=== PATIENT | male | born 1950 | race Caucasian/White ===

== ENCOUNTER 2016-10-10 10:23 | Inpatient (IN) | payer MEDICAID ==
[~2016-10-10] VITALS: Ht 180.3 cm; Wt 93.7 kg
[2016-10-10 11:33] LABS: BASOPHILS 0.4 % (0-2); EOSINOPHILS 1.5 % (0-7); HEMATOCRIT 42.3 % (42.0-54.0); IMMATURE GRANULOCYTES 0.4 % (0-5); LYMPHOCYTES 14.8 % (15-50); MCH 31.4 pg (26.0-34.0); MCHC 35.5 g/dL (31.0-37.0); MCV 88.5 fL (80.0-100.0); MEAN PLATELET VOLUME 10.9 fL (7.4-10.4); MONOCYTES 7.9 % (2-11); PLATELET COUNT 143 10x3/uL (130-400); RBC 4.78 10x6/uL (4.20-6.10); RDW 12.2 % (11.5-14.5); WBC 5.5 10x3/uL (4.8-10.8)
[2016-10-10 11:57] LABS: KETONE - SERUM NEGATIVE (NEGATIVE)
[2016-10-10 11:59] LABS: APPEARANCE CLEAR (CLEAR); BILIRUBIN NEGATIVE (NEGATIVE); COLOR YELLOW (YELLOW); GLUCOSE 1000 mg/dL (NEGATIVE); KETONE NEGATIVE (NEGATIVE); LEUKOCYTE ESTERASE NEGATIVE (NEGATIVE); NITRITE NEGATIVE (NEGATIVE); PROTEIN 1+ mg/dL (NEGATIVE); SPECIFIC GRAVITY 1.015 (1.005-1.020); UROBILINOGEN NORMAL (NORMAL)
[2016-10-10 12:00] LABS: BACTERIA FEW /hpf (NONE SEEN); EPITHELIAL CELLS RARE /hpf (0-5); MUCUS <1+ /lpf (NONE SEEN)
[2016-10-10 12:06] LABS: ALBUMIN 3.5 g/dL (3.4-5.0); ALKALINE PHOSPHATASE 136 U/L (46-116); ALT (SGPT) 18 U/L (10-68); BILIRUBIN - TOTAL 0.54 mg/dL (0.2-1.3); CALC OSMOLALITY 282 mosm/kg (275-300); CHLORIDE - SERUM 98 mmol/L (98-107); CREATININE - SERUM 1.2 mg/dL (0.6-1.3); POTASSIUM - SERUM 4.2 mmol/L (3.5-5.1); PROTEIN - SERUM 7.9 g/dL (6.4-8.2); SODIUM 133 mmol/L (136-145); UREA NITROGEN 11 mg/dL (7-18); eGFR NON AFRICAN AMERICAN 65 mL/min (90-120)
[2016-10-10 12:07] LABS: GLUCOSE 423 mg/dL (74-106)
--- NOTE | 2016-10-10 21:37 | NUR ---
PT ARRIVED ON FLOOR AT THIS TIME. NS HUNG AT 50ML/HOUR. DENIES NEEDS AT THIS TIME. WILL CONTINUE TO MONITOR
[2016-10-10] MEDS ORDERED: TRUVADA 200 MG1 EACH PO (23:15)
[2016-10-10] MEDS ORDERED: TIVICAY50 MG PO (23:16)
[2016-10-11] VITALS: BP 146/78
[2016-10-11 04:00] VITALS: BP 150/97
--- NOTE | 2016-10-11 05:24 | NUR ---
ASSUMMING CARE OF PATIENT. PATIENT IS APPEARING TO BE ALSEEP WITH EVEN RESP, NON LABORED BREATHING. NS INFUSING TO LEFT FA WITHOUT PROBLEMS. WILL CONTINUE TO MONITOR.
--- NOTE | 2016-10-11 07:44 | NUR ---
AM ROUNDING DONE WITH 4 U OF HUMALOG INSULIN GIVEN FOR POC GLUCOSE OF 194. LAYING ON LEFT SIDE. ON HEART MONITOR SHOWING SR, HR 64. IV FLUIDS OF NS INFUSING TO LEFT FA AT 50 CC/HR. WILL CPOC.
[2016-10-11 08:04] VITALS: BP 172/105
[2016-10-11 10:54] VITALS: Ht 180.3 cm; Wt 93.7 kg
[2016-10-11 13:02] VITALS: BP 145/76
--- NOTE | 2016-10-11 15:04 | NUR ---
PATIENT DOES NOT WANT TO WEAR SCD'S HE IS UP AND DOWN TO THE RESTROOM.
[2016-10-11 16:26] VITALS: BP 134/91
--- NOTE | 2016-10-11 17:13 | NUR ---
NEW IV FLUIDS HUNG, DENIES ANY NEEDS AT PRESENT TIME. WILL CPOC.
--- NOTE | 2016-10-11 19:20 | NUR ---
RECEIVED REPORT, WILL ASSUME CARE OF PT, PT IS WATCHING TV AND EATING A SANDWICH, DENIES ANY NEEDS AT THIS TIME, BED IS LOW, SRX-2, CALL LIGHT IN REACH, WILL CONTINUE PLAN OF CARE
[2016-10-11 20:00] VITALS: BP 153/73
[2016-10-12] VITALS: BP 142/72
--- NOTE | 2016-10-12 02:09 | NUR ---
ASSESSMENT COMPLETE, TELEMTRY-SR, PT SLEEPING, BED IS LOW, SRX2, CALL LIGHT IN REACH, WILL CONTINUE PLAN OF CARE
[2016-10-12 04:00] VITALS: BP 162/93
[2016-10-12 05:16] LABS: BASOPHILS 0.4 % (0-2); EOSINOPHILS 1.8 % (0-7); HEMATOCRIT 42.2 % (42.0-54.0); HEMOGLOBIN 14.5 g/dL (13.5-17.5); IMMATURE GRANULOCYTES 0.2 % (0-5); LYMPHOCYTES 25.9 % (15-50); MCH 30.7 pg (26.0-34.0); MCHC 34.4 g/dL (31.0-37.0); MCV 89.2 fL (80.0-100.0); MONOCYTES 7.2 % (2-11); NEUTROPHILS 64.5 % (40-80); PLATELET COUNT 142 10x3/uL (130-400); RBC 4.73 10x6/uL (4.20-6.10); RDW 12.4 % (11.5-14.5); WBC 5.5 10x3/uL (4.8-10.8)
[2016-10-12 05:33] LABS: ALBUMIN 2.9 g/dL (3.4-5.0); ALKALINE PHOSPHATASE 111 U/L (46-116); ALT (SGPT) 17 U/L (10-68); BILIRUBIN - TOTAL 0.54 mg/dL (0.2-1.3); CALCIUM 8.3 mg/dL (8.5-10.1); CARBON DIOXIDE 26.5 mmol/L (21.0-32.0); CHLORIDE - SERUM 104 mmol/L (98-107); POTASSIUM - SERUM 3.6 mmol/L (3.5-5.1); PROTEIN - SERUM 6.8 g/dL (6.4-8.2); SODIUM 138 mmol/L (136-145); UREA NITROGEN 13 mg/dL (7-18); eGFR NON AFRICAN AMERICAN 80 mL/min (90-120)
[2016-10-12 05:36] LABS: CALC OSMOLALITY 279 mosm/kg (275-300); GLUCOSE 174 mg/dL (74-106)
--- NOTE | 2016-10-12 07:44 | NUR ---
AM ROUNDING DONE WITH PATIENT LAYING ON RIGHT SIDE. DENIES NEEDS AT PRESENT TIME. WILL COVER POC GLUCOSE WHEN BREAKFAST TRAYS HERE. ON HEART MONITOR SHOWING SR, HR 65. LEFT FA SEEN WITH NS INFUSING AT 50 CC/HR. WILL CPOC.
[2016-10-12 08:13] VITALS: BP 166/77
--- NOTE | 2016-10-12 11:44 | NUR ---
1125-UP TO SHOWER. DENIES NEEDS AT PRESENT TIME.
[2016-10-12 12:01] VITALS: BP 151/71
[2016-10-12 16:01] VITALS: BP 136/81
--- NOTE | 2016-10-12 16:44 | NUR ---
POC GLUCOSE WITH RESULTS OF 107. NO INSULIN GIVEN PER SLIDING SCALE.
--- NOTE | 2016-10-12 19:56 | NUR ---
RESUMED CARE OF PT, LYING IN BED RESPIRATIONS EVEN AND UNLABORED ON ROOM AIR. 80 SR WITH PACS ON TELEMETRY. LEFT FOREARM INFUSING NS @ 50. NO NEEDS VOICED AT THIS TIME, WILL CONTINUE TO MONITOR. SEE NURSE ASSESSMENT.
[2016-10-12 20:00] VITALS: BP 140/66
[2016-10-13] VITALS: BP 146/72
--- NOTE | 2016-10-13 01:10 | NUR ---
LYING IN BED WITH EYES CLOSED, WILL CONTINUE TO MONITOR.
[2016-10-13 04:00] VITALS: BP 169/89
[2016-10-13 04:42] LABS: BASOPHILS 0.5 % (0-2); EOSINOPHILS 2.3 % (0-7); HEMATOCRIT 41.4 % (42.0-54.0); HEMOGLOBIN 14.6 g/dL (13.5-17.5); IMMATURE GRANULOCYTES 0.3 % (0-5); LYMPHOCYTES 26.7 % (15-50); MCH 31.1 pg (26.0-34.0); MCHC 35.3 g/dL (31.0-37.0); MCV 88.3 fL (80.0-100.0); MEAN PLATELET VOLUME 10.7 fL (7.4-10.4); MONOCYTES 7.1 % (2-11); NEUTROPHILS 63.1 % (40-80); PLATELET COUNT 145 10x3/uL (130-400); RBC 4.69 10x6/uL (4.20-6.10); RDW 12.5 % (11.5-14.5); WBC 5.8 10x3/uL (4.8-10.8)
[2016-10-13 05:22] LABS: ALBUMIN 2.9 g/dL (3.4-5.0); ALKALINE PHOSPHATASE 102 U/L (46-116); ALT (SGPT) 18 U/L (10-68); CALC OSMOLALITY 277 mosm/kg (275-300); CALCIUM 8.3 mg/dL (8.5-10.1); CARBON DIOXIDE 26.4 mmol/L (21.0-32.0); CHLORIDE - SERUM 103 mmol/L (98-107); CREATININE - SERUM 0.9 mg/dL (0.6-1.3); GLUCOSE 130 mg/dL (74-106); POTASSIUM - SERUM 3.6 mmol/L (3.5-5.1); PROTEIN - SERUM 6.7 g/dL (6.4-8.2); SODIUM 138 mmol/L (136-145); UREA NITROGEN 12 mg/dL (7-18); eGFR NON AFRICAN AMERICAN 90 mL/min (90-120)
--- NOTE | 2016-10-13 06:41 | NUR ---
NO CHANGES FROM PREVIOUS ASSESSMENT. CALL LIGHT IN REACH. WILL CONTINUE TO MONITOR.
--- NOTE | 2016-10-13 07:18 | NUR ---
AM ROUNDS- PT IN BED, WITH EYES CLOSED. LT FA IV, INFSUING NS AT 50CC/HR. PT ON RA, RESP EVEN AND UNLABORED. BED LOW AND WHEELS LOCKED, BEDSIDE RAILS X2. CALL LIGHT IN REACH, NAD NOTED, WILL CONTINUE TO MONITOR.
--- NOTE | 2016-10-13 07:57 | NUR ---
AM MEDS GIVEN, PT IN BED, DENIES ANY NEEDS AT THIS TIME. CALL LIGHT IN REACH, NAD NOTED, WILL CONTINUE TO MONITOR/
[2016-10-13 09:30] VITALS: BP 168/87
[2016-10-13] MEDS ORDERED: GLUCOPHAGE500 MG PO (10:47)
--- NOTE | 2016-10-13 11:58 | NUR ---
BLOOD SUGAR OF 284, 10UNITS OF HUMALOG GIVEN PER S/S. PT IN BED, DENIES ANY NEEDS AT THIS TIME. CALL LIGHT IN REACH, NAD NOTED, WILL CONTINUE TO MONITOR.
[2016-10-13 12:12] VITALS: BP 150/69
--- NOTE | 2016-10-13 16:20 | NUR ---
BLOOD SUGAR OF 122, NO COVERAGE NEEDED PER S/S.
[2016-10-13 16:37] VITALS: BP 144/87
--- NOTE | 2016-10-13 17:03 | NUR ---
PROVIDED VERBAL AND WRITTEN D/C INSTURCTIONS TO PT, WHO VERBALIZED UNDERSTANDING REGARING TEACHING. D/C LT FA IV, TIP INTACT. PT WILL NOTIFY NURSE OR COMPUTER FORENSICS TECHNICIAN WHEN READY FOR WHEELCHAIR. NAD NOTED, WILL CONTINUE TO MONITOR.
--- NOTE | 2016-10-13 17:28 | NUR ---
PT LEFT UNIT VIA WHEELCHAIR, ACCOMPANIED BY FAMILY,NAD NOTED.
--- NOTE | 2016-10-13 18:10 | NUR ---
Patient Name: CHIDI SHERMAN Admission Status: ER Accout number: [id number] Admission Date: 10-12-2016 : 1950 Admission Diagnosis: Attending: NONA Current LOS: 1 Anticipated DC Date: 10-13-2016 Planned Disposition: Home Primary Insurance: [place] Discharge Planning Comments: * Is the patient Alert and Oriented? Yes 0 * How many steps to enter\exit or inside your home? 2 0 * PCP DR. MEJIA 0 * Pharmacy BUDGET 0 * Preadmission Environment Home Alone 0 * ADLs Independent 0 * Equipment Cane Glucometer 0 * Other Equipment NO MEDICAL EQUIPMENT PROVIDER PREFERENCE 0 * List name and contact numbers for known caregivers / representatives who currently or will assist patient after discharge: ASHLEY PHAM, SISTER, 0 * Community resources currently utilized None 0 * Please name any agencies selected above. NONE 0 * Additional services required to return to the preadmission environment? No 0 * Can the patient safely return to the preadmission environment? Yes 0 * Has this patient been hospitalized within the prior 30 days at any hospital? No 0 CM MET WITH PT IN ROOM TO DISCUSS DISCHARGE PLANNING AND NEEDS. PT REPORTS LIVING AT HOME INDEPENDENTLY AND ALONE. PT HAS CANE AND GLUCOMETER WITH NO MEDICAL EQUIPMENT PROVIDER PREFERENCE. PT HAS NO OUTSIDE SERVICES ASSISTING IN THE HOME. CM DISCUSSED AVAILABILITY OF HOME HEALTH, REHAB SERVICES AND MEDICAL EQUIPMENT. PT DENIES DISCHARGE NEEDS, REPORTS HIS SISTER WILL PICK HIM UP FOR DISCHARGE HOME TODAY. PT REPORTS HE HAS FUNDS TO GET HIS METFORMIN, BUT RAN OUT AND DID NOT GO BACK TO HIS DOCTOR FOR THE PRESCRIPTION. CM DISCUSSED IMPORTANCE OF DIABETES CONTROL, PT REPORTS UNDERSTANDING AND STATES ABILITY TO FILL HIS PRESCRIPTIONS. Central Aisle Cashier: Jesús Luz
--- NOTE | 2016-10-14 16:08 | DS ---
PATIENT:CHIDI SHERMAN :[birth year] MEDICAL RECORD: [id number] DISCHARGE SUMMARY ADMISSION DATE: 10/12/16 DISCHARGE DATE: 10/13/16 DATE OF ADMISSION: 10/12/2016 DATE OF DISCHARGE: 10/13/2016 ADMITTING DIAGNOSES: Diabetes mellitus with hyperglycemia, nicotine dependence with withdrawal, human immunodeficiency virus and hypertension chronic. HOSPITAL COURSE: This is a gentleman followed by Dr. Jackson, admitted with diagnoses as outlined above. Details are well-outlined in the history of the present illness, H&P. All events, lab procedures, diagnostic testing are well documented in the records. The patient was admitted, started on sliding scale insulin, nicotine patch placed for nicotine dependence with withdrawal. He was placed on scuds and PPI. His blood sugars improved. He admitted that he takes metformin at home 1000 mg a day and had not been taking it for unknown reasons. His blood sugars stabilized. He has hyponatremia with a pseudohyponatremia due to hyperglycemia, sodium quickly normalized to 138, he is stable for dismissal home today. OBJECTIVE: VITAL SIGNS: Afebrile, pulse 68, respirations 18, blood pressure 150/69, O2 sat 95% to 98% room air. Glucose 284, 276 107. LABORATORY DATA: White count 5.8, hemoglobin 14.6, platelets are 145. Sodium 138, potassium 3.6, chloride 103, CO2 of 26, BUN 12, serum creatinine 0.9 and another glucose drawn this morning 130 that was this morning before breakfast was 130 and then yesterday afternoon, we had 107. DIAGNOSES: Diabetes mellitus with hyperglycemia, nicotine dependence with withdrawal, human immunodeficiency virus, hypertension chronic. FOLLOW UP: He will follow up with Dr. Jackson in a week. Greater than 30 minutes was spent on this discharge. He is to follow up with Dr. Vang for his chronic HIV, please refer to med rec. TRANSINT:[id number] Voice Confirmation ID: [id number] DOCUMENT ID: [id number] Dictated By: REDDY HICKS RN I have interviewed/examined the above patient and agree with these documented findings. BASIA PAGAN MD at 1608 CC: [id number] DICTATION DATE: 10/13/16 1256 PILE DRIVER OPERATOR: 10/14/16 0141 DIS IN 10/13/[address] [facility] [address] [place] [address]
== END 2016-10-13 17:29 | disposition home or self-care (01) | DRG 637 ==
LOC: D.ER 10:23 → D.M2 19:02 → OBSVTIME 19:02 → D.M2 10-12 16:41
PROVIDERS: Emergency Medicine; Family Medicine; ADMIT Family Medicine
DX: E11.65 Type 2 diabetes mellitus with hyperglycemia (principal); B20 Human immunodeficiency virus [HIV] disease; F17.203 Nicotine dependence unspecified, with withdrawal; E87.1 Hypo-osmolality and hyponatremia; I10 Essential (primary) hypertension

== ENCOUNTER → 2017-01-27 11:37 | Outpatient (CLI) | payer MEDICAID ==
[2016-10-11 10:54] VITALS: BMI 27.4
[~2017-01-27 11:37] MED LIST: ALDACTONE25 MG PO; COREG6.25 MG PO; GLUCOPHAGE500 MG PO; HUMULIN R100 U/ML SC; MACROBID100 MG PO; TIVICAY50 MG PO; TRUVADA 200 MG1 EACH PO
== END | disposition home or self-care (01) ==
LOC: D.RAD 11:37
DX: A15.9 Respiratory tuberculosis unspecified (principal)

== ENCOUNTER 2017-02-10 14:42 | Emergency (ER) | payer MEDICAID ==
[2016-10-11 10:54] VITALS: BMI 27.4
[~2017-02-10 14:42] MED LIST changes: -ALDACTONE25 MG PO; -COREG6.25 MG PO; -HUMULIN R100 U/ML SC; -MACROBID100 MG PO
== END 2017-02-10 17:29 | disposition home or self-care (01) ==
LOC: D.ER 14:42
DX: J06.9 Acute upper respiratory infection, unspecified (principal); F17.200 Nicotine dependence, unspecified, uncomplicated

== ENCOUNTER 2017-03-04 11:35 | Inpatient (IN) | payer MEDICARE, MEDICAID ==
[~2017-03-04] VITALS: Ht 180.3 cm; Wt 89.2 kg
--- NOTE | ~2017-03-04 | OP ---
PATIENT NAME: CHIDI SHERMAN MEDICAL RECORD: [id number] :54 LOCATION:D.M2 D.2115 ADMISSION DATE:03/04/17 SURGEON: MENDEL COMBS MD DATE OF OPERATION: 03/07/2017 PROCEDURE: Left heart catheterization, selective coronary angiography, right femoral artery approach. CATHETERS: A 5-Korean sheath, 5/4 left and right Cami, 5/4 pig. Procedure was well tolerated. The patient returned to the plummer, sheath removed. ExoSeal device placed. FINDINGS: Left ventriculography in 30-degree ORO view, severe global hypokinesis, reduced EF, estimated EF 15% to 20%. CORONARY ANATOMY: LEFT MAIN: Left main is free of disease. LAD: Free of disease as the diagonal system. CIRCUMFLEX: The distal portion shows diffuse disease, not amenable to intervention. RIGHT CORONARY ARTERY: Distal diffuse disease, not amenable to coronary intervention. 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 We will start carvedilol, Aldactone, could add LUZ, ARB if creatinine stabilizes. TRANSINT:[id number] Voice Confirmation ID: [id number] DOCUMENT ID: [id number] MENDEL COMBS MD at 1129 CC: [id number] DICTATION DATE: 03/07/17911 RANCH HELPER: 03/07/17 1145 ADM IN [place] [id number] [place] [address]
--- NOTE | ~2017-03-04 | HEMODYNAMI ---
PATIENT:CHIDI SHERMAN MEDICAL RECORD: [id number] : 54 LOCATION:[facility] D2115 [facility]# [id number] ADMISSION DATE: 03/04/17 Generatedon:03/07/20179:12 Patient name: CHIDI SHERMAN Patient #: [id number] SSN: : 1950 Date of study: 03/07/2017 Page: Of Hemodynamic Procedure Report Patient Data Patient Demographics Procedure consent was obtained First Name: CHIDI Gender: Male Last Name: LANE : 1950 Patient #: [id number] Age: 67 year(s) Race: Additional ID: [id number] Contact details Address: [address] [place] [address] State: [place] City: [facility] Zip code: [address] Past Medical History Allergies: No known allergies Admission Admission Data Admission Date: 03/04/2017 Admission Time: 16:05 Admit Source: Other Room #: D.2115 Lab Results Lab Result Date: 03/07/2017 Lab Result Time: 0:00 Biochemistry Name Units Result Min Max BUN mg/dl 23 --(----)-* 7 18 Creatinine mg/dl 1.7 --(----)-* 0.6 1.3 Glucose mg/dl 123 --(----)-* 74 106 Procedure Procedure Types Cath Procedure Diagnostic Procedure [facility] w/Coronaries Procedure Description Procedure Date Procedure Date: 03/07/2017 Procedure Start Time: 8:57 Procedure End Time: 9:08 Procedure Staff Name Function Sarath Valerio MD Performing Physician Chen Adams RT Monitor Liz Her RT Scrub Lars Hopper RN Nurse Procedure Data Cath Procedure Fluoroscopy Diagnostic fluoroscopy Total fluoroscopy Time: 1.3 time: 1.3 min min Diagnostic fluoroscopy Total fluoroscopy dose: 554 dose: 554 mGy mGy Contrast Material Contrast Material Type Amount (ml) Isovue 300 66 Entry Location Entry Primary Successful Side Size Upsize Upsize Entry Closure Succes sful Closure Location (Fr) 1 (Fr) 2 (Fr) Remarks Device Remarks Femoral Right 5 Fr Exoseal artery Estimated blood loss: 10 ml Diagnostic catheters Device Type Used For End Catheter Placement MULTIPACK JL 4.0 5Fr Procedure catheter MULTIPACK 3DRC 5Fr Procedure catheter MULTIPACK Pigtail 5 Fr Ventriculography catheter Procedure Complications No complications Procedure Medications Medication Administration Route Dosage 0.9% NaCl I.V. 100 ml/hr Oxygen NC 2 l/min Heparin Flush Bag added to field 2 bags (1000units/500ml NS) Lidocaine 2% Hemodynamics Rest Heart Rate: 106 (bpm) Pressure Samples Time Site Value (mmHg) Purpose Heart Use Rate(bpm) 9:03 LV 130/20,20 Snapshot 116 9:04 AO 151/92(92) Pullback 96 9:04 LV 119/20,21 Pullback 96 Gradients Valve Time Site 1 Site 2 Mean SEP/DFP Peak To Heart Use (mmHg) (sec/min) Peak Rate (mmHg) (bpm) Aortic 9:04 LV AO 0 10 0 96 119/20,21 151/92(92) Calculations Valve P-P Mean Valve Index Valve Source Name Gradient Area Flow (cm2) Aortic 0 0 0 0 Snapshots Pre Cath Intra NCS Post Cath Vital Signs Time Heart Resp SPO2 etCO2 NIBP (mmHg) Rhythm Pain Sedation Rate (ipm) (%) (mmHg) Status Level (bpm) 8:44:45 110 21 92 0 132/84(110) NSR 0 (11) 10(A) , No pain 8:50:17 102 29 93 0 130/48(113) NSR 0 (11) 10(A) , No pain 8:54:57 102 38 95 0 121/81(101) NSR 0 (11) 10(A) , No pain 8:59:34 110 24 92 0 120/93(108) NSR 0 (11) 10(A) , No pain 9:04:08 87 34 95 0 125/87(96) NSR 0 (11) 10(A) , No pain 9:08:47 100 17 0 140/76(106) NSR 0 (11) 10(A) , No pain Medications Time Medication Route Dose Verified Delivered Reason Notes Effect iveness by by 8:44:14 0.9% NaCl I.V. 100 Lars Lars Per ml/hr Ruchi Hopper physician RN RN 8:44:29 Oxygen NC 2 Lars Lars Per l/min Ruchi Hopper physician RN RN 8:44:43 Heparin Flush added 2 Lars Lars used for Bag to bags Ruchi Hopper procedure (1000units/500ml field RN RN NS) 8:45:42 Lidocaine 2% Lars Lars Ruchi Hopper RN firebrick layer Log Time Note 8:24:38 Informed consent obtained and on chart 8:24:42 Diagnostic Cath Status : Elective 8:38:45 Admit Source: Other 8:38:49 Chen Adams RT(R) sent for patient. Start room use. 8:38:50 Time tracking: Call back 8:39:02 Plan of Care:Hemodynamics will remain stable., Cardiac rhythm will remain stable., Comfort level will be maintained., Respiratory function will remain adequate., Patient/ family verbilizes understanding of procedure., Procedure tolerated without complication., Recovers from procedure without complications.. 8:39:10 Patient received from Med II to CCL 1 Alert and oriented. Tansferred to table in Supine position. 8:39:12 Warm blankets applied, and robina hugger turned on for patient comfort. 8:39:13 Correct patient and procedure confirmed by team. 8:39:14 ECG and BP/O2 sat monitors applied to patient. 8:39:16 Vital chart was started 8:39:19 Baseline sample Acquired. 8:39:26 Baseline sample Acquired. 8:39:32 Full Disclosure recording started 8:39:44 H&P Date Dictated: 03/06/2017 Within 30 days and on chart.. 8:39:45 Pre-procedure instructions explained to patient. 8:39:48 Family unavailable. 8:39:50 Patient NPO since Midnight. 8:39:58 Patient allergic to No known allergies 8:40:01 Is the patient allergic to Iodine/contrast media? No. 8:40:02 Was the patient premedicated? Yes 8:40:04 Is patient on blood thinner?No 8:40:40 Patient diabetic? Yes. 8:40:42 If diabetic: On Metformin? Yes 8:40:53 If on Metformin: Last Dose? 03/06/2017 8:40:58 Previous problem with sedation/anesthesia? Unknown ? 8:41:01 Snore? No 8:41:03 Sleep apnea? Unknown 8:41:08 Dentures? No ? 8:41:15 Patient pain scale 0/10 ?. 8:41:26 IV patent on arrival in left hand with 0.9% NaCl at [facility]. 8:41:32 Lab results completed and on chart. 8:41:36 Right groin area was prepped with chlora-prep and draped in sterile fashion 8:41:38 Alarms reviewed by R. N. 8:41:39 Sharps counted by scrub and verified by R.N. 8:41:39 Physician paged 8:43:48 Vital chart was stopped 8:43:56 Vital chart was started 8:44:14 0.9% NaCl 100 ml/hr I.V. was administered by Lars Hopper RN; Per physician; 8:44:29 Oxygen 2 l/min NC was administered by Lars Hopper RN; Per physician; 8:44:43 Heparin Flush Bag (1000units/500ml NS) 2 bags added to field was administered by Lars Hopper RN; used for procedure; 8:45:42 Lidocaine 2% was administered by Lars Hopper RN; ; 8:53:44 Lab Result : Creatinine 1.7 mg/dl 8:53:44 Lab Result : BUN 23 mg/dl 8:53:44 Lab Result : Glucose 123 mg/dl 8:53:49 Physician arrived 8:53:50 --------ALL STOP TIME OUT------ 8:53:51 Final Timeout: patient, procedure, and site verified with staff and physician. All members of the team are in agreement. 8:53:55 Right groin site verified by team. 8:54:01 Physical assessment completed. ASA score P 3 - A patient with severe systemic disease as per Sarath Valerio MD. 8:54:09 Sedation plan: Local Anesthetic Medication:Lidocaine 8:54:19 Use device set Femoral Dx 8:54:23 ACIST Syringe (85853) opened to sterile field. 8:54:23 Bag Decanter (2002S) opened to sterile field. 8:54:24 Medline Cath Pack ([id number]) opened to sterile field. 8:54:24 SHEATH 5FR [place] (OHO966) opened to sterile field. 8:54:25 DIAGNOSTIC WIRE .035 260cm J wire (660136) opened to sterile field. 8:54:26 ACIST Hand Control (86419) opened to sterile field. 8:54:26 ACIST Manifold (51202) opened to sterile field. 8:54:27 DIAGNOSTIC Multipack 5Fr catheter set (TD5654) opened to sterile field. 8:54:27 Tegaderm 4 x 4 (1626W) opened to sterile field. 8:54:28 PERCUTANEOUS ENTRY 19GA needle opened to sterile field. 8:57:15 Procedure started. 8:57:36 Local anesthetic to right femoral artery with Lidocaine 2% by Sarath Valerio MD.INITIAL ACCESS ONLY 8:57:49 A 5 Fr sheath was inserted into the Right Femoral artery 8:58:18 Zero performed for pressure channel P1 8:59:21 A MULTIPACK JL 4.0 5Fr catheter was advanced over the wire and used for Procedure. 9:00:33 LCA angiography performed. 9:01:06 Catheter removed. 9:01:15 A MULTIPACK 3DRC 5Fr catheter was advanced over the wire and used for Procedure. 9:01:55 RCA angiography performed. 9:02:37 Catheter removed. 9:02:48 A MULTIPACK Pigtail 5 Fr catheter was advanced over the wire and used for Ventriculography. 9:04:23 EF : 20 % 9:04:25 Catheter removed. 9:04:31 EXOSEAL 5Fr (EX500) opened to sterile field. 9:04:45 Sheath removed intact; hemostasis achieved with Exoseal to the Right Femoral artery. 9:04:49 Procedure ended.(Physican Out) 9:06:02 Fluoroscopy time 01.30 minutes. 9:06:09 Fluoroscopy dose: 554 mGy 9:06:09 Flurop Dose total: 554 9:06:20 Contrast amount:Isovue 300 66ml. 9:06:21 Sharps counted by scrub and verified by R.N. 9:06:23 Insertion/operative site no bleeding no hematoma. 9:06:28 Post right femoral artery:stable 9:06:32 Post Procedure Pulses reassessed and unchanged 9:06:55 Post-procedure physical assessment completed. ASA score P 3 - A patient with severe systemic disease as per Sarath Valerio MD. 9:06:58 Post procedure rhythm: unchanged. 9:07:01 Estimated blood loss: 10 ml 9:07:03 Post procedure instruction explained to patient.Patient verbalizes understanding. 9:07:21 Patient needs reinforcement of post procedure teaching. 9:07:32 Procedure type changed to Cath procedure, Diagnostic procedure, LHC, LHC w/Coronaries 9:07:34 Procedure and supply charges have been captured, reviewed, submitted and are correct. 9:07:57 Procedure Complication : No complications 9:08:18 See physician's report for complete and final results. 9:08:21 Report given to [facility]. 9:08:27 Patient transfered to [facility] with Bed. 9:08:37 Procedure ended. 9:08:37 Full Disclosure recording stopped 9:08:41 End room use (Document Last) 9:12:24 Vital chart was stopped Device Usage Item Name Manufacture Quantity Catalog Hospital Part Current Minimal Lot# / Number Charge Number Stock Stock Serial# Code ACIST Acist 1 43922 120168 925201 498953 20 Syringe Medical (91703) Systems Inc Bag Decanter Microtek 1 2001S 563434 82683 507578 5 (2001S) Medical Inc. Medline Cath Cardinal 1 [id number] 199238 91224 309770 5 Pack Health ([id number]) SHEATH 5FR Terumo 1 IPL234 719525 439836 572849 40 [place] (QGM743) DIAGNOSTIC St Denis 1 691704 715697 572343 343047 30 WIRE .035 260cm J wire (942733) ACIST Hand Acist 1 67135 131295 978502 179527 5 Control Medical (18714) Systems Inc ACIST Acist 1 97878 425918 363271 308861 5 Manifold Medical (90305) Systems Inc DIAGNOSTIC Cardinal 1 [id number] 325954 64332 795160 30 Multipack Health 5Fr catheter set (YM1145) Tegaderm 4 x 3M 1 1626W 655520 492338 079355 5 4 (1626W) PERCUTANEOUS Cook Medical 1 [id number] 081829 107874 5 ENTRY 19GA needle MULTIPACK JL Cardinal 1 191255 5 4.0 5Fr Health catheter MULTIPACK Cardinal 1 341879 5 3DRC 5Fr Health catheter MULTIPACK Cardinal 1 062038 5 Pigtail 5 Fr Health catheter EXOSEAL 5Fr Cardinal 1 EX500 203515 726178 267359 10 (EX500) Health Signature Audit Fajardo Stage Time Signature Unsigned Intra-Procedure 03/07/2017 Chen Adams 9:12:22 AM RT(R) Signatures Monitor : Chen Adams Signature : RT Date : Time : [place] [id number] [facility] [place] [address]
[2017-03-04 12:46] LABS: BASOPHILS 0.3 % (0-2); EOSINOPHILS 0.4 % (0-7); HEMATOCRIT 49.3 % (42.0-54.0); HEMOGLOBIN 16.3 g/dL (13.5-17.5); IMMATURE GRANULOCYTES 0.1 % (0-5); LYMPHOCYTES 17.5 % (15-50); MCH 30.4 pg (26.0-34.0); MCHC 33.1 g/dL (31.0-37.0); MEAN PLATELET VOLUME 11.6 fL (7.4-10.4); MONOCYTES 12.7 % (2-11); RBC 5.36 10x6/uL (4.20-6.10); WBC 7.4 10x3/uL (4.8-10.8)
[2017-03-04 12:47] LABS: PLATELET COUNT 176 10x3/uL (130-400)
[2017-03-04 13:04] LABS: ALBUMIN 3.5 g/dL (3.4-5.0); ALKALINE PHOSPHATASE 164 U/L (46-116); ALT (SGPT) 201 U/L (10-68); BILIRUBIN - TOTAL 0.82 mg/dL (0.2-1.3); CALC OSMOLALITY 286 mosm/kg (275-300); CALCIUM 9.4 mg/dL (8.5-10.1); CARBON DIOXIDE 25.3 mmol/L (21.0-32.0); CHLORIDE - SERUM 105 mmol/L (98-107); CREATININE - SERUM 1.3 mg/dL (0.6-1.3); GLUCOSE 143 mg/dL (74-106); POTASSIUM - SERUM 4.2 mmol/L (3.5-5.1); PROTEIN - SERUM 7.1 g/dL (6.4-8.2); SODIUM 142 mmol/L (136-145); UREA NITROGEN 19 mg/dL (7-18); eGFR NON AFRICAN AMERICAN 59 mL/min (90-120)
[2017-03-04 13:16] LABS: CREATINE KINASE 306 UL (21-232); MAGNESIUM - SERUM 2.3 mg/dL (1.8-2.4); PRO BNP 1629 pg/mL (0-125)
[2017-03-04 13:21] LABS: TROPONIN-I 4.418 ng/mL (0.000-0.060)
[2017-03-04 13:48] LABS: CKMB 13.4 U/L (0.0-3.6)
[2017-03-04 13:52] LABS: APPEARANCE CLEAR (CLEAR); BILIRUBIN NEGATIVE (NEGATIVE); COLOR YELLOW (YELLOW); GLUCOSE NEGATIVE (NEGATIVE); KETONE NEGATIVE (NEGATIVE); NITRITE NEGATIVE (NEGATIVE); PROTEIN 2+ mg/dL (NEGATIVE); UROBILINOGEN NORMAL (NORMAL)
[2017-03-04 13:53] LABS: BACTERIA FEW /hpf (NONE SEEN); EPITHELIAL CELLS RARE /hpf (0-5); MUCUS <1+ /lpf (NONE SEEN); RED CELLS - URINE RARE /hpf (0-5); WHITE CELLS - URINE RARE /hpf (0-5)
[2017-03-04 16:27] LABS: CKMB 10.5 U/L (0.0-3.6); CREATINE KINASE 226 UL (21-232)
[2017-03-04 16:37] LABS: TROPONIN-I 3.985 ng/mL (0.000-0.060)
[2017-03-04 17:32] VITALS: BP 131/88; BP 158/89; BMI 29.6; BMI 35.4
[2017-03-04 21:44] VITALS: BP 120/76
[2017-03-04 22:35] LABS: CREATINE KINASE 198 UL (21-232)
[2017-03-05 03:57] LABS: BASOPHILS 0.6 % (0-2); EOSINOPHILS 0.9 % (0-7); HEMATOCRIT 46.8 % (42.0-54.0); HEMOGLOBIN 15.5 g/dL (13.5-17.5); IMMATURE GRANULOCYTES 0.2 % (0-5); MCH 30.6 pg (26.0-34.0); MCHC 33.1 g/dL (31.0-37.0); MCV 92.5 fL (80.0-100.0); MEAN PLATELET VOLUME 11.8 fL (7.4-10.4); MONOCYTES 12.6 % (2-11); NEUTROPHILS 64.7 % (40-80); PLATELET COUNT 149 10x3/uL (130-400); RBC 5.06 10x6/uL (4.20-6.10)
[2017-03-05 04:42] LABS: ALBUMIN 3.2 g/dL (3.4-5.0); ALKALINE PHOSPHATASE 148 U/L (46-116); ALT (SGPT) 167 U/L (10-68); BILIRUBIN - TOTAL 0.81 mg/dL (0.2-1.3); CALCIUM 9.1 mg/dL (8.5-10.1); CARBON DIOXIDE 26.9 mmol/L (21.0-32.0); CHLORIDE - SERUM 105 mmol/L (98-107); CKMB 7.1 U/L (0.0-3.6); CREATININE - SERUM 1.6 mg/dL (0.6-1.3); GLUCOSE 117 mg/dL (74-106); POTASSIUM - SERUM 4.1 mmol/L (3.5-5.1); PROTEIN - SERUM 6.9 g/dL (6.4-8.2); SODIUM 141 mmol/L (136-145); eGFR NON AFRICAN AMERICAN 46 mL/min (90-120)
[2017-03-05 04:43] LABS: CALC OSMOLALITY 285 mosm/kg (275-300); CREATINE KINASE 512 UL (21-232); TROPONIN-I 5.342 ng/mL (0.000-0.060); UREA NITROGEN 24 mg/dL (7-18)
[2017-03-05 04:47] VITALS: BP 134/77
[2017-03-05 07:57] VITALS: BP 130/80
[2017-03-05 11:18] VITALS: BP 136/72
[2017-03-05 13:32] VITALS: Ht 180.3 cm; Wt 89.2 kg
[2017-03-05 15:38] VITALS: BP 130/68
[2017-03-05 21:03] VITALS: BP 111/69
[2017-03-06 04:49] VITALS: BP 136/79
[2017-03-06 08:35] VITALS: BP 128/56
[2017-03-06 08:47] LABS: ANION GAP 10.8 mmol/L (8-16); CALCIUM 9.3 mg/dL (8.5-10.1); CARBON DIOXIDE 30.9 mmol/L (21.0-32.0); CREATININE - SERUM 1.7 mg/dL (0.6-1.3); POTASSIUM - SERUM 3.7 mmol/L (3.5-5.1)
[2017-03-06 11:40] VITALS: BP 131/66
[2017-03-06 13:47] LABS: APPEARANCE TURBID (CLEAR); BACTERIA FEW /hpf (NONE SEEN); BILIRUBIN NEGATIVE (NEGATIVE); COLOR RED (YELLOW); EPITHELIAL CELLS OCC /hpf (0-5); GLUCOSE NEGATIVE (NEGATIVE); KETONE NEGATIVE (NEGATIVE); MUCUS <1+ /lpf (NONE SEEN); NITRITE NEGATIVE (NEGATIVE); PROTEIN 3+ mg/dL (NEGATIVE); RED CELLS - URINE >50 /hpf (0-5); UROBILINOGEN NORMAL (NORMAL)
[2017-03-06 15:34] VITALS: BP 136/63
[2017-03-06 19:00] VITALS: BP 126/73
[2017-03-07 04:00] VITALS: BP 124/62
[2017-03-07 06:47] LABS: BASOPHILS 0.2 % (0-2); EOSINOPHILS 0.2 % (0-7); HEMATOCRIT 45.2 % (42.0-54.0); HEMOGLOBIN 14.9 g/dL (13.5-17.5); IMMATURE GRANULOCYTES 0.2 % (0-5); LYMPHOCYTES 9.5 % (15-50); MCH 30.3 pg (26.0-34.0); MCV 92.1 fL (80.0-100.0); MONOCYTES 11.2 % (2-11); NEUTROPHILS 78.7 % (40-80); RBC 4.91 10x6/uL (4.20-6.10); RDW 13.7 % (11.5-14.5); WBC 12.9 10x3/uL (4.8-10.8)
[2017-03-07 06:56] LABS: ANION GAP 13.7 mmol/L (8-16); CALCIUM 9.1 mg/dL (8.5-10.1); CREATININE - SERUM 1.6 mg/dL (0.6-1.3); POTASSIUM - SERUM 3.7 mmol/L (3.5-5.1)
[2017-03-07 07:00] LABS: PLATELET COUNT 179 10x3/uL (130-400)
[2017-03-07 08:04] VITALS: BP 106/50
[2017-03-07 15:37] VITALS: BP 112/77
[2017-03-07 21:26] VITALS: BP 109/78
[2017-03-08 01:29] VITALS: BP 145/83
[2017-03-08 06:39] LABS: BASOPHILS 0.2 % (0-2); EOSINOPHILS 0.2 % (0-7); HEMATOCRIT 43.5 % (42.0-54.0); HEMOGLOBIN 14.3 g/dL (13.5-17.5); IMMATURE GRANULOCYTES 0.3 % (0-5); LYMPHOCYTES 9.2 % (15-50); MCH 30.2 pg (26.0-34.0); MCHC 32.9 g/dL (31.0-37.0); MEAN PLATELET VOLUME 11.7 fL (7.4-10.4); MONOCYTES 9.9 % (2-11); NEUTROPHILS 80.2 % (40-80); PLATELET COUNT 158 10x3/uL (130-400); RBC 4.73 10x6/uL (4.20-6.10); RDW 13.6 % (11.5-14.5)
[2017-03-08 06:51] LABS: ANION GAP 11.1 mmol/L (8-16); CALCIUM 8.9 mg/dL (8.5-10.1); CARBON DIOXIDE 30.5 mmol/L (21.0-32.0); CREATININE - SERUM 1.5 mg/dL (0.6-1.3); POTASSIUM - SERUM 3.6 mmol/L (3.5-5.1)
[2017-03-08 07:58] VITALS: BP 103/56
[2017-03-08 11:24] VITALS: BP 100/61
[2017-03-08 15:35] VITALS: BP 123/71
[2017-03-08 21:27] VITALS: BP 98/69
[2017-03-09 01:46] VITALS: BP 107/65
[2017-03-09 05:40] VITALS: BP 115/57
[2017-03-09 06:26] LABS: BASOPHILS 0.2 % (0-2); EOSINOPHILS 0.6 % (0-7); HEMATOCRIT 42.7 % (42.0-54.0); IMMATURE GRANULOCYTES 0.4 % (0-5); MCHC 32.8 g/dL (31.0-37.0); MCV 91.6 fL (80.0-100.0); MEAN PLATELET VOLUME 11.7 fL (7.4-10.4); MONOCYTES 10.6 % (2-11); NEUTROPHILS 75.2 % (40-80); PLATELET COUNT 168 10x3/uL (130-400); RBC 4.66 10x6/uL (4.20-6.10); RDW 13.5 % (11.5-14.5); WBC 12.4 10x3/uL (4.8-10.8)
[2017-03-09 06:59] LABS: ANION GAP 14.1 mmol/L (8-16); CALCIUM 8.7 mg/dL (8.5-10.1); CARBON DIOXIDE 26.7 mmol/L (21.0-32.0); CREATININE - SERUM 1.6 mg/dL (0.6-1.3); POTASSIUM - SERUM 3.8 mmol/L (3.5-5.1)
[2017-03-09 08:10] VITALS: BP 117/80
[2017-03-09 11:23] VITALS: BP 122/78
[2017-03-09 15:31] VITALS: BP 132/78
[2017-03-09 19:00] VITALS: BP 102/71
[2017-03-10 04:00] VITALS: BP 115/81
[2017-03-10 06:06] LABS: BASOPHILS 0.5 % (0-2); HEMATOCRIT 43.6 % (42.0-54.0); HEMOGLOBIN 14.6 g/dL (13.5-17.5); IMMATURE GRANULOCYTES 0.2 % (0-5); LYMPHOCYTES 14.7 % (15-50); MCH 30.4 pg (26.0-34.0); MCHC 33.5 g/dL (31.0-37.0); MCV 90.6 fL (80.0-100.0); MEAN PLATELET VOLUME 12.5 fL (7.4-10.4); MONOCYTES 13.4 % (2-11); NEUTROPHILS 70.2 % (40-80); PLATELET COUNT 182 10x3/uL (130-400); RBC 4.81 10x6/uL (4.20-6.10); RDW 13.2 % (11.5-14.5); WBC 9.7 10x3/uL (4.8-10.8)
[2017-03-10 06:20] LABS: CARBON DIOXIDE 27.8 mmol/L (21.0-32.0); CREATININE - SERUM 1.8 mg/dL (0.6-1.3); POTASSIUM - SERUM 3.8 mmol/L (3.5-5.1)
[2017-03-10 07:42] VITALS: BP 122/68
[2017-03-10 11:26] VITALS: BP 105/70
[2017-03-10 15:35] VITALS: BP 108/76
[2017-03-10 20:46] VITALS: BP 119/77
[2017-03-11 04:46] VITALS: BP 98/59
[2017-03-11 05:56] LABS: BASOPHILS 0.3 % (0-2); EOSINOPHILS 1.6 % (0-7); HEMATOCRIT 43.2 % (42.0-54.0); IMMATURE GRANULOCYTES 0.1 % (0-5); MCH 29.6 pg (26.0-34.0); MCHC 32.4 g/dL (31.0-37.0); MCV 91.3 fL (80.0-100.0); MEAN PLATELET VOLUME 11.7 fL (7.4-10.4); MONOCYTES 11.3 % (2-11); NEUTROPHILS 65.7 % (40-80); PLATELET COUNT 205 10x3/uL (130-400); RBC 4.73 10x6/uL (4.20-6.10); RDW 13.2 % (11.5-14.5); WBC 7.3 10x3/uL (4.8-10.8)
[2017-03-11 06:20] LABS: ANION GAP 11.7 mmol/L (8-16); CALCIUM 8.8 mg/dL (8.5-10.1); CARBON DIOXIDE 28.2 mmol/L (21.0-32.0); CREATININE - SERUM 1.7 mg/dL (0.6-1.3); POTASSIUM - SERUM 3.9 mmol/L (3.5-5.1)
[2017-03-11 08:36] VITALS: BP 110/68
[2017-03-11 12:15] VITALS: BP 98/72
[2017-03-11] MEDS ORDERED: ALDACTONE25 MG PO (13:23)
[2017-03-11] MEDS ORDERED: COREG6.25 MG PO (13:23)
[2017-03-11] MEDS ORDERED: HUMULIN R100 U/ML SC (13:24)
[2017-03-11] MEDS ORDERED: MACROBID100 MG PO (13:29)
[2017-03-11 15:06] VITALS: BP 108/64
== END 2017-03-11 15:34 | DRG 977 ==
LOC: D.ER 11:35 → D.M2 16:05
PROVIDERS: Emergency Medicine; Family Medicine; Internal Medicine Interventional Cardiology; Nurse Practitioner Family
PROC: B2151ZZ Fluoroscopy of Left Heart using Low Osmolar Contrast (ICD-10-PCS; 2017-03-07)
PROC: 4A023N7 Measurement of Cardiac Sampling and Pressure, Left Heart, Percutaneous Approach (ICD-10-PCS; 2017-03-07)
PROC: B2111ZZ Fluoroscopy of Multiple Coronary Arteries using Low Osmolar Contrast (ICD-10-PCS; principal; 2017-03-07 08:38)
DX: B20 Human immunodeficiency virus [HIV] disease (principal); I21.4 Non-ST elevation (NSTEMI) myocardial infarction; I50.23 Acute on chronic systolic (congestive) heart failure; I48.92 Unspecified atrial flutter; N39.0 Urinary tract infection, site not specified; I43 Cardiomyopathy in diseases classified elsewhere; E11.65 Type 2 diabetes mellitus with hyperglycemia; B96.20 Unspecified Escherichia coli [E. coli] as the cause of diseases classified elsewhere; I11.0 Hypertensive heart disease with heart failure; N28.9 Disorder of kidney and ureter, unspecified; Z72.0 Tobacco use

== ENCOUNTER 2017-03-11 20:07 | Emergency (ER) | payer MEDICARE, MEDICAID ==
[2017-03-05 13:32] VITALS: BMI 29.4
[~2017-03-11 20:07] MED LIST changes: +ALDACTONE25 MG PO; +COREG6.25 MG PO; +HUMULIN R100 U/ML SC; +MACROBID100 MG PO
[2017-03-11 22:05] LABS: BASOPHILS 0.4 % (0-2); EOSINOPHILS 1.3 % (0-7); HEMATOCRIT 43.1 % (42.0-54.0); HEMOGLOBIN 14.2 g/dL (13.5-17.5); IMMATURE GRANULOCYTES 0.3 % (0-5); LYMPHOCYTES 20.4 % (15-50); MCH 30.3 pg (26.0-34.0); MCHC 32.9 g/dL (31.0-37.0); MCV 92.1 fL (80.0-100.0); MEAN PLATELET VOLUME 11.7 fL (7.4-10.4); MONOCYTES 13.9 % (2-11); NEUTROPHILS 63.7 % (40-80); PLATELET COUNT 186 10x3/uL (130-400); RBC 4.68 10x6/uL (4.20-6.10); RDW 13.2 % (11.5-14.5); WBC 7.6 10x3/uL (4.8-10.8)
== END 2017-03-11 23:15 | disposition home or self-care (01) ==
LOC: D.ER 20:07
PROVIDERS: Physician Assistant Medical
DX: R04.0 Epistaxis (principal); F17.200 Nicotine dependence, unspecified, uncomplicated; I50.9 Heart failure, unspecified; J44.9 Chronic obstructive pulmonary disease, unspecified; B20 Human immunodeficiency virus [HIV] disease; I10 Essential (primary) hypertension

== ENCOUNTER 2017-04-28 18:45 | Observation (INO) | payer MEDICARE, MEDICAID ==
--- NOTE | ~2017-04-28 | DS ---
PATIENT:CHIDI SHERMAN :54 MEDICAL RECORD: [id number] DISCHARGE SUMMARY ADMISSION DATE: 04/28/17 DISCHARGE DATE: 04/29/17 DIAGNOSES: 1. Angina. 2. Coronary artery disease. 3. Atrial fibrillation, new onset, unknown duration. 4. Cardiomyopathy. 5. HIV. 6. Insulin-dependent diabetes. HISTORY OF PRESENT ILLNESS: This is a gentleman who was seen previously by Dr. Valerio, had a cardiac catheterization revealing moderate coronary disease, did not undergo intervention, was doing well. He began having chest tightness, presented. He was in new onset atrial fibrillation of unknown duration. He states that he can feel that his heart is irregular. This has been going on for quite some time. He was on Coreg. We discontinued that. His rate was controlled with Cardizem drip. With the initiation of sotalol he had rate control, remained in atrial fibrillation. We gave him samples of Eliquis and sotalol at 80 mg b.i.d. Will follow up with [facility] in 2 weeks. If he still remains in atrial fibrillation, at that time would entertain DC cardioversion. TRANSINT:[id number] Voice Confirmation ID: [id number] DOCUMENT ID: [id number] LUDIN AKINS MD at 1153 CC: [id number] DICTATION DATE: 04/29/17 0951 FORMING MACHINE ADJUSTER: 04/30/17 0052 DIS IN 04/29/17 [place] [address] [place] [address]
[2017-04-28 19:39] LABS: BASOPHILS 0.4 % (0-2); EOSINOPHILS 1.2 % (0-7); HEMATOCRIT 42.9 % (42.0-54.0); IMMATURE GRANULOCYTES 0.2 % (0-5); LYMPHOCYTES 22.3 % (15-50); MCH 28.7 pg (26.0-34.0); MCHC 32.6 g/dL (31.0-37.0); MCV 87.9 fL (80.0-100.0); MEAN PLATELET VOLUME 10.3 fL (7.4-10.4); MONOCYTES 9.8 % (2-11); NEUTROPHILS 66.1 % (40-80); PLATELET COUNT 153 10x3/uL (130-400); RBC 4.88 10x6/uL (4.20-6.10); RDW 14.6 % (11.5-14.5); WBC 8.5 10x3/uL (4.8-10.8)
[2017-04-28 20:36] LABS: ALBUMIN 2.7 g/dL (3.4-5.0); ALKALINE PHOSPHATASE 185 U/L (46-116); ALT (SGPT) 30 U/L (10-68); BILIRUBIN - TOTAL 0.58 mg/dL (0.2-1.3); CALC OSMOLALITY 282 mosm/kg (275-300); CALCIUM 8.5 mg/dL (8.5-10.1); CARBON DIOXIDE 24.9 mmol/L (21.0-32.0); CHLORIDE - SERUM 105 mmol/L (98-107); CREATININE - SERUM 1.2 mg/dL (0.6-1.3); GLUCOSE 138 mg/dL (74-106); POTASSIUM - SERUM 3.7 mmol/L (3.5-5.1); PROTEIN - SERUM 7.2 g/dL (6.4-8.2); SODIUM 140 mmol/L (136-145); UREA NITROGEN 18 mg/dL (7-18); eGFR NON AFRICAN AMERICAN 64 mL/min (90-120)
[2017-04-28 20:42] LABS: CHOL - HDL RATIO 3.9 ratio (2.3-4.9); CHOLESTEROL, TOTAL 153 mg/dL (0-200); CKMB 2.3 U/L (0.0-3.6); CREATINE KINASE 172 UL (21-232); HDL CHOLESTEROL 39 mg/dL (32-96); LDL CHOLESTEROL 92 mg/dL (0-100); LDL-HDL RATIO 2.4 ratio (1.5-3.5); MAGNESIUM - SERUM 1.7 mg/dL (1.8-2.4); PRO BNP 3064 pg/mL (0-125); TRIGLYCERIDE 112 mg/dL (30-200); TROPONIN-I 0.055 ng/mL (0.000-0.060)
[2017-04-28 22:25] VITALS: BP 131/75; BMI 27.9
[2017-04-29] VITALS: BP 131/75
[2017-04-29 04:00] VITALS: BP 129/76
[2017-04-29 06:20] LABS: BASOPHILS 0.4 % (0-2); EOSINOPHILS 1.2 % (0-7); HEMATOCRIT 42.6 % (42.0-54.0); HEMOGLOBIN 13.7 g/dL (13.5-17.5); IMMATURE GRANULOCYTES 0.4 % (0-5); MCH 28.1 pg (26.0-34.0); MCHC 32.2 g/dL (31.0-37.0); MCV 87.5 fL (80.0-100.0); MONOCYTES 9.8 % (2-11); NEUTROPHILS 64.2 % (40-80); PLATELET COUNT 177 10x3/uL (130-400); RBC 4.87 10x6/uL (4.20-6.10); RDW 14.6 % (11.5-14.5); WBC 8.3 10x3/uL (4.8-10.8)
[2017-04-29 06:54] LABS: CALC OSMOLALITY 283 mosm/kg (275-300); CALCIUM 8.1 mg/dL (8.5-10.1); CARBON DIOXIDE 24.1 mmol/L (21.0-32.0); CHLORIDE - SERUM 106 mmol/L (98-107); CKMB 2.3 U/L (0.0-3.6); CREATINE KINASE 131 UL (21-232); CREATININE - SERUM 1.2 mg/dL (0.6-1.3); GLUCOSE 147 mg/dL (74-106); POTASSIUM - SERUM 3.9 mmol/L (3.5-5.1); SODIUM 140 mmol/L (136-145); UREA NITROGEN 19 mg/dL (7-18); eGFR NON AFRICAN AMERICAN 64 mL/min (90-120)
[2017-04-29 07:03] LABS: TROPONIN-I 0.185 ng/mL (0.000-0.060)
[2017-04-29 08:04] VITALS: BP 141/80
[2017-04-29 08:32] VITALS: BMI 27.9
[2017-04-29 11:04] VITALS: BP 125/79
[2017-04-29] MEDS ORDERED: BETAPACE 80 MG80 MG PO (12:50)
[2017-04-29] MEDS ORDERED: ELIQUIS5 MG PO (12:51)
== END 2017-04-29 15:00 | disposition home or self-care (01) ==
LOC: D.ER 18:45 → D.M2 19:59 → D.EDHOLD 19:59 → OBSVTIME 20:00 → D.M2 20:49
PROVIDERS: Emergency Medicine; Internal Medicine Interventional Cardiology
DX: I48.92 Unspecified atrial flutter (principal); G72.89 Other specified myopathies; E11.65 Type 2 diabetes mellitus with hyperglycemia; I10 Essential (primary) hypertension; B20 Human immunodeficiency virus [HIV] disease; I08.3 Combined rheumatic disorders of mitral, aortic and tricuspid valves; F17.203 Nicotine dependence unspecified, with withdrawal; I11.0 Hypertensive heart disease with heart failure; I50.22 Chronic systolic (congestive) heart failure; R53.81 Other malaise; I25.2 Old myocardial infarction

== ENCOUNTER 2017-05-13 13:27 | Inpatient (IN) | payer MEDICARE ==
[~2017-05-13] VITALS: Ht 180.3 cm; Wt 100.0 kg
--- NOTE | ~2017-05-13 | CN ---
PATIENT NAME:CHIDI SHERMAN MEDICAL RECORD: [id number] : 54 LOCATION:D.MS Martin2234 ADMIT DATE: 05/13/17 ACCOUNT: [id number] CONSULTING PHYSICIAN: MENDEL COMBS MD REFERRING PHYSICIAN: RAMAKRISHNA FREY MD DATE OF CONSULTATION: 05/15/2017 HISTORY OF PRESENT ILLNESS: A 67-year-old gentleman with history of cardiomyopathy, atrial fibrillation, admitted with volume overload. EF is about 35%, on Aldactone only at this point from a cardiomyopathic standpoint. Symptomatology, the patient is not a great historian, best I can tell his symptomatology has been increasing about the past 3-4 days. PAST MEDICAL HISTORY: Includes; 1. History of HIV. 2. Coronary artery disease. 3. Atrial fibrillation. 4. Cardiomyopathy in excess of underlying coronary artery disease. 5. Diabetes mellitus. ALLERGIES: None known. MEDICATIONS: Typically include Truvada 200/300 one daily, Tivicay 50 mg p.o. daily, Eliquis 5 mg p.o. b.i.d., Aldactone 25 daily, sotalol 80 b.i.d., and insulin per scale. REVIEW OF SYSTEMS: The patient reports easy bruising but reports no swollen glands. The patient reports no fever, no night sweats, no significant weight gain, no significant weight loss. No significant exercise tolerance. The patient reports no dry eyes, no irritation, no vision change. Patient reports no difficulty hearing and no ear pain. Patient reports no frequent nose bleeds or nose and sinus problems. Patient reports on arm pain on exertion. No shortness of breath while lying down. No history of heart murmur. Patient reports no cough, no wheezing or coughing up blood. Patient reports no abdominal pain, no vomiting. Normal appetite. No diarrhea and not vomiting blood. No nausea and no constipation. Patient reports no incontinence. No difficulty urinating. No hematuria. No increased frequency. Patient reports no muscle aches. No weakness, no arthralgias, no back pain. No swelling of the extremities. Patient reports no abnormal mole, no jaundice, no rashes. Reports no loss of consciousness. No weakness and no numbness. No seizures, dizziness, or headaches. The patient reports no depression, no sleep disturbance, feeling safe in a relationship and no alcohol abuse. Patient reports on fatigue. Reports no runny nose or sinus pressure. No itching, no hives, and no frequent sneezing. PHYSICAL EXAMINATION: GENERAL: Pleasant gentleman, does not appear in acute distress. VITAL SIGNS: Blood pressure 156/98, pulse 80 and regular currently. HEENT: Normocephalic, atraumatic. NECK: No JVD or bruit. HEART: Regular currently. II/ systolic ejection murmur. S3 gallop is present. LUNGS: Diminished breath sounds. ABDOMEN: Soft, nontender. EXTREMITIES: Pulse is 2+ with no edema. CONSULT REPORT [id number] CHIDI SHERMAN IMPRESSION: Atrial fibrillation, cardiomyopathy. Currently, in sinus on Eliquis for deep venous thrombosis prophylaxis. We would add ARB at this point, consider Coreg if pressures tolerate. Further recommendations based on above. No contraindication to discharge from a cardiovascular standpoint when stable from primary care standpoint. TRANSINT:[id number] Voice Confirmation ID: [id number] DOCUMENT ID: [id number] MENDEL COMBS MD at 1341 CC: [id number] DICTATION DATE: 05/15/17 0838 SALES NEGOTIATOR: 05/15/17 1033 DIS IN 05/16/17 [facility] [address] [place] [address]
--- NOTE | ~2017-05-13 | EC ---
PATIENT:CHIDI SHERMAN DATE OF SERVICE: 05/13/17 SEX: M MEDICAL RECORD: [id number] DATE OF : 54 LOCATION:D.MS [facility] AGE OF PATIENT: 67 ADMISSION DATE: 05/13/17 REFERRING PHYSICIAN: INTERPRETING PHYSICIAN: LUDIN HERNANDEZ MD ECHOCARDIOGRAM REPORT ECHO CHARGES 4 ECHO COMPLETE CLINICAL DIAGNOSIS: ASSESS FOR THROMBUS HX OF DM/HTN ECHOCARDIOGRAPHIC MEASUREMENTS (adult normal given) AC root (d.<3.7cm) 2.3 cm LV Septum d (<1.2 cm> 1.0 cm Valve Excursion 1.1 cm LV Septum (systole) 1.2 cm Left Atria (s.<4.0cm> 3.9 cm LVPW d(<1.2cm) 1.3 cm RV (d.<2.3cm) 4.9 cm LVPW (sytole) 1.4 cm LV diastole(<5.6CM) 5.8 cm MV E-F(>70mm/sec) cm LV systole 4.7 cm LVOT Diameter 1.8 cm MV exc.(>10mm) 1.4 cm Est.ejection fraction (50-75%) % Pericardial Effusion N DOPPLER: LVIT cm/sec A 42.0 cm/sec E 102 cm/sec LA cm/sec RVSP 60 mmHg LVOT 78 cm/sec AOP1/2T m/s Asc. Ao 96 cm/sec RVOT 80 cm/sec RA cm/sec PA 96 cm/sec AV Gradient Peak 3.72 mmHg AV Mean 1.93 mmHg AV Area 1.9 cm MV Gradient Peak 11.11mmHg MV Mean 2.15 mmHg MV Area cm COMMENTS: Physics Teacher: Oz MATSON Chipper Machine Operator: 1 Dr. Hernandez TAPE# PACS DATE OF SERVICE: 05/14/2017 FINDINGS: 1. Left ventricular chamber size is mildly dilated. Left ventricular systolic function is mildly reduced. Overall ejection fraction in the 40% range. 2. Left atrium, right atrium, and right ventricular chamber sizes are upper limits of normal. 3. Valvular structures have normal structure and motion. 4. Doppler interrogation reveals vwaayksg-qb-ddthgp mitral regurgitation, niokqmux-jz-axfisk tricuspid regurgitation. No other valvular insufficiency or ECHOCARDIOGRAM REPORT [id number] CHIDI SHERMAN stenosis. Pulmonary systolic pressure is elevated at 60 mmHg. 5. No evidence of pericardial effusion or left ventricular thrombus. 6. No cardiac source of neurologic emboli. TRANSINT:[id number] Voice Confirmation ID: [id number] DOCUMENT ID: [id number] LUDIN HERNANDEZ MD at 1202 CC: [id number] DICTATION DATE: 05/14/17 1231 SALES DIRECTOR: 05/14/17 1243 DIS IN 05/16/17 [place] [id number] [place] [id number]
[~2017-05-13 13:27] MED LIST changes: +BETAPACE 80 MG80 MG PO; +ELIQUIS5 MG PO
[2017-05-13 17:00] LABS: BASOPHILS 0.5 % (0-2); HEMATOCRIT 46.1 % (42.0-54.0); IMMATURE GRANULOCYTES 0.1 % (0-5); LYMPHOCYTES 23.3 % (15-50); MCH 28.5 pg (26.0-34.0); MCHC 32.5 g/dL (31.0-37.0); MCV 87.6 fL (80.0-100.0); MEAN PLATELET VOLUME 11.3 fL (7.4-10.4); NEUTROPHILS 65.1 % (40-80); PLATELET COUNT 163 10x3/uL (130-400); RBC 5.26 10x6/uL (4.20-6.10); RDW 15.6 % (11.5-14.5)
[2017-05-13 17:09] LABS: APTT 32.2 SECONDS (22.8-39.4); INR 1.31 (0.85-1.17); PROTIME 15.8 SECONDS (11.6-15.0)
[2017-05-13 17:16] LABS: ALBUMIN 2.8 g/dL (3.4-5.0); ANION GAP 13.9 mmol/L (8-16); BILIRUBIN - TOTAL 0.9 mg/dL (0.2-1.3); CALCIUM 8.7 mg/dL (8.5-10.1); CARBON DIOXIDE 27.8 mmol/L (21.0-32.0); CREATININE - SERUM 1.3 mg/dL (0.6-1.3); POTASSIUM - SERUM 3.7 mmol/L (3.5-5.1); PROTEIN - SERUM 7.6 g/dL (6.4-8.2)
[2017-05-14 15:02] LABS: CHOL - HDL RATIO 3.4 ratio (2.3-4.9)
[2017-05-14 17:05] VITALS: BP 163/110
[2017-05-14 21:39] VITALS: BP 153/94
[2017-05-15 03:09] VITALS: BP 153/94; Ht 180.3 cm; Wt 100.0 kg
[2017-05-15 05:34] VITALS: BP 171/84
[2017-05-15 05:56] LABS: BASOPHILS 0.2 % (0-2); EOSINOPHILS 0.6 % (0-7); HEMATOCRIT 43.7 % (42.0-54.0); HEMOGLOBIN 14.2 g/dL (13.5-17.5); IMMATURE GRANULOCYTES 0.2 % (0-5); LYMPHOCYTES 18.8 % (15-50); MCH 28.2 pg (26.0-34.0); MCHC 32.5 g/dL (31.0-37.0); MCV 86.9 fL (80.0-100.0); MEAN PLATELET VOLUME 11.1 fL (7.4-10.4); MONOCYTES 10.5 % (2-11); NEUTROPHILS 69.7 % (40-80); PLATELET COUNT 153 10x3/uL (130-400); RBC 5.03 10x6/uL (4.20-6.10); RDW 15.6 % (11.5-14.5); WBC 8.1 10x3/uL (4.8-10.8)
[2017-05-15 06:04] LABS: ANION GAP 10.7 mmol/L (8-16); CALCIUM 8.9 mg/dL (8.5-10.1); CREATININE - SERUM 1.1 mg/dL (0.6-1.3); POTASSIUM - SERUM 3.7 mmol/L (3.5-5.1)
[2017-05-15 07:55] VITALS: BP 156/98
[2017-05-15 11:49] VITALS: BP 151/96
[2017-05-15 15:37] VITALS: BP 130/86
[2017-05-15 22:49] VITALS: BP 147/78
[2017-05-16 02:50] VITALS: BP 145/99
[2017-05-16 05:06] LABS: BASOPHILS 0.3 % (0-2); EOSINOPHILS 1.1 % (0-7); HEMATOCRIT 43.3 % (42.0-54.0); IMMATURE GRANULOCYTES 0.3 % (0-5); LYMPHOCYTES 20.3 % (15-50); MCH 28.2 pg (26.0-34.0); MCHC 32.3 g/dL (31.0-37.0); MCV 87.1 fL (80.0-100.0); MEAN PLATELET VOLUME 11.8 fL (7.4-10.4); MONOCYTES 8.9 % (2-11); NEUTROPHILS 69.1 % (40-80); PLATELET COUNT 148 10x3/uL (130-400); RBC 4.97 10x6/uL (4.20-6.10); RDW 15.8 % (11.5-14.5); WBC 7.3 10x3/uL (4.8-10.8)
[2017-05-16 05:20] LABS: ANION GAP 12.3 mmol/L (8-16); CALCIUM 8.8 mg/dL (8.5-10.1); CARBON DIOXIDE 29.9 mmol/L (21.0-32.0); CREATININE - SERUM 1.2 mg/dL (0.6-1.3); POTASSIUM - SERUM 3.2 mmol/L (3.5-5.1)
[2017-05-16 05:54] VITALS: BP 137/77
[2017-05-16 07:41] VITALS: BP 172/99
[2017-05-16] MEDS ORDERED: COZAAR50 MG PO (10:51)
[2017-05-16] MEDS ORDERED: ASPIRIN325 MG PO (10:56)
[2017-05-16 11:10] VITALS: BP 150/91
[2017-05-16 15:16] VITALS: BP 140/86
== END 2017-05-16 16:34 | disposition home or self-care (01) | DRG 64 ==
LOC: D.ER 13:27 → D.EDHOLD 18:33 → D.MS 18:33
PROVIDERS: Emergency Medicine; Internal Medicine Nephrology
DX: I63.9 Cerebral infarction, unspecified (principal); I50.23 Acute on chronic systolic (congestive) heart failure; I42.9 Cardiomyopathy, unspecified; I48.92 Unspecified atrial flutter; F17.203 Nicotine dependence unspecified, with withdrawal; I11.0 Hypertensive heart disease with heart failure; I48.91 Unspecified atrial fibrillation; E11.65 Type 2 diabetes mellitus with hyperglycemia; I08.1 Rheumatic disorders of both mitral and tricuspid valves; R29.810 Facial weakness; R53.1 Weakness; Z21 Asymptomatic human immunodeficiency virus [HIV] infection status; Z79.01 Long term (current) use of anticoagulants

== ENCOUNTER 2017-05-21 09:24 | Inpatient (IN) | payer MEDICARE ==
[~2017-05-21] VITALS: Ht 180.3 cm; Wt 85.0 kg
--- NOTE | ~2017-05-21 | CN ---
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 He is on good medications. He is on triple therapy for his cardiomyopathy, ischemic stroke therapy as well as history of atrial fibrillation, well controlled with sotalol, on Eliquis for seizure prophylaxis, admitted with dyspnea on exertion and found to have elevated BNP. He reports no lower extremity edema. No cyrus orthopnea, PND. We are asked to see him concerning his cardiovascular status. PAST MEDICAL HISTORY: Includes: 1. History of hypertension. 2. HIV. 3. Cardiomyopathy as described above. 4. Atrial fibrillation. 5. Coronary artery disease. 6. Diabetes mellitus. MEDICATIONS: Typically include Tivicay 50 mg p.o. daily, Truvada 200/300 daily, Eliquis 5 b.i.d., losartan 50 every day, sotalol 80 b.i.d., Aldactone 25 every day, insulin per scale. REVIEW OF SYSTEMS: The patient reports easy bruising but reports no swollen glands. The patient reports no fever, no night sweats, no significant weight gain, no significant weight loss. No significant exercise tolerance. The patient reports no dry eyes, no irritation, no vision change. Patient reports no difficulty hearing and no ear pain. Patient reports no frequent nose bleeds or nose and sinus problems. Patient reports on arm pain on exertion. No shortness of breath while lying down. No history of heart murmur. Patient reports no cough, no wheezing or coughing up blood. Patient reports no abdominal pain, no vomiting. Normal appetite. No diarrhea and not vomiting blood. No nausea and no constipation. Patient reports no incontinence. No difficulty urinating. No hematuria. No increased frequency. Patient reports no muscle aches. No weakness, no arthralgias, no back pain. No swelling of the extremities. Patient reports no abnormal mole, no jaundice, no rashes. Reports no loss of consciousness. No weakness and no numbness. No seizures, dizziness, or headaches. The patient reports no depression, no sleep disturbance, feeling safe in a relationship and no alcohol abuse. Patient reports on fatigue. Reports no runny nose or sinus pressure. No itching, no hives, and no frequent sneezing. PHYSICAL EXAMINATION: GENERAL: Pleasant gentleman who appears comfortable at rest. VITAL SIGNS: Blood pressure 130/82, pulse 87 and regular. HEENT: Normocephalic, atraumatic. NECK: No bruises are noted. HEART: Regular, II/ systolic ejection murmur. LUNGS: Clear. ABDOMEN: Soft, nontender. CONSULT REPORT [id number] CHIDI SHERMAN EXTREMITIES: Pulses 2+. No edema. NEUROLOGIC: Grossly intact. DIAGNOSTIC DATA: ECG shows normal sinus rhythm. IMPRESSION: Cardiomyopathy appears to be fairly well compensated from CV standpoint. Rhythm is sinus currently. Agree with current therapy. TRANSINT:[id number] Voice Confirmation ID: [id number] DOCUMENT ID: [id number] MENDEL COMBS MD at 0846 CC: [id number] DICTATION DATE: 05/22/17 0851 AUTOMATION TECH: 05/22/17 1046 ADM IN [facility] [address] [place] [address]
[~2017-05-21 09:24] MED LIST changes: +ASPIRIN325 MG PO; +COZAAR50 MG PO
[2017-05-21 09:43] LABS: BASOPHILS 0.4 % (0-2); EOSINOPHILS 0.8 % (0-7); HEMOGLOBIN 15.2 g/dL (13.5-17.5); IMMATURE GRANULOCYTES 0.1 % (0-5); LYMPHOCYTES 24.2 % (15-50); MCH 28.7 pg (26.0-34.0); MCHC 32.3 g/dL (31.0-37.0); MCV 88.8 fL (80.0-100.0); MEAN PLATELET VOLUME 11.6 fL (7.4-10.4); MONOCYTES 8.6 % (2-11); NEUTROPHILS 65.9 % (40-80); PLATELET COUNT 166 10x3/uL (130-400); RBC 5.29 10x6/uL (4.20-6.10); WBC 7.2 10x3/uL (4.8-10.8)
[2017-05-21 10:14] LABS: ALBUMIN 2.9 g/dL (3.4-5.0); ANION GAP 11.8 mmol/L (8-16); APTT 27.3 SECONDS (22.8-39.4); BILIRUBIN - TOTAL 1.26 mg/dL (0.2-1.3); CALCIUM 8.9 mg/dL (8.5-10.1); CARBON DIOXIDE 27.4 mmol/L (21.0-32.0); CREATININE - SERUM 1.1 mg/dL (0.6-1.3); INR 1.1 (0.85-1.17); POTASSIUM - SERUM 5.2 mmol/L (3.5-5.1); PROTEIN - SERUM 7.8 g/dL (6.4-8.2); PROTIME 13.8 SECONDS (11.6-15.0)
[2017-05-21 10:15] LABS: D-DIMER-QUANTITATIVE 2.13 ug/mLFEU (0.20-0.54)
[2017-05-22] VITALS (7 sets, daily range): BP systolic 127–161; BP diastolic 65–821; BMI 27.4
[2017-05-22] MEDS ORDERED: GLUCOPHAGE1000 MG PO (00:37)
[2017-05-22 05:35] LABS: BASOPHILS 0.3 % (0-2); EOSINOPHILS 0.7 % (0-7); HEMATOCRIT 46.2 % (42.0-54.0); HEMOGLOBIN 14.8 g/dL (13.5-17.5); IMMATURE GRANULOCYTES 0.3 % (0-5); LYMPHOCYTES 22.3 % (15-50); MCH 28.1 pg (26.0-34.0); MCV 87.8 fL (80.0-100.0); MEAN PLATELET VOLUME 11.5 fL (7.4-10.4); NEUTROPHILS 67.4 % (40-80); PLATELET COUNT 161 10x3/uL (130-400); RBC 5.26 10x6/uL (4.20-6.10); RDW 16.2 % (11.5-14.5); WBC 7.5 10x3/uL (4.8-10.8)
[2017-05-22 05:51] LABS: ALBUMIN 2.7 g/dL (3.4-5.0); BILIRUBIN - TOTAL 0.9 mg/dL (0.2-1.3); CALCIUM 8.8 mg/dL (8.5-10.1); CARBON DIOXIDE 30.2 mmol/L (21.0-32.0); CREATININE - SERUM 1.3 mg/dL (0.6-1.3); PROTEIN - SERUM 7.3 g/dL (6.4-8.2)
[2017-05-22 05:54] LABS: ANION GAP 11.4 mmol/L (8-16); POTASSIUM - SERUM 3.6 mmol/L (3.5-5.1)
[2017-05-23 04:00] VITALS: BP 154/109
[2017-05-23 05:38] LABS: BASOPHILS 0.6 % (0-2); EOSINOPHILS 1.5 % (0-7); HEMATOCRIT 44.1 % (42.0-54.0); HEMOGLOBIN 14.4 g/dL (13.5-17.5); IMMATURE GRANULOCYTES 0.1 % (0-5); LYMPHOCYTES 25.7 % (15-50); MCH 28.2 pg (26.0-34.0); MCHC 32.7 g/dL (31.0-37.0); MCV 86.5 fL (80.0-100.0); MEAN PLATELET VOLUME 11.6 fL (7.4-10.4); MONOCYTES 10.2 % (2-11); NEUTROPHILS 61.9 % (40-80); PLATELET COUNT 146 10x3/uL (130-400); RDW 15.6 % (11.5-14.5); WBC 6.9 10x3/uL (4.8-10.8)
[2017-05-23 06:05] LABS: ALBUMIN 2.5 g/dL (3.4-5.0); ANION GAP 11.4 mmol/L (8-16); BILIRUBIN - TOTAL 0.8 mg/dL (0.2-1.3); CALCIUM 8.5 mg/dL (8.5-10.1); CARBON DIOXIDE 29.9 mmol/L (21.0-32.0); CREATININE - SERUM 1.3 mg/dL (0.6-1.3); POTASSIUM - SERUM 3.3 mmol/L (3.5-5.1); PROTEIN - SERUM 6.8 g/dL (6.4-8.2)
[2017-05-23 09:03] VITALS: BP 141/80
[2017-05-23 11:55] VITALS: BP 130/76
[2017-05-23 12:08] VITALS: Ht 180.3 cm; Wt 85.0 kg
[2017-05-23 16:00] VITALS: BP 136/80
[2017-05-23 21:44] VITALS: BP 145/84
[2017-05-24 00:30] VITALS: BP 138/90
[2017-05-24 04:30] VITALS: BP 122/70
[2017-05-24 05:17] LABS: BASOPHILS 0.4 % (0-2); EOSINOPHILS 1.2 % (0-7); HEMATOCRIT 46.2 % (42.0-54.0); HEMOGLOBIN 14.8 g/dL (13.5-17.5); IMMATURE GRANULOCYTES 0.1 % (0-5); LYMPHOCYTES 24.3 % (15-50); MCH 27.8 pg (26.0-34.0); MCV 86.8 fL (80.0-100.0); MONOCYTES 9.9 % (2-11); NEUTROPHILS 64.1 % (40-80); PLATELET COUNT 161 10x3/uL (130-400); RBC 5.32 10x6/uL (4.20-6.10); RDW 15.6 % (11.5-14.5); WBC 7.6 10x3/uL (4.8-10.8)
[2017-05-24 05:42] LABS: ALBUMIN 2.7 g/dL (3.4-5.0); BILIRUBIN - TOTAL 0.7 mg/dL (0.2-1.3); CALCIUM 8.7 mg/dL (8.5-10.1); CREATININE - SERUM 1.3 mg/dL (0.6-1.3); PROTEIN - SERUM 7.4 g/dL (6.4-8.2)
[2017-05-24 09:21] VITALS: BP 159/102
[2017-05-24 13:50] VITALS: BP 139/90
[2017-05-24] MEDS ORDERED: COREG6.25 MG PO (14:58)
[2017-05-24 16:59] VITALS: BP 145/76
[2017-05-24 20:30] VITALS: BP 149/97
[2017-05-25 00:30] VITALS: BP 126/68
[2017-05-25 04:30] VITALS: BP 139/76
[2017-05-25 05:26] LABS: BASOPHILS 0.4 % (0-2); EOSINOPHILS 1.9 % (0-7); HEMATOCRIT 46.4 % (42.0-54.0); HEMOGLOBIN 15.2 g/dL (13.5-17.5); IMMATURE GRANULOCYTES 0.1 % (0-5); LYMPHOCYTES 23.1 % (15-50); MCH 28.5 pg (26.0-34.0); MCHC 32.8 g/dL (31.0-37.0); MCV 86.9 fL (80.0-100.0); MEAN PLATELET VOLUME 11.6 fL (7.4-10.4); MONOCYTES 9.8 % (2-11); NEUTROPHILS 64.7 % (40-80); PLATELET COUNT 179 10x3/uL (130-400); RBC 5.34 10x6/uL (4.20-6.10); RDW 15.7 % (11.5-14.5); WBC 7.8 10x3/uL (4.8-10.8)
[2017-05-25 05:33] LABS: ALBUMIN 2.7 g/dL (3.4-5.0); ANION GAP 11.6 mmol/L (8-16); BILIRUBIN - TOTAL 0.7 mg/dL (0.2-1.3); CALCIUM 8.6 mg/dL (8.5-10.1); CARBON DIOXIDE 30.4 mmol/L (21.0-32.0); CREATININE - SERUM 1.2 mg/dL (0.6-1.3); PROTEIN - SERUM 7.6 g/dL (6.4-8.2)
[2017-05-25 08:34] VITALS: BP 117/52
[2017-05-25 11:39] VITALS: BP 137/78
[2017-05-25] MEDS ORDERED: KLOR-CON 1010 MEQ PO (13:27)
[2017-05-25] MEDS ORDERED: LASIX40 MG PO (13:27)
== END 2017-05-25 16:55 | disposition home or self-care (01) | DRG 291 ==
LOC: D.ER 09:24 → D.M2 19:16 → D.EDHOLD 19:16 → D.M2 21:11
PROVIDERS: Family Medicine; Family Medicine Adult Medicine
DX: I11.0 Hypertensive heart disease with heart failure (principal); B20 Human immunodeficiency virus [HIV] disease; F17.203 Nicotine dependence unspecified, with withdrawal; I50.23 Acute on chronic systolic (congestive) heart failure; I43 Cardiomyopathy in diseases classified elsewhere; E11.65 Type 2 diabetes mellitus with hyperglycemia; I48.91 Unspecified atrial fibrillation; R59.9 Enlarged lymph nodes, unspecified; I25.10 Atherosclerotic heart disease of native coronary artery without angina pectoris

== ENCOUNTER 2017-06-12 20:02 | Inpatient (IN) | payer MEDICARE ==
[~2017-06-12] VITALS: Ht 180.3 cm; Wt 91.8 kg
--- NOTE | ~2017-06-12 | CN ---
PATIENT NAME:CHIDI SHERMAN MEDICAL RECORD: [id number] : 54 LOCATION:D. D.2117 ADMIT DATE: 06/13/17 ACCOUNT: [id number] CONSULTING PHYSICIAN: LUDIN AKINS MD REFERRING PHYSICIAN: RAMAKRISHNA FREY MD DATE OF CONSULTATION: 06/15/2017 DIAGNOSES: 1. Atrial fibrillation, chronic. 2. Coronary artery disease. 3. Gallbladder disease. 4. Human immunodeficiency virus cardiomyopathy. 5. Human immunodeficiency virus. 6. Insulin-dependent diabetes. 7. Hypertension. HISTORY OF PRESENT ILLNESS: This is a gentleman well known to our service. He has a HIV-induced cardiomyopathy, ejection fraction last was in the 40% range. He is well compensated from a heart failure standpoint. He does have a history of coronary artery disease; however, last cardiac catheterization was with no new disease. He came with upper quadrant pain radiating to his chest. He is found to have gallstones. Pain is felt to be secondary to the gallstones. It is different than his previous anginal pain. He is on Coreg as well as a Cardizem drip. His heart rates are in the 70s. He is in atrial fibrillation. He is as well on Eliquis. They are doing a continued workup from a GI standpoint. PHYSICAL EXAMINATION: GENERAL APPEARANCE: Well-nourished, well-developed, appears stated age. Level of distress, comfortable. PSYCHIATRIC: Mental status, alert, normal affect. Orientation, oriented to time, place and person. EYES: Lids and conjunctiva, noninjected. No discharge, no pallor. ENT: Lips, teeth, gums, normal dentition. Oropharynx, no cyanosis, no pallor. NECK: Carotid arteries, bilateral normal upstroke, no bruits, no thrills. JUGULAR VEINS: No jugular venous pressure or distention. CERVICAL LYMPH NODES: Nontender, nonenlarged. THYROID: Not enlarged. Nontender. No nodules. LUNGS: Respiratory effort, unlabored. CHEST: Normal curvature. No thoracic deformity. No chest wall tenderness. Percussion, resonant. Auscultation, clear. No wheezes, no rales, no rhonchi. CARDIOVASCULAR: Precordial exam, nondisplaced. No heaves or pericardial thrills. Rate and rhythm, regular. Heart sounds, normal S1, normal S2. No S3, no gallop, no rub. Systolic murmur, not heard. Diastolic murmur, not heard. EXTREMITIES: No cyanosis, no edema. Peripheral pulses, full and equal in all extremities, except as noted. No bruits appreciated. ABDOMEN: Soft, nondistended. Normal aorta. No bruit. Nontender. No masses. Liver, nontender, no hepatomegaly. Spleen, nontender, no splenomegaly. MUSCULOSKELETAL: No joint tenderness. No joint swelling. No erythema. NEUROLOGICAL: Normal gait, normal strength, normal tone. SKIN: Warm and dry. OVERALL IMPRESSION: Stable from a cardiac standpoint. Atrial fibrillation is rate controlled with his current medications. No new therapy as needed for this. He is stable from the standpoint of ischemic heart disease. His CONSULT REPORT [id number] CHIDI SHERMAN symptomatology is from the gallstones, do not think this is angina. His EKG is with no changes. Troponin was normal and cardiomyopathy is well compensated with no heart failure. At this time, no other cardiac workup treatment is necessary. TRANSINT:[id number] Voice Confirmation ID: [id number] DOCUMENT ID: [id number] LUDIN AKINS MD at 0956 CC: [id number] DICTATION DATE: 06/15/17 1235 ED TRANSPORTER: 06/15/17 1259 DIS IN 06/17/[address] [address]
[~2017-06-12 20:02] MED LIST changes: +GLUCOPHAGE1000 MG PO; +KLOR-CON 1010 MEQ PO; +LASIX40 MG PO
[2017-06-12 20:23] LABS: BASOPHILS 0.4 % (0-2); EOSINOPHILS 0.7 % (0-7); HEMATOCRIT 43.4 % (42.0-54.0); HEMOGLOBIN 14.4 g/dL (13.5-17.5); IMMATURE GRANULOCYTES 0.1 % (0-5); MCH 28.9 pg (26.0-34.0); MCHC 33.2 g/dL (31.0-37.0); MCV 87.1 fL (80.0-100.0); MEAN PLATELET VOLUME 10.6 fL (7.4-10.4); NEUTROPHILS 61.8 % (40-80); RBC 4.98 10x6/uL (4.20-6.10); WBC 7.1 10x3/uL (4.8-10.8)
[2017-06-12 20:26] LABS: PLATELET COUNT 140 10x3/uL (130-400)
[2017-06-12 20:34] LABS: APTT 27.9 SECONDS (22.8-39.4)
[2017-06-12 20:35] LABS: D-DIMER-QUANTITATIVE 1.57 ug/mLFEU (0.20-0.54)
[2017-06-12 20:42] LABS: ALBUMIN 3.3 g/dL (3.4-5.0); ALKALINE PHOSPHATASE 204 U/L (46-116); ALT (SGPT) 36 U/L (10-68); BILIRUBIN - TOTAL 1.71 mg/dL (0.2-1.3); CALC OSMOLALITY 281 mosm/kg (275-300); CALCIUM 9.1 mg/dL (8.5-10.1); CARBON DIOXIDE 24.2 mmol/L (21.0-32.0); CHLORIDE - SERUM 103 mmol/L (98-107); CREATININE - SERUM 1.2 mg/dL (0.6-1.3); GLUCOSE 154 mg/dL (74-106); POTASSIUM - SERUM 3.7 mmol/L (3.5-5.1); PROTEIN - SERUM 8.4 g/dL (6.4-8.2); SODIUM 140 mmol/L (136-145); UREA NITROGEN 13 mg/dL (7-18); eGFR NON AFRICAN AMERICAN 64 mL/min (90-120)
[2017-06-12 20:51] LABS: CHOL - HDL RATIO 3.4 ratio (2.3-4.9); CHOLESTEROL, TOTAL 178 mg/dL (0-200); CKMB 4.5 U/L (0.0-3.6); CREATINE KINASE 224 UL (21-232); HDL CHOLESTEROL 53 mg/dL (32-96); LDL CHOLESTEROL 107 mg/dL (0-100); MAGNESIUM - SERUM 1.9 mg/dL (1.8-2.4); PRO BNP 2133 pg/mL (0-125); TRIGLYCERIDE 94 mg/dL (30-200)
[2017-06-12 21:09] LABS: INR 1.27 (0.85-1.17); PROTIME 15.4 SECONDS (11.6-15.0)
[2017-06-13] VITALS (7 sets, daily range): BP systolic 119–150; BP diastolic 84–98; Ht 180.3 cm; Wt 91.8 kg
[2017-06-13] MEDS ORDERED: TIVICAY50 MG PO (02:28)
[2017-06-13 04:43] LABS: CKMB 4.1 U/L (0.0-3.6); CREATINE KINASE 239 UL (21-232); TROPONIN-I 0.039 ng/mL (0.000-0.060)
[2017-06-13 08:16] LABS: CKMB 3.1 U/L (0.0-3.6); CREATINE KINASE 175 UL (21-232); TROPONIN-I 0.032 ng/mL (0.000-0.060)
[2017-06-13 15:32] LABS: CKMB 2.8 U/L (0.0-3.6); CREATINE KINASE 162 UL (21-232)
[2017-06-14] VITALS: BP 125/75
[2017-06-14 04:00] VITALS: BP 141/94
[2017-06-14 06:25] LABS: BASOPHILS 0.4 % (0-2); EOSINOPHILS 1.6 % (0-7); HEMATOCRIT 42.4 % (42.0-54.0); HEMOGLOBIN 13.9 g/dL (13.5-17.5); IMMATURE GRANULOCYTES 0.1 % (0-5); LYMPHOCYTES 17.8 % (15-50); MCH 28.5 pg (26.0-34.0); MCHC 32.8 g/dL (31.0-37.0); MCV 87.1 fL (80.0-100.0); MEAN PLATELET VOLUME 11.2 fL (7.4-10.4); MONOCYTES 10.6 % (2-11); NEUTROPHILS 69.5 % (40-80); PLATELET COUNT 141 10x3/uL (130-400); RBC 4.87 10x6/uL (4.20-6.10)
[2017-06-14 06:49] LABS: ALBUMIN 2.7 g/dL (3.4-5.0); ANION GAP 14.2 mmol/L (8-16); BILIRUBIN - TOTAL 1.92 mg/dL (0.2-1.3); CALCIUM 8.8 mg/dL (8.5-10.1); CARBON DIOXIDE 25.3 mmol/L (21.0-32.0); CREATININE - SERUM 1.1 mg/dL (0.6-1.3); POTASSIUM - SERUM 3.5 mmol/L (3.5-5.1); PROTEIN - SERUM 7.1 g/dL (6.4-8.2)
[2017-06-14 09:53] VITALS: BP 140/102
[2017-06-14 12:49] VITALS: BP 122/81
[2017-06-14 20:00] VITALS: BP 134/75
[2017-06-15] VITALS: BP 128/82
[2017-06-15 04:00] VITALS: BP 137/86
[2017-06-15 06:07] LABS: BASOPHILS 0.3 % (0-2); EOSINOPHILS 0.9 % (0-7); HEMATOCRIT 46.6 % (42.0-54.0); HEMOGLOBIN 14.9 g/dL (13.5-17.5); IMMATURE GRANULOCYTES 0.1 % (0-5); LYMPHOCYTES 14.4 % (15-50); MCH 28.3 pg (26.0-34.0); MCV 88.4 fL (80.0-100.0); MEAN PLATELET VOLUME 11.2 fL (7.4-10.4); MONOCYTES 12.9 % (2-11); NEUTROPHILS 71.4 % (40-80); PLATELET COUNT 145 10x3/uL (130-400); RBC 5.27 10x6/uL (4.20-6.10); RDW 17.1 % (11.5-14.5); WBC 7.6 10x3/uL (4.8-10.8)
[2017-06-15 06:31] LABS: ALBUMIN 2.8 g/dL (3.4-5.0); ANION GAP 13.7 mmol/L (8-16); BILIRUBIN - TOTAL 1.89 mg/dL (0.2-1.3); CALCIUM 8.8 mg/dL (8.5-10.1); CARBON DIOXIDE 28.1 mmol/L (21.0-32.0); CREATININE - SERUM 1.1 mg/dL (0.6-1.3); POTASSIUM - SERUM 3.8 mmol/L (3.5-5.1); PROTEIN - SERUM 7.7 g/dL (6.4-8.2)
[2017-06-15 08:30] VITALS: BP 173/95
[2017-06-15 11:28] VITALS: BP 170/89
[2017-06-15 15:45] VITALS: BP 114/77
[2017-06-15 19:00] VITALS: BP 138/85
[2017-06-16] VITALS: BP 132/90
[2017-06-16 04:00] VITALS: BP 128/89
[2017-06-16 06:49] LABS: BASOPHILS 0.4 % (0-2); EOSINOPHILS 0.8 % (0-7); HEMATOCRIT 44.3 % (42.0-54.0); HEMOGLOBIN 14.6 g/dL (13.5-17.5); IMMATURE GRANULOCYTES 0.3 % (0-5); LYMPHOCYTES 24.3 % (15-50); MCH 28.7 pg (26.0-34.0); MCV 87.2 fL (80.0-100.0); MEAN PLATELET VOLUME 11.6 fL (7.4-10.4); MONOCYTES 12.2 % (2-11); PLATELET COUNT 154 10x3/uL (130-400); RBC 5.08 10x6/uL (4.20-6.10); RDW 16.7 % (11.5-14.5); WBC 7.8 10x3/uL (4.8-10.8)
[2017-06-16 07:05] LABS: ALBUMIN 2.7 g/dL (3.4-5.0); ANION GAP 13.3 mmol/L (8-16); BILIRUBIN - TOTAL 1.54 mg/dL (0.2-1.3); CALCIUM 8.6 mg/dL (8.5-10.1); CARBON DIOXIDE 26.5 mmol/L (21.0-32.0); CREATININE - SERUM 1.3 mg/dL (0.6-1.3); MAGNESIUM - SERUM 1.8 mg/dL (1.8-2.4); POTASSIUM - SERUM 3.8 mmol/L (3.5-5.1); PROTEIN - SERUM 7.6 g/dL (6.4-8.2)
[2017-06-16 08:21] VITALS: BP 159/108
[2017-06-16 13:51] VITALS: BP 137/99
[2017-06-16 17:01] VITALS: BP 139/80
[2017-06-16 20:00] VITALS: BP 141/88
[2017-06-17] VITALS: BP 143/107
[2017-06-17 04:00] VITALS: BP 147/102
[2017-06-17 06:31] LABS: BASOPHILS 0.3 % (0-2); EOSINOPHILS 1.2 % (0-7); HEMATOCRIT 43.6 % (42.0-54.0); HEMOGLOBIN 14.3 g/dL (13.5-17.5); IMMATURE GRANULOCYTES 0.1 % (0-5); LYMPHOCYTES 24.9 % (15-50); MCH 28.6 pg (26.0-34.0); MCHC 32.8 g/dL (31.0-37.0); MCV 87.2 fL (80.0-100.0); MEAN PLATELET VOLUME 11.1 fL (7.4-10.4); MONOCYTES 11.7 % (2-11); NEUTROPHILS 61.8 % (40-80); PLATELET COUNT 149 10x3/uL (130-400); RDW 16.7 % (11.5-14.5); WBC 6.9 10x3/uL (4.8-10.8)
[2017-06-17 06:55] LABS: ALBUMIN 2.6 g/dL (3.4-5.0); ANION GAP 12.8 mmol/L (8-16); BILIRUBIN - TOTAL 1.49 mg/dL (0.2-1.3); CALCIUM 8.4 mg/dL (8.5-10.1); CARBON DIOXIDE 27.9 mmol/L (21.0-32.0); CREATININE - SERUM 1.2 mg/dL (0.6-1.3); POTASSIUM - SERUM 3.7 mmol/L (3.5-5.1); PROTEIN - SERUM 7.3 g/dL (6.4-8.2)
== END 2017-06-17 10:11 | disposition home or self-care (01) | DRG 444 ==
LOC: D.ER 20:02 → D.M2 06-13 00:31
PROVIDERS: Family Medicine; Internal Medicine Nephrology
DX: K80.10 Calculus of gallbladder with chronic cholecystitis without obstruction (principal); I50.23 Acute on chronic systolic (congestive) heart failure; B20 Human immunodeficiency virus [HIV] disease; I43 Cardiomyopathy in diseases classified elsewhere; F17.203 Nicotine dependence unspecified, with withdrawal; I11.0 Hypertensive heart disease with heart failure; I25.10 Atherosclerotic heart disease of native coronary artery without angina pectoris; E11.9 Type 2 diabetes mellitus without complications; Z79.4 Long term (current) use of insulin; R74.8 Abnormal levels of other serum enzymes; I48.2 Chronic atrial fibrillation; Z98.61 Coronary angioplasty status

== ENCOUNTER 2017-07-07 09:05 | Inpatient (IN) | payer MEDICARE ==
[~2017-07-07] VITALS: Ht 180.3 cm; Wt 94.1 kg
[2017-07-07] VITALS (9 sets, daily range): BP systolic 108–154; BP diastolic 67–112; BMI 29.3
--- NOTE | ~2017-07-07 | OP ---
PATIENT NAME: CHIDI SHERMAN MEDICAL RECORD: [id number] :54 LOCATION:D.M2 D.2118 ADMISSION DATE:07/07/17 SURGEON: TIA CHAVEZ MD DATE OF OPERATION: 07/10/2017 PREOPERATIVE DIAGNOSES: 1. Need for IV access. 2. Acute hypoxic respiratory failure. 3. Systolic congestive heart failure. 4. Human immunodeficiency virus. 5. Coronary artery disease. 6. Hypertension. 7. Diabetes mellitus. POSTOPERATIVE DIAGNOSES: 1. Need for IV access. 2. Acute hypoxic respiratory failure. 3. Systolic congestive heart failure. 4. Human immunodeficiency virus. 5. Coronary artery disease. 6. Hypertension. 7. Diabetes mellitus. PROCEDURE: Left subclavian vein triple-lumen central venous line placement. SURGEON: Tia Chavez MD REPORT OF PROCEDURE: The patient's left chest was prepped and draped in sterile fashion. A needle was used to cannulate the left subclavian vein and a guidewire was advanced with ease. Over this wire, a dilator was placed followed by the triple lumen catheter. The catheter aspirated nonpulsatile dark blood and flushed easily with heparinized saline. This was sutured into place with 3-0 silk ties and dressed appropriately. COMPLICATIONS: None. CONDITION: Stable. ANESTHESIA: Local. BLOOD LOSS: Minimal. Procedure done in the ICU at the bedside. TRANSINT:[id number] Voice Confirmation ID: [id number] DOCUMENT ID: [id number] TIA CHAVEZ MD at 1031 CC: [id number] DICTATION DATE: 07/10/17 1347 CATHODIC PROTECTION TECHNICIAN: 07/10/17 1834 DIS IN 07/24/17 [facility] [address] [place] [address]
--- NOTE | ~2017-07-07 | CN ---
PATIENT NAME:CHIDI SHERMAN MEDICAL RECORD: [id number] : 54 LOCATION:D. D.2118 ADMIT DATE: 07/07/17 ACCOUNT: [id number] CONSULTING PHYSICIAN: LUDIN AKINS MD REFERRING PHYSICIAN: RAMAKRISHNA FREY MD DATE OF CONSULTATION: 07/08/2017 CARDIOLOGY CONSULT DIAGNOSES: 1. Atrial fibrillation with rapid ventricular response. 2. Tachycardia. 3. HIV cardiomyopathy. 4. Congestive heart failure, chronic systolic dysfunction. 5. Shortness of breath and dyspnea on exertion. 6. Pleural effusions. 7. Coronary artery disease. HISTORY: This is a gentleman well known to us with a history of HIV cardiomyopathy, ejection fraction of 15% to 20%. He presents with shortness of breath, pleural effusions, atrial fibrillation with rapid ventricular response. He does have a history of atrial fibrillation/flutter. He was on Coreg and has maintained sinus rhythm. He recently underwent cardiac catheterization revealing diffuse disease of his RCA and circumflex, not amenable to intervention. He was placed on medical therapy. He did well until the tachycardia. He is now on a Cardizem drip. He is still in atrial fibrillation. Heart rate is in 120s to 140s. PHYSICAL EXAMINATION: GENERAL APPEARANCE: Well-nourished, well-developed, appears stated age. Level of distress, comfortable. PSYCHIATRIC: Mental status, alert, normal affect. Orientation, oriented to time, place and person. EYES: Lids and conjunctiva, noninjected. No discharge, no pallor. ENT: Lips, teeth, gums, normal dentition. Oropharynx, no cyanosis, no pallor. NECK: Carotid arteries, bilateral normal upstroke, no bruits, no thrills. JUGULAR VEINS: No jugular venous pressure or distention. CERVICAL LYMPH NODES: Nontender, nonenlarged. THYROID: Not enlarged. Nontender. No nodules. LUNGS: Respiratory effort, unlabored. CHEST: Normal curvature. No thoracic deformity. No chest wall tenderness. Percussion, resonant. Auscultation, clear. No wheezes, no rales, no rhonchi. CARDIOVASCULAR: Precordial exam, nondisplaced. No heaves or pericardial thrills. Heart is irregularly irregular, tachycardic, with the atrial fibrillation. Heart sounds, normal S1, normal S2. No S3, no gallop, no rub. Systolic murmur, not heard. Diastolic murmur, not heard. EXTREMITIES: No cyanosis, no edema. Peripheral pulses, full and equal in all extremities, except as noted. No bruits appreciated. ABDOMEN: Soft, nondistended. Normal aorta. No bruit. Nontender. No masses. Liver, nontender, no hepatomegaly. Spleen, nontender, no splenomegaly. MUSCULOSKELETAL: No joint tenderness. No joint swelling. No erythema. NEUROLOGICAL: Normal gait, normal strength, normal tone. SKIN: Warm and dry. OVERALL IMPRESSION: CONSULT REPORT [id number] CHIDI SHERMAN 1. Atrial fibrillation with rapid ventricular response. At this time, continue Cardizem drip. We will place him on sotalol 120 mg b.i.d., holding his Coreg at this point. Hopefully, this will convert him to sinus rhythm. If he does not convert in the near future, would consider DC cardioversion after he is loaded with the sotalol: 2. Ischemic heart disease. At this time, he is only on medical management. Slowing the heart rate down will be imperative to not extending any myocardial damage from the tachycardia, hence the sotalol as above. 3. Congestive heart failure. Not only does he have the cardiomyopathy but the atrial fibrillation will lead to the shortness of breath and the congestive heart failure. Eliquis is on hold and most likely he will need thoracentesis for the pleural effusions. Further care depends upon the results with the sotalol. TRANSINT:[id number] Voice Confirmation ID: [id number] DOCUMENT ID: [id number] LUDIN AKINS MD at 1848 CC: [id number] DICTATION DATE: 07/08/17 1058 EP SPECIALIST: 07/08/17 1354 ADM IN [facility] [address] [place] [address]
[2017-07-07 10:12] LABS: BASOPHILS 0.5 % (0-2); EOSINOPHILS 0.2 % (0-7); HEMATOCRIT 44.2 % (42.0-54.0); IMMATURE GRANULOCYTES 0.1 % (0-5); LYMPHOCYTES 20.3 % (15-50); MCH 30.4 pg (26.0-34.0); MCHC 33.9 g/dL (31.0-37.0); MCV 89.7 fL (80.0-100.0); MONOCYTES 12.1 % (2-11); NEUTROPHILS 66.8 % (40-80); PLATELET COUNT 143 10x3/uL (130-400); RBC 4.93 10x6/uL (4.20-6.10)
[2017-07-07 10:27] LABS: INR 1.43 (0.85-1.17); PROTIME 16.9 SECONDS (11.6-15.0)
[2017-07-07 11:13] LABS: UDS - AMPHET NEGATIVE QUAL (NEGATIVE); UDS - BARB NEGATIVE QUAL (NEGATIVE); UDS - BENZO NEGATIVE QUAL (NEGATIVE); UDS - COCAINE NEGATIVE QUAL (NEGATIVE); UDS - OPIATE NEGATIVE QUAL (NEGATIVE); UDS - PCP NEGATIVE QUAL (NEGATIVE); UDS - THC NEGATIVE QUAL (NEGATIVE)
[2017-07-07 11:28] LABS: ALBUMIN 2.8 g/dL (3.4-5.0); ANION GAP 13.2 mmol/L (8-16); BILIRUBIN - TOTAL 1.75 mg/dL (0.2-1.3); CALCIUM 9.2 mg/dL (8.5-10.1); CARBON DIOXIDE 26.2 mmol/L (21.0-32.0); CREATININE - SERUM 1.3 mg/dL (0.6-1.3); POTASSIUM - SERUM 3.4 mmol/L (3.5-5.1); PROTEIN - SERUM 7.5 g/dL (6.4-8.2)
[2017-07-07 11:58] LABS: TROPONIN-I 0.072 ng/mL (0.000-0.060)
[2017-07-07 12:07] LABS: APPEARANCE HAZY (CLEAR); BILIRUBIN 1+ (NEGATIVE); COLOR AMBER (YELLOW); GLUCOSE NEGATIVE (NEGATIVE); KETONE NEGATIVE (NEGATIVE); NITRITE POSITIVE (NEGATIVE); PROTEIN 3+ mg/dL (NEGATIVE); SPECIFIC GRAVITY 1.025 (1.005-1.020)
[2017-07-07 12:08] LABS: BACTERIA MANY /hpf (NONE SEEN); EPITHELIAL CELLS 0-5 /hpf (0-5); MUCUS <1+ /lpf (NONE SEEN); RED CELLS - URINE RARE /hpf (0-5)
[2017-07-08] VITALS (26 sets, daily range): BP systolic 92–137; BP diastolic 57–108; BMI 29.3
[2017-07-08 04:19] LABS: BASOPHILS 0.4 % (0-2); EOSINOPHILS 0 % (0-7); HEMATOCRIT 48.4 % (42.0-54.0); IMMATURE GRANULOCYTES 0.2 % (0-5); LYMPHOCYTES 18.5 % (15-50); MCH 29.1 pg (26.0-34.0); MCHC 33.1 g/dL (31.0-37.0); MCV 88.2 fL (80.0-100.0); MEAN PLATELET VOLUME 12.1 fL (7.4-10.4); MONOCYTES 7.8 % (2-11); NEUTROPHILS 73.1 % (40-80); RBC 5.49 10x6/uL (4.20-6.10); RDW 16.5 % (11.5-14.5); WBC 9.2 10x3/uL (4.8-10.8)
[2017-07-08 04:28] LABS: INR 1.47 (0.85-1.17); PROTIME 17.3 SECONDS (11.6-15.0)
[2017-07-08 04:37] LABS: ALBUMIN 2.6 g/dL (3.4-5.0); BILIRUBIN - TOTAL 2.77 mg/dL (0.2-1.3); CALCIUM 9.1 mg/dL (8.5-10.1); PHOSPHOROUS 6.3 mg/dL (2.5-4.9)
[2017-07-08 04:38] LABS: PLATELET COUNT 187 10x3/uL (130-400)
[2017-07-08 04:44] LABS: ANION GAP 19.9 mmol/L (8-16); CARBON DIOXIDE 19.4 mmol/L (21.0-32.0); CREATININE - SERUM 1.7 mg/dL (0.6-1.3); POTASSIUM - SERUM 5.3 mmol/L (3.5-5.1)
[2017-07-09] VITALS (49 sets, daily range): BP systolic 76–131; BP diastolic 56–96
[2017-07-09 04:14] LABS: BASOPHILS 0.2 % (0-2); EOSINOPHILS 0 % (0-7); HEMATOCRIT 49.3 % (42.0-54.0); IMMATURE GRANULOCYTES 0.3 % (0-5); LYMPHOCYTES 15.6 % (15-50); MCH 28.6 pg (26.0-34.0); MCHC 32.5 g/dL (31.0-37.0); MCV 88.2 fL (80.0-100.0); MEAN PLATELET VOLUME 12.3 fL (7.4-10.4); MONOCYTES 11.3 % (2-11); NEUTROPHILS 72.6 % (40-80); PLATELET COUNT 150 10x3/uL (130-400); RBC 5.59 10x6/uL (4.20-6.10)
[2017-07-09 04:23] LABS: ALBUMIN 2.7 g/dL (3.4-5.0); BILIRUBIN - TOTAL 3.2 mg/dL (0.2-1.3); CALCIUM 9.6 mg/dL (8.5-10.1); CARBON DIOXIDE 17.7 mmol/L (21.0-32.0); PROTEIN - SERUM 6.9 g/dL (6.4-8.2)
[2017-07-09 05:03] LABS: CREATININE - SERUM 2.5 mg/dL (0.6-1.3)
[2017-07-09 05:04] LABS: ANION GAP 25.6 mmol/L (8-16); POTASSIUM - SERUM 6.3 mmol/L (3.5-5.1)
[2017-07-09 06:46] LABS: MAGNESIUM - SERUM 1.9 mg/dL (1.8-2.4)
[2017-07-10] VITALS (24 sets, daily range): BP systolic 107–139; BP diastolic 70–89; Ht 180.3 cm; Wt 94.1 kg
[2017-07-10 05:07] LABS: BASOPHILS 0.1 % (0-2); EOSINOPHILS 0 % (0-7); HEMOGLOBIN 15.7 g/dL (13.5-17.5); IMMATURE GRANULOCYTES 0.2 % (0-5); LYMPHOCYTES 11.9 % (15-50); MCHC 32.7 g/dL (31.0-37.0); MCV 88.6 fL (80.0-100.0); MEAN PLATELET VOLUME 11.5 fL (7.4-10.4); NEUTROPHILS 76.8 % (40-80); PLATELET COUNT 141 10x3/uL (130-400); RBC 5.42 10x6/uL (4.20-6.10); WBC 12.2 10x3/uL (4.8-10.8)
[2017-07-10 05:28] LABS: ALBUMIN 2.5 g/dL (3.4-5.0); BILIRUBIN - TOTAL 2.19 mg/dL (0.2-1.3); CALCIUM 9.4 mg/dL (8.5-10.1); CREATININE - SERUM 2.7 mg/dL (0.6-1.3); POTASSIUM - SERUM 5.5 mmol/L (3.5-5.1); PROTEIN - SERUM 6.7 g/dL (6.4-8.2)
[2017-07-10 05:30] LABS: ANION GAP 17.5 mmol/L (8-16)
[2017-07-10 08:54] LABS: PROTIME 20.4 SECONDS (11.6-15.0)
[2017-07-10 08:55] LABS: INR 1.81 (0.85-1.17)
[2017-07-11] VITALS (23 sets, daily range): BP systolic 110–144; BP diastolic 63–115
[2017-07-11 04:55] LABS: BASOPHILS 0 % (0-2); EOSINOPHILS 0.1 % (0-7); HEMATOCRIT 40.7 % (42.0-54.0); HEMOGLOBIN 13.2 g/dL (13.5-17.5); IMMATURE GRANULOCYTES 0.3 % (0-5); LYMPHOCYTES 15.6 % (15-50); MCH 28.5 pg (26.0-34.0); MCHC 32.4 g/dL (31.0-37.0); MCV 87.9 fL (80.0-100.0); MEAN PLATELET VOLUME 11.2 fL (7.4-10.4); MONOCYTES 9.6 % (2-11); NEUTROPHILS 74.4 % (40-80); PLATELET COUNT 134 10x3/uL (130-400); RBC 4.63 10x6/uL (4.20-6.10); RDW 17.2 % (11.5-14.5); WBC 7.1 10x3/uL (4.8-10.8)
[2017-07-11 05:21] LABS: ALBUMIN 2.2 g/dL (3.4-5.0); BILIRUBIN - TOTAL 1.1 mg/dL (0.2-1.3); CALCIUM 8.5 mg/dL (8.5-10.1); CARBON DIOXIDE 26.5 mmol/L (21.0-32.0); PHOSPHOROUS 3.2 mg/dL (2.5-4.9); PROTEIN - SERUM 5.9 g/dL (6.4-8.2)
[2017-07-11 05:32] LABS: ANION GAP 12.3 mmol/L (8-16); CREATININE - SERUM 1.9 mg/dL (0.6-1.3); POTASSIUM - SERUM 3.8 mmol/L (3.5-5.1)
[2017-07-12] VITALS (20 sets, daily range): BP systolic 95–150; BP diastolic 75–113
[2017-07-12 04:39] LABS: BASOPHILS 0.1 % (0-2); EOSINOPHILS 0.1 % (0-7); HEMATOCRIT 41.9 % (42.0-54.0); HEMOGLOBIN 13.7 g/dL (13.5-17.5); IMMATURE GRANULOCYTES 0.3 % (0-5); LYMPHOCYTES 18.6 % (15-50); MCHC 32.7 g/dL (31.0-37.0); MCV 88.6 fL (80.0-100.0); MEAN PLATELET VOLUME 11.5 fL (7.4-10.4); MONOCYTES 10.6 % (2-11); NEUTROPHILS 70.3 % (40-80); PLATELET COUNT 135 10x3/uL (130-400); RBC 4.73 10x6/uL (4.20-6.10); RDW 16.8 % (11.5-14.5); WBC 6.9 10x3/uL (4.8-10.8)
[2017-07-12 04:43] LABS: APTT 30.1 SECONDS (22.8-39.4)
[2017-07-12 04:52] LABS: INR 1.26 (0.85-1.17); PROTIME 15.4 SECONDS (11.6-15.0)
[2017-07-12 05:05] LABS: ALBUMIN 2.3 g/dL (3.4-5.0); ANION GAP 7.9 mmol/L (8-16); BILIRUBIN - TOTAL 1.1 mg/dL (0.2-1.3); CALCIUM 8.2 mg/dL (8.5-10.1); CARBON DIOXIDE 31.5 mmol/L (21.0-32.0); CREATININE - SERUM 1.6 mg/dL (0.6-1.3); MAGNESIUM - SERUM 1.6 mg/dL (1.8-2.4); PHOSPHOROUS 2.4 mg/dL (2.5-4.9); POTASSIUM - SERUM 3.4 mmol/L (3.5-5.1); PROTEIN - SERUM 6.3 g/dL (6.4-8.2)
[2017-07-13 04:00] VITALS: BP 130/47
[2017-07-13 06:18] LABS: BASOPHILS 0.1 % (0-2); EOSINOPHILS 0.4 % (0-7); HEMATOCRIT 41.5 % (42.0-54.0); HEMOGLOBIN 13.5 g/dL (13.5-17.5); IMMATURE GRANULOCYTES 0.1 % (0-5); LYMPHOCYTES 16.7 % (15-50); MCH 28.9 pg (26.0-34.0); MCHC 32.5 g/dL (31.0-37.0); MCV 88.9 fL (80.0-100.0); MEAN PLATELET VOLUME 11.6 fL (7.4-10.4); MONOCYTES 10.7 % (2-11); PLATELET COUNT 135 10x3/uL (130-400); RBC 4.67 10x6/uL (4.20-6.10); WBC 7.2 10x3/uL (4.8-10.8)
[2017-07-13 06:39] LABS: ALBUMIN 2.4 g/dL (3.4-5.0); ANION GAP 9.5 mmol/L (8-16); BILIRUBIN - TOTAL 1.44 mg/dL (0.2-1.3); CALCIUM 8.5 mg/dL (8.5-10.1); CARBON DIOXIDE 33.1 mmol/L (21.0-32.0); CREATININE - SERUM 1.2 mg/dL (0.6-1.3); MAGNESIUM - SERUM 1.5 mg/dL (1.8-2.4); PHOSPHOROUS 2.7 mg/dL (2.5-4.9); POTASSIUM - SERUM 3.6 mmol/L (3.5-5.1); PROTEIN - SERUM 6.4 g/dL (6.4-8.2)
[2017-07-13 07:57] VITALS: BP 150/105
[2017-07-13 11:28] VITALS: BP 109/76
[2017-07-13 15:17] VITALS: BP 141/84
[2017-07-13 20:00] VITALS: BP 110/77
[2017-07-14] VITALS: BP 124/91
[2017-07-14 04:00] VITALS: BP 132/96
[2017-07-14 05:56] LABS: BASOPHILS 0.2 % (0-2); EOSINOPHILS 1.2 % (0-7); HEMATOCRIT 41.4 % (42.0-54.0); HEMOGLOBIN 13.4 g/dL (13.5-17.5); IMMATURE GRANULOCYTES 0.2 % (0-5); LYMPHOCYTES 21.5 % (15-50); MCH 28.7 pg (26.0-34.0); MCHC 32.4 g/dL (31.0-37.0); MCV 88.7 fL (80.0-100.0); MEAN PLATELET VOLUME 10.6 fL (7.4-10.4); MONOCYTES 13.1 % (2-11); NEUTROPHILS 63.8 % (40-80); PLATELET COUNT 130 10x3/uL (130-400); RBC 4.67 10x6/uL (4.20-6.10); RDW 16.4 % (11.5-14.5); WBC 5.8 10x3/uL (4.8-10.8)
[2017-07-14 06:26] LABS: ALBUMIN 2.4 g/dL (3.4-5.0); ANION GAP 6.7 mmol/L (8-16); BILIRUBIN - TOTAL 1.2 mg/dL (0.2-1.3); CALCIUM 8.8 mg/dL (8.5-10.1); CARBON DIOXIDE 34.8 mmol/L (21.0-32.0); CREATININE - SERUM 1.4 mg/dL (0.6-1.3); POTASSIUM - SERUM 3.5 mmol/L (3.5-5.1); PROTEIN - SERUM 6.6 g/dL (6.4-8.2)
[2017-07-14 08:09] VITALS: BP 117/79
[2017-07-14 11:41] VITALS: BP 117/81
[2017-07-14 15:32] VITALS: BP 109/80
[2017-07-14 20:00] VITALS: BP 106/76
[2017-07-15] VITALS (7 sets, daily range): BP systolic 120–136; BP diastolic 23–96
[2017-07-15 05:19] LABS: BASOPHILS 0.3 % (0-2); EOSINOPHILS 0.9 % (0-7); HEMATOCRIT 42.7 % (42.0-54.0); HEMOGLOBIN 14.1 g/dL (13.5-17.5); IMMATURE GRANULOCYTES 0.1 % (0-5); LYMPHOCYTES 19.4 % (15-50); MCH 29.4 pg (26.0-34.0); MEAN PLATELET VOLUME 10.6 fL (7.4-10.4); MONOCYTES 13.4 % (2-11); NEUTROPHILS 65.9 % (40-80); PLATELET COUNT 133 10x3/uL (130-400); RDW 16.5 % (11.5-14.5)
[2017-07-15 05:49] LABS: ALBUMIN 2.4 g/dL (3.4-5.0); ANION GAP 8.9 mmol/L (8-16); BILIRUBIN - TOTAL 1.1 mg/dL (0.2-1.3); CALCIUM 8.8 mg/dL (8.5-10.1); CARBON DIOXIDE 34.8 mmol/L (21.0-32.0); CREATININE - SERUM 1.4 mg/dL (0.6-1.3); POTASSIUM - SERUM 3.7 mmol/L (3.5-5.1); PROTEIN - SERUM 6.7 g/dL (6.4-8.2)
[2017-07-16 04:36] VITALS: BP 133/82
[2017-07-16 05:44] LABS: BASOPHILS 0.3 % (0-2); EOSINOPHILS 0.5 % (0-7); HEMATOCRIT 46.7 % (42.0-54.0); IMMATURE GRANULOCYTES 0.3 % (0-5); LYMPHOCYTES 25.8 % (15-50); MCH 28.8 pg (26.0-34.0); MCHC 32.1 g/dL (31.0-37.0); MCV 89.6 fL (80.0-100.0); MEAN PLATELET VOLUME 11.7 fL (7.4-10.4); MONOCYTES 10.6 % (2-11); NEUTROPHILS 62.5 % (40-80); PLATELET COUNT 151 10x3/uL (130-400); RBC 5.21 10x6/uL (4.20-6.10); RDW 16.7 % (11.5-14.5); WBC 7.4 10x3/uL (4.8-10.8)
[2017-07-16 06:08] LABS: ALBUMIN 2.4 g/dL (3.4-5.0); ANION GAP 12.3 mmol/L (8-16); BILIRUBIN - TOTAL 1.49 mg/dL (0.2-1.3); CALCIUM 8.8 mg/dL (8.5-10.1); CARBON DIOXIDE 32.9 mmol/L (21.0-32.0); CREATININE - SERUM 1.5 mg/dL (0.6-1.3); POTASSIUM - SERUM 4.2 mmol/L (3.5-5.1); PROTEIN - SERUM 6.8 g/dL (6.4-8.2)
[2017-07-16 10:45] VITALS: BP 110/77
[2017-07-16 11:43] VITALS: BP 122/76
[2017-07-16 16:39] VITALS: BP 136/74
[2017-07-16 19:54] VITALS: BP 134/77
[2017-07-17 01:30] VITALS: BP 137/78
[2017-07-17 04:40] VITALS: BP 123/75
[2017-07-17 06:21] LABS: ALBUMIN 2.4 g/dL (3.4-5.0); ANION GAP 12.7 mmol/L (8-16); BILIRUBIN - TOTAL 1.74 mg/dL (0.2-1.3); CALCIUM 8.8 mg/dL (8.5-10.1); CARBON DIOXIDE 32.8 mmol/L (21.0-32.0); POTASSIUM - SERUM 4.5 mmol/L (3.5-5.1); PROTEIN - SERUM 6.5 g/dL (6.4-8.2)
[2017-07-17 06:27] LABS: CREATININE - SERUM 2.1 mg/dL (0.6-1.3)
[2017-07-17 06:33] LABS: BASOPHILS 0.3 % (0-2); EOSINOPHILS 0 % (0-7); HEMATOCRIT 44.4 % (42.0-54.0); HEMOGLOBIN 14.6 g/dL (13.5-17.5); IMMATURE GRANULOCYTES 0.3 % (0-5); LYMPHOCYTES 24.5 % (15-50); MCH 28.8 pg (26.0-34.0); MCHC 32.9 g/dL (31.0-37.0); MEAN PLATELET VOLUME 11.7 fL (7.4-10.4); MONOCYTES 9.5 % (2-11); NEUTROPHILS 65.4 % (40-80); PLATELET COUNT 153 10x3/uL (130-400); RBC 5.07 10x6/uL (4.20-6.10); RDW 16.5 % (11.5-14.5); WBC 7.9 10x3/uL (4.8-10.8)
[2017-07-17 06:41] LABS: MCV 87.6 fL (80.0-100.0)
[2017-07-17 07:54] VITALS: BP 120/63
[2017-07-17 11:53] VITALS: BP 109/66
[2017-07-17 16:35] VITALS: BP 105/53
[2017-07-17 20:20] VITALS: BP 112/70
[2017-07-18 00:41] VITALS: BP 138/60
[2017-07-18 05:57] VITALS: BP 128/70
[2017-07-18 06:46] LABS: BASOPHILS 0.1 % (0-2); EOSINOPHILS 0.5 % (0-7); HEMATOCRIT 42.6 % (42.0-54.0); HEMOGLOBIN 13.6 g/dL (13.5-17.5); IMMATURE GRANULOCYTES 0.3 % (0-5); LYMPHOCYTES 14.4 % (15-50); MCH 28.6 pg (26.0-34.0); MCHC 31.9 g/dL (31.0-37.0); MCV 89.5 fL (80.0-100.0); MEAN PLATELET VOLUME 11.2 fL (7.4-10.4); MONOCYTES 12.8 % (2-11); NEUTROPHILS 71.9 % (40-80); PLATELET COUNT 149 10x3/uL (130-400); RBC 4.76 10x6/uL (4.20-6.10); RDW 16.4 % (11.5-14.5); WBC 7.9 10x3/uL (4.8-10.8)
[2017-07-18 07:08] LABS: ALBUMIN 2.3 g/dL (3.4-5.0); ANION GAP 7.6 mmol/L (8-16); BILIRUBIN - TOTAL 1.19 mg/dL (0.2-1.3); CALCIUM 8.6 mg/dL (8.5-10.1); CARBON DIOXIDE 37.2 mmol/L (21.0-32.0); CREATININE - SERUM 1.6 mg/dL (0.6-1.3); PROTEIN - SERUM 6.3 g/dL (6.4-8.2)
[2017-07-18 07:09] LABS: POTASSIUM - SERUM 3.8 mmol/L (3.5-5.1)
[2017-07-18 08:11] VITALS: BP 130/70
[2017-07-18 11:22] VITALS: BP 135/80
[2017-07-18 15:29] VITALS: BP 113/59
[2017-07-18 21:35] VITALS: BP 128/64
[2017-07-19 00:46] VITALS: BP 118/67
[2017-07-19 05:39] VITALS: BP 126/72
[2017-07-19 06:15] LABS: BASOPHILS 0.1 % (0-2); EOSINOPHILS 0.5 % (0-7); HEMATOCRIT 39.7 % (42.0-54.0); HEMOGLOBIN 12.6 g/dL (13.5-17.5); IMMATURE GRANULOCYTES 0.3 % (0-5); MCH 28.6 pg (26.0-34.0); MCHC 31.7 g/dL (31.0-37.0); MCV 90.2 fL (80.0-100.0); MONOCYTES 13.4 % (2-11); NEUTROPHILS 70.7 % (40-80); PLATELET COUNT 143 10x3/uL (130-400); RDW 16.4 % (11.5-14.5); WBC 7.4 10x3/uL (4.8-10.8)
[2017-07-19 06:44] LABS: ALBUMIN 2.2 g/dL (3.4-5.0); ANION GAP 7.6 mmol/L (8-16); BILIRUBIN - TOTAL 0.99 mg/dL (0.2-1.3); CALCIUM 8.2 mg/dL (8.5-10.1); CARBON DIOXIDE 37.1 mmol/L (21.0-32.0); CREATININE - SERUM 1.5 mg/dL (0.6-1.3); POTASSIUM - SERUM 3.7 mmol/L (3.5-5.1); PROTEIN - SERUM 6.2 g/dL (6.4-8.2)
[2017-07-19 08:51] VITALS: BP 127/62
[2017-07-19 12:13] VITALS: BP 131/77
[2017-07-19 16:32] VITALS: BP 117/73
[2017-07-19 21:34] VITALS: BP 138/77
[2017-07-20 01:32] VITALS: BP 118/76
[2017-07-20 05:45] LABS: BASOPHILS 0.3 % (0-2); EOSINOPHILS 0.5 % (0-7); HEMATOCRIT 42.1 % (42.0-54.0); HEMOGLOBIN 13.4 g/dL (13.5-17.5); IMMATURE GRANULOCYTES 0.1 % (0-5); LYMPHOCYTES 18.7 % (15-50); MCH 28.7 pg (26.0-34.0); MCHC 31.8 g/dL (31.0-37.0); MCV 90.1 fL (80.0-100.0); MONOCYTES 11.5 % (2-11); NEUTROPHILS 68.9 % (40-80); PLATELET COUNT 157 10x3/uL (130-400); RBC 4.67 10x6/uL (4.20-6.10); RDW 16.4 % (11.5-14.5); WBC 7.6 10x3/uL (4.8-10.8)
[2017-07-20 06:15] LABS: ALBUMIN 2.3 g/dL (3.4-5.0); ANION GAP 8.6 mmol/L (8-16); CALCIUM 8.3 mg/dL (8.5-10.1); CARBON DIOXIDE 35.3 mmol/L (21.0-32.0); CREATININE - SERUM 1.3 mg/dL (0.6-1.3); POTASSIUM - SERUM 3.9 mmol/L (3.5-5.1); PROTEIN - SERUM 6.6 g/dL (6.4-8.2)
[2017-07-20 07:09] VITALS: BP 106/70
[2017-07-20 07:57] VITALS: BP 125/86
[2017-07-20 11:16] VITALS: BP 131/63
[2017-07-20 15:16] VITALS: BP 126/75
[2017-07-20 20:18] VITALS: BP 134/83
[2017-07-21 00:39] VITALS: BP 111/64
[2017-07-21 05:16] LABS: BASOPHILS 0.1 % (0-2); EOSINOPHILS 0.4 % (0-7); HEMATOCRIT 42.3 % (42.0-54.0); HEMOGLOBIN 13.5 g/dL (13.5-17.5); IMMATURE GRANULOCYTES 0.4 % (0-5); LYMPHOCYTES 20.3 % (15-50); MCH 28.4 pg (26.0-34.0); MCHC 31.9 g/dL (31.0-37.0); MCV 88.9 fL (80.0-100.0); MEAN PLATELET VOLUME 10.7 fL (7.4-10.4); MONOCYTES 8.9 % (2-11); NEUTROPHILS 69.9 % (40-80); PLATELET COUNT 153 10x3/uL (130-400); RBC 4.76 10x6/uL (4.20-6.10); WBC 7.7 10x3/uL (4.8-10.8)
[2017-07-21 05:35] LABS: ALBUMIN 2.3 g/dL (3.4-5.0); BILIRUBIN - TOTAL 1.17 mg/dL (0.2-1.3); CALCIUM 8.4 mg/dL (8.5-10.1); CARBON DIOXIDE 35.5 mmol/L (21.0-32.0); CREATININE - SERUM 1.2 mg/dL (0.6-1.3); POTASSIUM - SERUM 3.5 mmol/L (3.5-5.1); PROTEIN - SERUM 6.4 g/dL (6.4-8.2)
[2017-07-21 06:11] VITALS: BP 144/76
[2017-07-21 08:17] VITALS: BP 161/65
[2017-07-21 11:43] VITALS: BP 126/63
[2017-07-21 15:36] VITALS: BP 134/77
[2017-07-21 20:47] VITALS: BP 129/74
[2017-07-22] VITALS: BP 130/77
[2017-07-22 05:08] VITALS: BP 143/75
[2017-07-22 05:43] LABS: BASOPHILS 0.3 % (0-2); EOSINOPHILS 0.6 % (0-7); HEMATOCRIT 43.1 % (42.0-54.0); HEMOGLOBIN 14.1 g/dL (13.5-17.5); IMMATURE GRANULOCYTES 0.3 % (0-5); LYMPHOCYTES 15.9 % (15-50); MCHC 32.7 g/dL (31.0-37.0); MCV 88.5 fL (80.0-100.0); MEAN PLATELET VOLUME 10.8 fL (7.4-10.4); MONOCYTES 10.1 % (2-11); NEUTROPHILS 72.8 % (40-80); PLATELET COUNT 146 10x3/uL (130-400); RBC 4.87 10x6/uL (4.20-6.10); WBC 7.7 10x3/uL (4.8-10.8)
[2017-07-22 06:06] LABS: ALBUMIN 2.3 g/dL (3.4-5.0); ANION GAP 6.8 mmol/L (8-16); BILIRUBIN - TOTAL 1.1 mg/dL (0.2-1.3); CALCIUM 8.3 mg/dL (8.5-10.1); CARBON DIOXIDE 34.6 mmol/L (21.0-32.0); CREATININE - SERUM 1.2 mg/dL (0.6-1.3); POTASSIUM - SERUM 3.4 mmol/L (3.5-5.1); PROTEIN - SERUM 6.5 g/dL (6.4-8.2)
[2017-07-22 08:21] VITALS: BP 151/86
[2017-07-22 11:37] VITALS: BP 126/63
[2017-07-22 16:18] VITALS: BP 122/60
[2017-07-22 21:22] VITALS: BP 136/81
[2017-07-23] VITALS: BP 114/59
[2017-07-23 05:57] LABS: BASOPHILS 0.3 % (0-2); EOSINOPHILS 0.6 % (0-7); HEMATOCRIT 40.7 % (42.0-54.0); HEMOGLOBIN 13.4 g/dL (13.5-17.5); IMMATURE GRANULOCYTES 0.3 % (0-5); LYMPHOCYTES 20.3 % (15-50); MCH 28.8 pg (26.0-34.0); MCHC 32.9 g/dL (31.0-37.0); MCV 87.3 fL (80.0-100.0); MEAN PLATELET VOLUME 10.5 fL (7.4-10.4); MONOCYTES 9.6 % (2-11); NEUTROPHILS 68.9 % (40-80); PLATELET COUNT 148 10x3/uL (130-400); RBC 4.66 10x6/uL (4.20-6.10); RDW 15.9 % (11.5-14.5); WBC 7.9 10x3/uL (4.8-10.8)
[2017-07-23 06:11] VITALS: BP 147/76
[2017-07-23 06:25] LABS: ALBUMIN 2.3 g/dL (3.4-5.0); ANION GAP 8.4 mmol/L (8-16); BILIRUBIN - TOTAL 1.13 mg/dL (0.2-1.3); CALCIUM 8.4 mg/dL (8.5-10.1); CARBON DIOXIDE 33.1 mmol/L (21.0-32.0); CREATININE - SERUM 1.3 mg/dL (0.6-1.3); POTASSIUM - SERUM 3.5 mmol/L (3.5-5.1); PROTEIN - SERUM 6.5 g/dL (6.4-8.2)
[2017-07-23 10:06] VITALS: BP 155/85
[2017-07-23 11:22] VITALS: BP 126/69
[2017-07-23 15:29] VITALS: BP 129/71
[2017-07-23] MEDS ORDERED: DESCOVY PO (18:17)
[2017-07-23 20:32] VITALS: BP 133/64
[2017-07-24 01:28] VITALS: BP 135/79
[2017-07-24 08:16] VITALS: BP 138/81
[2017-07-24 11:59] VITALS: BP 126/61
[2017-07-24 16:04] VITALS: BP 137/76
== END 2017-07-24 18:09 | DRG 977 ==
LOC: D.ER 09:05 → D.M2 15:27 → D.EDHOLD 15:27 → D.ICU 15:27 → D.M2 07-12 19:34
PROVIDERS: Emergency Medicine; Family Medicine; Internal Medicine Nephrology; Internal Medicine Pulmonary Disease; Radiology Diagnostic Radiology
PROC: 5A09357 Assistance with Respiratory Ventilation, Less than 24 Consecutive Hours, Continuous Positive Airway Pressure (ICD-10-PCS; principal; 2017-07-08)
PROC: 05H633Z Insertion of Infusion Device into Left Subclavian Vein, Percutaneous Approach (ICD-10-PCS; 2017-07-10)
DX: B20 Human immunodeficiency virus [HIV] disease (principal); J96.01 Acute respiratory failure with hypoxia; N17.0 Acute kidney failure with tubular necrosis; G92 Toxic encephalopathy; I50.23 Acute on chronic systolic (congestive) heart failure; J90 Pleural effusion, not elsewhere classified; N39.0 Urinary tract infection, site not specified; F17.203 Nicotine dependence unspecified, with withdrawal; I48.92 Unspecified atrial flutter; I43 Cardiomyopathy in diseases classified elsewhere; J44.1 Chronic obstructive pulmonary disease with (acute) exacerbation; I31.3 Pericardial effusion (noninflammatory); E87.2 Acidosis; J81.1 Chronic pulmonary edema; I11.0 Hypertensive heart disease with heart failure; I25.5 Ischemic cardiomyopathy; I48.91 Unspecified atrial fibrillation; R00.0 Tachycardia, unspecified; I25.10 Atherosclerotic heart disease of native coronary artery without angina pectoris; E11.9 Type 2 diabetes mellitus without complications; R00.1 Bradycardia, unspecified; I95.9 Hypotension, unspecified; G47.33 Obstructive sleep apnea (adult) (pediatric); B96.20 Unspecified Escherichia coli [E. coli] as the cause of diseases classified elsewhere; R74.8 Abnormal levels of other serum enzymes; E87.5 Hyperkalemia; I08.3 Combined rheumatic disorders of mitral, aortic and tricuspid valves

== ENCOUNTER 2017-09-15 14:07 | Inpatient (IN) | payer MEDICARE ==
[~2017-09-15] VITALS: Ht 180.3 cm; Wt 86.1 kg
[2017-09-15] VITALS (19 sets, daily range): BP systolic 84–132; BP diastolic 62–96; BMI 274.4
[~2017-09-15 14:07] MED LIST changes: +DESCOVY PO
[2017-09-15 14:45] LABS: BASOPHILS 0.4 % (0-2); EOSINOPHILS 0.6 % (0-7); HEMATOCRIT 44.6 % (42.0-54.0); HEMOGLOBIN 15.1 g/dL (13.5-17.5); IMMATURE GRANULOCYTES 0.1 % (0-5); LYMPHOCYTES 27.9 % (15-50); MCHC 33.9 g/dL (31.0-37.0); MCV 88.5 fL (80.0-100.0); MONOCYTES 14.8 % (2-11); NEUTROPHILS 56.2 % (40-80); PLATELET COUNT 145 10x3/uL (130-400); RBC 5.04 10x6/uL (4.20-6.10); WBC 7.7 10x3/uL (4.8-10.8)
[2017-09-15 15:34] LABS: GLUCOSE 60 mg/dL (74-106); UREA NITROGEN 12 mg/dL (7-18)
[2017-09-15 15:35] LABS: ALKALINE PHOSPHATASE 188 U/L (46-116); ALT (SGPT) 102 U/L (10-68); BILIRUBIN - TOTAL 2.28 mg/dL (0.2-1.3); CALC OSMOLALITY 273 mosm/kg (275-300); CARBON DIOXIDE 21.5 mmol/L (21.0-32.0); CHLORIDE - SERUM 102 mmol/L (98-107); CKMB 3.7 U/L (0.0-3.6); POTASSIUM - SERUM 3.5 mmol/L (3.5-5.1); PROTEIN - SERUM 8.2 g/dL (6.4-8.2); SODIUM 138 mmol/L (136-145); TROPONIN-I 0.027 ng/mL (0.000-0.060)
[2017-09-15 22:15] LABS: CREATINE KINASE 125 UL (21-232); TROPONIN-I 0.033 ng/mL (0.000-0.060)
[2017-09-16] VITALS (25 sets, daily range): BP systolic 68–139; BP diastolic 54–96; Ht 180.3 cm; Wt 86.1 kg
[2017-09-16 04:27] LABS: BASOPHILS 0.4 % (0-2); EOSINOPHILS 0.3 % (0-7); HEMATOCRIT 43.4 % (42.0-54.0); HEMOGLOBIN 14.7 g/dL (13.5-17.5); IMMATURE GRANULOCYTES 0.4 % (0-5); LYMPHOCYTES 23.5 % (15-50); MCH 29.9 pg (26.0-34.0); MCHC 33.9 g/dL (31.0-37.0); MCV 88.4 fL (80.0-100.0); MEAN PLATELET VOLUME 11.2 fL (7.4-10.4); MONOCYTES 11.8 % (2-11); NEUTROPHILS 63.6 % (40-80); RBC 4.91 10x6/uL (4.20-6.10); RDW 17.1 % (11.5-14.5); WBC 9.3 10x3/uL (4.8-10.8)
[2017-09-16 04:49] LABS: PLATELET COUNT 193 10x3/uL (130-400)
[2017-09-16 05:02] LABS: ALBUMIN 3.5 g/dL (3.4-5.0); ALKALINE PHOSPHATASE 185 U/L (46-116); BILIRUBIN - TOTAL 2.91 mg/dL (0.2-1.3); CALCIUM 9.2 mg/dL (8.5-10.1); CHLORIDE - SERUM 100 mmol/L (98-107); CKMB 3.5 U/L (0.0-3.6); CREATINE KINASE 140 UL (21-232); CREATININE - SERUM 1.9 mg/dL (0.6-1.3); PROTEIN - SERUM 8.1 g/dL (6.4-8.2); SODIUM 136 mmol/L (136-145); TROPONIN-I 0.034 ng/mL (0.000-0.060); eGFR NON AFRICAN AMERICAN 38 mL/min (90-120)
[2017-09-16 05:07] LABS: ALT (SGPT) 144 U/L (10-68); CALC OSMOLALITY 277 mosm/kg (275-300); GLUCOSE 130 mg/dL (74-106); POTASSIUM - SERUM 4.5 mmol/L (3.5-5.1); UREA NITROGEN 25 mg/dL (7-18)
[2017-09-16 08:20] LABS: ANION GAP 26.9 mmol/L (8-16); CALCIUM 8.4 mg/dL (8.5-10.1); CARBON DIOXIDE 17.1 mmol/L (21.0-32.0); CREATININE - SERUM 2.1 mg/dL (0.6-1.3); TROPONIN-I 0.05 ng/mL (0.000-0.060)
[2017-09-17] VITALS (25 sets, daily range): BP systolic 18–142; BP diastolic 60–101
[2017-09-17 04:25] LABS: BASOPHILS 0.1 % (0-2); EOSINOPHILS 0.4 % (0-7); HEMATOCRIT 39.9 % (42.0-54.0); HEMOGLOBIN 13.5 g/dL (13.5-17.5); IMMATURE GRANULOCYTES 0.1 % (0-5); LYMPHOCYTES 12.6 % (15-50); MCH 29.5 pg (26.0-34.0); MCHC 33.8 g/dL (31.0-37.0); MCV 87.1 fL (80.0-100.0); MEAN PLATELET VOLUME 11.8 fL (7.4-10.4); MONOCYTES 10.8 % (2-11); PLATELET COUNT 166 10x3/uL (130-400); RBC 4.58 10x6/uL (4.20-6.10); RDW 17.3 % (11.5-14.5); WBC 7.5 10x3/uL (4.8-10.8)
[2017-09-17 04:44] LABS: ALBUMIN 3.2 g/dL (3.4-5.0); BILIRUBIN - TOTAL 2.1 mg/dL (0.2-1.3); CALCIUM 8.6 mg/dL (8.5-10.1); CREATININE - SERUM 1.8 mg/dL (0.6-1.3); PROTEIN - SERUM 7.3 g/dL (6.4-8.2)
[2017-09-17 05:10] LABS: ANION GAP 14.4 mmol/L (8-16); POTASSIUM - SERUM 3.4 mmol/L (3.5-5.1)
[2017-09-18] VITALS (20 sets, daily range): BP systolic 103–143; BP diastolic 55–120
[2017-09-18 04:52] LABS: BASOPHILS 0.2 % (0-2); EOSINOPHILS 0.3 % (0-7); HEMATOCRIT 43.4 % (42.0-54.0); HEMOGLOBIN 14.8 g/dL (13.5-17.5); IMMATURE GRANULOCYTES 0.3 % (0-5); MCH 29.7 pg (26.0-34.0); MCHC 34.1 g/dL (31.0-37.0); MCV 87.1 fL (80.0-100.0); MEAN PLATELET VOLUME 12.1 fL (7.4-10.4); MONOCYTES 11.5 % (2-11); NEUTROPHILS 66.7 % (40-80); PLATELET COUNT 176 10x3/uL (130-400); RBC 4.98 10x6/uL (4.20-6.10); RDW 17.4 % (11.5-14.5); WBC 8.8 10x3/uL (4.8-10.8)
[2017-09-18 05:26] LABS: ALBUMIN 3.5 g/dL (3.4-5.0); ANION GAP 16.9 mmol/L (8-16); BILIRUBIN - TOTAL 2.57 mg/dL (0.2-1.3); CALCIUM 9.1 mg/dL (8.5-10.1); CARBON DIOXIDE 24.4 mmol/L (21.0-32.0); CREATININE - SERUM 1.7 mg/dL (0.6-1.3); PROTEIN - SERUM 8.1 g/dL (6.4-8.2)
[2017-09-18 05:27] LABS: POTASSIUM - SERUM 4.3 mmol/L (3.5-5.1)
[2017-09-19] VITALS: BP 94/71
[2017-09-19 04:00] VITALS: BP 119/83
[2017-09-19 05:28] LABS: BASOPHILS 0.3 % (0-2); EOSINOPHILS 1.4 % (0-7); HEMATOCRIT 39.4 % (42.0-54.0); HEMOGLOBIN 13.3 g/dL (13.5-17.5); IMMATURE GRANULOCYTES 0.4 % (0-5); LYMPHOCYTES 25.4 % (15-50); MCH 29.6 pg (26.0-34.0); MCHC 33.8 g/dL (31.0-37.0); MCV 87.8 fL (80.0-100.0); MEAN PLATELET VOLUME 11.3 fL (7.4-10.4); MONOCYTES 11.2 % (2-11); NEUTROPHILS 61.3 % (40-80); PLATELET COUNT 167 10x3/uL (130-400); RBC 4.49 10x6/uL (4.20-6.10); RDW 17.2 % (11.5-14.5); WBC 7.8 10x3/uL (4.8-10.8)
[2017-09-19 06:02] LABS: ALBUMIN 2.9 g/dL (3.4-5.0); BILIRUBIN - TOTAL 1.4 mg/dL (0.2-1.3); CALCIUM 8.4 mg/dL (8.5-10.1); CREATININE - SERUM 1.4 mg/dL (0.6-1.3); PROTEIN - SERUM 6.8 g/dL (6.4-8.2)
[2017-09-19 08:24] VITALS: BP 119/98
[2017-09-19 12:50] VITALS: BP 118/84
[2017-09-19 16:30] VITALS: BP 125/74
[2017-09-20 04:30] VITALS: BP 144/68
[2017-09-20 06:13] LABS: BASOPHILS 0.4 % (0-2); EOSINOPHILS 2.1 % (0-7); HEMATOCRIT 41.7 % (42.0-54.0); IMMATURE GRANULOCYTES 0.3 % (0-5); LYMPHOCYTES 29.1 % (15-50); MCH 29.6 pg (26.0-34.0); MCHC 33.6 g/dL (31.0-37.0); MCV 88.2 fL (80.0-100.0); MEAN PLATELET VOLUME 11.7 fL (7.4-10.4); MONOCYTES 11.9 % (2-11); NEUTROPHILS 56.2 % (40-80); PLATELET COUNT 173 10x3/uL (130-400); RBC 4.73 10x6/uL (4.20-6.10); RDW 17.1 % (11.5-14.5); WBC 7.2 10x3/uL (4.8-10.8)
[2017-09-20 06:38] LABS: ALBUMIN 3.1 g/dL (3.4-5.0); ANION GAP 13.7 mmol/L (8-16); BILIRUBIN - TOTAL 1.81 mg/dL (0.2-1.3); CALCIUM 8.6 mg/dL (8.5-10.1); CARBON DIOXIDE 26.3 mmol/L (21.0-32.0); CREATININE - SERUM 1.1 mg/dL (0.6-1.3)
[2017-09-20 08:53] VITALS: BP 103/82
[2017-09-20 12:19] VITALS: BP 136/81
[2017-09-20 16:53] VITALS: BP 100/76
[2017-09-20 20:48] VITALS: BP 114/69
[2017-09-21 01:05] VITALS: BP 107/68
[2017-09-21 05:31] LABS: BASOPHILS 0.5 % (0-2); EOSINOPHILS 2.4 % (0-7); HEMOGLOBIN 13.1 g/dL (13.5-17.5); IMMATURE GRANULOCYTES 0.3 % (0-5); LYMPHOCYTES 32.4 % (15-50); MCH 28.9 pg (26.0-34.0); MCHC 32.8 g/dL (31.0-37.0); MCV 88.1 fL (80.0-100.0); MEAN PLATELET VOLUME 11.4 fL (7.4-10.4); MONOCYTES 11.5 % (2-11); NEUTROPHILS 52.9 % (40-80); PLATELET COUNT 198 10x3/uL (130-400); RBC 4.54 10x6/uL (4.20-6.10); RDW 16.7 % (11.5-14.5); WBC 6.6 10x3/uL (4.8-10.8)
[2017-09-21 05:48] LABS: ANION GAP 10.4 mmol/L (8-16); CALCIUM 8.7 mg/dL (8.5-10.1); CARBON DIOXIDE 26.6 mmol/L (21.0-32.0); CREATININE - SERUM 1.1 mg/dL (0.6-1.3)
[2017-09-21 06:52] VITALS: BP 134/89
[2017-09-21 08:42] VITALS: BP 130/68
[2017-09-21 12:27] VITALS: BP 125/69
[2017-09-21 16:52] VITALS: BP 126/79
[2017-09-21 20:48] VITALS: BP 114/77
[2017-09-22 06:57] VITALS: BP 110/54
[2017-09-22 07:48] LABS: BASOPHILS 0.6 % (0-2); EOSINOPHILS 2.5 % (0-7); HEMATOCRIT 40.7 % (42.0-54.0); HEMOGLOBIN 13.4 g/dL (13.5-17.5); IMMATURE GRANULOCYTES 0.3 % (0-5); MCH 29.1 pg (26.0-34.0); MCHC 32.9 g/dL (31.0-37.0); MCV 88.3 fL (80.0-100.0); MEAN PLATELET VOLUME 11.2 fL (7.4-10.4); MONOCYTES 12.9 % (2-11); NEUTROPHILS 53.7 % (40-80); PLATELET COUNT 195 10x3/uL (130-400); RBC 4.61 10x6/uL (4.20-6.10); RDW 16.7 % (11.5-14.5); WBC 6.8 10x3/uL (4.8-10.8)
[2017-09-22 08:09] LABS: ANION GAP 11.7 mmol/L (8-16); CALCIUM 8.8 mg/dL (8.5-10.1); CARBON DIOXIDE 28.3 mmol/L (21.0-32.0); CREATININE - SERUM 1.1 mg/dL (0.6-1.3)
[2017-09-22 09:18] VITALS: BP 114/72
[2017-09-22 12:39] VITALS: BP 125/86
[2017-09-22 16:34] VITALS: BP 113/83
[2017-09-22 21:08] VITALS: BP 123/73
[2017-09-23 01:40] VITALS: BP 133/84
[2017-09-23 05:40] VITALS: BP 121/90
[2017-09-23 06:52] LABS: BASOPHILS 0.3 % (0-2); EOSINOPHILS 2.4 % (0-7); HEMATOCRIT 42.2 % (42.0-54.0); HEMOGLOBIN 13.8 g/dL (13.5-17.5); IMMATURE GRANULOCYTES 0.3 % (0-5); LYMPHOCYTES 25.5 % (15-50); MCHC 32.7 g/dL (31.0-37.0); MCV 88.7 fL (80.0-100.0); MEAN PLATELET VOLUME 11.2 fL (7.4-10.4); NEUTROPHILS 58.5 % (40-80); PLATELET COUNT 186 10x3/uL (130-400); RBC 4.76 10x6/uL (4.20-6.10); RDW 16.6 % (11.5-14.5); WBC 6.6 10x3/uL (4.8-10.8)
[2017-09-23 07:18] LABS: CALC OSMOLALITY 277 mosm/kg (275-300); CALCIUM 8.6 mg/dL (8.5-10.1); CARBON DIOXIDE 28.3 mmol/L (21.0-32.0); CHLORIDE - SERUM 101 mmol/L (98-107); CREATININE - SERUM 0.9 mg/dL (0.6-1.3); GLUCOSE 119 mg/dL (74-106); POTASSIUM - SERUM 4.1 mmol/L (3.5-5.1); SODIUM 138 mmol/L (136-145); eGFR NON AFRICAN AMERICAN 90 mL/min (90-120)
[2017-09-23 07:21] LABS: UREA NITROGEN 15 mg/dL (7-18)
[2017-09-23 09:38] VITALS: BP 131/80
[2017-09-23 12:00] VITALS: BP 114/74
== END 2017-09-23 17:38 | DRG 974 ==
LOC: D.ER 14:07 → D.M2 19:17 → D.ICU 19:17 → D.M2 19:17
PROVIDERS: Emergency Medicine; Internal Medicine Interventional Cardiology; Internal Medicine Nephrology
PROC: 0BH17EZ Insertion of Endotracheal Airway into Trachea, Via Natural or Artificial Opening (ICD-10-PCS; principal; 2017-09-16)
PROC: 5A1935Z Respiratory Ventilation, Less than 24 Consecutive Hours (ICD-10-PCS; 2017-09-16)
DX: B20 Human immunodeficiency virus [HIV] disease (principal); A41.9 Sepsis, unspecified organism; J96.01 Acute respiratory failure with hypoxia; G93.41 Metabolic encephalopathy; I50.23 Acute on chronic systolic (congestive) heart failure; N17.0 Acute kidney failure with tubular necrosis; I48.92 Unspecified atrial flutter; I43 Cardiomyopathy in diseases classified elsewhere; F17.213 Nicotine dependence, cigarettes, with withdrawal; E11.649 Type 2 diabetes mellitus with hypoglycemia without coma; T38.3X5A Adverse effect of insulin and oral hypoglycemic [antidiabetic] drugs, initial encounter; E87.6 Hypokalemia; E88.09 Other disorders of plasma-protein metabolism, not elsewhere classified; E80.6 Other disorders of bilirubin metabolism; I25.10 Atherosclerotic heart disease of native coronary artery without angina pectoris; G47.33 Obstructive sleep apnea (adult) (pediatric); J44.9 Chronic obstructive pulmonary disease, unspecified; I11.0 Hypertensive heart disease with heart failure; I48.91 Unspecified atrial fibrillation

== ENCOUNTER 2017-10-07 14:24 | Inpatient (IN) | payer MEDICARE ==
[2017-10-07] VITALS (14 sets, daily range): BP systolic 84–137; BP diastolic 54–107; BMI 25.5
[~2017-10-07] VITALS: Ht 180.3 cm; Wt 85.6 kg
--- NOTE | ~2017-10-07 | CN ---
PATIENT NAME:CHIDI SHERMAN MEDICAL RECORD: [id number] : 54 LOCATION:EDNA2302 ADMIT DATE: 10/07/17 ACCOUNT: [id number] CONSULTING PHYSICIAN: NOLVIA JUAN REFERRING PHYSICIAN: NICOLAS TRACEY MD DATE OF CONSULTATION: 10/07/2017 HISTORY OF PRESENT ILLNESS: This is a 67-year-old man who lives in a long-term and was brought by the ambulance to the Emergency Room, was noted to have atrial fibrillation/flutter with RVR. The patient was cardioverted and was noted to have apneic spells. Arterial blood gas shows severe metabolic acidosis. He was given 3 amps of bicarbonate and was started on a bicarb drip. He was also noted to have anemia with gastrointestinal bleed and blood transfusion times 1 month. With the blood transfusion, the patient's blood pressure improved. PAST MEDICAL HISTORY: Remarkable for diabetes, hypertension, systolic failure, SD, arrhythmias, eject fraction is 15% to 20%, nonischemic. He also has HIV/AIDS. History from the medical records and the chart from the Emergency Room. ALLERGIES: No known allergies. MEDICATIONS: Lasix 40 mg daily, potassium 10 mEq daily, aspirin 325 mg daily, Aldactone 25 mg daily, insulin regular sliding scale subQ a.c. and h.s. Carvedilol 6.25 mg b.i.d., apixaban or Eliquis 5 mg b.i.d. FAMILY HISTORY: Unknown. SOCIAL HISTORY: The patient does not drink. Does not do recreational drugs. REVIEW OF SYSTEMS: Unobtainable. The patient apparently has had a stroke recently. PHYSICAL EXAMINATION: GENERAL: Physical exam reveals an elderly man who is unresponsive. VITAL SIGNS: Temperature 95.2 initially and 95.8. Heart rate 64, respiratory rate of 20, blood pressure 125/95, and saturation 98% on room air. SHEENT: Remarkable for mouth is dry. NECK: Supple. No adenopathy. LUNGS: Clear with good airflow bilaterally. No chest wall tenderness or trauma. HEART: Exam shows no jugular venous distention, no murmur or gallops. ABDOMEN: Benign without tenderness. EXTREMITIES: Show no clubbing, cyanosis or edema. LABORATORY DATA: CBC showed white count 6.1, hemoglobin 8.2, and platelet count is 217. Arterial blood gas, pH 7.35, pCO2 of 21, pO2 235 on 7 liters. Repeat blood gas after bicarbonate showed pH 7.42, pCO2 of 24, pO2 of 110, and bicarb is 16. He is on room air. Chemistry showed sodium 136, potassium 4.3, chloride is 99, creatinine is 1.7, BUN is 49. Magnesium is 1.5, alkaline phosphatase 174. BNP is 1914, lipase CONSULT REPORT [id number] CHIDI SHERMAN 105. Chest x-ray showed stable mild cardiomegaly. There is no acute disease. CT scan of the head showed no acute intracranial abnormalities. Severe chronic microvascular ischemic changes and mild cerebral volume loss. IMPRESSION: 1. Atrial fibrillation with rapid ventricular response, status post cardioversion. 2. Severe metabolic acidosis, probably from sepsis. 3. Acute kidney injury. 4. Nonischemic cardiomyopathy with ejection fraction of less than 20%. 5. Human immunodeficiency virus/acquired immune deficiency syndrome. It is unclear if the patient is taken his AIDS medications. 6. Occult blood is positive. PLAN: 1. Admit to intensive care unit. 2. Bicarbonate drip. 3. Empiric antibiotics. 4. Cautious fluids because of cardiomyopathy. 5. Bronchodilators. 6. Start digoxin for atrial fibrillation. 7. Sliding scale for insulin control. TRANSINT:[id number] Voice Confirmation ID: [id number] DOCUMENT ID: [id number] NOLVIA JUAN at 0752 CC: [id number] DICTATION DATE: 10/07/17 234 RETAIL AGENT: 10/08/17 1000 ADM IN [facility] [address] [place] [address]
--- NOTE | ~2017-10-07 | PN ---
PATIENT:CHIDI SHERMAN MEDICAL RECORD: [id number] LOCATION:D.M2 D.213 ADMISSION DATE: 10/07/17 PROGRESS NOTE DATE OF SERVICE: 10/11/2017 SUBJECTIVE: This is a 67-year-old man who has had a history of chronic atrial fibrillation, HIV with AIDS and he has also had a history of nonischemic cardiomyopathy. The patient presented to the Emergency Room with severe respiratory distress, was found to have atrial fib with a rapid ventricular response. The patient was cardioverted. She was also noted to have severe metabolic acidosis, was given IV bicarbonate boluses and was started on IV drip. The patient's blood gases improved. She was admitted to the intensive care unit on a bicarbonate drip. She was also given IV antibiotics. Chest x-ray showed cardiomegaly without any infiltrate. The patient has been doing well but complains of severe weakness. PHYSICAL EXAMINATION: GENERAL: Physical exam reveals a well-developed, well-nourished man, who is in no acute distress. VITAL SIGNS: Temperature 99.8, heart rate of 144, respiratory rate of 18, blood pressure 121/87, and saturation is 97. SHEENT: Unremarkable. The patient is normocephalic. Pupils are equally reactive. NECK: Supple. There is no tenderness. There is no adenopathy. Trachea is midline. No thyromegaly. LUNGS: Clear with good airflow bilaterally. HEART: Exam shows no jugular venous distention, no murmur or gallops. ABDOMEN: Benign, without any tenderness. EXTREMITIES: No clubbing, cyanosis or edema. LABORATORY DATA: White count 4.5, hemoglobin 8.3, platelet count 264. Chemistry is remarkable for carbon dioxide 25, creatinine is 1.1. Chest x-ray showed no significant change, central pulmonary vasculature is prominent. ASSESSMENT: 1. Acute atrial fibrillation with rapid ventricular response. Rate was controlled but seemed to have increased. 2. Mild pulmonary edema. 3. Nonischemic cardiomyopathy. 4. Human immunodeficiency virus with acquired immune deficiency syndrome. PLAN: 1. Discontinue IV. 2. Increase the beta-kathia. 3. Continue antibiotics. 4. Continue Cardizem drip. 5. TSH. TRANSINT:[id number] Voice Confirmation ID: [id number] DOCUMENT ID: [id number] PROGRESS NOTE [id number] CHIDI SHERMAN NOLVIA JUAN at 1307 CC: [id number] DICTATION DATE: 10/11/17 1839 PRINT SHOP ASSISTANT: 10/12/17 0526 DIS IN 10/20/17 [place] [id number] [facility] [place] [address]
--- NOTE | ~2017-10-07 | PN ---
PATIENT:CHIDI SHERMAN MEDICAL RECORD: [id number] LOCATION:D.ICU D.230 ADMISSION DATE: 10/07/17 PROGRESS NOTE DATE OF SERVICE: 10/08/2017 SUBJECTIVE: This is a 67-year-old man, who was admitted through the Emergency Room with acute atrial fibrillation with RVR, severe metabolic acidosis, and hypotension. He also was to have GI bleed with anemia. The patient was cardioverted in the Emergency Room and also received sodium bicarb bolus and drip. Blood cultures were obtained and antibiotics were started. He was transferred to the intensive care unit. The patient is awake and mildly somnolent. There is no fever or chills. The patient continues to have atrial fib with controlled rate. PHYSICAL EXAMINATION: GENERAL: Reveals an awake and alert, communicative man, who is in no acute distress. VITAL SIGNS: Temperature 97, heart rate of 83, respiratory rate of 18, blood pressure 100/69, pulse oxygen is 97 on room air. SHEENT: Unremarkable. The patient is normocephalic. Pupils are equal and reactive. NECK: Supple. No adenopathy. Trachea is midline. LUNGS: Clear with no wheezes or crackles. CARDIAC: Shows no jugular venous distention, murmur or gallops. ABDOMEN: Benign, without tenderness. EXTREMITIES: Shows no clubbing, cyanosis or edema. LABORATORY DATA: Lab exam showed white count is 9.5, hemoglobin 8.9, and platelet count is 218,000. Arterial blood gas: PH 7.4, pCO2 of 38, pO2 of 53, and saturation of 96% on room air. Chemistry is remarkable for sodium of 148, potassium 4.8, BUN is 35, creatinine is 2.5, hemoglobin A1c 6.7, magnesium is 2.1, ammonia is 48. ASSESSMENT: 1. Acute respiratory failure with severe metabolic acidosis. The patient is currently on BiPAP with correction of acidosis. We will need to stop the bicarb. 2. Atrial fibrillation with rapid ventricular response. The patient's rate is controlled. His anticoagulation medications were stopped because of GI bleed. 3. Anemia probably secondary to chronic disease and GI bleed. 4. HIV/AIDS. We will need to check viral load. 5. Acute kidney injury. Creatinine is worsening. 6. Lactic acidosis. 7. History of congestive heart failure, nonischemic. BNP is elevated. DISCUSSION: NEUROPSYCHIATRY: The patient's mental status is improving near to baseline. There are no focal signs. CARDIOVASCULAR: The patient has cardiomyopathy, chronic atrial fib. Admitted with RVR and was cardioverted with 50 joules. Hypotension, resolved. PLAN: 1. Stop sodium bicarb drip. 2. Stop bicarb. PROGRESS NOTE [id number] CHIDI SHERMAN 3. Control atrial fibrillation rate. 4. Hold full anticoagulation and continue DVT prophylaxis with Lovenox. 5. Nephrology consultation for renal failure. TRANSINT:[id number] Voice Confirmation ID: [id number] DOCUMENT ID: [id number] NOLVIA JUAN at 0751 CC: [id number] DICTATION DATE: 10/08/17 1034 ELECTROMECHANICAL INSPECTOR: 10/08/17 1211 ADM IN [place] [id number] [place] [address]
--- NOTE | ~2017-10-07 | PN ---
PATIENT:CHIDI SHERMAN MEDICAL RECORD: [id number] LOCATION:D. D.213 ADMISSION DATE: 10/07/17 PROGRESS NOTE DATE OF SERVICE: 10/10/2017 SUBJECTIVE: This is a 67-year-old male who has had a history of HIV/AIDS, chronic atrial fibrillation, and systolic congestive heart failure. The patient was admitted through the Emergency Room in severe respiratory distress, was noted to have atrial fib with a rapid ventricular rate, was also noted to have severe metabolic acidosis. The patient was cardioverted in the Emergency Room and also had a bolus of IV bicarbonate and IV bicarbonate drip. The patient was admitted to the intensive care unit. The rate was controlled. The patient gradually improved in mental status, did well, and was transferred to the medical floor. The patient denies any pains, shortness of breath or fever. PHYSICAL EXAMINATION: GENERAL: Physical exam reveals a well-developed, well-nourished elderly man who is comfortable in bed. VITAL SIGNS: Temperature 98.8, heart rate of 92 and irregular, respiratory rate of 17, blood pressure 118/62, saturations 96% on room air. SHEENT: Unremarkable. The patient is normocephalic. Pupils are equal and reactive. NECK: Supple. There is no adenopathy. Trachea is midline. LUNGS: Clear with good airflow bilaterally. HEART: Exam shows no jugular venous distention, no murmur or gallops. ABDOMEN: Benign without any tenderness, masses or distention. EXTREMITIES: No clubbing, cyanosis or edema. LABORATORY DATA: Showed hemoglobin 8.1, white count of 6.1, platelet count 246,000. ASSESSMENT: 1. Atrial fibrillation with rapid ventricular response, cardioverted. 2. Severe metabolic acidosis treated with sodium bicarbonate drip and boluses. 3. Acute kidney injury. 4. Cardiomyopathy, need echocardiogram report. 5. Gastrointestinal bleed with anemia. The patient's anemia is stable, most likely nonbleeding. PLAN: 1. Continue full anticoagulation with Eliquis 2.5 b.i.d. 2. Change IV fluids to keep open. 3. Continue treatments. TRANSINT:[id number] Voice Confirmation ID: [id number] DOCUMENT ID: [id number] PROGRESS NOTE [id number] CHIDI SHERMAN NOLVIA JUAN at 1842 CC: [id number] DICTATION DATE: 10/10/17 1738 LEAD AUDITOR: 10/11/17 0411 ADM IN [facility] [address] [id number]
--- NOTE | ~2017-10-07 | HEMODYNAMI ---
PATIENT:CHIDI SHERMAN MEDICAL RECORD: [id number] : 54 [id number] ADMISSION DATE: 10/07/17 Generatedon:10/15/201715:15 Patient name: CHIDI SHERMAN Patient #: [id number] SSN: : 1950 Date of study: 10/15/2017 Page: Of Hemodynamic Procedure Report Patient Data Patient Demographics Procedure consent was obtained First Name: CHIDI Gender: Male Last Name: LANE : 1950 Patient #: [id number] Age: 67 year(s) Race: Additional ID: [id number] Contact details Address: [address] [place] [address] State: [place] City: [facility] Zip code: [address] Past Medical History Allergies: No known allergies Admission Admission Data Admission Date: 10/07/2017 Admission Time: 19:29 Room #: [facility] Lab Results Lab Result Date: 10/15/2017 Lab Result Time: 0:00 Biochemistry Name Units Result Min Max BUN mg/dl 25 --(----)-* 7 18 Creatinine mg/dl 1 --(--*-)-- 0.6 1.3 CBC Name Units Result Min Max Hemoglobin g/dl 9.1 *-(----)-- 13.5 17.5 Procedure Procedure Types Cath Procedure Diagnostic Procedure Cardioversion External Procedure Description Procedure Date Procedure Date: 10/15/2017 Procedure Start Time: 14:49 Procedure End Time: 15:12 Procedure Staff Name Function Anil Hernandez MD Performing Physician Liz eHr RT Monitor Dylon Johnson RT Scrub Lars Hopper RN Nurse Jose Wynn CRNA Additional personnel Procedure Data Cath Procedure Fluoroscopy Diagnostic fluoroscopy Total fluoroscopy Time: 0 time: 0 min min Diagnostic fluoroscopy Total fluoroscopy dose: 0 dose: 0 mGy mGy Contrast Material Contrast Material Type Amount (ml) Isovue 300 0 Estimated blood loss: 5 ml Procedure Complications No complications Procedure Medications Medication Administration Route Dosage Oxygen etCO2 Nasal cannula 3 l/min Refer to Anesthesia Notes for Sedation Medications 0.9% NaCl I.V. 100 ml/hr Hemodynamics Rest HGB: 9.1 (g/dl) Heart Rate: 141 (bpm) Snapshots Pre Cath Intra NCS Post Cath Vital Signs Time Heart Resp SPO2 etCO2 NIBP (mmHg) Rhythm Pain Sedation Rate (ipm) (%) (mmHg) Status Level (bpm) 14:47:27 141 19 93 0 132/99(110) NSR 0 (11) 10(A) , No pain 14:52:10 52 22 72 11.2 72/49(61) NSR 0 (11) 8(A) , No pain 14:56:42 66 46 95 15.7 86/58(76) NSR 0 (11) 8(A) , No pain 15:00:29 84 23 100 24 93/61(82) NSR 0 (11) 9(A) , No pain Medications Time Medication Route Dose Verified Delivered Reason Notes Effective ness by by 14:48:48 Oxygen etCO2 3 Lars Lars Per Nasal l/min Ruchi Hopper physician cannula RN RN 14:49:01 Refer to Lars Sousa for Anesthesia Ruchi Hopper sedation Notes for RN RN Sedation Medications 14:49:26 0.9% NaCl I.V. 100 Lars Lars Per ml/hr Ruchi Hopper physician RN hand scudder Log Time Note 14:36:44 Diagnostic Cath Status : Elective 14:37:19 Lars Hopper RN sent for patient. Start room use. 14:37:21 Time tracking: Regular hours (M-F 7:00 - 5:00) 14:37:26 Plan of Care:Hemodynamics will remain stable., Cardiac rhythm will remain stable., Comfort level will be maintained., Respiratory function will remain adequate., Patient/ family verbilizes understanding of procedure., Procedure tolerated without complication., Recovers from procedure without complications.. 14:40:58 Patient received from Med II to CCL 1 Alert and oriented. Tansferred to table in Supine position. 14:40:59 Warm blankets applied, and robina hugger turned on for patient comfort. 14:41:00 Correct patient and procedure confirmed by team. 14:41:02 Signed procedure consent form obtained from patient. 14:41:03 ECG and BP/O2 sat monitors applied to patient. 14:45:04 Jose Wynn CRNA present and monitoring patient for TIVA. 14:45:42 Vital chart was started 14:45:45 Baseline sample Acquired. 14:45:58 Rhythm: atrial flutter 14:45:59 Full Disclosure recording started 14:46:03 H&P Date Dictated: 10/15/2017 New H&P dictated by physician.. 14:46:06 Pre-procedure instructions explained to patient. 14:46:06 Pre-op teaching completed and patient verbalized understanding. 14:46:08 Family in waiting room. 14:46:09 Patient NPO since Midnight. 14:46:11 Is the patient allergic to Iodine/contrast media? No. 14:46:12 Was the patient premedicated? No 14:47:22 Is patient on blood thinner?Yes 14:47:38 Previous problem with sedation/anesthesia? No ? 14:47:40 Snore? No 14:47:41 Sleep apnea? No 14:47:42 Deviated septum? No 14:47:43 Opens mouth fully? Yes 14:47:44 Sticks out tongue? Yes 14:47:48 Airway obstruction? Yes copd 14:47:51 Dentures? No ? 14:47:55 Pre procedure: right dorsailis pedis pulse 2+ Normal; easily identifiable; not easily obliterated 14:47:57 Pre procedure: left dorsailis pedis pulse 2+ Normal; easily identifiable; not easily obliterated 14:47:59 Patient pain scale 0/10 ?. 14:48:08 IV patent on arrival in left forearm with 0.9% NaCl at [facility]. 14:48:10 Lab results completed and on chart. 14:48:14 Alarms reviewed by R. N. 14:48:14 Sharps counted by scrub and verified by R.N. 14:48:16 Physician arrived 14:48:17 --------ALL STOP TIME OUT------ 14:48:18 Final Timeout: patient, procedure, and site verified with staff and physician. All members of the team are in agreement. 14:48:24 Physical assessment completed. ASA score P 3 - A patient with severe systemic disease as per Anil Hernandez MD. 14:48:28 Sedation plan: TIVA Medication:Propofol 14:48:48 Oxygen 3 l/min etCO2 Nasal cannula was administered by Lars Lorigan RN; Per physician; 14:48:58 Quick combo pads placed on patients chest and back. 14:49:01 Refer to Anesthesia Notes for Sedation Medications was administered by Lars Hopper RN; for sedation; 14:49:01 Defibrillator synced and charged to 275 Joules. 14:49:10 Procedure started. 14:49:26 0.9% NaCl 100 ml/hr I.V. was administered by Lars Hopper RN; Per physician; 14:49:33 Shock delivered. 14:49:52 Patient cardioverted to sinus rhythm . 14:51:34 Lab Result : Hemoglobin 9.1 g/dl 14:51:34 Lab Result : Creatinine 1 mg/dl 14:51:34 Lab Result : BUN 25 mg/dl 14:51:43 Procedure ended.(Physican Out) 14:58:32 Fluoroscopy time 00.00 minutes. 14:58:34 Fluoroscopy dose: 0 mGy 14:58:34 Flurop Dose total: 0 14:58:39 Contrast amount:Isovue 300 0ml. 14:58:42 Sharps counted by scrub and verified by R.N. 14:58:47 Insertion/operative site no bleeding no hematoma. 14:58:53 Post Procedure Pulses reassessed and unchanged 14:59:01 Post procedure rhythm: sinus rhythm 14:59:04 Estimated blood loss: 5 ml 14:59:06 Post procedure instruction explained to patient.Patient verbalizes understanding. 14:59:08 Patient needs reinforcement of post procedure teaching. 14:59:17 Procedure and supply charges have been captured, reviewed, submitted and are correct. 14:59:22 Procedure Complication : No complications 14:59:24 Vital chart was stopped 14:59:24 See physician's report for complete and final results. 14:59:27 Report given to Med II. 14:59:30 Patient transfered to Med II with Stretcher. 15:12:40 Procedure ended. 15:12:40 Full Disclosure recording stopped 15:12:45 End room use (Document Last) Signature Audit [place] Stage Time Signature Unsigned Intra-Procedure 10/15/2017 Liz Her 3:15:16 PM RT(R) Signatures Monitor : Liz Her RT Signature : Date : Time : [address] [place] [address]
--- NOTE | ~2017-10-07 | OP ---
PATIENT NAME: CHIDI SHERMAN MEDICAL RECORD: [id number] :54 LOCATION:D. D.2132 ADMISSION DATE:10/07/17 SURGEON: LUDIN AKINS MD DATE OF OPERATION: 10/15/2017 PROCEDURE: DC cardioversion. INDICATION: Atrial fibrillation. PROCEDURE IN DETAIL: IV conscious sedation was performed per anesthesia. Continuous heart rate, O2 saturation, blood pressure monitoring all undertaken, all of which remained stable. He received 1 shock at 275 joules restoring sinus rhythm. OVERALL IMPRESSION: Successful DC cardioversion from atrial fibrillation to sinus rhythm. TRANSINT:[id number] Voice Confirmation ID: [id number] DOCUMENT ID: [id number] LUDIN AKINS MD at 1834 CC: [id number] DICTATION DATE: 10/15/17 1453 MODELING AGENCY MANAGER: 10/15/17 1504 ADM IN [id number] [place] [address]
--- NOTE | ~2017-10-07 | PN ---
PATIENT:CHIDI SHERMAN MEDICAL RECORD: [id number] LOCATION:D. D.213 ADMISSION DATE: 10/07/17 PROGRESS NOTE DATE OF SERVICE: 10/09/2017 SUBJECTIVE: This is a 67-year-old man who has had history of HIV/AIDS. He has also had cardiomyopathy, nonischemic. He has chronic atrial fibrillation. The patient was admitted to the Emergency Room for atrial fibrillation with rapid ventricular rate, hypertension, anemia, GI bleed. He also has severe metabolic acidosis. He received bicarb boluses and also bicarb drip. The patient was transferred to the intensive care unit. The patient has been doing well. He has been more awake and alert, on nasal cannula. He has normal sinus rhythm. He has no fever or chills. PHYSICAL EXAMINATION: GENERAL: Reveals an elderly man, who is in no acute distress. VITAL SIGNS: Temperature is afebrile, heart rate of 74, respiratory rate of 18, blood pressure of 109/74, saturation of 95% on 2 liters. SHEENT: Unremarkable. NECK: Supple. CHEST: Clear and symmetrical. Good air flow bilaterally. CARDIAC: Shows no jugular venous distention, murmur, or gallop. ABDOMEN: Benign. EXTREMITIES: Show no clubbing, cyanosis, or edema. Lab exam shows white count 8, hemoglobin 9.8, and platelet count is 227. Arterial blood gas; pH 7.51, pCO2 of 37, and pO2 of 103 on 2.5 liters. Chemistry is remarkable for bicarb of 34, creatinine is 2.7, BUN is 60. Chest x-ray shows cardiomegaly without acute cardiopulmonary process. ASSESSMENT: 1. Atrial fibrillation with RVR. The patient has had chronic atrial fibrillation, on anticoagulation and rate control medications. 2. Acute renal failure with metabolic acidosis. Acidosis was corrected. 3. Nonischemic cardiomyopathy. The patient will need echocardiogram for evaluation. 4. Mild anemia secondary to GI bleed of chronic disease. The hemoglobin is not decreasing; therefore, no active bleeding at this time. DISCUSSION: NEUROPSYCHIATRY: The patient is probably at baseline mental status. No focal signs. CARDIOVASCULAR: The patient has atrial fibrillation. He is in normal sinus. The patient will need to be placed back on anticoagulation. He has had recent TIA or stroke. He has nonischemic cardiomyopathy. Echocardiogram will be checked today. PULMONARY/RESPIRATORY: The patient has no pneumonia. There is probably chronic obstructive pulmonary disease. He is on bronchodilators. RENAL/METABOLIC: The patient has polyuric acute kidney injury. Suspect this will improve. PLAN: 1. The patient will be transferred to medical floor. 2. Echocardiogram. PROGRESS NOTE [id number] CHIDI SHERMAN 3. Start feeding. 4. Resume Eliquis. TRANSINT:[id number] Voice Confirmation ID: [id number] DOCUMENT ID: [id number] NOLVIA JUAN at 1742 CC: [id number] DICTATION DATE: 10/09/17 0948 VETERANS' COORDINATOR: 10/09/17 1250 ADM IN [address] [place] [address]
[2017-10-07 15:57] LABS: BASOPHILS 0.3 % (0-2); EOSINOPHILS 0.3 % (0-7); HEMATOCRIT 25.5 % (42.0-54.0); HEMOGLOBIN 8.2 g/dL (13.5-17.5); IMMATURE GRANULOCYTES 0.2 % (0-5); MCH 28.9 pg (26.0-34.0); MCHC 32.2 g/dL (31.0-37.0); MCV 89.8 fL (80.0-100.0); MEAN PLATELET VOLUME 10.2 fL (7.4-10.4); MONOCYTES 11.9 % (2-11); NEUTROPHILS 63.3 % (40-80); PLATELET COUNT 217 10x3/uL (130-400); RBC 2.84 10x6/uL (4.20-6.10); RDW 17.6 % (11.5-14.5); WBC 6.1 10x3/uL (4.8-10.8)
[2017-10-07 16:27] LABS: ALBUMIN 3.3 g/dL (3.4-5.0); ALKALINE PHOSPHATASE 174 U/L (46-116); ALT (SGPT) 30 U/L (10-68); APTT 29.9 SECONDS (22.8-39.4); BILIRUBIN - TOTAL 1.41 mg/dL (0.2-1.3); CALC OSMOLALITY 288 mosm/kg (275-300); CALCIUM 8.7 mg/dL (8.5-10.1); CARBON DIOXIDE 23.8 mmol/L (21.0-32.0); CHLORIDE - SERUM 99 mmol/L (98-107); CREATININE - SERUM 1.7 mg/dL (0.6-1.3); GLUCOSE 171 mg/dL (74-106); INR 1.78 (0.85-1.17); POTASSIUM - SERUM 4.3 mmol/L (3.5-5.1); PROTEIN - SERUM 7.6 g/dL (6.4-8.2); PROTIME 20.2 SECONDS (11.6-15.0); SODIUM 136 mmol/L (136-145); UREA NITROGEN 49 mg/dL (7-18); eGFR NON AFRICAN AMERICAN 43 mL/min (90-120)
[2017-10-07 16:28] LABS: D-DIMER-QUANTITATIVE 0.5 ug/mLFEU (0.20-0.54)
[2017-10-07 16:50] LABS: CKMB 2.5 U/L (0.0-3.6); CREATINE KINASE 69 UL (21-232); PRO BNP 1914 pg/mL (0-125); TROPONIN-I 0.033 ng/mL (0.000-0.060)
[2017-10-07 19:19] LABS: APPEARANCE CLEAR (CLEAR); BILIRUBIN NEGATIVE (NEGATIVE); COLOR YELLOW (YELLOW); GLUCOSE NEGATIVE (NEGATIVE); KETONE NEGATIVE (NEGATIVE); NITRITE NEGATIVE (NEGATIVE); PROTEIN TRACE mg/dL (NEGATIVE); SPECIFIC GRAVITY 1.015 (1.005-1.020)
[2017-10-07 19:20] LABS: RED CELLS - URINE 0-5 /hpf (0-5); WHITE CELLS - URINE OCC /hpf (0-5)
[2017-10-07 20:45] LABS: CKMB 2.5 U/L (0.0-3.6); CREATINE KINASE 192 UL (21-232); TROPONIN-I 0.047 ng/mL (0.000-0.060)
[2017-10-08] VITALS (24 sets, daily range): BP systolic 85–130; BP diastolic 52–95; BMI 25.6
[2017-10-08 04:15] LABS: BASOPHILS 0.2 % (0-2); EOSINOPHILS 0 % (0-7); HEMATOCRIT 27.1 % (42.0-54.0); HEMOGLOBIN 8.9 g/dL (13.5-17.5); IMMATURE GRANULOCYTES 0.2 % (0-5); LYMPHOCYTES 15.9 % (15-50); MCHC 32.8 g/dL (31.0-37.0); MCV 88.3 fL (80.0-100.0); MEAN PLATELET VOLUME 10.7 fL (7.4-10.4); MONOCYTES 14.7 % (2-11); PLATELET COUNT 218 10x3/uL (130-400); RBC 3.07 10x6/uL (4.20-6.10); RDW 17.2 % (11.5-14.5)
[2017-10-08 04:26] LABS: WBC 9.5 10x3/uL (4.8-10.8)
[2017-10-08 04:55] LABS: ALBUMIN 2.8 g/dL (3.4-5.0); ALKALINE PHOSPHATASE 171 U/L (46-116); AMYLASE - SERUM 56 U/L (25-115); CALC OSMOLALITY 297 mosm/kg (275-300); CALCIUM 8.2 mg/dL (8.5-10.1); CARBON DIOXIDE 21.6 mmol/L (21.0-32.0); CHLORIDE - SERUM 101 mmol/L (98-107); CHOL - HDL RATIO 3.3 ratio (2.3-4.9); CHOLESTEROL, TOTAL 110 mg/dL (0-200); CKMB 2.6 U/L (0.0-3.6); CREATINE KINASE 74 UL (21-232); GLUCOSE 175 mg/dL (74-106); HDL CHOLESTEROL 33 mg/dL (32-96); LDL CHOLESTEROL 66 mg/dL (0-100); LIPASE 198 U/L (73-393); MAGNESIUM - SERUM 2.1 mg/dL (1.8-2.4); PHOSPHOROUS 6.4 mg/dL (2.5-4.9); POTASSIUM - SERUM 4.8 mmol/L (3.5-5.1); PRO BNP 2601 pg/mL (0-125); PROTEIN - SERUM 6.4 g/dL (6.4-8.2); SODIUM 140 mmol/L (136-145); THYROID STIMULATING HORMONE 6.82 uIU/mL (0.36-3.74); TRIGLYCERIDE 59 mg/dL (30-200); TROPONIN-I 0.058 ng/mL (0.000-0.060); UREA NITROGEN 55 mg/dL (7-18)
[2017-10-08 04:56] LABS: ALT (SGPT) 50 U/L (10-68); CREATININE - SERUM 2.5 mg/dL (0.6-1.3); eGFR NON AFRICAN AMERICAN 28 mL/min (90-120)
[2017-10-08 11:23] LABS: CKMB 2.1 U/L (0.0-3.6); CREATINE KINASE 121 UL (21-232)
[2017-10-09] VITALS (11 sets, daily range): BP systolic 94–133; BP diastolic 54–87; Ht 180.3 cm; Wt 85.6 kg
[2017-10-09 03:46] LABS: BASOPHILS 0.4 % (0-2); EOSINOPHILS 0.9 % (0-7); HEMATOCRIT 28.2 % (42.0-54.0); IMMATURE GRANULOCYTES 0.1 % (0-5); LYMPHOCYTES 15.9 % (15-50); MCH 28.5 pg (26.0-34.0); MCHC 31.9 g/dL (31.0-37.0); MCV 89.2 fL (80.0-100.0); MEAN PLATELET VOLUME 9.8 fL (7.4-10.4); MONOCYTES 13.9 % (2-11); NEUTROPHILS 68.8 % (40-80); PLATELET COUNT 227 10x3/uL (130-400); RBC 3.16 10x6/uL (4.20-6.10); RDW 16.9 % (11.5-14.5)
[2017-10-09 03:50] LABS: INR 1.67 (0.85-1.17); PROTIME 19.2 SECONDS (11.6-15.0)
[2017-10-09 04:04] LABS: ALBUMIN 2.9 g/dL (3.4-5.0); BILIRUBIN - TOTAL 1.35 mg/dL (0.2-1.3); CALCIUM 8.3 mg/dL (8.5-10.1); CREATININE - SERUM 2.7 mg/dL (0.6-1.3); MAGNESIUM - SERUM 2.2 mg/dL (1.8-2.4); PROTEIN - SERUM 6.5 g/dL (6.4-8.2); THYROID STIMULATING HORMONE 2.67 uIU/mL (0.36-3.74)
[2017-10-09 04:06] LABS: ANION GAP 11.4 mmol/L (8-16); CARBON DIOXIDE 33.6 mmol/L (21.0-32.0)
[2017-10-09 08:21] LABS: FOLATE (FOLIC ACID) - SERUM 11.9 ng/mL (>3.0)
[2017-10-09 18:11] LABS: HIV AB INTERPRETATION HIV-1 Positive (())
[2017-10-09 22:31] LABS: APPEARANCE CLEAR (CLEAR); COLOR YELLOW (YELLOW)
[2017-10-09 22:32] LABS: BACTERIA FEW /hpf (NONE SEEN); BILIRUBIN NEGATIVE (NEGATIVE); GLUCOSE NEGATIVE (NEGATIVE); KETONE NEGATIVE (NEGATIVE); NITRITE NEGATIVE (NEGATIVE); PROTEIN TRACE mg/dL (NEGATIVE); RED CELLS - URINE 25-50 /hpf (0-5); UROBILINOGEN NORMAL (NORMAL); WHITE CELLS - URINE 0-5 /hpf (0-5)
[2017-10-10 02:35] VITALS: BP 111/67
[2017-10-10 06:05] LABS: BASOPHILS 0.2 % (0-2); EOSINOPHILS 1.8 % (0-7); HEMATOCRIT 26.3 % (42.0-54.0); HEMOGLOBIN 8.1 g/dL (13.5-17.5); IMMATURE GRANULOCYTES 0.2 % (0-5); LYMPHOCYTES 15.8 % (15-50); MCH 27.7 pg (26.0-34.0); MCHC 30.8 g/dL (31.0-37.0); MCV 90.1 fL (80.0-100.0); MEAN PLATELET VOLUME 10.5 fL (7.4-10.4); MONOCYTES 14.7 % (2-11); NEUTROPHILS 67.3 % (40-80); PLATELET COUNT 246 10x3/uL (130-400); RBC 2.92 10x6/uL (4.20-6.10); RDW 17.3 % (11.5-14.5); WBC 6.1 10x3/uL (4.8-10.8)
[2017-10-10 06:14] LABS: HEPATITIS C ANTIBODY 0.2 (0.0-0.9)
[2017-10-10 06:37] VITALS: BP 108/70
[2017-10-10 06:54] LABS: ALBUMIN 2.6 g/dL (3.4-5.0); ANION GAP 9.2 mmol/L (8-16); BILIRUBIN - TOTAL 0.99 mg/dL (0.2-1.3); CALCIUM 8.2 mg/dL (8.5-10.1); CARBON DIOXIDE 30.9 mmol/L (21.0-32.0); MAGNESIUM - SERUM 2.1 mg/dL (1.8-2.4); PHOSPHOROUS 3.5 mg/dL (2.5-4.9); POTASSIUM - SERUM 4.1 mmol/L (3.5-5.1); PROTEIN - SERUM 6.2 g/dL (6.4-8.2); THYROID STIMULATING HORMONE 2.73 uIU/mL (0.36-3.74)
[2017-10-10 07:07] LABS: CREATININE - SERUM 1.6 mg/dL (0.6-1.3)
[2017-10-10 08:14] VITALS: BP 114/63
[2017-10-10 12:24] VITALS: BP 120/60
[2017-10-10 16:04] VITALS: BP 118/62
[2017-10-10 22:50] VITALS: BP 150/94
[2017-10-11 05:36] LABS: BASOPHILS 0.4 % (0-2); EOSINOPHILS 2.4 % (0-7); HEMOGLOBIN 8.3 g/dL (13.5-17.5); IMMATURE GRANULOCYTES 0.2 % (0-5); MCH 27.6 pg (26.0-34.0); MCHC 30.7 g/dL (31.0-37.0); MCV 89.7 fL (80.0-100.0); MEAN PLATELET VOLUME 10.3 fL (7.4-10.4); MONOCYTES 14.6 % (2-11); NEUTROPHILS 64.4 % (40-80); PLATELET COUNT 264 10x3/uL (130-400); RBC 3.01 10x6/uL (4.20-6.10); RDW 16.9 % (11.5-14.5)
[2017-10-11 05:47] LABS: WBC 4.5 10x3/uL (4.8-10.8)
[2017-10-11 06:47] LABS: ALBUMIN 2.6 g/dL (3.4-5.0); BILIRUBIN - TOTAL 0.92 mg/dL (0.2-1.3); CALCIUM 8.1 mg/dL (8.5-10.1); CARBON DIOXIDE 25.3 mmol/L (21.0-32.0); POTASSIUM - SERUM 4.3 mmol/L (3.5-5.1); PROTEIN - SERUM 6.3 g/dL (6.4-8.2)
[2017-10-11 06:51] LABS: CREATININE - SERUM 1.1 mg/dL (0.6-1.3)
[2017-10-11 08:00] VITALS: BP 129/82
[2017-10-11 08:06] VITALS: BP 114/81
[2017-10-11 11:58] VITALS: BP 120/60
[2017-10-11 17:03] VITALS: BP 121/87
[2017-10-12 00:11] VITALS: BP 129/82
[2017-10-12 04:00] VITALS: BP 120/80
[2017-10-12 05:59] LABS: BASOPHILS 0.3 % (0-2); EOSINOPHILS 2.8 % (0-7); HEMOGLOBIN 9.6 g/dL (13.5-17.5); IMMATURE GRANULOCYTES 0.2 % (0-5); LYMPHOCYTES 18.3 % (15-50); MCH 28.1 pg (26.0-34.0); MEAN PLATELET VOLUME 9.5 fL (7.4-10.4); MONOCYTES 14.6 % (2-11); NEUTROPHILS 63.8 % (40-80); PLATELET COUNT 287 10x3/uL (130-400); RBC 3.42 10x6/uL (4.20-6.10); RDW 17.2 % (11.5-14.5)
[2017-10-12 06:09] LABS: MCV 87.7 fL (80.0-100.0); WBC 5.7 10x3/uL (4.8-10.8)
[2017-10-12 06:42] LABS: ALKALINE PHOSPHATASE 198 U/L (46-116); ALT (SGPT) 38 U/L (10-68); BILIRUBIN - TOTAL 1.04 mg/dL (0.2-1.3); CALC OSMOLALITY 278 mosm/kg (275-300); CALCIUM 8.6 mg/dL (8.5-10.1); CHLORIDE - SERUM 104 mmol/L (98-107); CREATININE - SERUM 0.9 mg/dL (0.6-1.3); GLUCOSE 101 mg/dL (74-106); PHOSPHOROUS 2.5 mg/dL (2.5-4.9); POTASSIUM - SERUM 4.4 mmol/L (3.5-5.1); PROTEIN - SERUM 7.1 g/dL (6.4-8.2); SODIUM 139 mmol/L (136-145); UREA NITROGEN 15 mg/dL (7-18); eGFR NON AFRICAN AMERICAN 90 mL/min (90-120)
[2017-10-12 14:22] LABS: PROCALCITONIN 0.55 ng/mL (0.00-0.08)
[2017-10-12 23:37] VITALS: BP 111/76
[2017-10-13 05:00] VITALS: BP 116/74
[2017-10-13 06:00] LABS: BASOPHILS 0.2 % (0-2); EOSINOPHILS 2.5 % (0-7); HEMATOCRIT 27.9 % (42.0-54.0); HEMOGLOBIN 8.8 g/dL (13.5-17.5); IMMATURE GRANULOCYTES 0.4 % (0-5); MCH 27.3 pg (26.0-34.0); MCHC 31.5 g/dL (31.0-37.0); MCV 86.6 fL (80.0-100.0); MEAN PLATELET VOLUME 9.5 fL (7.4-10.4); MONOCYTES 12.4 % (2-11); NEUTROPHILS 63.5 % (40-80); PLATELET COUNT 310 10x3/uL (130-400); RBC 3.22 10x6/uL (4.20-6.10); RDW 17.3 % (11.5-14.5); WBC 5.6 10x3/uL (4.8-10.8)
[2017-10-13 06:32] LABS: ALBUMIN 2.7 g/dL (3.4-5.0); ALKALINE PHOSPHATASE 165 U/L (46-116); ALT (SGPT) 30 U/L (10-68); BILIRUBIN - TOTAL 0.79 mg/dL (0.2-1.3); CALC OSMOLALITY 279 mosm/kg (275-300); CALCIUM 8.5 mg/dL (8.5-10.1); CARBON DIOXIDE 25.5 mmol/L (21.0-32.0); CHLORIDE - SERUM 105 mmol/L (98-107); GLUCOSE 99 mg/dL (74-106); POTASSIUM - SERUM 4.3 mmol/L (3.5-5.1); PROTEIN - SERUM 6.6 g/dL (6.4-8.2); SODIUM 139 mmol/L (136-145); UREA NITROGEN 17 mg/dL (7-18); eGFR NON AFRICAN AMERICAN 80 mL/min (90-120)
[2017-10-13 08:02] VITALS: BP 138/79
[2017-10-13 11:38] VITALS: BP 127/74
[2017-10-13 15:40] VITALS: BP 117/81
[2017-10-13 22:16] VITALS: BP 132/88
[2017-10-14 05:20] LABS: BASOPHILS 0.6 % (0-2); EOSINOPHILS 3.7 % (0-7); HEMATOCRIT 28.2 % (42.0-54.0); HEMOGLOBIN 8.9 g/dL (13.5-17.5); IMMATURE GRANULOCYTES 0.4 % (0-5); LYMPHOCYTES 25.8 % (15-50); MCH 27.1 pg (26.0-34.0); MCHC 31.6 g/dL (31.0-37.0); MEAN PLATELET VOLUME 10.1 fL (7.4-10.4); NEUTROPHILS 55.5 % (40-80); PLATELET COUNT 337 10x3/uL (130-400); RBC 3.28 10x6/uL (4.20-6.10); RDW 17.4 % (11.5-14.5); WBC 5.2 10x3/uL (4.8-10.8)
[2017-10-14 05:44] LABS: ALBUMIN 2.7 g/dL (3.4-5.0); ALKALINE PHOSPHATASE 175 U/L (46-116); ALT (SGPT) 29 U/L (10-68); BILIRUBIN - TOTAL 0.81 mg/dL (0.2-1.3); CALC OSMOLALITY 278 mosm/kg (275-300); CALCIUM 8.3 mg/dL (8.5-10.1); CARBON DIOXIDE 24.4 mmol/L (21.0-32.0); CHLORIDE - SERUM 105 mmol/L (98-107); CREATININE - SERUM 0.9 mg/dL (0.6-1.3); GLUCOSE 104 mg/dL (74-106); POTASSIUM - SERUM 4.3 mmol/L (3.5-5.1); PROTEIN - SERUM 6.7 g/dL (6.4-8.2); SODIUM 138 mmol/L (136-145); UREA NITROGEN 21 mg/dL (7-18); eGFR NON AFRICAN AMERICAN 90 mL/min (90-120)
[2017-10-14 06:42] VITALS: BP 133/58
[2017-10-14 13:57] VITALS: BP 133/89
[2017-10-14 20:51] VITALS: BP 134/83
[2017-10-15 01:24] VITALS: BP 140/65
[2017-10-15 05:18] LABS: BASOPHILS 0.5 % (0-2); EOSINOPHILS 1.9 % (0-7); HEMATOCRIT 29.4 % (42.0-54.0); HEMOGLOBIN 9.1 g/dL (13.5-17.5); IMMATURE GRANULOCYTES 0.4 % (0-5); LYMPHOCYTES 19.3 % (15-50); MCH 27.1 pg (26.0-34.0); MCV 87.5 fL (80.0-100.0); MONOCYTES 16.5 % (2-11); NEUTROPHILS 61.4 % (40-80); PLATELET COUNT 347 10x3/uL (130-400); RBC 3.36 10x6/uL (4.20-6.10); RDW 17.9 % (11.5-14.5); WBC 5.7 10x3/uL (4.8-10.8)
[2017-10-15 05:33] LABS: ALBUMIN 2.8 g/dL (3.4-5.0); ALKALINE PHOSPHATASE 176 U/L (46-116); ALT (SGPT) 19 U/L (10-68); BILIRUBIN - TOTAL 0.79 mg/dL (0.2-1.3); CALC OSMOLALITY 279 mosm/kg (275-300); CALCIUM 8.1 mg/dL (8.5-10.1); CARBON DIOXIDE 25.4 mmol/L (21.0-32.0); CHLORIDE - SERUM 107 mmol/L (98-107); GLUCOSE 104 mg/dL (74-106); POTASSIUM - SERUM 4.3 mmol/L (3.5-5.1); PROTEIN - SERUM 7.1 g/dL (6.4-8.2); SODIUM 138 mmol/L (136-145); UREA NITROGEN 25 mg/dL (7-18); eGFR NON AFRICAN AMERICAN 80 mL/min (90-120)
[2017-10-15 05:55] VITALS: BP 133/85
[2017-10-15 08:07] VITALS: BP 132/65
[2017-10-15 11:40] VITALS: BP 125/61
[2017-10-15 20:35] VITALS: BP 120/64
[2017-10-16 05:34] VITALS: BP 131/76
[2017-10-16 06:08] LABS: BASOPHILS 0.5 % (0-2); EOSINOPHILS 0.5 % (0-7); HEMATOCRIT 28.7 % (42.0-54.0); IMMATURE GRANULOCYTES 0.3 % (0-5); LYMPHOCYTES 20.3 % (15-50); MCH 26.8 pg (26.0-34.0); MCHC 31.4 g/dL (31.0-37.0); MEAN PLATELET VOLUME 9.9 fL (7.4-10.4); MONOCYTES 19.2 % (2-11); NEUTROPHILS 59.2 % (40-80); PLATELET COUNT 367 10x3/uL (130-400); RBC 3.36 10x6/uL (4.20-6.10); RDW 17.9 % (11.5-14.5); WBC 6.7 10x3/uL (4.8-10.8)
[2017-10-16 06:17] LABS: MCV 85.4 fL (80.0-100.0)
[2017-10-16 06:28] LABS: ALBUMIN 2.8 g/dL (3.4-5.0); ANION GAP 12.7 mmol/L (8-16); BILIRUBIN - TOTAL 1.39 mg/dL (0.2-1.3); CALCIUM 8.4 mg/dL (8.5-10.1); CARBON DIOXIDE 23.1 mmol/L (21.0-32.0); PHOSPHOROUS 4.1 mg/dL (2.5-4.9); POTASSIUM - SERUM 4.8 mmol/L (3.5-5.1); PROTEIN - SERUM 6.9 g/dL (6.4-8.2)
[2017-10-16 06:31] LABS: CREATININE - SERUM 1.5 mg/dL (0.6-1.3)
[2017-10-16 08:26] VITALS: BP 113/62
[2017-10-16 11:35] VITALS: BP 156/80
[2017-10-16 16:00] VITALS: BP 142/76
[2017-10-16 20:00] VITALS: BP 123/84
[2017-10-17] VITALS: BP 108/76
[2017-10-17 04:00] VITALS: BP 120/72
[2017-10-17 07:13] LABS: EOSINOPHILS 0.9 % (0-7); HEMATOCRIT 33.2 % (42.0-54.0); HEMOGLOBIN 10.1 g/dL (13.5-17.5); IMMATURE GRANULOCYTES 0.3 % (0-5); LYMPHOCYTES 18.9 % (15-50); MCH 26.9 pg (26.0-34.0); MCHC 30.4 g/dL (31.0-37.0); MCV 88.5 fL (80.0-100.0); MEAN PLATELET VOLUME 10.2 fL (7.4-10.4); NEUTROPHILS 62.9 % (40-80); PLATELET COUNT 288 10x3/uL (130-400); RBC 3.75 10x6/uL (4.20-6.10); RDW 18.7 % (11.5-14.5)
[2017-10-17 07:17] LABS: ALBUMIN 2.7 g/dL (3.4-5.0); ANION GAP 15.2 mmol/L (8-16); BILIRUBIN - TOTAL 1.12 mg/dL (0.2-1.3); CALCIUM 8.3 mg/dL (8.5-10.1); CARBON DIOXIDE 22.4 mmol/L (21.0-32.0); CREATININE - SERUM 1.5 mg/dL (0.6-1.3); POTASSIUM - SERUM 4.6 mmol/L (3.5-5.1); PROTEIN - SERUM 6.7 g/dL (6.4-8.2)
[2017-10-17 08:40] VITALS: BP 117/66
[2017-10-17 11:52] VITALS: BP 140/63
[2017-10-17 15:23] VITALS: BP 116/82
[2017-10-17 20:00] VITALS: BP 130/77
[2017-10-18] VITALS: BP 138/80
[2017-10-18 04:00] VITALS: BP 113/71
[2017-10-18 08:55] VITALS: BP 115/71
[2017-10-18 13:20] VITALS: BP 130/65
[2017-10-18 15:00] LABS: BASOPHILS 0.5 % (0-2); EOSINOPHILS 0.6 % (0-7); HEMATOCRIT 27.5 % (42.0-54.0); HEMOGLOBIN 8.9 g/dL (13.5-17.5); IMMATURE GRANULOCYTES 0.2 % (0-5); LYMPHOCYTES 24.1 % (15-50); MCH 27.1 pg (26.0-34.0); MCHC 32.4 g/dL (31.0-37.0); MEAN PLATELET VOLUME 9.6 fL (7.4-10.4); MONOCYTES 12.7 % (2-11); NEUTROPHILS 61.9 % (40-80); PLATELET COUNT 271 10x3/uL (130-400); RBC 3.29 10x6/uL (4.20-6.10); RDW 17.9 % (11.5-14.5); WBC 6.4 10x3/uL (4.8-10.8)
[2017-10-18 15:17] LABS: MCV 83.6 fL (80.0-100.0)
[2017-10-18 15:18] LABS: ALBUMIN 2.7 g/dL (3.4-5.0); ANION GAP 16.4 mmol/L (8-16); BILIRUBIN - TOTAL 0.89 mg/dL (0.2-1.3); CALCIUM 7.8 mg/dL (8.5-10.1); CARBON DIOXIDE 21.8 mmol/L (21.0-32.0); CREATININE - SERUM 1.3 mg/dL (0.6-1.3); PHOSPHOROUS 3.8 mg/dL (2.5-4.9); POTASSIUM - SERUM 4.2 mmol/L (3.5-5.1); PROTEIN - SERUM 6.4 g/dL (6.4-8.2)
[2017-10-18 16:50] VITALS: BP 137/76
[2017-10-18 21:17] VITALS: BP 124/65
[2017-10-19 00:28] VITALS: BP 103/72
[2017-10-19 04:07] VITALS: BP 133/82
[2017-10-19 05:14] LABS: BASOPHILS 0.5 % (0-2); EOSINOPHILS 0.6 % (0-7); HEMATOCRIT 28.9 % (42.0-54.0); HEMOGLOBIN 9.1 g/dL (13.5-17.5); IMMATURE GRANULOCYTES 0.5 % (0-5); LYMPHOCYTES 21.3 % (15-50); MCH 26.1 pg (26.0-34.0); MCHC 31.5 g/dL (31.0-37.0); MEAN PLATELET VOLUME 9.7 fL (7.4-10.4); MONOCYTES 13.7 % (2-11); NEUTROPHILS 63.4 % (40-80); PLATELET COUNT 249 10x3/uL (130-400); RBC 3.48 10x6/uL (4.20-6.10); RDW 18.2 % (11.5-14.5); WBC 6.4 10x3/uL (4.8-10.8)
[2017-10-19 05:44] LABS: ALBUMIN 2.8 g/dL (3.4-5.0); ANION GAP 16.6 mmol/L (8-16); BILIRUBIN - TOTAL 1.05 mg/dL (0.2-1.3); CALCIUM 8.5 mg/dL (8.5-10.1); CARBON DIOXIDE 23.8 mmol/L (21.0-32.0); CREATININE - SERUM 1.3 mg/dL (0.6-1.3); POTASSIUM - SERUM 4.4 mmol/L (3.5-5.1); PROTEIN - SERUM 6.9 g/dL (6.4-8.2)
[2017-10-19 07:00] VITALS: BP 143/80
[2017-10-19 21:56] VITALS: BP 136/81
[2017-10-20 05:42] VITALS: BP 141/85
[2017-10-20 05:45] LABS: BASOPHILS 0.8 % (0-2); EOSINOPHILS 0.3 % (0-7); HEMATOCRIT 34.3 % (42.0-54.0); HEMOGLOBIN 10.6 g/dL (13.5-17.5); IMMATURE GRANULOCYTES 0.2 % (0-5); LYMPHOCYTES 24.3 % (15-50); MCH 26.3 pg (26.0-34.0); MCHC 30.9 g/dL (31.0-37.0); MEAN PLATELET VOLUME 10.4 fL (7.4-10.4); MONOCYTES 10.7 % (2-11); NEUTROPHILS 63.7 % (40-80); PLATELET COUNT 265 10x3/uL (130-400); RBC 4.03 10x6/uL (4.20-6.10); RDW 18.6 % (11.5-14.5); WBC 6.5 10x3/uL (4.8-10.8)
[2017-10-20 06:12] LABS: ALBUMIN 3.2 g/dL (3.4-5.0); ANION GAP 16.3 mmol/L (8-16); BILIRUBIN - TOTAL 1.43 mg/dL (0.2-1.3); CALCIUM 8.7 mg/dL (8.5-10.1); CARBON DIOXIDE 21.4 mmol/L (21.0-32.0); CREATININE - SERUM 1.3 mg/dL (0.6-1.3); MAGNESIUM - SERUM 2.2 mg/dL (1.8-2.4); POTASSIUM - SERUM 4.7 mmol/L (3.5-5.1); PROTEIN - SERUM 7.6 g/dL (6.4-8.2)
[2017-10-20 06:22] LABS: MCV 85.1 fL (80.0-100.0)
[2017-10-20 08:47] VITALS: BP 150/82
[2017-10-20 11:26] VITALS: BP 145/91
[2017-10-20] MEDS ORDERED: BETAPACE 120 M120 MG PO (12:34)
[2017-10-20] MEDS ORDERED: PROTONIX40 MG PO (12:34)
[2017-10-20] MEDS ORDERED: SYNTHROID50 MCG PO (12:35)
== END 2017-10-20 16:17 | DRG 974 ==
LOC: D.ER 14:24 → D.ICU 19:29 → D.EDHOLD 19:29 → D.M2 19:29 → D.ICU 22:08 → D.M2 10-09 19:59
PROVIDERS: Family Medicine; Family Medicine Adult Medicine; Internal Medicine; Internal Medicine Gastroenterology; Internal Medicine Nephrology
DX: B20 Human immunodeficiency virus [HIV] disease (principal); J96.01 Acute respiratory failure with hypoxia; G93.41 Metabolic encephalopathy; I50.23 Acute on chronic systolic (congestive) heart failure; A41.9 Sepsis, unspecified organism; I48.92 Unspecified atrial flutter; D62 Acute posthemorrhagic anemia; E87.4 Mixed disorder of acid-base balance; E87.2 Acidosis; F17.203 Nicotine dependence unspecified, with withdrawal; K92.2 Gastrointestinal hemorrhage, unspecified; I43 Cardiomyopathy in diseases classified elsewhere; I48.0 Paroxysmal atrial fibrillation; I95.9 Hypotension, unspecified; I11.0 Hypertensive heart disease with heart failure; E11.65 Type 2 diabetes mellitus with hyperglycemia

== ENCOUNTER 2019-01-29 20:58 | Inpatient (IN) | payer MEDICARE ==
[~2019-01-29] VITALS: Ht 180.3 cm; Wt 96.6 kg
[~2019-01-29 20:58] MED LIST changes: +BETAPACE 120 M120 MG PO; +PROTONIX40 MG PO; +SYNTHROID50 MCG PO
[2019-01-29 21:00] VITALS: BP 133/71
[2019-01-29] MEDS ORDERED: GLUCOPHAGE500 MG PO (21:21)
--- NOTE | 2019-01-29 21:21 | NUR ---
PT RETURNED FROM CT AT THIS TIME.
[2019-01-29] MEDS ORDERED: PROTONIX20 MG (21:22)
[2019-01-29] MEDS ORDERED: ALDACTONE25 MG PO (21:24)
[2019-01-29] MEDS ORDERED: UREA CREAM (21:25)
[2019-01-29] MEDS ORDERED: VITAMIN C 500500 MG (21:26)
[2019-01-29 21:35] LABS: BASOPHILS 0.3 % (0-2); EOSINOPHILS 3.1 % (0-7); HEMATOCRIT 41.5 % (42.0-54.0); HEMOGLOBIN 13.6 g/dL (13.5-17.5); IMMATURE GRANULOCYTES 0.1 % (0-5); LYMPHOCYTES 21.1 % (15-50); MCH 27.8 pg (26.0-34.0); MCHC 32.8 g/dL (31.0-37.0); MCV 84.9 fL (80.0-100.0); MEAN PLATELET VOLUME 10.1 fL (7.4-10.4); MONOCYTES 16.8 % (2-11); NEUTROPHILS 58.6 % (40-80); RBC 4.89 10x6/uL (4.20-6.10); RDW 15.4 % (11.5-14.5); WBC 6.7 10x3/uL (4.8-10.8)
[2019-01-29 21:36] LABS: PLATELET COUNT 158 10x3/uL (130-400)
[2019-01-29 21:44] LABS: APTT 32.4 SECONDS (22.8-39.4); INR 1.29 (0.85-1.17); PROTIME 15.6 SECONDS (11.6-15.0)
[2019-01-29 21:46] LABS: CALC OSMOLALITY 275 mosm/kg (275-300); CALCIUM 9.7 mg/dL (8.5-10.1); CARBON DIOXIDE 26.9 mmol/L (21.0-32.0); CHLORIDE - SERUM 100 mmol/L (98-107); CREATININE - SERUM 1.4 mg/dL (0.6-1.3); GLUCOSE 107 mg/dL (74-106); POTASSIUM - SERUM 4.1 mmol/L (3.5-5.1); SODIUM 136 mmol/L (136-145); UREA NITROGEN 24 mg/dL (7-18); eGFR NON AFRICAN AMERICAN 54 mL/min (90-120)
[2019-01-29 22:02] LABS: ALBUMIN 3.2 g/dL (3.4-5.0); ALKALINE PHOSPHATASE 169 U/L (46-116); ALT (SGPT) 27 U/L (10-68); BILIRUBIN - TOTAL 0.41 mg/dL (0.2-1.3); CKMB 1.7 U/L (0.0-3.6); CREATINE KINASE 137 UL (21-232); MAGNESIUM - SERUM 1.7 mg/dL (1.8-2.4); THYROID STIMULATING HORMONE 3.37 uIU/mL (0.36-3.74); TROPONIN-I < 0.017 ng/mL (0.000-0.060)
[2019-01-30] VITALS (7 sets, daily range): BP systolic 112–178; BP diastolic 55–91; BMI 29.7
--- NOTE | 2019-01-30 00:27 | NUR ---
PT ARRIVED VIA BY BED WITH RN RENETTA FARIAS. TRANSFERRED PT TO BED AND CHANGED PT DUE TO BOWEL INCONT ACCIDENT. PT NONVERBAL BESIDES YES OR NO. LEFT SIDED WEAKNESS NOTED. CL IN REACH. BED IN LOW SIDE RAILS X2. BED ALARM PLACED UNDER PT. WILL CONTINUE TO MONITOR.
--- NOTE | 2019-01-30 07:47 | NUR ---
PT EYES CLOSED BUT SEESM TO BE SOMEWHAT ALERT. NOT MOVING HIS LEFT SIDE AT THIS TIME BUT IM UNSURE IF IT'S DUE TO INABILITY TO MOVE IT OR INABILITY TO FOLLOW COMMANDS. NO FAMILY PRESENT AT BEDSIDE. PTS O2 WAS OFF, SAT WAS 82%, NOW 97 WITH 2L BACK ON. CL IN REACH, SRX2, 3RD RAIL UP JAIME ON.
--- NOTE | 2019-01-30 10:02 | NUR ---
SPOKE WITH PTS [facility], THEY STATED HE WAS VERBAL YESTERDAY. OF RIGHT NOW, HE REMAINS NONVERBAL TO INCOMPRHENSABLE WORDS. SISTER AND NIECE STOPPED BY TO CHECK ON HIM. PT WAS SOAKED IWTH URINE AND SMALL BM, CHANGED PT AND LINNENS. PT NOW RESTING COMFORTBLY. SRX3, BED ALARM ON. CL IN REACH.
--- NOTE | 2019-01-30 11:03 | NUR ---
I have reviewed this patient and I concur with the Shift Assessment completed by the Licensed Practical Nurse today this shift.
--- NOTE | 2019-01-30 13:01 | NUR ---
PT CONDITION UNCHANGED. CLEAN AND DRY AT THIS TIME.
--- NOTE | 2019-01-30 15:44 | NUR ---
PT DONG MUCH BETTER. RESPONDING TO VERBAL COMMANDS, FOLLWING DIRECTIONS. NO COMLAINTS OR CONCERNS. LEFT SIDED WEAKENSS STILL APPARENT. CLIN REACH,S RX2. NO FAIMLY AT BEDSIDE
--- NOTE | 2019-01-30 20:00 | NUR ---
A/O BUT SLOW TO RESPOND. SPEECH IS GARBBLED. IV TO THE RT HAND WITH NO REDNESS OR SWELLING NOTED. NC @2L AND JAIME ALARM ON. WAS ABLE TO VERBALIZE THAT HE HAD A BM IN THE BED. LARGE LIGHT BROWN MUSHY STOOL IN BED. STAFF X2 TO CLEAN. NO FURTHER NEEDS NOTED. CONTINUE PLAN OF CARE.
[2019-01-31 04:20] VITALS: BP 170/83
--- NOTE | 2019-01-31 06:16 | NUR ---
SWELLING NOTED AROUND IV TO RIGHT HAND. DC WITH CATH INTACT. RESITED IV TO THE RT FOREARM. NO NEEDS NOTED AT THIS TIME. CONTINUE WITH PLAN OF CARE.
[2019-01-31 07:08] LABS: CALC OSMOLALITY 277 mosm/kg (275-300); CALCIUM 8.8 mg/dL (8.5-10.1); CARBON DIOXIDE 29.6 mmol/L (21.0-32.0); CHLORIDE - SERUM 105 mmol/L (98-107); CREATININE - SERUM 0.9 mg/dL (0.6-1.3); GLUCOSE 94 mg/dL (74-106); POTASSIUM - SERUM 3.7 mmol/L (3.5-5.1); SODIUM 140 mmol/L (136-145); UREA NITROGEN 10 mg/dL (7-18); eGFR NON AFRICAN AMERICAN 90 mL/min (90-120)
[2019-01-31 07:18] LABS: BASOPHILS 0.2 % (0-2); EOSINOPHILS 5.4 % (0-7); HEMATOCRIT 37.6 % (42.0-54.0); HEMOGLOBIN 12.1 g/dL (13.5-17.5); IMMATURE GRANULOCYTES 0.2 % (0-5); LYMPHOCYTES 24.4 % (15-50); MCH 27.4 pg (26.0-34.0); MCHC 32.2 g/dL (31.0-37.0); MCV 85.1 fL (80.0-100.0); MEAN PLATELET VOLUME 10.4 fL (7.4-10.4); MONOCYTES 15.4 % (2-11); NEUTROPHILS 54.4 % (40-80); PLATELET COUNT 152 10x3/uL (130-400); RBC 4.42 10x6/uL (4.20-6.10); RDW 15.2 % (11.5-14.5)
[2019-01-31 07:19] LABS: WBC 4.1 10x3/uL (4.8-10.8)
--- NOTE | 2019-01-31 07:21 | NUR ---
PT AWAKE AND ORIENTED, SPEACH CLEAR AND UNDERSTANDABLE. STATES HE'S FEELING MUCH BETTER AND IS JUST HUNGRY. CL IN REACH, SRX2.
[2019-01-31 07:43] LABS: LDL-HDL RATIO 3.2 ratio (1.5-3.5); THYROID STIMULATING HORMONE 2.32 uIU/mL (0.36-3.74)
[2019-01-31 09:48] VITALS: BP 185/110
--- NOTE | 2019-01-31 10:17 | NUR ---
PT CLEAN AND DRY, CHANGED LINNENS. COMFORTABLE AT THISTIME. CL INR EACH, SRX2, JAIME ON AND WORKING.
[2019-01-31 12:26] VITALS: Ht 180.3 cm; Wt 96.6 kg
--- NOTE | 2019-01-31 18:16 | NUR ---
I have reviewed this patient and I concur with the Shift Assessment completed by the Licensed Practical Nurse today this shift.
--- NOTE | 2019-01-31 19:25 | NUR ---
PT LYING IN BED WATCHING TV. CL IN REACH. BED IN LOW SIDE RAILS X2. DENIES NEEDS AT THIS TIME. A/O X4. LUNGS CLEAR. BOWEL ACTIVE X4. RESP EVEN AND UNLABORED. O2 ON 2L VIA NC. INCONT X2. WILL CONTINUE TO MONITOR.
[2019-01-31 19:34] VITALS: BP 166/84
[2019-02-01 04:00] VITALS: BP 185/88
--- NOTE | 2019-02-01 05:20 | NUR ---
I have reviewed this patient and I concur with the Shift Assessment completed by the Licensed Practical Nurse today this shift.
--- NOTE | 2019-02-01 08:05 | NUR ---
PT RESTING IN BED WITH EYES OPEN CALL LIGHT IN REACH WILL MONITER
[2019-02-01 08:21] VITALS: BP 172/108
--- NOTE | 2019-02-01 15:20 | NUR ---
PT RESTING IN BED WITH EYES OPEN CALL LIGHT IN REACH WILL MONITER
--- NOTE | 2019-02-01 19:23 | NUR ---
GREETED PATIENT AND INTRODUCED MYSELF HIS NURSE. PATIENT IS EATING HIS DINNER AT THIS TIME. O2 AT 2L IN USE VIA NC. RESPIRATION EVEN. NO S/S OF DISTRESS. NO EVIDENCE STATED AT THIS TIME. CALL LIGHT IN REACH.
[2019-02-01 19:30] VITALS: BP 134/89
[2019-02-02 00:05] VITALS: BP 166/81
--- NOTE | 2019-02-02 02:34 | NUR ---
PT. CLEANED OF INCONTINENT URINE. REPOSITIONED FOR COMFORT. CALL LIGHT IN REACH.
--- NOTE | 2019-02-02 03:29 | NUR ---
PT. RESTING QUIETLY WITH EYES CLOSED. O2 AT 2L IN USE VIA NC. RESPIRATIONS EVEN. NO S/S OF DISTRESS. CALL LIGHT IN REACH.
[2019-02-02 04:17] VITALS: BP 159/95
--- NOTE | 2019-02-02 06:28 | NUR ---
PT. LAYING IN BED AWAKE. DENIES ANY NEEDS AT THIS TIME. RESPIRATIONS EVEN. NO S/S OF DISTRESS. O2 AT 2L IN USE VIA NC. CALL LIGHT IN REACH.
[2019-02-02 08:25] VITALS: BP 169/77
[2019-02-02 13:04] VITALS: BP 164/90
--- NOTE | 2019-02-02 15:06 | NUR ---
DR HERRON INTO SEE PATIENT. STATED TO START N/S AT 100CC/HR DUE TO PATIENT NOT DRINKING OR EATTING. CONSULT FOR DR NIETO FOR BILATERAL FOOT SORES. DR NIETO NOTIFED. DR HERRON AWARE THAT PATIENT HAS REFUSED PHYSICAL THERAPY.
[2019-02-02 16:00] VITALS: BP 123/79
--- NOTE | 2019-02-02 16:10 | MORECARE ---
CASE MANAGEMENT DISCHARGE SUMMARY PATIENT: CHIDI SHERMAN UNIT: [id number] ADM DATE: 01/29/19 AGE: 68 : 52 SEX: M ROOM/BED: D.1212 AUTHOR: MOO GOLDEN PHYSICIAN: REFERRING PHYSICIAN: KIRAN HERRON MD DATE OF SERVICE: 02/02/19 Discharge Plan Patient Name: CHIDI SHERMAN Facility: [facility]:[place] : 1950 Planned Disposition: Anticipated Discharge Date: Discharge Date: Expected LOS: Initial Reviewer: [email or web address] Initial Review Date: 02/02/2019 Generated: 02/02/19 5:09 pm Comments DCP- Discharge Planning Updated by [email or web address]: Paula Baez on 02/02/19 3:[address] Patient Name: CHIDI SHERMAN Admission Status: ER Accout number: [id number] Admission Date: 01-29-2019 : 1950 Admission Diagnosis: Attending: IKRAN HERRON Current LOS: 4 Anticipated DC Date: Planned Disposition: Primary Insurance: MEDICARE A & B Discharge Planning Comments: CM MET WITH PATIENT AFTER OBTAINING VERBAL CONSENT. DISCUSSED DC PLANNING/NEEDS WITH HIM, HE IS VERY SLOW TO ANSWER QUESTIONS AND IS CONFUSED. TELLS ME HE LIVES ALONE BUT AFTER SPEAKNING WITH RN SHE STATES HE IS FROM [facility]. UNSURE AT THIS TIME IF HE IS THERE FOR SNF OR IS A PAYMENT ANALYST RESIDENT. CM WILL FOLLOW AND ASSIST. Machine Tech: Paula Baez Patient Name: CHIDI SHERMAN Page [id number] at 1610 All edits/amendments must be made on the electronic document DICTATION DATE: 02/02/19 160 DESIGN PAINTER: JANET 02/02/19 160 RPT#: [id number] DC DATE: STATUS: ADM IN [facility] [address] [place] [address] END OF REPORT
--- NOTE | 2019-02-02 17:33 | NUR ---
DR NIETO INTO SEE PATIENT. SEE JUSTO RICHMOND
--- NOTE | 2019-02-02 17:38 | NUR ---
NURSE IN PATIENTS ROOM. ASKED THIS PATIENT IF HE WANTED THIS NURSE TO FEED HIM. PATIENT STATED YES. PATIENT ATE 10% OF SUPPER.
--- NOTE | 2019-02-02 19:28 | NUR ---
PT SITTING UP IN BED. CL IN REACH. DENIES NEEDS AT THIS TIME. BED IN LOW SIDE RAILS X2. BED ALARM ON. A/O X4. LUNGS CLEAR. O2 ON 2L VIA NC. BOWEL ACTIVE X4. RESP EVEN AND UNLABORED. WCTM
[2019-02-02 20:05] VITALS: BP 149/78
[2019-02-03] VITALS: BP 120/81
--- NOTE | 2019-02-03 00:30 | NUR ---
CHECKED PT. PT WAS DRY NO INCONTINANCE. WCTM
--- NOTE | 2019-02-03 03:27 | NUR ---
I have reviewed this patient and I concur with the Shift Assessment completed by the Licensed Practical Nurse today this shift.
[2019-02-03 04:30] VITALS: BP 180/95
--- NOTE | 2019-02-03 06:11 | NUR ---
PAGEParvez HERRON DUE TO NO VOID ALL NIGHT. WAITING IT SECURITY ARCHITECT BACK WILL CONTINUE TO MONITOR. IV RAN ALL NIGHT AT 100 ML/HR.
--- NOTE | 2019-02-03 06:18 | NUR ---
BLADDER SCANNED PT FIRST ATTEMPT WAS 327 THEN THE MOST AMOUNT THAT WAS ATTEMPTED WAS 433CC OF URINE IN BLADDER.
--- NOTE | 2019-02-03 07:28 | NUR ---
REPORT RECIEVED. PT LYING ON BACK. RR EVEN AND UNLABORED ON 2L NC. HE HAS A R FA PIV INFUSING D5LR @100. BED LOCKED AND IN LOWEST POSITION, CALL LIGHT WITHIN REACH. WILL CTM
[2019-02-03] MEDS ORDERED: ASPIRIN81 MG PO (09:29)
[2019-02-03] MEDS ORDERED: LIPITOR10 MG PO (09:31)
[2019-02-03] MEDS ORDERED: LISINOPRIL10 MG PO (09:31)
[2019-02-03 09:37] VITALS: BP 161/88
--- NOTE | 2019-02-03 11:17 | NUR ---
AWAITING CASE MANGEMENT TO CHECK WITH OK OF [facility] TO BE DISCHARGED BACK TO. 1223-AL BRAVO CALLING DR HERRON PATIENT WAS CHOCKING WHEN THANIA CM SEEING HIM ABOUT DISCHARGE. 1230-AL BRAVO TO SAY THAT SHE TALKED TO DR HERRON AND PATIENT CAN GO BACK. 1300-THANIA WITH CM SEEING PATIENT AND TALKED TO [facility], PATIENT CAN BE DISCHARGED BACK.
--- NOTE | 2019-02-03 13:33 | MORECARE ---
CASE MANAGEMENT DISCHARGE SUMMARY PATIENT: CHIDI SHERMAN UNIT: [id number] ADM DATE: 01/29/19 AGE: 68 : 52 SEX: M ROOM/BED: D.1212 AUTHOR: CHANTEL,DOC PHYSICIAN: REFERRING PHYSICIAN: KIRAN HERRON MD DATE OF SERVICE: 02/03/19 Discharge Plan Patient Name: CHIDI SHERMAN Facility: [facility]:[place] : 1950 Planned Disposition: Shelter Facility Anticipated Discharge Date: 02/03/19 Discharge Date: Expected LOS: 5 Initial Reviewer: [email or web address] Initial Review Date: 02/02/2019 Generated: 02/03/19 2:32 pm Comments DCP- Discharge Planning Updated by [email or web address]: Paula Baez on 02/02/19 3:[address] Patient Name: CHIDI SHERMAN Admission Status: ER Accout number: [id number] Admission Date: 01-29-2019 : 1950 Admission Diagnosis: Attending: KIRAN HERRON Current LOS: 4 Anticipated DC Date: Planned Disposition: Primary Insurance: MEDICARE A & B Discharge Planning Comments: CM MET WITH PATIENT AFTER OBTAINING VERBAL CONSENT. DISCUSSED DC PLANNING/NEEDS WITH HIM, HE IS VERY SLOW TO ANSWER QUESTIONS AND IS CONFUSED. TELLS ME HE LIVES ALONE BUT AFTER SPEAKNING WITH RN [facility] UNSURE AT THIS TIME IF HE IS THERE FOR SNF OR IS A TALEND DEVELOPER RESIDENT. CM WILL FOLLOW AND ASSIST. Material Requirements Planning Manager: Paula Baez DCPIA - Discharge Planning Initial Assessment Updated by [email or web address]: Jesús Luz on 02/03/19 1:31 pm * How many steps to enter\exit or inside your home? NONE * PCP DR. HERRON * [facility] * Preadmission Environment Speaker [facility] * [facility] * ADLs Partial Dependent * Partial ADLs (Assistance needed) Ambulation Bathing Medication Management Toileting * Equipment Other * Other Equipment ALL MEDICAL EQUIPMENT PROVIDED BY FACILITY * List name and contact numbers for known caregivers / representatives who currently or will assist patient after discharge: ASHLEY PHAM, SISTER, * Verbal permission to speak to the caregivers and representatives has been obtained from the patient. Yes * Community resources currently utilized None * Please name any agencies selected above. NONE * Additional services required to return to the preadmission environment? No * Can the patient safely return to the preadmission environment? Yes * Has this patient been hospitalized within the prior 30 days at any hospital? No External Providers External Provider: [facility] and [facility] Next Contact Date: 02/03/2019 Service Request Date: Service Type: Resolution: Reviewer: Comments: Last DP export: 02/02/19 3:10 p Patient Name: CHIDI SHERMAN Page [phone] at 1333 All edits/amendments must be made on the electronic document DICTATION DATE: 02/03/191331 CLINICAL APPEALS AUDITOR: JANET 02/03/191331 RPT#: [id number] DC DATE: STATUS: ADM IN [facility] [address] [place] [address] END OF REPORT
--- NOTE | 2019-02-03 13:50 | MORECARE ---
CASE MANAGEMENT DISCHARGE SUMMARY PATIENT: CHIDI SHERMAN UNIT: [id number] ADM DATE: 01/29/19 AGE: 68 : [birth year] SEX: M ROOM/BED: D.1212 AUTHOR: CHANTEL,DOC PHYSICIAN: REFERRING PHYSICIAN: KIRAN HERRON MD DATE OF SERVICE: 02/03/19 Discharge Plan Patient Name: CHIDI SHERMAN Facility: [facility]:[place] : 1950 Planned Disposition: Group Home Facility Anticipated Discharge Date: 02/03/19 Discharge Date: Expected LOS: 5 Initial Reviewer: [id number] Initial Review Date: 02/02/2019 Generated: 02/03/19 2:50 pm Comments DCP- Discharge Planning Updated by [id number]: Jesús Luz on 02/03/19 12:[address] Patient Name: CHIDI SHERMAN Encounter No: [id number] : 1950 Primary Insurance: MEDICARE A & B Anticipated DC Date: 02-03-2019 Planned Disposition: Group Home Facility External Planned Provider: [facility], MEDICARE REHAB BED DCP follow-up note: CM RECEIVED DISCHARGE ORDER, MET WITH PT IN ROOM REGARDING DISCHARGE PLANNING AND NEEDS. PT INFORMED CM THAT HE LIVES AT [facility]. HE DOES NOT KNOW IF THEY ARE DOING REHAB OR NOT. PT WILL RETURN THERE AT DISCHARGE. IMPORTANT MESSAGE FROM MEDICARE PROVIDED AND EXPLAINED. PT WAS ONLY ABLE TO DRAW A SMALL LINE FOR SIGNATURE ON MEDICARE MESSAGE. PT ASKED WHO PT'S EMERGENCY CYBER INTELLIGENCE ANALYST HIS, PT STATES HIS SISTER, ASHLEY PHAM. CM CALLED ASHLEY PHAM, , ASHLEY INFORMED CM THAT SHE IS NOT ABLE TO BE IN PT'S ROOM, SHE IS IN THE EMERGENCY ROOM, ROOM 11. CM EXPLAINED THAT PT IS READY FOR DISCHARGE, ASHLEY INFORMED CM THAT PT WILL RETURN TO THE HALFWAY. CM DISCUSSED AND PROVIDED NUMBER FOR IMPORTANT MESSAGE FROM MEDICARE. CM MAILED MESSAGE COPY TO ASHLEY AT [address] [place] [address], [phone]. CM CALLED REHANA AT [facility], PT IS HALF-WAY CARE RESIDENT, HE WILL RETURN TO SKILLED BED TODAY. CM FAXED DISCHARGE INFORMATION TO [facility] AT [phone]. FERRYBOAT CAPTAIN NURSE NOTIFIED. NURSE REPORT TO BE CALLED TO Moi JIMENEZ NURSE AT [phone]. LISSETH LINCOLN TO PROVIDE VAN TONGUE LINING STITCHER AT 3PM TODAY. Jesús Luz, CASE MANAGEMENT DCP- Discharge Planning Updated by [email or web address]: Paula Baez on 02/02/19 3:[address] Patient Name: CHIDI SHERMAN Admission Status: ER Accout number: [id number] Admission Date: 01-29-2019 : 1950 Admission Diagnosis: Attending: KIRAN HERRON Current LOS: 4 Anticipated DC Date: Planned Disposition: Primary Insurance: MEDICARE A & B Discharge Planning Comments: CM MET WITH PATIENT AFTER OBTAINING VERBAL CONSENT. DISCUSSED DC PLANNING/NEEDS WITH HIM, HE IS VERY SLOW TO ANSWER QUESTIONS AND IS CONFUSED. TELLS ME HE LIVES ALONE BUT AFTER SPEAKNING WITH RN SHE STATES HE IS FROM [facility]. UNSURE AT THIS TIME IF HE IS THERE FOR SNF OR IS A HALF-WAY RESIDENT. CM WILL FOLLOW AND ASSIST. High [employer] Auto Repair Teacher: Paula Baez DCPIA - Discharge Planning Initial Assessment Updated by [id number]: Jesús Luz on 02/03/19 1:31 pm * How many steps to enter\exit or inside your home? NONE * PCP DR. HERRON * [facility] * Preadmission Environment Flow [facility] * Facility Name [facility] * ADLs Partial Dependent * Partial ADLs (Assistance needed) Ambulation Bathing Medication Management Toileting * Equipment Other * Other Equipment ALL MEDICAL EQUIPMENT PROVIDED BY FACILITY * List name and contact numbers for known caregivers / representatives who currently or will assist patient after discharge: ASHLEY PHAM, , * Verbal permission to speak to the caregivers and representatives has been obtained from the patient. Yes * Community resources currently utilized None * Please name any agencies selected above. NONE * Additional services required to return to the preadmission environment? No * Can the patient safely return to the preadmission environment? Yes * Has this patient been hospitalized within the prior 30 days at any hospital? No Coverage Notice Reviewer: [id number] Art Luz Notice Issued Date-Time: 02/03/2019 12:45 Notice Type: IM Discharge Notice Notice Delivered To: Family Member Relationship to Patient: Sister Trace Evidence Technician Name: ASHLEY PHAM Delivery Method: CERT - Certified Mail Casie Days: Prior Verbal Notification: Recipient Understood Notice: Yes Recipient Signature: Med Rec Note Co-signed by Attending: Coverage Notice Comment: DISCUSSED VIA PHONE, MAILED COPY TO ASHLEY. Reviewer: [id number] - Jesús Luz Notice Issued Date-Time: 02/03/2019 12:45 Notice Type: Patient Choice Letter Notice Delivered To: Family Member Relationship to Patient: Sister Trace Evidence Technician Name: ASHLEY PHAM Delivery Method: PHONE - Phone Casie Days: Prior Verbal Notification: Recipient Understood Notice: Yes Recipient Signature: Med Rec Note Co-signed by Attending: Coverage Notice Comment: LISSETH Martinez DP export: 02/03/19 12:33 p Patient Name: CHIDI SHERMAN Page [phone] at 1350 All edits/amendments must be made on the electronic document DICTATION DATE: 02/03/19 1350 LINE TENDER FLAKEBOARD: JANET 02/03/19 1350 RPT#: [id number] DC DATE: STATUS: ADM IN [facility] [address] [place] [address] END OF REPORT
--- NOTE | 2019-02-03 13:57 | NUR ---
REPORT CALLED TO ROSE AT [facility]. TRANSPORT WILL BE HERE AROUND 1500 TO PICK PT UP. WILL CTM
--- NOTE | 2019-02-03 14:18 | NUR ---
DC PAPERWORK GONE OVER WITH PT. PT UNABLE TO SIGN PAPERWORK. PIV REMOVED, CATH TIP FULLY INTACT. AWAITING TRANSPORT TO [facility] AROUND 1500. WILL CTM
== END 2019-02-03 16:58 | DRG 64 ==
LOC: D.ER 20:58 → D.M3 23:12
PROVIDERS: Emergency Medicine; ADMIT Family Medicine; ATTEND Family Medicine
DX: I63.9 Cerebral infarction, unspecified (principal); I50.23 Acute on chronic systolic (congestive) heart failure; R40.2213 Coma scale, best verbal response, none, at hospital admission; B20 Human immunodeficiency virus [HIV] disease; G81.94 Hemiplegia, unspecified affecting left nondominant side; N17.9 Acute kidney failure, unspecified; R13.10 Dysphagia, unspecified; R47.01 Aphasia; R40.2353 Coma scale, best motor response, localizes pain, at hospital admission; R40.2143 Coma scale, eyes open, spontaneous, at hospital admission; I11.0 Hypertensive heart disease with heart failure; Z74.09 Other reduced mobility; I48.91 Unspecified atrial fibrillation; I25.10 Atherosclerotic heart disease of native coronary artery without angina pectoris; E11.9 Type 2 diabetes mellitus without complications; G47.33 Obstructive sleep apnea (adult) (pediatric); E03.9 Hypothyroidism, unspecified

== ENCOUNTER 2019-05-12 15:15 | Emergency (ER) | payer MEDICARE ==
[~2019-05-12] VITALS: Ht 180.3 cm; Wt 85.9 kg
[~2019-05-12 15:15] MED LIST changes: +ASPIRIN81 MG PO; +LIPITOR10 MG PO; +LISINOPRIL10 MG PO; +PROTONIX20 MG; +UREA CREAM; +VITAMIN C 500500 MG
[2019-05-12 15:20] VITALS: Ht 180.3 cm; Wt 85.9 kg
[2019-05-12 17:59] VITALS: BP 149/64
== END 2019-05-12 17:59 ==
LOC: D.ER 15:15
DX: S91.201A Unspecified open wound of right great toe with damage to nail, initial encounter (principal); X58.XXXA Exposure to other specified factors, initial encounter; Y93.9 Activity, unspecified; Y92.9 Unspecified place or not applicable; B20 Human immunodeficiency virus [HIV] disease; J44.9 Chronic obstructive pulmonary disease, unspecified; Z86.73 Personal history of transient ischemic attack (TIA), and cerebral infarction without residual deficits; K21.9 Gastro-esophageal reflux disease without esophagitis; I48.91 Unspecified atrial fibrillation; I25.2 Old myocardial infarction

== ENCOUNTER 2019-07-27 07:15 | Emergency (ER) | payer MEDICARE ==
[~2019-07-27] VITALS: Ht 180.3 cm; Wt 86.4 kg
[2019-07-27 07:17] VITALS: Ht 180.3 cm; Wt 86.4 kg
[2019-07-27] MEDS ORDERED: ASPIRIN325 MG PO (07:28)
[2019-07-27] MEDS ORDERED: MUCINEX DM ER1 EAC1 PO (07:29)
[2019-07-27 07:47] LABS: BASOPHILS 0.5 % (0-2); EOSINOPHILS 7.8 % (0-7); HEMATOCRIT 33.6 % (42.0-54.0); IMMATURE GRANULOCYTES 0.2 % (0-5); LYMPHOCYTES 27.6 % (15-50); MCH 28.1 pg (26.0-34.0); MCHC 32.7 g/dL (31.0-37.0); MCV 85.9 fL (80.0-100.0); MEAN PLATELET VOLUME 9.5 fL (7.4-10.4); MONOCYTES 10.6 % (2-11); NEUTROPHILS 53.3 % (40-80); PLATELET COUNT 141 10x3/uL (130-400); RBC 3.91 10x6/uL (4.20-6.10); RDW 13.9 % (11.5-14.5); WBC 4.4 10x3/uL (4.8-10.8)
[2019-07-27 08:03] LABS: APTT 33.4 SECONDS (22.8-39.4); INR 1.18 (0.85-1.17); PROTIME 14.9 SECONDS (11.6-15.0)
[2019-07-27 08:05] LABS: ANION GAP 11.2 mmol/L (8-16); CALCIUM 9.2 mg/dL (8.5-10.1); CARBON DIOXIDE 25.9 mmol/L (21.0-32.0); CREATININE - SERUM 1.1 mg/dL (0.6-1.3); POTASSIUM - SERUM 5.1 mmol/L (3.5-5.1)
[2019-07-27 08:13] LABS: ALBUMIN 3.2 g/dL (3.4-5.0); BILIRUBIN - TOTAL 0.34 mg/dL (0.2-1.3); PROTEIN - SERUM 8.6 g/dL (6.4-8.2)
[2019-07-27 11:00] VITALS: BP 159/91
== END 2019-07-27 11:05 | disposition home or self-care (01) ==
LOC: D.ER 07:15
PROVIDERS: Family Medicine
DX: R04.0 Epistaxis (principal); S02.2XXA Fracture of nasal bones, initial encounter for closed fracture; W05.0XXA Fall from non-moving wheelchair, initial encounter; Y93.9 Activity, unspecified; Y92.9 Unspecified place or not applicable; E04.1 Nontoxic single thyroid nodule; K11.8 Other diseases of salivary glands; J44.9 Chronic obstructive pulmonary disease, unspecified; I50.9 Heart failure, unspecified; Z86.73 Personal history of transient ischemic attack (TIA), and cerebral infarction without residual deficits; I25.2 Old myocardial infarction; I48.91 Unspecified atrial fibrillation; K21.9 Gastro-esophageal reflux disease without esophagitis; B20 Human immunodeficiency virus [HIV] disease

== ENCOUNTER 2019-10-13 09:31 | Inpatient (IN) | payer MEDICARE ==
[~2019-10-13] VITALS: Ht 180.3 cm; Wt 90.2 kg
[2019-10-13] VITALS (44 sets, daily range): BP systolic 61–145; BP diastolic 35–74; BMI 21.6
--- NOTE | ~2019-10-13 | OP ---
PATIENT NAME: CHIDI SHERMAN MEDICAL RECORD: [id number] :[birth year] LOCATION:D.[facility] D.2305 ADMISSION DATE:10/13/19 SURGEON: TIA CHAVEZ MD DATE OF OPERATION: 11/21/2019 PREOPERATIVE DIAGNOSES: 1. Acute respiratory failure on the ventilator. 2. Need for central venous line exchange. 3. Coronary artery disease. 4. Acute renal failure. 5. Human immunodeficiency virus. 6. Diabetes mellitus. POSTOPERATIVE DIAGNOSES: 1. Acute respiratory failure on the ventilator. 2. Need for central venous line exchange. 3. Coronary artery disease. 4. Renal failure. 5. Human immunodeficiency virus. 6. Diabetes mellitus. PROCEDURE: Left subclavian vein triple-lumen central venous line exchange. SURGEON: Tia Chavez MD REPORT OF PROCEDURE: The patient's left chest was prepped and draped in sterile fashion including the indwelling central venous line. A total of 3 cc of 1% lidocaine was infused into the surrounding tissues. The distal port was cut and a wire was advanced with ease. Over this wire, the indwelling catheter was removed and a new central venous catheter was inserted. This catheter aspirated nonpulsatile dark blood and flushed easily in all 3 ports with normal saline. This was sutured into place with 4-0 nylon and dressed appropriately. COMPLICATIONS: None. CONDITION: Stable. ANESTHESIA: General endotracheal and local. BLOOD LOSS: Minimal. TRANSINT:[id number] Voice Confirmation ID: [id number] DOCUMENT ID: [id number] TIA CHAVEZ MD CC: [id number] DICTATION DATE: 11/21/19 1528 LECTURER OF PORTUGUESE: 11/22/19 0058 ADM IN [facility] [address] [place] [id number]
[~2019-10-13 09:31] MED LIST changes: +MUCINEX DM ER1 EAC1 PO
[2019-10-13] MEDS ORDERED: ALLEGRA D (09:42)
[2019-10-13] MEDS ORDERED: INVANZ 1 GM/NS 11 G1 IM (09:43)
[2019-10-13] MEDS ORDERED: CLARITIN 10 MG10 MG PO (09:43)
[2019-10-13] MEDS ORDERED: REMERON15 MG PO (09:44)
[2019-10-13] MEDS ORDERED: LIPITOR10 MG PO (09:44)
[2019-10-13] MEDS ORDERED: PHENERGAN25 M1 PO (09:45)
--- NOTE | 2019-10-13 10:04 | NUR ---
ATTEMPTED TO CONTACT PATIENT'S FAMILY AT THIS TIME. NO ANSWER. NOTIFIED EDP.
[2019-10-13 10:38] LABS: BASOPHILS 0.4 % (0-2); EOSINOPHILS 0.8 % (0-7); HEMATOCRIT 36.6 % (42.0-54.0); HEMOGLOBIN 11.4 g/dL (13.5-17.5); IMMATURE GRANULOCYTES 0.4 % (0-5); LYMPHOCYTES 18.8 % (15-50); MCH 26.3 pg (26.0-34.0); MCHC 31.1 g/dL (31.0-37.0); MCV 84.3 fL (80.0-100.0); MEAN PLATELET VOLUME 10.4 fL (7.4-10.4); MONOCYTES 9.4 % (2-11); NEUTROPHILS 70.2 % (40-80); RBC 4.34 10x6/uL (4.20-6.10); RDW 14.9 % (11.5-14.5); WBC 7.6 10x3/uL (4.8-10.8)
[2019-10-13 10:41] LABS: PLATELET COUNT 185 10x3/uL (130-400)
[2019-10-13 10:46] LABS: BILIRUBIN NEGATIVE (NEGATIVE); KETONE NEGATIVE (NEGATIVE); NITRITE NEGATIVE (NEGATIVE); UROBILINOGEN NORMAL (NORMAL)
[2019-10-13 10:46] LABS: APTT 39.4 SECONDS (22.8-39.4); INR 1.56 (0.85-1.17); PROTIME 18.5 SECONDS (11.6-15.0)
[2019-10-13 10:47] LABS: CALC OSMOLALITY 288 mosm/kg (275-300); CARBON DIOXIDE 11.5 mmol/L (21.0-32.0); CHLORIDE - SERUM 105 mmol/L (98-107); CREATININE - SERUM 3.3 mg/dL (0.6-1.3); SODIUM 142 mmol/L (136-145); UREA NITROGEN 38 mg/dL (7-18); eGFR NON AFRICAN AMERICAN 20 mL/min (90-120)
[2019-10-13 10:49] LABS: GLUCOSE 46 mg/dL (74-106)
--- NOTE | 2019-10-13 10:59 | NUR ---
PT NOTED TO VOMIT COFFEE GROUND EMESIS ADVISED EDP.
[2019-10-13 11:00] LABS: WHITE CELLS - URINE 25-50 /hpf (NEGATIVE)
[2019-10-13 11:01] LABS: AMORPHOUS SEDIMENT <1+ /lpf (NONE SEEN); BACTERIA MODERATE /hpf (NEGATIVE)
[2019-10-13 11:04] LABS: ALBUMIN 2.5 g/dL (3.4-5.0); ALKALINE PHOSPHATASE 181 U/L (30-120); ALT (SGPT) 33 U/L (10-68); BILIRUBIN - TOTAL 0.87 mg/dL (0.2-1.3); CKMB 4.4 U/L (0.0-3.6); MAGNESIUM - SERUM 2.5 mg/dL (1.8-2.4); PROTEIN - SERUM 8.5 g/dL (6.4-8.2); TROPONIN-I 0.026 ng/mL (0.000-0.060)
[2019-10-13 11:06] LABS: CREATINE KINASE 1534 UL (21-232)
--- NOTE | 2019-10-13 11:33 | NUR ---
NG TUBE REMOVED AND REPLACED WITH OG TUBE
--- NOTE | 2019-10-13 11:57 | NUR ---
LEVOPHED UPPED TO 15MCG/MIN
--- NOTE | 2019-10-13 11:57 | NUR ---
LEVOPHED UPPED TO 13MCG/MIN
--- NOTE | 2019-10-13 12:04 | NUR ---
LEVOPHED UPPED TO 13MCG/MIN
--- NOTE | 2019-10-13 12:04 | NUR ---
LEVOPHED UPPED TO 20 MCG/MIN
--- NOTE | 2019-10-13 12:04 | NUR ---
LEVOPHED UPPED TO 14MCG/MIN
--- NOTE | 2019-10-13 12:52 | NUR ---
PT RETURNED FROM CT AT THIS TIME. RN, AND RT PRESENT DURING TRANSPORT.
--- NOTE | 2019-10-13 12:54 | NUR ---
LEVOPHED AT 16MCG/MIN AT THIS TIME.
--- NOTE | 2019-10-13 12:55 | NUR ---
CALCIUM GLUCONATE STOPPED AT THIS TIME.
--- NOTE | 2019-10-13 14:01 | NUR ---
called report to alfonzo murray at this time.
--- NOTE | 2019-10-13 14:15 | NUR ---
PT RECIEVED FROM ER. VSS. SEE ASSESSMENT FOR FINDINGS. DR CHAVEZ AT BEDSIDE GIVEN UPDATE. NO NEW ORDERS RECEIVED. DR DAVIS AT BEDSIDE GIVEN UPDATE. NEW ORDERS RECEIVED, ADM. WILL CONTINUE TO MONITOR
[2019-10-13 22:23] LABS: BASOPHILS 0.4 % (0-2); EOSINOPHILS 0.1 % (0-7); IMMATURE GRANULOCYTES 0.7 % (0-5); LYMPHOCYTES 13.5 % (15-50); MCH 26.9 pg (26.0-34.0); MEAN PLATELET VOLUME 10.5 fL (7.4-10.4); MONOCYTES 15.4 % (2-11); NEUTROPHILS 69.9 % (40-80); RDW 15.4 % (11.5-14.5)
[2019-10-13 22:24] LABS: HEMATOCRIT 25.8 % (42.0-54.0); MCV 86.9 fL (80.0-100.0); PLATELET COUNT 82 10x3/uL (130-400); RBC 2.97 10x6/uL (4.20-6.10); WBC 9.8 10x3/uL (4.8-10.8)
[2019-10-13 22:25] LABS: PLATELET ESTIMATE DECREASED
[2019-10-13 22:37] LABS: CALC OSMOLALITY 295 mosm/kg (275-300); CHLORIDE - SERUM 113 mmol/L (98-107); CREATININE - SERUM 2.2 mg/dL (0.6-1.3); GLUCOSE 163 mg/dL (74-106); SODIUM 144 mmol/L (136-145); UREA NITROGEN 27 mg/dL (7-18); eGFR NON AFRICAN AMERICAN 32 mL/min (90-120)
[2019-10-13 22:38] LABS: CALCIUM < 5.0 mg/dL (8.5-10.1); MAGNESIUM - SERUM 0.9 mg/dL (1.8-2.4); POTASSIUM - SERUM 2.7 mmol/L (3.5-5.1)
[2019-10-14] VITALS (92 sets, daily range): BP systolic 63–157; BP diastolic 33–65; Ht 180.3 cm; Wt 90.2 kg
--- NOTE | 2019-10-14 00:42 | NUR ---
1900 RECEIVED REPORT AT BEDSIDE. NO SIGNS OF DISTRESS NOTED AT THIS TIME. WILL CONTINUE TO MONITOR.
--- NOTE | 2019-10-14 00:44 | NUR ---
2100 NO CHANGES AT THIS TIME
--- NOTE | 2019-10-14 00:55 | NUR ---
0000 NO CHANGES AT THIS TIME NOTED
--- NOTE | 2019-10-14 02:56 | NUR ---
0100 Levophed turned back up to 30mcg/min. Pt. had a large Bowel movement. will continue to monitor
--- NOTE | 2019-10-14 03:00 | NUR ---
no changes noted at this time
--- NOTE | 2019-10-14 05:59 | NUR ---
pt. had a bowel movement again, ana and hoang. complete bed change completed. will continue to monitor
--- NOTE | 2019-10-14 07:00 | NUR ---
RECEIVED REPORT FROM ONGOING NURSE. PT ROBBIN. ASSESSMENT COMPLETE
[2019-10-14 15:16] LABS: BASOPHILS 0.5 % (0-2); EOSINOPHILS 0.1 % (0-7); HEMATOCRIT 28.5 % (42.0-54.0); HEMOGLOBIN 8.9 g/dL (13.5-17.5); IMMATURE GRANULOCYTES 2.2 % (0-5); LYMPHOCYTES 15.7 % (15-50); MCH 25.9 pg (26.0-34.0); MCHC 31.2 g/dL (31.0-37.0); MEAN PLATELET VOLUME 10.7 fL (7.4-10.4); MONOCYTES 7.1 % (2-11); NEUTROPHILS 74.4 % (40-80); RBC 3.44 10x6/uL (4.20-6.10); RDW 15.3 % (11.5-14.5); WBC 8.1 10x3/uL (4.8-10.8)
[2019-10-14 15:20] LABS: MCV 82.8 fL (80.0-100.0); PLATELET COUNT 125 10x3/uL (130-400)
[2019-10-14 15:45] LABS: ALKALINE PHOSPHATASE 128 U/L (30-120); CHLORIDE - SERUM 106 mmol/L (98-107); CKMB 3.3 U/L (0.0-3.6); GLUCOSE 123 mg/dL (74-106); SODIUM 142 mmol/L (136-145)
[2019-10-14 15:46] LABS: ALBUMIN 1.4 g/dL (3.4-5.0); ALT (SGPT) 495 U/L (10-68); CALC OSMOLALITY 298 mosm/kg (275-300); CREATINE KINASE 1573 UL (21-232); CREATININE - SERUM 4.5 mg/dL (0.6-1.3); POTASSIUM - SERUM 5.3 mmol/L (3.5-5.1); PROTEIN - SERUM 5.8 g/dL (6.4-8.2); UREA NITROGEN 54 mg/dL (7-18); eGFR NON AFRICAN AMERICAN 14 mL/min (90-120)
[2019-10-14 15:47] LABS: CALCIUM 6.9 mg/dL (8.5-10.1); TROPONIN-I 0.113 ng/mL (0.000-0.060)
--- NOTE | 2019-10-14 17:24 | MORECARE ---
CASE MANAGEMENT DISCHARGE SUMMARY PATIENT: CHIDI SHERMAN UNIT: [id number] ADM DATE: 10/13/19 AGE: 69 : [birth year] SEX: M ROOM/BED: D.2314 AUTHOR: MOO GOLDEN PHYSICIAN: REFERRING PHYSICIAN: RHONA PEREZ MD DATE OF SERVICE: 10/14/19 Discharge Plan Patient Name: CHIDI SHERMAN [facility] [facility] 1950 Planned Disposition: Nursing Facility [facility] Cert Anticipated Discharge Date: Discharge Date: Expected LOS: Initial Reviewer: [email or web address] Initial Review Date: 10/13/2019 Generated: 10/14/19 6:23 pm DCPIA - Discharge Planning Initial Assessment Updated by [id number]: Juana Winn on 10/14/19 5:20 pm * Is the patient Alert and Oriented? No * PCP [facility] [phone] * Pharmacy [place] [phone] * Preadmission Environment [facility] * Facility Name [place] [address] * List name and contact numbers for known caregivers / representatives who currently or will assist patient after discharge: ASHLEY PHAM [facility] [phone] * Verbal permission to speak to the caregivers and representatives has been obtained from the patient. N/A * Additional services required to return to the preadmission environment? No * Can the patient safely return to the preadmission environment? Yes * Has this patient been hospitalized within the prior 30 days at any hospital? No Patient Name: CHIDI SHERMAN Page [phone] at 1724 All edits/amendments must be made on the electronic document DICTATION DATE: 10/14/191722 FOREST RESOURCE SPECIALIST: JANET 10/14/191722 RPT#: [id number] DC DATE: STATUS: ADM IN [facility] [address] [place] [address] END OF REPORT
--- NOTE | 2019-10-14 17:31 | MORECARE ---
CASE MANAGEMENT DISCHARGE SUMMARY PATIENT: CHIDI SHERMAN UNIT: [id number] ADM DATE: 10/13/19 AGE: 69 : 52 SEX: M ROOM/BED: D.2314 AUTHOR: CHANTEL,DOC PHYSICIAN: REFERRING PHYSICIAN: RHONA PEREZ MD DATE OF SERVICE: 10/14/19 Discharge Plan Patient Name: CHIDI SHERMAN Facility: [facility]:[place] : 1950 Planned Disposition: Nursing Facility [facility] Cert Anticipated Discharge Date: Discharge Date: Expected LOS: Initial Reviewer: [email or web address] Initial Review Date: 10/13/2019 Generated: 10/14/19 6:30 pm Comments DCP- Discharge Planning Updated by [email or web address]: Juana Winn on 10/14/19 4:[address] Patient Name: CHIDI SHERMNA Admission Status: ER Accout number: [id number] Admission Date: 10-13-2019 : 1950 Admission Diagnosis: Attending: RHONA PEREZ Current LOS: 1 Anticipated DC Date: Planned Disposition: Nursing Facility [facility] Cert Primary Insurance: MEDICARE A & B Discharge Planning Comments: PATIENT IS A HALF-WAY RESIDENT AT [place] [address] PLAN IS FOR PATIENT TO RETURN TO FACILITY UPON DISCHARGE. PATIENT CONTACT IS ASHLEY HILLMAN - [phone]. Barrel Filler Head: Juana Winn DCPIA - Discharge Planning Initial Assessment Updated by [email or web address]: Juana Winn on 10/14/19 5:20 pm * Is the patient Alert and Oriented? No * PCP [place] [phone] * Pharmacy [place] [address] * Preadmission Environment Art Objects Salesperson [employer] * Facility Name [place] [address] * List name and contact numbers for known caregivers / representatives who currently or will assist patient after discharge: ASHLEY HILLMAN- [phone] * Verbal permission to speak to the caregivers and representatives has been obtained from the patient. N/A * Additional services required to return to the preadmission environment? No * Can the patient safely return to the preadmission environment? Yes * Has this patient been hospitalized within the prior 30 days at any hospital? No Last DP export: 10/14/19 4:23 p Patient Name: CHIDI SHERMAN Page [phone] at 1731 All edits/amendments must be made on the electronic document DICTATION DATE: 10/14/191729 LEASE PURCHASE DRIVER: JANET 10/14/191729 RPT#: [id number] DC DATE: STATUS: ADM IN [facility] [address] [place] [address] END OF REPORT
--- NOTE | 2019-10-14 22:53 | NUR ---
1900 BEDSIDE REPORT RECEIVED. PT. IN BED, EYES CLOSED. NO SIGNS OF DISCOMFORT OR DISTRESS. WILL CONTINUE TO MONITOR
--- NOTE | 2019-10-14 22:54 | NUR ---
2100 REPOSITIONED PT TO BACK. NO CHANGES AT THIS TIME
--- NOTE | 2019-10-14 23:41 | NUR ---
2300 REPOSITIONED PATIENT, NO CHANGES NOTED AT THIS TIME
[2019-10-15] VITALS (95 sets, daily range): BP systolic 62–165; BP diastolic 35–81
--- NOTE | 2019-10-15 02:37 | NUR ---
0100 PT HAD ANOTHER LOOSE WATERY STOOL, PLACED RECTAL BAG AND REPOSITIONED. NO SIGNS OF DISCOMFORT NOTED
--- NOTE | 2019-10-15 03:12 | NUR ---
0300 PT BLOOD PRESSURE HAS REMAINED STABLE WITH A MAP> 60HAVE BEEN ABLE TO TITRATE LEVOPHED DOWN TO 6. WILL CONTINUE TO MONITOR
--- NOTE | 2019-10-15 06:15 | NUR ---
turned pt to right side. no changes at this time
--- NOTE | 2019-10-15 07:10 | NUR ---
REPORT RECEIVED FROM FOLDED CLOTH TAPER AND PATIENT CARE ASSUMED.PAIENT LAHYING IN BED SEDATED WITH VENGT IN PLACE. VSS.WILL CONTNUE WITH PLAN OF CARE.NSR UPX 2 BED IN LOW POSITION AND CFALL LIGHT IN REACH.
[2019-10-15 17:48] LABS: BASOPHILS 0.7 % (0-2); EOSINOPHILS 0.7 % (0-7); HEMATOCRIT 25.4 % (42.0-54.0); HEMOGLOBIN 7.9 g/dL (13.5-17.5); IMMATURE GRANULOCYTES 0.4 % (0-5); MCH 25.7 pg (26.0-34.0); MCHC 31.1 g/dL (31.0-37.0); MCV 82.7 fL (80.0-100.0); MEAN PLATELET VOLUME 10.1 fL (7.4-10.4); MONOCYTES 6.2 % (2-11); PLATELET COUNT 109 10x3/uL (130-400); RBC 3.07 10x6/uL (4.20-6.10); RDW 15.5 % (11.5-14.5)
[2019-10-15 17:50] LABS: WBC 4.6 10x3/uL (4.8-10.8)
[2019-10-15 18:01] LABS: CREATININE - SERUM 4.2 mg/dL (0.6-1.3)
[2019-10-15 18:07] LABS: ANION GAP 9.4 mmol/L (8-16); CALCIUM 6.5 mg/dL (8.5-10.1); CARBON DIOXIDE 36.4 mmol/L (21.0-32.0); POTASSIUM - SERUM 3.8 mmol/L (3.5-5.1)
--- NOTE | 2019-10-15 18:33 | NUR ---
SPOKE CUAUHTEMOC HARVEY. DISCUSSED LAB RESULTS. NEW ORDER RECEIVED FOR TYPE AND CROSS MATCH AND 1 UNIT OF BLOOD. ORDERS PLACED.
--- NOTE | 2019-10-15 22:26 | NUR ---
1900 BEDSIDE REPORT RECEIVED, NO CHANGES AT THIS TIME
--- NOTE | 2019-10-15 22:27 | NUR ---
2100 REPOSITIONED PT. ON LEFT SIDE. NO CHANGES AT THIS TIME
--- NOTE | 2019-10-15 22:30 | NUR ---
2000 DECREASED LEVOPHED TO 5. CONTINUE TO MONITOR 2100 DECREASED LEVOPHED TO 3. CONT. TO MONITOR 2200 DECREASED LEVOPHED TO 1. CONTINUE TO MONITOR
[2019-10-16] VITALS (79 sets, daily range): BP systolic 72–209; BP diastolic 0–102
--- NOTE | 2019-10-16 01:24 | NUR ---
2300 LEVOPHED DOWN TO 1MCG, BLOOD PRESSURE REMAINS STABLE. 2400 STARTED BLOOD ADMINISTRATION. TURNED OFF LEVOPHED, WILL CONTINUE TO MONITOR
--- NOTE | 2019-10-16 01:27 | NUR ---
0100 BLOOD PRESSURE 72/40, TURNED LEVOPHED BACK ON TO 5MCG
--- NOTE | 2019-10-16 04:17 | NUR ---
0300 PT. RECEIVING BLOOD, WNL. WILL CONTINUE TO MONITOR
[2019-10-16 05:44] LABS: BASOPHILS 0.6 % (0-2); EOSINOPHILS 5.4 % (0-7); HEMATOCRIT 28.2 % (42.0-54.0); HEMOGLOBIN 8.8 g/dL (13.5-17.5); IMMATURE GRANULOCYTES 0.6 % (0-5); LYMPHOCYTES 16.7 % (15-50); MCHC 31.2 g/dL (31.0-37.0); MCV 83.2 fL (80.0-100.0); MEAN PLATELET VOLUME 10.5 fL (7.4-10.4); MONOCYTES 8.1 % (2-11); NEUTROPHILS 68.6 % (40-80); PLATELET COUNT 96 10x3/uL (130-400); RBC 3.39 10x6/uL (4.20-6.10); RDW 15.1 % (11.5-14.5)
[2019-10-16 06:01] LABS: ANION GAP 10.2 mmol/L (8-16); CALCIUM 7.2 mg/dL (8.5-10.1); CARBON DIOXIDE 35.2 mmol/L (21.0-32.0); CREATININE - SERUM 3.6 mg/dL (0.6-1.3); POTASSIUM - SERUM 3.4 mmol/L (3.5-5.1)
[2019-10-16 06:26] LABS: PLATELET ESTIMATE NORMAL
--- NOTE | 2019-10-16 07:10 | NUR ---
REPORT RECIEVED FROM REPORT CLERK AND PATIENT CARE ASSUMED. PATIENT LAYING IN BED ON BACK WITH HOB ELEVATED 30 DEGREES .PATIENT IS SEDATED AND ON VENT AC RATE 20 FIO2 50 TV 500 [EEP 50. HARDY WRIST RESTRAINTS IN PLACE. REPOSITONED FOR COMFORT. VSS. WILL CONTINUE WITH PLAN OF CARE. SR UP X 2 BED IN LOW POSITION.
--- NOTE | 2019-10-16 09:55 | NUR ---
PER V/ODWilly DAVIS,CALLED SURGERY AND SPOKE WITH DR ASKEW REGARDING HARDY HAND EDEMA WITH BLISTERS WITH CONCERN FOR GANGRENE.
[2019-10-17] VITALS (21 sets, daily range): BP systolic 111–154; BP diastolic 58–101
[2019-10-17 05:32] LABS: BASOPHILS 0.9 % (0-2); EOSINOPHILS 9.8 % (0-7); HEMATOCRIT 30.7 % (42.0-54.0); HEMOGLOBIN 9.6 g/dL (13.5-17.5); IMMATURE GRANULOCYTES 0.9 % (0-5); MCHC 31.3 g/dL (31.0-37.0); MCV 83.2 fL (80.0-100.0); MEAN PLATELET VOLUME 10.5 fL (7.4-10.4); MONOCYTES 13.5 % (2-11); NEUTROPHILS 57.9 % (40-80); PLATELET COUNT 90 10x3/uL (130-400); RBC 3.69 10x6/uL (4.20-6.10)
[2019-10-17 05:52] LABS: PLATELET ESTIMATE DECREASED; WBC 3.5 10x3/uL (4.8-10.8)
[2019-10-17 06:00] LABS: ANION GAP 12.1 mmol/L (8-16); CALCIUM 7.7 mg/dL (8.5-10.1); CARBON DIOXIDE 32.1 mmol/L (21.0-32.0); POTASSIUM - SERUM 3.2 mmol/L (3.5-5.1)
[2019-10-17 06:16] LABS: CREATININE - SERUM 2.6 mg/dL (0.6-1.3)
--- NOTE | 2019-10-17 07:15 | NUR ---
REPORT RECEIVED. ASSESSMENT COMPLETE PER FLOW SHEET. VSS. PT RESTING COMFORTABLY WILL CONTINUE TO MONITOR
--- NOTE | 2019-10-17 10:30 | NUR ---
DR CHEN AT BEDSIDE. GIVEN UPDATE. NO NEW ORDERS RECIEVED.
--- NOTE | 2019-10-17 11:12 | NUR ---
Nutrition follow-up: Pt intubated, sedated with propofol @ 4.7 ml/hr NPO Labs reviewed Possible hand amputation soon TPN soon. RDN following.
--- NOTE | 2019-10-17 12:30 | NUR ---
DR ÁLVAREZ AT BEDSIDE GIVEN UPDATE. CT ORDERED. ORAL CONTRAST ADM.
--- NOTE | 2019-10-17 14:29 | NUR ---
DECREASED RR TO 16
[2019-10-18] VITALS (23 sets, daily range): BP systolic 133–163; BP diastolic 57–95
[2019-10-18 04:51] LABS: BASOPHILS 0.8 % (0-2); EOSINOPHILS 3.6 % (0-7); HEMATOCRIT 29.6 % (42.0-54.0); HEMOGLOBIN 9.3 g/dL (13.5-17.5); IMMATURE GRANULOCYTES 0.6 % (0-5); LYMPHOCYTES 19.4 % (15-50); MCH 26.1 pg (26.0-34.0); MCHC 31.4 g/dL (31.0-37.0); MCV 83.1 fL (80.0-100.0); MEAN PLATELET VOLUME 10.5 fL (7.4-10.4); MONOCYTES 16.1 % (2-11); NEUTROPHILS 59.5 % (40-80); PLATELET COUNT 87 10x3/uL (130-400); RBC 3.56 10x6/uL (4.20-6.10); RDW 15.3 % (11.5-14.5); WBC 3.6 10x3/uL (4.8-10.8)
[2019-10-18 05:03] LABS: PLATELET ESTIMATE DECREASED
[2019-10-18 05:08] LABS: INR 1.07 (0.85-1.17); PROTIME 13.8 SECONDS (11.6-15.0)
[2019-10-18 05:14] LABS: ALBUMIN 1.4 g/dL (3.4-5.0); ANION GAP 9.5 mmol/L (8-16); BILIRUBIN - DIRECT 0.8 mg/dL (0.00-0.30); BILIRUBIN - INDIRECT 0.21 mg/dL (0.00-1.00); BILIRUBIN - TOTAL 1.01 mg/dL (0.2-1.3); CALCIUM 7.3 mg/dL (8.5-10.1); CARBON DIOXIDE 30.7 mmol/L (21.0-32.0); MAGNESIUM - SERUM 1.5 mg/dL (1.8-2.4); PHOSPHOROUS 3.2 mg/dL (2.5-4.9); POTASSIUM - SERUM 3.2 mmol/L (3.5-5.1); PROTEIN - SERUM 5.8 g/dL (6.4-8.2)
--- NOTE | 2019-10-18 07:20 | NUR ---
REPORT RECEIVED. ASSESSMENT COMPLETE PER FLOW SHEET. VSS. PT RESTING COMFORTABLY WILL CONTINUE TO MONITOR
[2019-10-19] VITALS (24 sets, daily range): BP systolic 136–175; BP diastolic 56–96
[2019-10-19 05:09] LABS: BASOPHILS 0.5 % (0-2); EOSINOPHILS 1.6 % (0-7); HEMATOCRIT 27.4 % (42.0-54.0); HEMOGLOBIN 8.5 g/dL (13.5-17.5); IMMATURE GRANULOCYTES 0.4 % (0-5); LYMPHOCYTES 19.2 % (15-50); MCH 25.8 pg (26.0-34.0); MCV 83.3 fL (80.0-100.0); MONOCYTES 14.5 % (2-11); NEUTROPHILS 63.8 % (40-80); PLATELET COUNT 98 10x3/uL (130-400); RBC 3.29 10x6/uL (4.20-6.10); RDW 15.7 % (11.5-14.5)
[2019-10-19 05:17] LABS: PLATELET ESTIMATE DECREASED; WBC 5.5 10x3/uL (4.8-10.8)
[2019-10-19 05:25] LABS: ALBUMIN 1.3 g/dL (3.4-5.0); ANION GAP 11.7 mmol/L (8-16); BILIRUBIN - TOTAL 0.7 mg/dL (0.2-1.3); CALCIUM 7.8 mg/dL (8.5-10.1); CARBON DIOXIDE 27.4 mmol/L (21.0-32.0); CREATININE - SERUM 1.8 mg/dL (0.6-1.3); POTASSIUM - SERUM 3.1 mmol/L (3.5-5.1); PROTEIN - SERUM 6.5 g/dL (6.4-8.2)
--- NOTE | 2019-10-19 07:20 | NUR ---
ASHLEY PHAM SISTER CALLED BY NURSE TO GIVE UPDATE R/T NO UPDATE GIVEN SINCE 10/13. EXPLAINED IN GREAT DETAIL ADMISSION DIAGNOSIS ie.(SEVERE SEPSIS, ARF, POSSIBLE STOMACH PERF, EEG, CT'S REVIEWED, ENCEPHALOPATHY AND NEWLY FOUND L HAND BLISTERS/CIRCULATION ISSUES.) ALL EXPLAINED IN GREAT DETAIL AND IN LAMENS TERMS. ASHLEY NOW FRUSTRATED AT THIS TIME STATING NURSES KEEP SAYING HE IS DOING GOOD BUT WHAT I AM TELLING HER IS COMPLETELY DIFFERENT. ASHLEY STATED I LIED TO HER ABOUT THE SEPSIS AND THE EMERGENCY MEDICATIONS ON DAY 1, NURSE APOLOGIZED SHE FELT THAT WAY BUT COULD RECALL GOING OVER THE SEPSIS AND THE MEDICATIONS BEING HARD ON THE BODY AND THAT HE WAS SO SICK WE DID NOT NO IF HE WOULD MAKE IT THROUGHOUT THE NIGHT, ON DAY 1. ASHLEY STATES WE NEVER HAD THIS CONVERSATION. NURSE STATED IM SORRY, ILL HAVE A DOCTOR CALL YOU SOON POSSIBLE. MIRNA MADE AWARE OF SITUATION AND ASHLEY BEING UPSET.
--- NOTE | 2019-10-19 07:23 | NUR ---
Nutrition consult: Received order from Dr. Neves to start TF via NGT Chart reviewed Pt intubated, sedated Labs reviewed RDN ordered Pulmocare to start @ 25 ml/hr with gradual increase to goal rate of 50 ml/hr. 25 ml H2O flush q hour. Thank you for the consult.
--- NOTE | 2019-10-19 07:30 | NUR ---
REPORT RECEIVED. ASSESSMENT COMPLETE PER FLOW SHEET. WILL CONTINUE TO MONITOR
[2019-10-20] VITALS (21 sets, daily range): BP systolic 120–157; BP diastolic 53–85
[2019-10-20 05:54] LABS: BASOPHILS 0.2 % (0-2); EOSINOPHILS 0.5 % (0-7); HEMATOCRIT 28.6 % (42.0-54.0); HEMOGLOBIN 8.8 g/dL (13.5-17.5); IMMATURE GRANULOCYTES 0.3 % (0-5); LYMPHOCYTES 22.3 % (15-50); MCHC 30.8 g/dL (31.0-37.0); MCV 84.4 fL (80.0-100.0); MEAN PLATELET VOLUME 9.5 fL (7.4-10.4); MONOCYTES 10.6 % (2-11); NEUTROPHILS 66.1 % (40-80); RBC 3.39 10x6/uL (4.20-6.10); RDW 16.5 % (11.5-14.5); WBC 5.8 10x3/uL (4.8-10.8)
[2019-10-20 05:59] LABS: PLATELET COUNT 130 10x3/uL (130-400)
[2019-10-20 06:16] LABS: ALBUMIN 1.4 g/dL (3.4-5.0); ANION GAP 7.3 mmol/L (8-16); BILIRUBIN - TOTAL 0.46 mg/dL (0.2-1.3); CALCIUM 7.7 mg/dL (8.5-10.1); CARBON DIOXIDE 27.8 mmol/L (21.0-32.0); CREATININE - SERUM 1.7 mg/dL (0.6-1.3); MAGNESIUM - SERUM 1.9 mg/dL (1.8-2.4); PHOSPHOROUS 2.1 mg/dL (2.5-4.9); POTASSIUM - SERUM 3.1 mmol/L (3.5-5.1); PROTEIN - SERUM 7.3 g/dL (6.4-8.2)
--- NOTE | 2019-10-20 07:00 | NUR ---
HEAD TO TOE ASSESSMENT COMPLETED. PT LEHARGIC SOMULENT OPENS EYES AND WITHDRAWLS TO PAIN. UNCONOLLED AFIB NOTED ON MONITOR 130-150. TEMP NOTED AT 102.4. RECTAL TUBE PRESENT WITH STOOL NOTED AROUND RECTUM AND ON BED. PROVIDED CHG BATH AND CLEANED INCONTINENT STOOL. cALLED DR ALVARADO UPDATED CONDITION. ORDERS RECIEVED FOR TYLENOL, OBTAIN BLOOD CULTURES, AND UA. 0900 FEVER DOWN. HR STILL INCREASED. UPDATED CONDITION. ORDERS RECIEVED TO ADMINISTER DIG 0.25 AND START CARDIZEM GTT AT 10. 1100- REASSESSMENT COMPLETED. NO CHANGES NOTED. SPOKE TO DR ALVARADO ABOUT HR. ORDERS RECIEVED TO INCREASE CARDIZEM TO 15. 1300 REPOSITIONED. NO S/S OF DISTRESS 1500 REASSESSMENT COMPLETED. REPOSIIONED 1700 PT CONTINUES TO HAVE ELEVATED HR. SPOKE TO DR ALVARADO. ORDERS RECIEVED TO STOP CARDIZEM GTT, OBTAIN 12 LEAD EKG, AND START AMIODARONE GTT WITH CARDIOLOGY CONSULT.
[2019-10-20 16:09] LABS: ACID FAST SMEAR Negative (()); AFB SPECIMEN PROCESSING Concentration (())
--- NOTE | 2019-10-20 18:07 | NUR ---
CALLED DR ROSS ABOUT CONSULT. UPDATED CONDITION. ORDERS RECIEVED TO START AMIODARONE GTT AT MG OVERNIGHT, AND KEEP THE CARDIZEM AT A RATE OF 5. IF THE PT CONVERTS THEN STOP THE CARDIZEM.
[2019-10-21] VITALS (24 sets, daily range): BP systolic 93–137; BP diastolic 55–81
[2019-10-21 05:35] LABS: BASOPHILS 0.1 % (0-2); EOSINOPHILS 1.1 % (0-7); HEMATOCRIT 28.9 % (42.0-54.0); HEMOGLOBIN 8.6 g/dL (13.5-17.5); IMMATURE GRANULOCYTES 0.5 % (0-5); LYMPHOCYTES 17.2 % (15-50); MCH 25.4 pg (26.0-34.0); MCHC 29.8 g/dL (31.0-37.0); MCV 85.5 fL (80.0-100.0); MEAN PLATELET VOLUME 10.2 fL (7.4-10.4); MONOCYTES 7.7 % (2-11); NEUTROPHILS 73.4 % (40-80); RBC 3.38 10x6/uL (4.20-6.10)
[2019-10-21 05:44] LABS: PLATELET COUNT 164 10x3/uL (130-400); WBC 7.3 10x3/uL (4.8-10.8)
[2019-10-21 06:00] LABS: ALBUMIN 1.4 g/dL (3.4-5.0); ANION GAP 8.7 mmol/L (8-16); BILIRUBIN - TOTAL 0.38 mg/dL (0.2-1.3); CALCIUM 7.7 mg/dL (8.5-10.1); CARBON DIOXIDE 28.3 mmol/L (21.0-32.0); CREATININE - SERUM 1.5 mg/dL (0.6-1.3); MAGNESIUM - SERUM 1.9 mg/dL (1.8-2.4); PROTEIN - SERUM 7.1 g/dL (6.4-8.2); TROPONIN-I 0.023 ng/mL (0.000-0.060); VANCOMYCIN - RANDOM 11.6 ug/mL (10.0-20.0)
[2019-10-21 06:08] LABS: PHOSPHOROUS 2.7 mg/dL (2.5-4.9)
--- NOTE | 2019-10-21 10:09 | NUR ---
Nutrition follow-up: Pt remains intubated, sedated Now febrile Pulmocare infusing @ 40 ml/hr with 25 ml H2O flush rectal tube now If propofol off, will need to increase TF rate to 50 ml/hr to better meet est nutrition needs. RDN following.
[2019-10-21 10:12] LABS: FUNGUS STAIN Final report (())
--- NOTE | 2019-10-21 11:48 | NUR ---
0800 INCREASED FIO2 ON VENT T0 50%
--- NOTE | 2019-10-21 11:50 | NUR ---
1000 LUNA BRANDT FOR CARDIOLOGY REORDERED AMIODARONE INFUSION
--- NOTE | 2019-10-21 11:51 | NUR ---
0900 DRESSED LARGE SKIN TEAR ON BACK OF PATIENTS LEFT HAND APPLIED ADAPTIC, 4 X 4
[2019-10-22] VITALS (19 sets, daily range): BP systolic 102–139; BP diastolic 49–79
--- NOTE | 2019-10-22 02:30 | NUR ---
CHANGED DRESSING TO LEFT HAND D/T THE AREA INCREASING IN SIZE AND THE DRAINAGE SATURATING DRESSING. APPLIED ADAPTIC, COVERED WITH 4X4 AND KERLEX. PT TOLERATED WELL.
[2019-10-22 05:52] LABS: BASOPHILS 0.1 % (0-2); EOSINOPHILS 4.8 % (0-7); HEMATOCRIT 26.7 % (42.0-54.0); HEMOGLOBIN 7.9 g/dL (13.5-17.5); IMMATURE GRANULOCYTES 0.4 % (0-5); LYMPHOCYTES 11.8 % (15-50); MCH 25.8 pg (26.0-34.0); MCHC 29.6 g/dL (31.0-37.0); MCV 87.3 fL (80.0-100.0); MEAN PLATELET VOLUME 10.5 fL (7.4-10.4); MONOCYTES 6.9 % (2-11); PLATELET COUNT 180 10x3/uL (130-400); RBC 3.06 10x6/uL (4.20-6.10); RDW 17.5 % (11.5-14.5); WBC 7.1 10x3/uL (4.8-10.8)
[2019-10-22 06:21] LABS: ANION GAP 8.3 mmol/L (8-16); CALCIUM 7.6 mg/dL (8.5-10.1); CARBON DIOXIDE 25.3 mmol/L (21.0-32.0); CREATININE - SERUM 1.1 mg/dL (0.6-1.3); MAGNESIUM - SERUM 2.1 mg/dL (1.8-2.4); PHOSPHOROUS 2.3 mg/dL (2.5-4.9); POTASSIUM - SERUM 3.6 mmol/L (3.5-5.1); VANCOMYCIN - RANDOM 14.1 ug/mL (10.0-20.0)
--- NOTE | 2019-10-22 13:22 | NUR ---
1200 DR CHEN ROUNDING ON PATIENT FIO2 DECREASED TO 40% BY DR CHEN
--- NOTE | 2019-10-22 13:23 | NUR ---
1315 THICK DARK DOWD SUCTIONED FROM ETT
--- NOTE | 2019-10-22 13:24 | NUR ---
DR SANTA IN ROOM CHECKING ON PATIENTS LEFT ARM
--- NOTE | 2019-10-22 19:15 | NUR ---
SHIFT ASSESSMENT COMPLETED SEE FLOWSHEET
--- NOTE | 2019-10-22 23:29 | NUR ---
REASSESSMENT COMPLETED SEE FLOWSHEET
[2019-10-23] VITALS (24 sets, daily range): BP systolic 102–141; BP diastolic 54–83
[2019-10-23 06:32] LABS: BASOPHILS 0.3 % (0-2); EOSINOPHILS 2.7 % (0-7); HEMATOCRIT 24.2 % (42.0-54.0); IMMATURE GRANULOCYTES 0.4 % (0-5); LYMPHOCYTES 14.2 % (15-50); MCHC 30.2 g/dL (31.0-37.0); MCV 86.1 fL (80.0-100.0); MEAN PLATELET VOLUME 10.8 fL (7.4-10.4); MONOCYTES 7.9 % (2-11); NEUTROPHILS 74.5 % (40-80); PLATELET COUNT 216 10x3/uL (130-400); RBC 2.81 10x6/uL (4.20-6.10); RDW 17.8 % (11.5-14.5)
[2019-10-23 06:40] LABS: HEMOGLOBIN 7.3 g/dL (13.5-17.5)
[2019-10-23 06:50] LABS: ALBUMIN 1.1 g/dL (3.4-5.0); ANION GAP 6.7 mmol/L (8-16); BILIRUBIN - TOTAL 0.25 mg/dL (0.2-1.3); CALCIUM 7.7 mg/dL (8.5-10.1); CARBON DIOXIDE 28.1 mmol/L (21.0-32.0); CREATININE - SERUM 1.1 mg/dL (0.6-1.3); POTASSIUM - SERUM 3.8 mmol/L (3.5-5.1); PROTEIN - SERUM 6.3 g/dL (6.4-8.2); VANCOMYCIN - RANDOM 14.7 ug/mL (10.0-20.0)
--- NOTE | 2019-10-23 07:11 | NUR ---
PAGED DR PEREZ OFFICE REGARDING CRITICAL LAB VALUE
--- NOTE | 2019-10-23 07:16 | NUR ---
DR PEREZ RETURNED CALL - NEW ORDERS RECEIVED
[2019-10-24] VITALS (25 sets, daily range): BP systolic 121–155; BP diastolic 61–86
[2019-10-24 04:27] LABS: BASOPHILS 0.4 % (0-2); EOSINOPHILS 2.5 % (0-7); HEMATOCRIT 27.8 % (42.0-54.0); HEMOGLOBIN 8.7 g/dL (13.5-17.5); IMMATURE GRANULOCYTES 0.5 % (0-5); MCH 26.8 pg (26.0-34.0); MCHC 31.3 g/dL (31.0-37.0); MCV 85.5 fL (80.0-100.0); MEAN PLATELET VOLUME 10.2 fL (7.4-10.4); MONOCYTES 9.2 % (2-11); NEUTROPHILS 74.4 % (40-80); PLATELET COUNT 229 10x3/uL (130-400); RBC 3.25 10x6/uL (4.20-6.10); RDW 17.4 % (11.5-14.5); WBC 8.5 10x3/uL (4.8-10.8)
[2019-10-24 04:43] LABS: ANION GAP 7.2 mmol/L (8-16); CALCIUM 7.7 mg/dL (8.5-10.1); CARBON DIOXIDE 26.7 mmol/L (21.0-32.0); CREATININE - SERUM 1.1 mg/dL (0.6-1.3); POTASSIUM - SERUM 3.9 mmol/L (3.5-5.1); VANCOMYCIN - RANDOM 16.8 ug/mL (10.0-20.0)
--- NOTE | 2019-10-24 09:57 | NUR ---
Nutrition follow-up: Pt intubated, sedated with propofol @ 14.4 ml/hr Pulmocare infusing @ 40 ml/hr Labs reviewed WT: 177# RDN following.
--- NOTE | 2019-10-24 10:47 | NUR ---
1045 PROPOFOL OFF NOW PLACED ON CPAP TRIAL
[2019-10-25] VITALS (17 sets, daily range): BP systolic 124–152; BP diastolic 55–98
[2019-10-25 06:23] LABS: CREATININE - SERUM 1.1 mg/dL (0.6-1.3); VANCOMYCIN - RANDOM 8.5 ug/mL (10.0-20.0)
--- NOTE | 2019-10-25 07:00 | NUR ---
REPORT REC'D AND CARE RESUMED, ETT TO VENTILALTION AND SECURED, VSS, SEDATION IN USE, CORDARON AND CARDIZEM IN USE, ORAL CARE AND SUCTION OF COPIUS SECRETION, NOTED LEFT HAND WRAPPED IN KERLEX, CDI, RECTAL TUBE AND MONTILLA IN PLACE, ASSESSMENT COMPLETED PER FLOWSHEET, OPENS EYES DOES NOT FOLLOW COMMANDS. WILL CONTINUE WITH POC
--- NOTE | 2019-10-25 09:30 | NUR ---
CARDEZIM DECREASE, TO 5 PER MJ WITH CARDIOLOGY, WILL TRY TO WEAN ON 10/25 AND START DIGOXIN
--- NOTE | 2019-10-25 15:00 | NUR ---
LARGE SOFT BOMEL MOVEMENT TO SANTOSH PAD, CHG BATH AND SKINCARE COMPLETED
--- NOTE | 2019-10-25 17:35 | EEG ---
PATIENT:CHIDI SHERMAN MEDICAL RECORD: [id number] DATE OF : 54 LOCATION:D.230 D.ICU ADMISSION DATE: 10/13/19 REFERRING PHYSICIAN: INTERPRETING PHYSICIAN: MARTIN ESPINOSA MD DATE OF SERVICE: 10/18/2019 DATE OF EE10/18/2019 ROOM NUMBER: [id number]. ORDERED BY: Dr. Espinosa. CASE HISTORY: A 69-year-old male admitted from [facility] in septic shock with bowel perforation and pneumonia and gangrenous limb, unresponsive, off sedation, on vent. PROCEDURE: EEG done as a routine bedside portable recording using the standard 10-20 international electrode system. A 16-channel was used with 17th as EKG. Photic stimulation done as activation procedure. DESCRIPTION: EEG opens with the patient unresponsive on vent with the record displaying diffusely low amplitude background slowing with prominent EMG and motor artifact obscuring significant portions of the background. Background slowing is primarily theta slowing at 5-6 Hz, rarely at 6-7 Hz with intermittent background delta as well. No epileptiform change such as spike, polyspike, or spike and wave was seen. No asymmetry in background slowing. Photic stimulation did not yield a photoparoxysmal response. IMPRESSION: Moderately abnormal EEG with diffuse background slowing consistent with encephalopathy. Etiologies could include hypoxia, infection and metabolic disturbances. No evidence of seizure disorder or asymmetric amplitudes that might suggest structural change. TRANSINT:[id number] Voice Confirmation ID: [id number] DOCUMENT ID: [id number] MARTIN ESPINOSA MD at 1735 CC: [id number] DICTATION DATE: 10/18/19 1250 ERECTION SHOP SUPERVISOR: 10/18/19 1624 ADM IN [place] [id number] [place] [address]
[2019-10-26] VITALS (23 sets, daily range): BP systolic 121–152; BP diastolic 55–96
[2019-10-26 04:54] LABS: BASOPHILS 0.6 % (0-2); EOSINOPHILS 2.6 % (0-7); HEMATOCRIT 28.3 % (42.0-54.0); HEMOGLOBIN 8.9 g/dL (13.5-17.5); IMMATURE GRANULOCYTES 0.8 % (0-5); LYMPHOCYTES 13.7 % (15-50); MCH 26.6 pg (26.0-34.0); MCHC 31.4 g/dL (31.0-37.0); MCV 84.7 fL (80.0-100.0); MEAN PLATELET VOLUME 10.4 fL (7.4-10.4); MONOCYTES 10.3 % (2-11); RBC 3.34 10x6/uL (4.20-6.10); RDW 17.8 % (11.5-14.5); WBC 8.4 10x3/uL (4.8-10.8)
[2019-10-26 05:10] LABS: PLATELET COUNT 387 10x3/uL (130-400)
[2019-10-26 05:28] LABS: ALBUMIN 1.1 g/dL (3.4-5.0); ANION GAP 8.6 mmol/L (8-16); BILIRUBIN - TOTAL 0.23 mg/dL (0.2-1.3); CALCIUM 7.4 mg/dL (8.5-10.1); CARBON DIOXIDE 24.6 mmol/L (21.0-32.0); CREATININE - SERUM 1.1 mg/dL (0.6-1.3); POTASSIUM - SERUM 4.2 mmol/L (3.5-5.1); PROTEIN - SERUM 7.1 g/dL (6.4-8.2); VANCOMYCIN - RANDOM 15.5 ug/mL (10.0-20.0)
--- NOTE | 2019-10-26 07:45 | NUR ---
ASSUMED CARE FOR THIS PT. PT IS SEDATED WITH EYES CLOSED ON VENT. VSS AND BEING MONITERED. BILAT WRIST RESTRAINTS SECURED. WILL CHECK CHART AND ORDERS AND BEGIN PLAN OF CARE.
--- NOTE | 2019-10-26 10:11 | NUR ---
Nutrition follow-up: Pt remains intubated, sedated Pulmocare @ 40 ml/hr via OGT +BM, rectal tube in place Wt: 196# Recommend increasing TF to goal rate of 50 ml/hr to better meet est nutritional needs. RDN following.
--- NOTE | 2019-10-26 10:20 | NUR ---
D/C CARDIZEM DRIP PT IS REMAINING CONTROLLED AFIB IN THE 70S ON THE AMIODARONE DRIP. SADAF BARKER AT BEDSIDE ROUNDING. WILL CTM.
--- NOTE | 2019-10-26 12:04 | NUR ---
TURNED PT ONTO HIS R.SIDE AND PARTIAL LINEN CHANGE COMPLETED. PT HAD SMALL AMOUNT OF LOOSE STOOL AND WAS CLEANED UP. LARGE AMOUNTS OF SECRETIONS SUCTIONED ORALLY PT HAD LOUD GARGLES NOTED. NO FURTHER HEARD AFTER SUCTIONING. HR REMAINS CONTROLLED OFF CARDIZEM. RESTRAINTS RELEASED PT IS SEDATED AND COOPERATING, NOT ATTEMPTING TO PULL AT HIS LINES. MOISTURIZER APPLIED TO BILAT KNEES AND FEET SKIN IS TIGHT AND DRY. RESIDUAL VOLUME ON TUBE FEEDINGS CHECKED AND ONLY 20CC. NO IMMEDIATE NEEDS NOTED AT THIS TIME. WILL CTM.
--- NOTE | 2019-10-26 14:00 | NUR ---
REPOSITIONED PT IN BED TO RELIEVE PRESSURE. REPOSITIONED FEET PILLOWS AND BOOTIES. PT REMAINS SEDATED AND VENTED. RESTRAINTS REMAIN RELEASED HE IS CALM AND COOPERATIVE. NO IMMEDIATE NEEDS NOTED AT THIS TIME.
--- NOTE | 2019-10-26 17:45 | NUR ---
COMPLETE BATH AND LINEN CHANGE COMPLETED. PULLED PT UP IN BED AND PLACED WEDGE UNDER HIS R.SIDE TO PROP HIM UP ONTO HIS L.SIDE TO RELIEVE PRESSURE. MONTILLA CATHETER CARE PROVIDED AND NOTED OPEN BLISTERED SKIN ON HIS PENIS SHAFT. PT GRIMANCED DURING CLEANING BUT WAS VERY CALM AND COOPERATIVE. RESTRAINTS REMAIN RELEASED. PRN TYLENOL PROVIDED FOR LOW GRADE TEMP OF 99.6. HOB @30. ORAL CARE PROVIDED AND PT APPEARS TO BE COMFORTABLE. VSS. NO IMMEDIATE NEEDS AT THIS TIME. BED IN LOWEST, SIDE RAILS X2. WILL CPOC.
--- NOTE | 2019-10-26 19:00 | NUR ---
REPORT RECEIVED FROM OFF GOING NURSE. RECEIVED PT LAYING IN BED SEDATED AND INTUBATED. SHIFT ASSESSMENT COMPLETED, SEE FLOWSHEET FOR DETAILS.
[2019-10-27] VITALS (23 sets, daily range): BP systolic 132–162; BP diastolic 59–89
[2019-10-27 04:13] LABS: BASOPHILS 0.9 % (0-2); EOSINOPHILS 2.3 % (0-7); HEMOGLOBIN 8.1 g/dL (13.5-17.5); IMMATURE GRANULOCYTES 0.8 % (0-5); LYMPHOCYTES 17.2 % (15-50); MCH 26.3 pg (26.0-34.0); MCHC 31.2 g/dL (31.0-37.0); MCV 84.4 fL (80.0-100.0); MEAN PLATELET VOLUME 10.2 fL (7.4-10.4); MONOCYTES 15.2 % (2-11); NEUTROPHILS 63.6 % (40-80); PLATELET COUNT 423 10x3/uL (130-400); RBC 3.08 10x6/uL (4.20-6.10); RDW 18.1 % (11.5-14.5); WBC 7.5 10x3/uL (4.8-10.8)
[2019-10-27 04:42] LABS: ANION GAP 12.4 mmol/L (8-16); BILIRUBIN - TOTAL 0.21 mg/dL (0.2-1.3); CALCIUM 7.3 mg/dL (8.5-10.1); CREATININE - SERUM 1.3 mg/dL (0.6-1.3); POTASSIUM - SERUM 4.4 mmol/L (3.5-5.1); PROTEIN - SERUM 6.9 g/dL (6.4-8.2)
--- NOTE | 2019-10-27 07:00 | NUR ---
RECIEVED BEDSIDE REPORT. PT AWAKE WITH EYES OPEN. WITHDRAWLS TO PAIN DOES NOT FOLLOW COMMANDS. LEFT HAND NECROTIC WITH BANDAGE C/D/I. PT ON VENT, WITHOUT RESTRAINTS. GENGERALIZED EDEMA NOTED THROUGHOUT. COURSE CRACKLES NOTED IN BILAT LOBES. REPOSITIONED, AND PROVIDED ORAL CARE.
--- NOTE | 2019-10-27 08:00 | NUR ---
DR DAVIS AT BEDSIDE FOR UPDATE. ORDERS RECIEVED FOR LASIX ONE TIME DOSE.
--- NOTE | 2019-10-27 09:00 | NUR ---
REPOSITIONED FOR COMPFORT. NO CHANGES NOTED.
--- NOTE | 2019-10-27 11:00 | NUR ---
REASSESSMENT COMPLETE NO CHANGES NOTED.REPOSITIONED AND PROVIDED ORAL CARE
--- NOTE | 2019-10-27 13:00 | NUR ---
REPOSITIONED FOR COMFORT. 1000 CC UOP NOTED IN MONTILLA- YELLOW WITH SEDIMENT. PT CONTINUES TO HAVE COURSE CRACKLES AND +4 EDEMA IN EXTREMETIES. PROVIDED ORAL CARE.
--- NOTE | 2019-10-27 13:22 | OP ---
PATIENT NAME: CHIDI SHERMAN MEDICAL RECORD: [id number] :54 LOCATION:D.ICU D.2308 ADMISSION DATE:10/13/19 SURGEON: TIA CHAVEZ MD DATE OF OPERATION: 10/14/2019 PREOPERATIVE DIAGNOSES: 1. Septic shock. 2. Gastric ischemia versus perforation. 3. Acute renal failure. 4. Human immunodeficiency virus. 5. Acute respiratory failure, on the ventilator. POSTOPERATIVE DIAGNOSES: 1. Septic shock. 2. Gastric ischemia versus perforation. 3. Acute renal failure. 4. Human immunodeficiency virus. 5. Acute respiratory failure, on the ventilator. PROCEDURE: Left subclavian vein triple-lumen central venous line placement. SURGEON: Tia Chavez MD REPORT OF PROCEDURE: The patient's left chest was prepped and draped in sterile fashion. A total of 3 cc of 1% lidocaine with epinephrine was infused into the surrounding tissues. A needle was used to cannulate the left subclavian vein and a guidewire was advanced with ease. Over this wire, a dilator was placed followed by the triple lumen catheter. The catheter aspirated nonpulsatile dark blood and flushed easily in all 3 ports. This was sutured into place with 3-0 silk ties and dressed appropriately. COMPLICATIONS: None. CONDITION: Stable. ANESTHESIA: General endotracheal and local. BLOOD LOSS: Minimal. Procedure done in the ICU at the bedside. TRANSINT:[id number] Voice Confirmation ID: [id number] DOCUMENT ID: [id number] TIA CHAVEZ MD at 1322 CC: [id number] DICTATION DATE: 10/14/19 1523 LOOPER OPERATOR: 10/15/19 0040 ADM IN [facility] [address] [id number]
[2019-10-28] VITALS (20 sets, daily range): BP systolic 134–184; BP diastolic 62–88
[2019-10-28 04:16] LABS: BASOPHILS 0.5 % (0-2); EOSINOPHILS 1.8 % (0-7); HEMATOCRIT 27.3 % (42.0-54.0); HEMOGLOBIN 8.5 g/dL (13.5-17.5); IMMATURE GRANULOCYTES 0.8 % (0-5); LYMPHOCYTES 14.1 % (15-50); MCH 26.1 pg (26.0-34.0); MCHC 31.1 g/dL (31.0-37.0); MCV 83.7 fL (80.0-100.0); MEAN PLATELET VOLUME 9.4 fL (7.4-10.4); MONOCYTES 14.3 % (2-11); NEUTROPHILS 68.5 % (40-80); PLATELET COUNT 456 10x3/uL (130-400); RBC 3.26 10x6/uL (4.20-6.10); RDW 18.1 % (11.5-14.5); WBC 7.8 10x3/uL (4.8-10.8)
[2019-10-28 04:35] LABS: ANION GAP 9.5 mmol/L (8-16); BILIRUBIN - TOTAL 0.24 mg/dL (0.2-1.3); CALCIUM 7.7 mg/dL (8.5-10.1); CARBON DIOXIDE 24.9 mmol/L (21.0-32.0); CREATININE - SERUM 1.2 mg/dL (0.6-1.3); POTASSIUM - SERUM 4.4 mmol/L (3.5-5.1)
--- NOTE | 2019-10-28 07:15 | NUR ---
REPORT RECEIVED. ASSESSMETN COMPLETE PER FLOW SHEET. VSS. PT RESTING COMFORTABLY WILL CONTINUE TO MONTIOR
--- NOTE | 2019-10-28 13:14 | NUR ---
Nutrition Follow-up: Chart reviewed. Possible trach and PEG soon. TF order: Pulmocare @ 50mL/hr + H2O @ 25mL/hr-- tolerating at goal Last BM: 10/26/19, rectal tube. Wt: 198.4# (10/27/19); Admit Wt: 180# (10/13/19) Meds noted: diprivan was not running at time of RD rounding. Labs reviewed. Skin: PU x 3 to coccyx and R/L heels Recommend continue current TF at goal rate as tolerated. RD following.
[2019-10-29] VITALS (24 sets, daily range): BP systolic 109–173; BP diastolic 50–94
[2019-10-29 05:25] LABS: BASOPHILS 0.6 % (0-2); EOSINOPHILS 0.6 % (0-7); HEMOGLOBIN 8.3 g/dL (13.5-17.5); IMMATURE GRANULOCYTES 0.6 % (0-5); MCH 26.5 pg (26.0-34.0); MCHC 31.9 g/dL (31.0-37.0); MCV 83.1 fL (80.0-100.0); MEAN PLATELET VOLUME 9.9 fL (7.4-10.4); MONOCYTES 14.3 % (2-11); NEUTROPHILS 66.9 % (40-80); RBC 3.13 10x6/uL (4.20-6.10); RDW 17.8 % (11.5-14.5); WBC 7.9 10x3/uL (4.8-10.8)
[2019-10-29 05:33] LABS: PLATELET COUNT 557 10x3/uL (130-400)
[2019-10-29 05:38] LABS: ALBUMIN 0.9 g/dL (3.4-5.0); ANION GAP 10.8 mmol/L (8-16); BILIRUBIN - TOTAL 0.28 mg/dL (0.2-1.3); CALCIUM 7.9 mg/dL (8.5-10.1); CARBON DIOXIDE 24.5 mmol/L (21.0-32.0); CREATININE - SERUM 1.2 mg/dL (0.6-1.3); POTASSIUM - SERUM 4.3 mmol/L (3.5-5.1); PROTEIN - SERUM 6.8 g/dL (6.4-8.2)
--- NOTE | 2019-10-29 16:12 | NUR ---
0700 REPORT RECIEVED AND CARE ASSUMED OF PATIENT.. SEE FLOW SHEET FOR SHIFT ASSESMENT FINDINGS.. PT IS ORALLY INTUBATED ON VNET WITHOUT SEDATION AT THIS TME.. EYES ARE OPEN AND PATIENT DOES NOT FOLLOW COMMANDS.. 0900 DR DAVIS IN TO SEE PATIENT.. UPDATE IS GIVEN .. 0915 DR PEREZ IN TO SEE PATIENT.. 0930 PCXR DONE PER ORDER... 1200 WIHTOUT CHANGES.. 1500 NO CHANGES
[2019-10-30] VITALS (20 sets, daily range): BP systolic 136–153; BP diastolic 61–84
[2019-10-30 07:47] LABS: BASOPHILS 0.4 % (0-2); EOSINOPHILS 3.7 % (0-7); HEMATOCRIT 25.5 % (42.0-54.0); IMMATURE GRANULOCYTES 1.4 % (0-5); MCH 26.1 pg (26.0-34.0); MCHC 31.4 g/dL (31.0-37.0); MCV 83.1 fL (80.0-100.0); MEAN PLATELET VOLUME 9.8 fL (7.4-10.4); MONOCYTES 17.7 % (2-11); NEUTROPHILS 59.8 % (40-80); PLATELET COUNT 563 10x3/uL (130-400); RBC 3.07 10x6/uL (4.20-6.10); RDW 17.8 % (11.5-14.5); WBC 7.1 10x3/uL (4.8-10.8)
[2019-10-30 08:06] LABS: ALBUMIN 0.9 g/dL (3.4-5.0); ANION GAP 9.7 mmol/L (8-16); BILIRUBIN - TOTAL 0.25 mg/dL (0.2-1.3); CALCIUM 7.6 mg/dL (8.5-10.1); CARBON DIOXIDE 25.8 mmol/L (21.0-32.0); CREATININE - SERUM 1.2 mg/dL (0.6-1.3); POTASSIUM - SERUM 4.5 mmol/L (3.5-5.1); PROTEIN - SERUM 6.8 g/dL (6.4-8.2)
[2019-10-31] VITALS (23 sets, daily range): BP systolic 104–142; BP diastolic 56–75
--- NOTE | 2019-10-31 07:15 | NUR ---
REPORT RECEIVED. ASSESSMENT COMPLETE PER FLOW SHEET. VSS. PT RESTING COMFORTABLY WILL CONTINUE TO MONITOR
--- NOTE | 2019-10-31 11:12 | NUR ---
Nutrition follow-up: Pt intubated; no sedation Pulmocare @ 50 ml/hr Labs reviewed +BM Wt: 199# RDN following.
[2019-10-31 15:35] LABS: HEMATOCRIT 24.7 % (42.0-54.0); HEMOGLOBIN 7.7 g/dL (13.5-17.5)
[2019-11-01] VITALS (24 sets, daily range): BP systolic 135–166; BP diastolic 61–92
[2019-11-01 06:29] LABS: ANION GAP 8.7 mmol/L (8-16); CALCIUM 7.6 mg/dL (8.5-10.1); CARBON DIOXIDE 26.7 mmol/L (21.0-32.0); CREATININE - SERUM 1.3 mg/dL (0.6-1.3); POTASSIUM - SERUM 4.4 mmol/L (3.5-5.1)
[2019-11-01 08:25] LABS: HEMATOCRIT 24.1 % (42.0-54.0); HEMOGLOBIN 7.6 g/dL (13.5-17.5); MCH 26.2 pg (26.0-34.0); MCHC 31.5 g/dL (31.0-37.0); MCV 83.1 fL (80.0-100.0); MEAN PLATELET VOLUME 9.6 fL (7.4-10.4); PLATELET COUNT 572 10x3/uL (130-400); RDW 17.6 % (11.5-14.5); WBC 6.4 10x3/uL (4.8-10.8)
--- NOTE | 2019-11-01 11:20 | NUR ---
DR CHEN AT BEDSIDE GIVEN UPDATE. NO NEW ORDERS RECEIVED
--- NOTE | 2019-11-01 12:28 | NUR ---
DISCUSSED WITH CARDIOLOGY STOPPING AMIODARONE DRIP AND INITIATING OGT OR PEG TUBE DOSING. NEW ORDERS INITIATED. DISCUSSED WITH PRIMARY RN.
[2019-11-01 13:08] LABS: ANISOCYTOSIS OCC; EOSINOPHILS 1 % (0-7); LYMPHOCYTES 23 % (15-50); MONOCYTES 15 % (2-11); NEUTROPHILS 53 % (40-80); PLATELET ESTIMATE INCREASED; POLYCHROMASIA OCC
--- NOTE | 2019-11-01 13:10 | NUR ---
SISTER ASHLEY CALLED GIVEN UPDATE. CONSENTS OBTAINED FOR BEDSIDE TRACH/PEG 10/31
[2019-11-02] VITALS (23 sets, daily range): BP systolic 135–161; BP diastolic 62–76
[2019-11-02 07:30] LABS: BASOPHILS 0.5 % (0-2); EOSINOPHILS 1.4 % (0-7); HEMOGLOBIN 7.6 g/dL (13.5-17.5); IMMATURE GRANULOCYTES 3.4 % (0-5); LYMPHOCYTES 17.5 % (15-50); MCH 26.2 pg (26.0-34.0); MCHC 31.7 g/dL (31.0-37.0); MCV 82.8 fL (80.0-100.0); MONOCYTES 21.9 % (2-11); NEUTROPHILS 55.3 % (40-80); PLATELET COUNT 467 10x3/uL (130-400); RDW 17.3 % (11.5-14.5); WBC 7.4 10x3/uL (4.8-10.8)
[2019-11-02 07:52] LABS: ANION GAP 9.8 mmol/L (8-16); CALCIUM 7.6 mg/dL (8.5-10.1); CREATININE - SERUM 1.2 mg/dL (0.6-1.3); POTASSIUM - SERUM 4.8 mmol/L (3.5-5.1)
--- NOTE | 2019-11-02 09:15 | NUR ---
OR CREW HERE TO TRANSPORT PT TO THE OR AT THIS TIME. PRE-OP MEDS HAVE BEEN GIVEN. CONSENTS ARE ON THE CHART AND BEING SENT WITH THE PATIENT.
--- NOTE | 2019-11-02 11:32 | NUR ---
PATIENT RETURNED TO 2308 FROM OR. ANESTHESIA AND OR TILE INSTALLER AT BEDSIDE. BEDSIDE REPORT TAKEN. PERCUTANEOUS TRACH AND PEG TUBE INSERTED. RT ALSO AT BEDSIDE TO RETURN PATIENT TO VENT. TRACH IS 9.0 VENT SETTINGS A/C 14, TV 500, 30% FIO2, AND PEEP 5. SCANT BLEEDING NOTED AT TRACH INSERTION SITE. PEG NOTED AT THE MIDLINE UPPER ABD AREA. SCANT BLEEDING NOTED AT THIS INSERTION SITE WELL. ICU MONITORING EQUIPMENT ON AND FUNCTIONING PROPERLY. VSS. WILL CONTINUE TO MONITOR.
--- NOTE | 2019-11-02 13:19 | NUR ---
Nutrition follow-up: Trach/PEG today NPO Labs reviewed Pt now with vent to trach Wt: 199# Recommend restarting Pulmocare when PEG ready for use. RDN following.
--- NOTE | 2019-11-02 17:30 | NUR ---
EMERGENCY TRACH KIT PLACED AT BEDSIDE PER ORDER. BED IS LOCKED AND IN LOW POSITION. VSS. WILL CONTINUE TO MONITOR.
[2019-11-03] VITALS (21 sets, daily range): BP systolic 142–159; BP diastolic 65–95
[2019-11-03 04:25] LABS: BASOPHILS 0.4 % (0-2); EOSINOPHILS 0.8 % (0-7); IMMATURE GRANULOCYTES 2.4 % (0-5); LYMPHOCYTES 12.3 % (15-50); MCH 25.6 pg (26.0-34.0); MCHC 30.8 g/dL (31.0-37.0); MEAN PLATELET VOLUME 9.1 fL (7.4-10.4); MONOCYTES 18.5 % (2-11); NEUTROPHILS 65.6 % (40-80); PLATELET COUNT 541 10x3/uL (130-400); RBC 2.89 10x6/uL (4.20-6.10); RDW 17.3 % (11.5-14.5); WBC 8.5 10x3/uL (4.8-10.8)
[2019-11-03 04:28] LABS: HEMOGLOBIN 7.4 g/dL (13.5-17.5)
[2019-11-03 04:42] LABS: ANION GAP 12.5 mmol/L (8-16); CALCIUM 7.3 mg/dL (8.5-10.1); CARBON DIOXIDE 23.3 mmol/L (21.0-32.0); CREATININE - SERUM 1.3 mg/dL (0.6-1.3); POTASSIUM - SERUM 4.8 mmol/L (3.5-5.1)
--- NOTE | 2019-11-03 09:04 | NUR ---
REPORT RECEIVED FROM TECHNICAL SERVICES CONSULTANT AND PATIENT CARE ASSUMED. PATIENT LAYING IN BED ON BACK WITH HOB ELEVATED 30 DEGREES. PATIENT ON VENT AC R14 FI02 30% PEEP 5. BP 151/66 100% 02 RR [address]ACH IN PLACE. HARDY SOFT WRIST RESTRAINTS IN PLACE. MONTILLA CATHETER DRAINING CLEAR YELLOW URINE. LSC IV PROTONIX AND NS/ABX. WILL CONTINUE WITH PLAN OF CARE. SR UP X 2 BED IN LOW POSITION AND CALL LIGHT IN REACH.
--- NOTE | 2019-11-03 12:10 | NUR ---
PS 10
[2019-11-04] VITALS (23 sets, daily range): BP systolic 142–196; BP diastolic 65–109
[2019-11-04 06:13] LABS: BASOPHILS 0.3 % (0-2); EOSINOPHILS 0.7 % (0-7); HEMATOCRIT 26.8 % (42.0-54.0); HEMOGLOBIN 8.4 g/dL (13.5-17.5); IMMATURE GRANULOCYTES 1.8 % (0-5); LYMPHOCYTES 12.2 % (15-50); MCH 26.2 pg (26.0-34.0); MCHC 31.3 g/dL (31.0-37.0); MCV 83.5 fL (80.0-100.0); MEAN PLATELET VOLUME 9.1 fL (7.4-10.4); MONOCYTES 14.8 % (2-11); NEUTROPHILS 70.2 % (40-80); PLATELET COUNT 516 10x3/uL (130-400); RBC 3.21 10x6/uL (4.20-6.10); RDW 17.2 % (11.5-14.5); WBC 9.2 10x3/uL (4.8-10.8)
[2019-11-04 06:17] LABS: ANION GAP 12.4 mmol/L (8-16); CALCIUM 7.7 mg/dL (8.5-10.1); CARBON DIOXIDE 23.6 mmol/L (21.0-32.0); CREATININE - SERUM 1.2 mg/dL (0.6-1.3)
--- NOTE | 2019-11-04 09:00 | NUR ---
PS 10
--- NOTE | 2019-11-04 09:19 | NUR ---
TUBE FEED INCREASED BY 10 TO MAKE A RATE OF 45ML/HR. WILL MONITOR.
--- NOTE | 2019-11-04 10:48 | NUR ---
Nutrition follow-up: s/p trach/PEG Pulmocare infusing @ 35 ml/hr with increase to goal rate of 50 ml/hr TF should already be at goal Labs reviewed Wt: 195# Will speak with nurse RDN following.
--- NOTE | 2019-11-04 12:19 | NUR ---
DR GUSTAVO IYER. NO NEW ORDERS AT THIS TIME.
[2019-11-05] VITALS (27 sets, daily range): BP systolic 100–183; BP diastolic 56–85
[2019-11-05 05:52] LABS: BASOPHILS 0.3 % (0-2); EOSINOPHILS 0.8 % (0-7); HEMATOCRIT 24.8 % (42.0-54.0); IMMATURE GRANULOCYTES 1.8 % (0-5); LYMPHOCYTES 12.7 % (15-50); MCH 25.3 pg (26.0-34.0); MCHC 30.2 g/dL (31.0-37.0); MCV 83.8 fL (80.0-100.0); MEAN PLATELET VOLUME 8.6 fL (7.4-10.4); MONOCYTES 13.8 % (2-11); NEUTROPHILS 70.6 % (40-80); PLATELET COUNT 465 10x3/uL (130-400); RBC 2.96 10x6/uL (4.20-6.10); RDW 17.2 % (11.5-14.5)
[2019-11-05 05:53] LABS: HEMOGLOBIN 7.5 g/dL (13.5-17.5)
[2019-11-05 06:19] LABS: CALC OSMOLALITY 277 mosm/kg (275-300); CALCIUM 7.7 mg/dL (8.5-10.1); CHLORIDE - SERUM 105 mmol/L (98-107); GLUCOSE 125 mg/dL (74-106); POTASSIUM - SERUM 3.9 mmol/L (3.5-5.1); SODIUM 137 mmol/L (136-145); UREA NITROGEN 22 mg/dL (7-18); eGFR NON AFRICAN AMERICAN 79 mL/min (90-120)
--- NOTE | 2019-11-05 14:05 | NUR ---
0700 RTESPOR T RECIEVED AND CARE ASSUMED OF PATIENT SEE FLOW SHEET FOR SHIFT ASSESMENT FINDINGS.. 1115 DR SANTA CALLED AND ORDERS RECIEVED TO OBTAIN CONSENT FOR AMPUTATION OF LEFT HAND... SISTER CALLED AND CONSENT GIVEN FOR AMPUTAION OF HAND..
--- NOTE | 2019-11-05 16:26 | NUR ---
1630 TRANSPORTED TO OR VIA BED
--- NOTE | 2019-11-05 17:37 | NUR ---
1535 RETURNED TO ROOM FROM OR VIA BED
[2019-11-06] VITALS (24 sets, daily range): BP systolic 107–134; BP diastolic 57–71
[2019-11-06 05:05] LABS: BASOPHILS 0.4 % (0-2); EOSINOPHILS 0.8 % (0-7); HEMATOCRIT 24.2 % (42.0-54.0); IMMATURE GRANULOCYTES 1.8 % (0-5); LYMPHOCYTES 12.4 % (15-50); MCH 25.5 pg (26.0-34.0); MCHC 30.2 g/dL (31.0-37.0); MCV 84.6 fL (80.0-100.0); MEAN PLATELET VOLUME 8.6 fL (7.4-10.4); MONOCYTES 10.3 % (2-11); NEUTROPHILS 74.3 % (40-80); PLATELET COUNT 437 10x3/uL (130-400); RBC 2.86 10x6/uL (4.20-6.10); RDW 17.4 % (11.5-14.5); WBC 9.5 10x3/uL (4.8-10.8)
[2019-11-06 05:06] LABS: HEMOGLOBIN 7.3 g/dL (13.5-17.5)
[2019-11-06 05:19] LABS: CALC OSMOLALITY 277 mosm/kg (275-300); CALCIUM 7.4 mg/dL (8.5-10.1); CARBON DIOXIDE 23.9 mmol/L (21.0-32.0); CHLORIDE - SERUM 106 mmol/L (98-107); GLUCOSE 112 mg/dL (74-106); POTASSIUM - SERUM 4.1 mmol/L (3.5-5.1); SODIUM 137 mmol/L (136-145); UREA NITROGEN 21 mg/dL (7-18); eGFR NON AFRICAN AMERICAN 79 mL/min (90-120)
--- NOTE | 2019-11-06 06:39 | NUR ---
MARKET SUPERINTENDENT PAGED TO REPORT CRITICAL HGB.
--- NOTE | 2019-11-06 06:55 | NUR ---
SPOKE WITH DR PEREZ, ORDERS FOR 1 UNIT PRBC.
--- NOTE | 2019-11-06 08:49 | NUR ---
0700 REPORT RECIEVED AND CARE ASSUMED OF PATIENT SEE FLOW SHEET FOR SHIFT ASSESMENT FINDINGS
--- NOTE | 2019-11-06 11:33 | NUR ---
1115 CONSENT OBTAINED FROM SISTER ASHLEY PHAM FOR BRONCOSCOPY AT THE BEDSIDE BY DR CHEN 1135 BRONCHOSCOPY IN PROGRESS AT THE BEDSIDE BY DR CHEN AND RT ASSIST
[2019-11-07] VITALS (24 sets, daily range): BP systolic 115–177; BP diastolic 57–88
[2019-11-07 05:12] LABS: BASOPHILS 0.4 % (0-2); HEMATOCRIT 26.3 % (42.0-54.0); HEMOGLOBIN 8.1 g/dL (13.5-17.5); IMMATURE GRANULOCYTES 2.5 % (0-5); LYMPHOCYTES 12.6 % (15-50); MCHC 30.8 g/dL (31.0-37.0); MCV 84.3 fL (80.0-100.0); MEAN PLATELET VOLUME 8.8 fL (7.4-10.4); NEUTROPHILS 71.5 % (40-80); PLATELET COUNT 393 10x3/uL (130-400); RBC 3.12 10x6/uL (4.20-6.10); RDW 17.3 % (11.5-14.5); WBC 8.1 10x3/uL (4.8-10.8)
[2019-11-07 05:32] LABS: ALBUMIN 0.9 g/dL (3.4-5.0); ALKALINE PHOSPHATASE 122 U/L (30-120); ALT (SGPT) 7 U/L (10-68); BILIRUBIN - TOTAL 0.24 mg/dL (0.2-1.3); CALC OSMOLALITY 272 mosm/kg (275-300); CALCIUM 7.4 mg/dL (8.5-10.1); CARBON DIOXIDE 23.8 mmol/L (21.0-32.0); CHLORIDE - SERUM 104 mmol/L (98-107); CREATININE - SERUM 0.9 mg/dL (0.6-1.3); GLUCOSE 108 mg/dL (74-106); PROTEIN - SERUM 6.7 g/dL (6.4-8.2); SODIUM 135 mmol/L (136-145); UREA NITROGEN 19 mg/dL (7-18); eGFR NON AFRICAN AMERICAN 89 mL/min (90-120)
--- NOTE | 2019-11-07 08:22 | NUR ---
Nutrition follow-up: Pt remains intubated, sedated with propofol @ 13.1 ml/hr s/p hand amputation; bronch labs reviewed Pulmocare @ 45 ml/hr; goal rate 50 ml/hr Pt tolerating TF at this time RDN following.
[2019-11-08] VITALS (24 sets, daily range): BP systolic 123–160; BP diastolic 55–79
--- NOTE | 2019-11-08 09:54 | OP ---
PATIENT NAME: CHIDI RICKS MEDICAL RECORD: [id number] :54 LOCATION:D.[facility] D.2308 ADMISSION DATE:10/13/19 SURGEON: ISAAC SANTA DO DATE OF OPERATION: 11/05/2019 PROCEDURE PERFORMED: Left hand amputation. PREOPERATIVE DIAGNOSIS: Left hand necrosis. POSTOPERATIVE DIAGNOSIS: Left hand necrosis. INDICATIONS: Mr. Ricks is a 69-year-old HIV-positive male who has been in the ICU for quite some time. He was on Levophed and some other pressors. He developed left hand necrosis. I have been watching it for just over 3 weeks. It got to the point where it is not progressing and it somewhat stabilized and declared itself just proximal to the wrist. I decided to do a midforearm amputation to take the hand and any other necrotic tissue that was off. Consent was obtained as a primary contact. SURGEON: Isaac Santa DO DESCRIPTION OF PROCEDURE: The patient was taken to the operative suite, laid in the supine position, given anesthetic and he had already had a trach. The left upper extremity was prepped and draped in sterile fashion. A time-out was performed. Everyone was in agreement with correct side, site, patient, and procedure. I then exsanguinated the left upper extremity with an Esmarch and tourniquet was inflated to 250 mmHg and was up for 13 minutes. I then made careful dissection with a fishmouth-type incision down to the radius and ulna and coagulating vessels on the way and cutting median nerve, radial nerve, and ulnar nerve and then I cut the radius and ulna. I then tied the vessels and then let tourniquet down and let it back up as one veseel was not tied. I clamped it with a hemostat and then Lawrence Dang, certified surgical respiratory assistant, who is my orthopaedic physician assistant throughout the case, tied off that vessel with 2 silk ties and this suture was cut. We then let tourniquet back down and had tied off the vessel. We then closed the fascia with 3-0 Vicryl in a [id number] fashion and the skin was closed by Lawrence Dang, certified bench jeweler technician, with 2-0 Prolene in a horizontal mattress fashion. It was dressed with Adaptic, 4 x 4, cast padding, and Randall wrap. He was then taken back to the ICU in stable condition. BLOOD LOSS: Minimal. COMPLICATIONS: None. NTS:[id number] Voice Confirmation ID: [id number] DOCUMENT ID: [id number] ISAAC SANTA DO at 0954 CC: [id number] DICTATION DATE: 11/05/19 1739 MARKETING ANALYTICS SPECIALIST: 11/05/19 1828 ADM IN [place] [address] [place] [address]
--- NOTE | 2019-11-08 19:29 | MORECARE ---
CASE MANAGEMENT DISCHARGE SUMMARY PATIENT: CHIDI SHERMAN UNIT: [id number] ADM DATE: 10/13/19 AGE: 69 : 52 SEX: M ROOM/BED: D.2305 AUTHOR: CHANTEL,DOC PHYSICIAN: REFERRING PHYSICIAN: RHONA PEREZ MD DATE OF SERVICE: 11/08/19 Discharge Plan Patient Name: CHIDI SHERMAN Facility: [facility]:[place] : 1950 Planned Disposition: Nursing Facility [facility] Cert Anticipated Discharge Date: Discharge Date: Expected LOS: Initial Reviewer: [email or web address] Initial Review Date: 10/13/2019 Generated: 11/08/19 8:29 pm DCP- Discharge Planning Updated by [email or web address]: Juana Winn on 11/08/19 6:[address] CM attempted to call patient's sister to discuss LTACH placement. CM left message to call CM back. CM awaiting call back and will attempt to call back in am. CM will continue to follow and assist as needed with discharge planning / needs. DCP- Discharge Planning Updated by [email or web address]: Juana Winn on 10/14/19 4:[address] Patient Name: CHIDI SHERMAN Admission Status: ER Accout number: [id number] Admission Date: 10-13-2019 : 1950 Admission Diagnosis: Attending: RHONA PEREZ Current LOS: 1 Anticipated DC Date: Planned Disposition: Nursing Facility [facility] Primary Insurance: MEDICARE A & B Discharge Planning Comments: PATIENT IS A INTERMEDIATE RESIDENT AT [place] [address] PLAN IS FOR PATIENT TO RETURN TO FACILITY UPON DISCHARGE. PATIENT CONTACT IS ASHLEY HILLMAN - [phone]. Television Production Technician: Juana Winn DCPIA - Discharge Planning Initial Assessment Updated by [email or web address]: Juana Winn on 10/14/19 5:20 pm * Is the patient Alert and Oriented? No * PCP [place] [phone] * Pharmacy [place] [phone] * Preadmission Environment [employer] * Facility Name [place] [address] * List name and contact numbers for known caregivers / representatives who currently or will assist patient after discharge: ASHLEY SHEPPARD [phone] * Verbal permission to speak to the caregivers and representatives has been obtained from the patient. N/A * Additional services required to return to the preadmission environment? No * Can the patient safely return to the preadmission environment? Yes * Has this patient been hospitalized within the prior 30 days at any hospital? No Last DP export: 10/14/19 4:31 p Patient Name: CHIDI SHERMAN Page [phone] at 1928 All edits/amendments must be made on the electronic document DICTATION DATE: 11/08/191928 DOUGH MACHINE OPERATOR: JANET 11/08/191928 RPT#: [id number] DC DATE: STATUS: ADM IN [facility] [address] [place] [address] END OF REPORT
[2019-11-09] VITALS (24 sets, daily range): BP systolic 120–174; BP diastolic 56–87
[2019-11-09 04:58] LABS: BASOPHILS 0.4 % (0-2); EOSINOPHILS 2.1 % (0-7); HEMATOCRIT 26.3 % (42.0-54.0); LYMPHOCYTES 12.4 % (15-50); MCH 25.8 pg (26.0-34.0); MCHC 30.4 g/dL (31.0-37.0); MCV 84.8 fL (80.0-100.0); MEAN PLATELET VOLUME 8.4 fL (7.4-10.4); MONOCYTES 11.4 % (2-11); NEUTROPHILS 71.7 % (40-80); PLATELET COUNT 340 10x3/uL (130-400); RDW 17.6 % (11.5-14.5); WBC 7.7 10x3/uL (4.8-10.8)
[2019-11-09 05:30] LABS: CALC OSMOLALITY 279 mosm/kg (275-300); CALCIUM 7.5 mg/dL (8.5-10.1); CARBON DIOXIDE 24.1 mmol/L (21.0-32.0); CHLORIDE - SERUM 108 mmol/L (98-107); CREATININE - SERUM 0.9 mg/dL (0.6-1.3); GLUCOSE 104 mg/dL (74-106); POTASSIUM - SERUM 4.1 mmol/L (3.5-5.1); SODIUM 140 mmol/L (136-145); UREA NITROGEN 15 mg/dL (7-18); VANCOMYCIN - TROUGH 24.4 ug/mL (10.0-20.0); eGFR NON AFRICAN AMERICAN 89 mL/min (90-120)
--- NOTE | 2019-11-09 07:20 | NUR ---
REPORT RECEIVED. ASSESSMENT COMPLETE PER FLOW SHEET. PT RESTING COMFORTABLY WILL CONTINIUE TO MONITOR
--- NOTE | 2019-11-09 09:46 | NUR ---
Nutrition follow-up: Pt intubated, sedated with propofol @ 13.1 ml/hr; Trach, PEG POD# 4 of hand amputation Pulmocare infusing @ 45 ml/hr; goal rate 50 ml/hr Labs reviewed WtL: 194# +BM, loose RDN following.
[2019-11-09 12:10] LABS: FUNGUS STAIN Final report (())
[2019-11-09 16:09] LABS: ACID FAST SMEAR Negative (()); AFB SPECIMEN PROCESSING Concentration (())
--- NOTE | 2019-11-09 19:44 | MORECARE ---
CASE MANAGEMENT DISCHARGE SUMMARY PATIENT: CHIDI SHERMAN UNIT: [id number] ADM DATE: 10/13/19 AGE: 69 : 52 SEX: M ROOM/BED: D.2305 AUTHOR: CHANTEL,DOC PHYSICIAN: REFERRING PHYSICIAN: RHONA PEREZ MD DATE OF SERVICE: 11/09/19 Discharge Plan Patient Name: CHIDI SHERMAN Facility: [facility]:[place] : 1950 Planned Disposition: Nursing Facility [facility] Cert Anticipated Discharge Date: Discharge Date: Expected LOS: Initial Reviewer: [email or web address] Initial Review Date: 10/13/2019 Generated: 11/09/19 8:44 pm Comments DCP- Discharge Planning Updated by [email or web address]: Juana Winn on 11/09/19 6:[address] CM spoke with patient's sister and she wanted patient to stay locally for LTACH placement if possible. CM will send referral to [facility] and see if they will accept and then go from there. CM will continue to follow and assist as needed for discharge planning / needs. DCP- Discharge Planning Updated by [email or web address]: Juana Winn on 11/08/19 6:[address] CM attempted to call patient's sister to discuss LTACH placement. CM left message to call CM back. CM awaiting call back and will attempt to call back in am. CM will continue to follow and assist as needed with discharge planning / needs. 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 PATIENT CONTACT IS PRISCILA PHAM -SISTER - [phone]. Hydrology Teacher: Juana Winn DCPIA - Discharge Planning Initial Assessment Updated by [email or web address]: Juana Winn on 10/14/19 5:20 pm * Is the patient Alert and Oriented? No * PCP [facility] [phone] * Pharmacy [facility] [phone] * Preadmission Environment [employer] * Facility Name [place] [address] * List name and contact numbers for known caregivers / representatives who currently or will assist patient after discharge: PRISCILA PHAM -- [phone] * Verbal permission to speak to the caregivers and representatives has been obtained from the patient. N/A * Additional services required to return to the preadmission environment? No * Can the patient safely return to the preadmission environment? Yes * Has this patient been hospitalized within the prior 30 days at any hospital? No Coverage Notice Reviewer: [email or web address] - Juana Winn Notice Issued Date-Time: 11/09/2019 19:34 Notice Type: Patient Choice Letter Notice Delivered To: Family Member Relationship to Patient: Sister Bookkeeper Receptionist Name: Priscila Pham Delivery Method: HAND - Hand Delivered Casie Days: Prior Verbal Notification: Recipient Understood Notice: Yes Recipient Signature: Yes Med Rec Note Co-signed by Attending: Coverage Notice Comment: [facility] Last DP export: 11/08/19 6:29 pm Patient Name: CHIDI SHERMAN Page [phone] at 1944 All edits/amendments must be made on the electronic document DICTATION DATE: 11/09/191943 REAL ESTATE LISTING CONSULTANT: JANET 11/09/191943 RPT#: [id number] DC DATE: STATUS: ADM IN [facility] [address] [place] [address] END OF REPORT
[2019-11-10] VITALS (24 sets, daily range): BP systolic 151–183; BP diastolic 72–89
--- NOTE | 2019-11-10 03:14 | NUR ---
0212 ASSUMED CARE OF PATIENT. 0300 ASSESSMENT OF PATIENT PRESENTS NO CHANGES FROM PREVIOUS NURSES FINDINGS THIS SHIFT. HEMODYNAMICALLY STABLE AT THIS TIME, WILL CONTINUE PLAN OF CARE.
[2019-11-10 05:25] LABS: BASOPHILS 0.2 % (0-2); EOSINOPHILS 1.1 % (0-7); HEMATOCRIT 26.6 % (42.0-54.0); HEMOGLOBIN 8.1 g/dL (13.5-17.5); IMMATURE GRANULOCYTES 1.6 % (0-5); LYMPHOCYTES 10.5 % (15-50); MCH 25.6 pg (26.0-34.0); MCHC 30.5 g/dL (31.0-37.0); MCV 83.9 fL (80.0-100.0); MEAN PLATELET VOLUME 8.6 fL (7.4-10.4); MONOCYTES 11.1 % (2-11); NEUTROPHILS 75.5 % (40-80); PLATELET COUNT 327 10x3/uL (130-400); RBC 3.17 10x6/uL (4.20-6.10); RDW 17.3 % (11.5-14.5); WBC 9.6 10x3/uL (4.8-10.8)
[2019-11-10 05:48] LABS: CALC OSMOLALITY 280 mosm/kg (275-300); CALCIUM 7.4 mg/dL (8.5-10.1); CARBON DIOXIDE 25.4 mmol/L (21.0-32.0); CHLORIDE - SERUM 108 mmol/L (98-107); GLUCOSE 110 mg/dL (74-106); POTASSIUM - SERUM 4.1 mmol/L (3.5-5.1); SODIUM 139 mmol/L (136-145); UREA NITROGEN 17 mg/dL (7-18); eGFR NON AFRICAN AMERICAN 79 mL/min (90-120)
--- NOTE | 2019-11-10 12:51 | MORECARE ---
CASE MANAGEMENT DISCHARGE SUMMARY PATIENT: CHIDI SHERMAN UNIT: [id number] ADM DATE: 10/13/19 AGE: 69 : 52 SEX: M ROOM/BED: D.2305 AUTHOR: CHANTEL,DOC PHYSICIAN: REFERRING PHYSICIAN: RHONA PEREZ MD DATE OF SERVICE: 11/10/19 Discharge Plan Patient Name: CHIDI SHERMAN Facility: [facility]:[place] : 1950 Planned Disposition: Nursing Facility [facility] Cert Anticipated Discharge Date: Discharge Date: Expected LOS: Initial Reviewer: [email or web address] Initial Review Date: 10/13/2019 Generated: 11/10/19 1:51 pm Comments DCP- Discharge Planning Updated by [email or web address]: Juana Winn on 11/09/19 6:[address] CM spoke with patient's sister and she wanted patient to stay locally for LTACH placement if possible. CM will send referral to [facility] and see if they will accept and then go from there. CM will continue to follow and assist as needed for discharge planning / needs. DCP- Discharge Planning Updated by [email or web address]: Juana Winn on 11/08/19 6:[address] CM attempted to call patient's sister to discuss LTACH placement. CM left message to call CM back. CM awaiting call back and will attempt to call back in am. CM will continue to follow and assist as needed with discharge planning / needs. DCP- Discharge Planning Updated by [email or web address]: Juana Winn on 10/14/19 4:[address] Patient Name: CHIDI SHERMAN Admission Status: ER Accout number: [id number] Admission Date: 10-13-2019 : 1950 Admission Diagnosis: Attending: RHONA PEREZ Current LOS: 1 Anticipated DC Date: Planned Disposition: Nursing Facility [facility] Cert Primary Insurance: MEDICARE A & B Discharge Planning Comments: PATIENT IS A RESIDENTIAL RESIDENT AT [facility] [phone] PLAN IS FOR PATIENT TO RETURN TO FACILITY UPON DISCHARGE. PATIENT CONTACT IS PRISCILA PHAM -SISTER - [phone]. Patrol Agent: Juana Winn DCPIA - Discharge Planning Initial Assessment Updated by [email or web address]: Juana Winn on 10/14/19 5:20 pm * Is the patient Alert and Oriented? No * PCP [facility] [phone] * Pharmacy [facility] [phone] * Preadmission Environment [employer] * Facility Name [place] [address] * List name and contact numbers for known caregivers / representatives who currently or will assist patient after discharge: PRISCILA PHAM -- [phone] * Verbal permission to speak to the caregivers and representatives has been obtained from the patient. N/A * Additional services required to return to the preadmission environment? No * Can the patient safely return to the preadmission environment? Yes * Has this patient been hospitalized within the prior 30 days at any hospital? No External Providers External Provider: Harsha [facility] Next Contact Date: Service Request Date: Service Type: Resolution: Reviewer: Comments: Coverage Notice Reviewer: [id number] - Juana Winn Notice Issued Date-Time: 11/09/2019 19:34 Notice Type: Patient Choice Letter Notice Delivered To: Family Member Relationship to Patient: Sister Retirement Consultant Name: Priscila Pham Delivery Method: HAND - Hand Delivered Casie Days: Prior Verbal Notification: Recipient Understood Notice: Yes Recipient Signature: Yes Med Rec Note Co-signed by Attending: Coverage Notice Comment: [facility] Last DP export: 11/09/19 6:44 pm Patient Name: CHIDI SHERMAN Page [phone] at 1251 All edits/amendments must be made on the electronic document DICTATION DATE: 11/10/19 1251 RECYCLING SPECIALIST: JANET 11/10/19 1251 RPT#: [id number] DC DATE: STATUS: ADM IN [facility] [address] [place] [address] END OF REPORT
[2019-11-11] VITALS (24 sets, daily range): BP systolic 145–168; BP diastolic 58–77
[2019-11-11 04:22] LABS: CALC OSMOLALITY 280 mosm/kg (275-300); CALCIUM 7.8 mg/dL (8.5-10.1); CARBON DIOXIDE 27.3 mmol/L (21.0-32.0); CHLORIDE - SERUM 106 mmol/L (98-107); GLUCOSE 112 mg/dL (74-106); POTASSIUM - SERUM 4.1 mmol/L (3.5-5.1); SODIUM 139 mmol/L (136-145); UREA NITROGEN 18 mg/dL (7-18); eGFR NON AFRICAN AMERICAN 79 mL/min (90-120)
[2019-11-11 04:23] LABS: BASOPHILS 0.4 % (0-2); EOSINOPHILS 0.8 % (0-7); HEMATOCRIT 26.1 % (42.0-54.0); IMMATURE GRANULOCYTES 1.3 % (0-5); LYMPHOCYTES 16.3 % (15-50); MCHC 30.7 g/dL (31.0-37.0); MCV 84.7 fL (80.0-100.0); MEAN PLATELET VOLUME 8.9 fL (7.4-10.4); MONOCYTES 11.2 % (2-11); PLATELET COUNT 310 10x3/uL (130-400); RBC 3.08 10x6/uL (4.20-6.10); RDW 17.3 % (11.5-14.5); WBC 7.9 10x3/uL (4.8-10.8)
--- NOTE | 2019-11-11 09:56 | NUR ---
Nutrition follow-up: Pt intubated, sedated; trach, PEG PEG with Pulmocare @ 50 ml/hr; flush decreased to 10 ml/hr 2/2 low Na Labs reviewed Wt: 194# Pt tolerating TF at goal rate CPAP trials today RDN following.
--- NOTE | 2019-11-11 14:28 | MORECARE ---
CASE MANAGEMENT DISCHARGE SUMMARY PATIENT: CHIDI SHERMAN UNIT: [id number] ADM DATE: 10/13/19 AGE: 69 : 52 SEX: M ROOM/BED: D.2305 AUTHOR: CHANTEL,DOC PHYSICIAN: REFERRING PHYSICIAN: RHONA PEREZ MD DATE OF SERVICE: 11/11/19 Discharge Plan Patient Name: CHIDI SHERMAN Facility: [facility]:Page : 1950 Planned Disposition: Nursing Facility [facility] Cert Anticipated Discharge Date: Discharge Date: Expected LOS: Initial Reviewer: [email or web address] Initial Review Date: 10/13/2019 Generated: 11/11/19 3:27 pm DCP- Discharge Planning Updated by [id number]: Juana Winn on 11/09/19 6:[address] CM spoke with patient's sister and she wanted patient to stay locally for LTACH placement if possible. CM will send referral to [facility] and see if they will accept and then go from there. CM will continue to follow and assist as needed for discharge planning / needs. DCP- Discharge Planning Updated by [id number]: Juana Winn on 11/08/19 6:[address] CM attempted to call patient's sister to discuss LTACH placement. CM left message to call CM back. CM awaiting call back and will attempt to call back in am. CM will continue to follow and assist as needed with discharge planning / needs. 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 PATIENT CONTACT IS PRISCILA HALLT -SISTER - [phone]. Grain Trader: Juana Winn DCPIA - Discharge Planning Initial Assessment Updated by [id number]: Juana Winn on 10/14/19 5:20 pm * Is the patient Alert and Oriented? No * PCP [facility] [phone] * Pharmacy [facility] [phone] * Preadmission Environment [employer] * Facility Name [place] [address] * List name and contact numbers for known caregivers / representatives who currently or will assist patient after discharge: PRISCILA PHAM -- [phone] * Verbal permission to speak to the caregivers and representatives has been obtained from the patient. N/A * Additional services required to return to the preadmission environment? No * Can the patient safely return to the preadmission environment? Yes * Has this patient been hospitalized within the prior 30 days at any hospital? No External Providers External Provider: [facility] Next Contact Date: Service Request Date: Service Type: Resolution: Reviewer: Comments: Coverage Notice Reviewer: [id number] - Juana Winn Notice Issued Date-Time: 11/09/2019 19:34 Notice Type: Patient Choice Letter Notice Delivered To: Family Member Relationship to Patient: Catalytic Case Operator Name: Priscila Pham Delivery Method: HAND - Hand Delivered Casie Days: Prior Verbal Notification: Recipient Understood Notice: Yes Recipient Signature: Yes Med Rec Note Co-signed by Attending: Coverage Notice Comment: [facility] Juan DP export: 11/10/19 11:51 a Patient Name: CHIDI SHERMAN Page [phone] at 1428 All edits/amendments must be made on the electronic document DICTATION DATE: 11/11/19 142 CARE SPECIALIST: JANET 11/11/19 142 RPT#: [id number] DC DATE: STATUS: ADM IN [facility] [address] [place] [address] END OF REPORT
--- NOTE | 2019-11-11 14:34 | NUR ---
MARGARITO Segura, spoke w/ Priscila Harding, who is agreeable to LT[facility] in [place]. MARGARITO Rogers, relayed this to YANIRA Arias. Will await bed placement in [place]. Pt remains hemodynamically stable on 30% FIO2 without any gtts. Will continue plan of care.
--- NOTE | 2019-11-11 20:06 | MORECARE ---
CASE MANAGEMENT DISCHARGE SUMMARY PATIENT: CHIDI SHERMAN UNIT: [id number] ADM DATE: 10/13/19 AGE: 69 : 52 SEX: M ROOM/BED: D.2305 AUTHOR: CHANTEL,DOC PHYSICIAN: REFERRING PHYSICIAN: RHONA PEREZ MD DATE OF SERVICE: 11/11/19 Discharge Plan Patient Name: CHIDI SHERMAN Facility: [facility]:[place] : 1950 Planned Disposition: Nursing Facility [facility] Cert Anticipated Discharge Date: Discharge Date: Expected LOS: Initial Reviewer: [email or web address] Initial Review Date: 10/13/2019 Generated: 11/11/19 9:05 pm Comments DCP- Discharge Planning Updated by [id number]: Juana Winn on 11/11/19 7:[address] CM received notice that [facility] would not be able to accept patient. Patient's sister notified and second choice of [facility] in [place] chosen. CM called [facility] and possibly admit over weekend. D/C IMM completed. CM will continue to follow and assist as needed with discharge planning / needs. DCP- Discharge Planning Updated by [email or web address]: Juana Winn on 11/09/19 6:[address] CM spoke with patient's sister and she wanted patient to stay locally for LTACH placement if possible. CM will send referral to [facility] and see if they will accept and then go from there. CM will continue to follow and assist as needed for discharge planning / needs. DCP- Discharge Planning Updated by [id number]: Juana Winn on 11/08/19 6:[address] CM attempted to call patient's sister to discuss LTACH placement. CM left message to call CM back. CM awaiting call back and will attempt to call back in am. CM will continue to follow and assist as needed with discharge planning / needs. 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 PATIENT CONTACT IS PRISCILA HILLMAN - [phone]. American Sign Language Interpreter: Juana Winn DCPIA - Discharge Planning Initial Assessment Updated by [email or web address]: Juana Winn on 10/14/19 5:20 pm * Is the patient Alert and Oriented? No * PCP [facility] [phone] * Pharmacy [place] [id number] * Preadmission Environment Senior Architectural Designer [facility] * Facility Name [place] [address] * List name and contact numbers for known caregivers / representatives who currently or will assist patient after discharge: PRISCILA SHEPPARD [phone] * Verbal permission to speak to the caregivers and representatives has been obtained from the patient. N/A * Additional services required to return to the preadmission environment? No * Can the patient safely return to the preadmission environment? Yes * Has this patient been hospitalized within the prior 30 days at any hospital? No Coverage Notice Reviewer: [id number] Art Winn Notice Issued Date-Time: 11/09/2019 19:34 Notice Type: Patient Choice Letter Notice Delivered To: Family Member Relationship to Patient: Senior Engineering Manager Name: Priscila Pham Delivery Method: HAND - Hand Delivered Casie Days: Prior Verbal Notification: Recipient Understood Notice: Yes Recipient Signature: Yes Med Rec Note Co-signed by Attending: Coverage Notice Comment: [facility] Reviewer: [id number] - Juana Winn Notice Issued Date-Time: 11/11/2019 13:30 Notice Type: IM Discharge Notice Notice Delivered To: Family Member Relationship to Patient: Senior Engineering Manager Name: PRISCILA PHAM Delivery Method: PHONE - Phone Casie Days: Prior Verbal Notification: Recipient Understood Notice: Yes Recipient Signature: Yes Med Rec Note Co-signed by Attending: Coverage Notice Comment: Last DP export: 11/11/19 1:28 p Patient Name: CHIDI SHERMAN Page [phone] at 2006 All edits/amendments must be made on the electronic document DICTATION DATE: 11/11/192005 INTERACTIVE MEDIA PROJECT MANAGER: JANET 11/11/192005 RPT#: [id number] DC DATE: STATUS: ADM IN [facility] [address] [place] [address] END OF REPORT
--- NOTE | 2019-11-11 21:00 | NUR ---
CHG BATH WITH COMPLETE LINEN CHANGE.
[2019-11-12] VITALS (24 sets, daily range): BP systolic 122–167; BP diastolic 51–91
[2019-11-12 05:15] LABS: BASOPHILS 0.4 % (0-2); EOSINOPHILS 0.8 % (0-7); HEMATOCRIT 24.6 % (42.0-54.0); IMMATURE GRANULOCYTES 0.9 % (0-5); LYMPHOCYTES 18.5 % (15-50); MCHC 30.5 g/dL (31.0-37.0); MCV 85.1 fL (80.0-100.0); MEAN PLATELET VOLUME 8.7 fL (7.4-10.4); MONOCYTES 13.2 % (2-11); NEUTROPHILS 66.2 % (40-80); PLATELET COUNT 234 10x3/uL (130-400); RBC 2.89 10x6/uL (4.20-6.10); RDW 17.4 % (11.5-14.5); WBC 7.4 10x3/uL (4.8-10.8)
[2019-11-12 05:16] LABS: HEMOGLOBIN 7.5 g/dL (13.5-17.5)
[2019-11-12 05:30] LABS: CALC OSMOLALITY 279 mosm/kg (275-300); CALCIUM 7.9 mg/dL (8.5-10.1); CARBON DIOXIDE 28.8 mmol/L (21.0-32.0); CHLORIDE - SERUM 105 mmol/L (98-107); GLUCOSE 92 mg/dL (74-106); MAGNESIUM - SERUM 1.8 mg/dL (1.8-2.4); PHOSPHOROUS 3.7 mg/dL (2.5-4.9); POTASSIUM - SERUM 3.9 mmol/L (3.5-5.1); SODIUM 139 mmol/L (136-145); UREA NITROGEN 19 mg/dL (7-18); eGFR NON AFRICAN AMERICAN 79 mL/min (90-120)
--- NOTE | 2019-11-12 06:20 | NUR ---
PAGED STUDIO OPERATIONS ENGINEER IN CHARGE FOR DR. PEREZ D/T HGB
--- NOTE | 2019-11-12 09:07 | NUR ---
SPOKE WITH ALEXIS WITH [facility] AT [phone] WHO STATED THAT IT APPEARS THAT PT MIGHT BE ACCEPTED TO LTACH TODAY. SHE REQUESTED FOR AM LABS WITH RECENT VITAL SIGNS TO BE FAXED TO [phone] WITH ATTN TO LIZZIE THE CHARGE NURSE. SHE ALSO REQUESTED FOR DR PEREZ TO CALL THEIR MANAGER PERSONNEL SELECTION FOR THE DR TO CALL AND SPEAK WITH VINNIE BOYER APRN AT [phone].
--- NOTE | 2019-11-12 11:11 | NUR ---
SPOKE WITH ALEXIS FROM [facility] AGAIN, STATED THAT THE DENTAL LABORATORY ASSISTANT IS CONCERNED ABOUT LOW H&H LEVELS. NOTIFIED THEM THAT PT IS RECIEVING 1 U PRBC AT THIS TIME. SPOKE WITH DR PEREZ WHO STATED HE IS CALLING THE [facility] BEACH LIFEGUARD.
--- NOTE | 2019-11-12 11:13 | NUR ---
PER DR PEREZ, "I SPOKE TO DEMI THE EMT/PARAMEDIC AT [facility], AND THEY ARE GOING TO HOLD HIS TRANSFER UNTIL MAYBE TOMORROW OR THURSDAY."
--- NOTE | 2019-11-12 12:34 | NUR ---
PT HAS RECIEVED 1 U PRBC PER ORDERS.
--- NOTE | 2019-11-12 13:26 | NUR ---
PER DR DAVIS, SINCE NO TUBE FEEDINGS BAGS AVALIABLE, OKAY TO PERFORM 100ML BOLUS Q2H OF PULMOCARE AFTER ASSESSING RESIDUALS.
--- NOTE | 2019-11-12 15:14 | NUR ---
INCONTINENT BOWEL MOVEMENT AT THIS TIME. TOTAL LINEN CHANGE PROVIDED. CHG BATH PROVIDED. MONTILLA CARE PROVIDED. NO ACUTE DISTRESS NOTED. VSS. WILL CONTINUE PLAN OF CARE.
--- NOTE | 2019-11-12 16:06 | NUR ---
DRESSING CHANGED TO LT ARM SURGICAL SITE. WOUND CLEANSER PLACED TO SITE, ADAPTIC PLACED, THEN 4X4 GAUZE, CURLEX, THEN LUZ WRAP PLACED TO SITE. NOTED INCISION SITE/SURGICAL SITE APPEARD WDL WITH NO REDNESS, DRAINAGE, OR EDEMA. VSS. WILL CONTINUE PLAN OF CARE.
--- NOTE | 2019-11-12 16:28 | NUR ---
TEMP 101.2, WILL ADMIN TYLENOL, PLACE ICE PACKS, AND NOTIFY PHYSICIAN.
[2019-11-13] VITALS (24 sets, daily range): BP systolic 113–150; BP diastolic 47–70
--- NOTE | 2019-11-13 01:00 | NUR ---
PRN VERSED GIVEN. PATIENT BREATHING 35-40/MIN AND TRYING TO MOVE HEAD. ONCE VERSED GIVEN, PATIENT SETTLED AND STOPPED BREATHING OVER THE VENT.
--- NOTE | 2019-11-13 05:14 | NUR ---
CHANGED CVL DRESSING PER PROTOCOL. OLD SOILED.
[2019-11-13 05:52] LABS: BASOPHILS 0.3 % (0-2); EOSINOPHILS 0.7 % (0-7); HEMATOCRIT 27.2 % (42.0-54.0); HEMOGLOBIN 8.3 g/dL (13.5-17.5); IMMATURE GRANULOCYTES 0.6 % (0-5); LYMPHOCYTES 12.7 % (15-50); MCHC 30.5 g/dL (31.0-37.0); MONOCYTES 12.8 % (2-11); NEUTROPHILS 72.9 % (40-80); PLATELET COUNT 273 10x3/uL (130-400); RBC 3.32 10x6/uL (4.20-6.10); RDW 18.5 % (11.5-14.5)
[2019-11-13 06:06] LABS: MCV 81.9 fL (80.0-100.0); WBC 10.3 10x3/uL (4.8-10.8)
[2019-11-13 06:19] LABS: CALC OSMOLALITY 278 mosm/kg (275-300); CALCIUM 7.7 mg/dL (8.5-10.1); CARBON DIOXIDE 24.5 mmol/L (21.0-32.0); CHLORIDE - SERUM 106 mmol/L (98-107); GLUCOSE 132 mg/dL (74-106); POTASSIUM - SERUM 3.7 mmol/L (3.5-5.1); SODIUM 137 mmol/L (136-145); UREA NITROGEN 20 mg/dL (7-18); eGFR NON AFRICAN AMERICAN 79 mL/min (90-120)
--- NOTE | 2019-11-13 09:59 | NUR ---
SPOKE WITH DR DAVIS AT THIS TIME REGARDING ELEVETED TEMPS AND UA RESULTS. HE STATED HE WILL ORDER LEVAQUIN FOR UTI.
--- NOTE | 2019-11-13 13:24 | NUR ---
SPOKE WITH ALEXIS FROM [facility] WHO STATED SHE NEEDED PAPERWORK REGARDING PTS PERF BOWEL. NEEDED INFORMATION FAXED TO [phone]. AWAITING CALL BACK.
[2019-11-13 14:20] LABS: BILIRUBIN NEGATIVE (NEGATIVE); KETONE NEGATIVE (NEGATIVE); NITRITE NEGATIVE (NEGATIVE); UROBILINOGEN NORMAL mg/dL (< 2)
[2019-11-13 14:21] LABS: BACTERIA MODERATE /HPF (NONE SEEN); WHITE CELLS - URINE 0-5 HPF (0-1)
[2019-11-13 14:22] LABS: AMORPHOUS SEDIMENT <1+ /lpf (NONE SEEN)
--- NOTE | 2019-11-13 14:31 | NUR ---
INCONTINENT BOWEL MOVEMENT NOTED, MONTILLA CARE/SANTOSH CARE PROVIDED, LINEN CHANGE PROVIDED. VSS. TURNED Q2H, ORAL CARE PROVIDED, Q2H. WILL CONTINUE PLAN OF CARE.
--- NOTE | 2019-11-13 18:22 | NUR ---
NOTED PER LAB, PT BLOOD CULTURES ARE GROWING GRAM + COCCI. DR DAVIS PAGED REGARDING THIS.
[2019-11-14] VITALS (24 sets, daily range): BP systolic 99–182; BP diastolic 55–88
--- NOTE | 2019-11-14 10:53 | NUR ---
Nutrition follow-up: Intubated; trach, PEG TF regimen 100 ml q 2 hours - 50 ml/hr Labs reviewed +BM TF to change to gravity drip - 13 drops/hr = 50 ml/hr Wt: 195# RDN following.
[2019-11-14 15:16] LABS: BASOPHILS 0.4 % (0-2); EOSINOPHILS 0.6 % (0-7); HEMATOCRIT 26.9 % (42.0-54.0); IMMATURE GRANULOCYTES 0.6 % (0-5); LYMPHOCYTES 16.6 % (15-50); MCH 24.8 pg (26.0-34.0); MCHC 29.7 g/dL (31.0-37.0); MCV 83.5 fL (80.0-100.0); MEAN PLATELET VOLUME 8.9 fL (7.4-10.4); NEUTROPHILS 70.8 % (40-80); PLATELET COUNT 241 10x3/uL (130-400); RBC 3.22 10x6/uL (4.20-6.10); RDW 18.2 % (11.5-14.5)
[2019-11-14 15:19] LABS: WBC 7.2 10x3/uL (4.8-10.8)
[2019-11-14 15:33] LABS: CALC OSMOLALITY 272 mosm/kg (275-300); CALCIUM 7.9 mg/dL (8.5-10.1); CARBON DIOXIDE 26.7 mmol/L (21.0-32.0); CHLORIDE - SERUM 106 mmol/L (98-107); POTASSIUM - SERUM 4.1 mmol/L (3.5-5.1); SODIUM 136 mmol/L (136-145); UREA NITROGEN 19 mg/dL (7-18); eGFR NON AFRICAN AMERICAN 79 mL/min (90-120)
[2019-11-14 15:35] LABS: GLUCOSE 78 mg/dL (74-106)
[2019-11-15] VITALS (24 sets, daily range): BP systolic 158–183; BP diastolic 69–90
[2019-11-15 04:47] LABS: BASOPHILS 0.4 % (0-2); EOSINOPHILS 0.6 % (0-7); HEMATOCRIT 28.9 % (42.0-54.0); HEMOGLOBIN 8.8 g/dL (13.5-17.5); IMMATURE GRANULOCYTES 0.6 % (0-5); LYMPHOCYTES 17.2 % (15-50); MCH 25.1 pg (26.0-34.0); MCHC 30.4 g/dL (31.0-37.0); MCV 82.3 fL (80.0-100.0); MONOCYTES 9.8 % (2-11); NEUTROPHILS 71.4 % (40-80); PLATELET COUNT 262 10x3/uL (130-400); RBC 3.51 10x6/uL (4.20-6.10)
--- NOTE | 2019-11-15 04:54 | NUR ---
BATH GIVEN F/C CHANGED OUT PER PROTOCOL. 16 FR
[2019-11-15 05:00] LABS: CALC OSMOLALITY 276 mosm/kg (275-300); CALCIUM 8.2 mg/dL (8.5-10.1); CARBON DIOXIDE 23.9 mmol/L (21.0-32.0); CHLORIDE - SERUM 106 mmol/L (98-107); GLUCOSE 75 mg/dL (74-106); MAGNESIUM - SERUM 1.8 mg/dL (1.8-2.4); PHOSPHOROUS 3.3 mg/dL (2.5-4.9); POTASSIUM - SERUM 3.8 mmol/L (3.5-5.1); SODIUM 138 mmol/L (136-145); UREA NITROGEN 19 mg/dL (7-18); eGFR NON AFRICAN AMERICAN 79 mL/min (90-120)
[2019-11-16] VITALS (24 sets, daily range): BP systolic 138–178; BP diastolic 61–87
[2019-11-16 05:10] LABS: BASOPHILS 0.3 % (0-2); EOSINOPHILS 0.3 % (0-7); HEMATOCRIT 27.6 % (42.0-54.0); HEMOGLOBIN 8.3 g/dL (13.5-17.5); IMMATURE GRANULOCYTES 0.3 % (0-5); LYMPHOCYTES 15.1 % (15-50); MCH 24.7 pg (26.0-34.0); MCHC 30.1 g/dL (31.0-37.0); MCV 82.1 fL (80.0-100.0); MEAN PLATELET VOLUME 8.7 fL (7.4-10.4); MONOCYTES 9.6 % (2-11); NEUTROPHILS 74.4 % (40-80); PLATELET COUNT 260 10x3/uL (130-400); RBC 3.36 10x6/uL (4.20-6.10); RDW 17.9 % (11.5-14.5); WBC 6.6 10x3/uL (4.8-10.8)
[2019-11-16 05:23] LABS: CALC OSMOLALITY 278 mosm/kg (275-300); CALCIUM 8.2 mg/dL (8.5-10.1); CARBON DIOXIDE 25.2 mmol/L (21.0-32.0); CHLORIDE - SERUM 107 mmol/L (98-107); GLUCOSE 77 mg/dL (74-106); POTASSIUM - SERUM 3.4 mmol/L (3.5-5.1); SODIUM 139 mmol/L (136-145); UREA NITROGEN 19 mg/dL (7-18); eGFR NON AFRICAN AMERICAN 79 mL/min (90-120)
--- NOTE | 2019-11-16 07:15 | NUR ---
AM ROUNDS COMPLETED. BEDSIDE SHIFT REPORT DONE. INTRODUCED MYSELF TO PT PRIMARY RN FOR TODAYS SHIFT. PT IS AWAKE WITH EYES OPEN. ATTEMPTED TALKING TO PT AND HE JUST WILL NOT SHAKE HIS HEAD OR MAKE GESTURES THAT HE UNDERSTANDS WHAT IM EXPLAINING. PT WONT RESPOND IF HE IS COMFORTABLE OR IN PAIN. WILL CONTINUE TO EXPLAIN SITUATION AND TRY TO COMMUNICATE WITH HIM. SHIFT ASSESSMENT COMPLETED. NO IMMEDIATE NEEDS IDENTIFIED AT THIS TIME. WILL CHECK CHART/LABS AND ORDERS AND CPOC.
[2019-11-16 08:15] LABS: FUNGUS MYCOLOGY CULTURE Final report (())
--- NOTE | 2019-11-16 09:22 | NUR ---
DISCUSSED PTS TUBE FEEDING WITH LEVELER HELPER WILL GO OFF CALCULATED FEEDING SET RATES. PT CURRENTLY 13 DROPS/MIN SO DESIRED ML/HR IS 50. WILL CHECK RESIDUAL Q4HRS AND GO FOR GOAL RATE.
--- NOTE | 2019-11-16 09:53 | NUR ---
CHECKING IN ON PT AND EXPLAINED THAT I NEED TO TURN HIM SHORTLY AND CHECK FOR BM. PT DID SHAKE HIS HEAD THIS TIME CONFIRMING HE UNDERSTANDS. PT IS SITTING UP IN BED WATCHING TV RESTING QUIETLY. NO IMMEDIATE NEEDS NOTED AT THIS TIME. CL IN REACH, BED IN LOWEST, SIDE RAILS X2 AND MONTILLA CATHETER DRAINING TO GRAVITY. WILL CPOC.
--- NOTE | 2019-11-16 11:12 | NUR ---
PT HAD INCONTINENT EPISODE OF VERY LOOSE YELLOW STOOL. CLEANED UP PT AND CHANGED OUT LINENS. REPOSITIONED PT ONTO HIS L.SIDE. ASSESSED PTS BUTTOCKS WOUND AT THIS TIME. PT HAS A STAGE III PRESSURE ULCER. FULL THICKNESS WITH SUBCUTANEOUS TISSUE VISIBLE. SMALL AMOUNT OF SLOUGH NOTED YELLOW IN COLOR BUT DOES NOT OBSCURE THE DEPTH OF TISSUE LOSS. WOUND BEDDING BEEFY RED IN COLOR. CLEANSED WITH WOUND CLEANSER AND ALLOWED TO AIR DRY THEN APPLIED FOAM DRESSING FOR PROTECTION. PTS R.KNEE HAS A SCAB THAT CAME OPEN WITH SCANT SEROSANGIOUS DRAINAGE. CLEANSED WITH ASEPTIC SPRAY AND ALLOWED TO AIR DRY. BRIDGED BILAT HEELS. NO CURRENT NEEDS NOTED AT THIS TIME. CL IN REACH, BED IN LOWEST, SIDE RAILS X2. PT REMAINS AWAKE AND GRIMANCED WHILE TURNING BUT WILL NOT RESPOND IF HE IS IN PAIN OR WANTS ANYTHING.
--- NOTE | 2019-11-16 12:47 | NUR ---
Nutrition follow-up Pt remains intubated Pulmocare infusing via gravity drip @ ~50 ml/hr (13 drops/min) Labs reviewed Wt: 186# TF at goal rate RDN following.
--- NOTE | 2019-11-16 15:00 | NUR ---
RESIDUALS CHECKED AND PT HAD 10CC OF TUBE FEED RETURN. RESTARTED TUBE FEED AND INCREASED IT TO 50CC/HR GOAL RATE. FLUSHED WITH ONE APPLE JUICE AND 100CC OF WATER. PTS R.KNEE SCAB/SORE IS CONTINUING TO DRAIN AND APPEARS TO BE MORE. SCAB HAS SOME YELLOW SLOUGHING NOTED. WILL MAKE SURE PRIMARY IS AWARE BECAUSE UNSURE IF ITS BEEN ADDRESSED AND COULD BE SOURCE OF INFECTION. CLEANSED SITE AGAIN AND APPLIED NEW BOARDED GUAZE DRESSING. NO CURRENT NEEDS NOTED AT THIS TIME PT SITTING UP IN BED WITH EYES OPEN WATCHING TV. WILL CPOC.
--- NOTE | 2019-11-16 17:21 | NUR ---
AT BEDSIDE ROUNDING AND NOW AWARE OF R.KNEE DRAINAGE AND POSSIBLE INFECTION. XRAY HAS BEEN ORDERED. PTS RECENT TEMP 100.0 ORALLY. TREATED PT WITH PRN TYLENOL. PT INCONTINENT OF LOOSE BOWEL MOVEMENT AGAIN. CLEANED PT AND COMPLETED CHG BATH. TURNED PT ONTO HIS R.SIDE TO RELIEVE PRESSURE AND SUCTIONED HIS TRACH. PT SHOOK HIS HEAD TO RESPOND WHEN ASKED ABOUT PAIN OR NEEDS. NO CURRENT NEEDS AT THIS TIME. CL IN REACH. BED IN LOWEST, SIDE RAILS X2. WILL CTM.
[2019-11-17] VITALS (24 sets, daily range): BP systolic 131–169; BP diastolic 53–75
[2019-11-17 05:09] LABS: BASOPHILS 0.3 % (0-2); EOSINOPHILS 0.7 % (0-7); HEMATOCRIT 27.3 % (42.0-54.0); HEMOGLOBIN 8.1 g/dL (13.5-17.5); IMMATURE GRANULOCYTES 0.7 % (0-5); MCH 24.5 pg (26.0-34.0); MCHC 29.7 g/dL (31.0-37.0); MCV 82.7 fL (80.0-100.0); MEAN PLATELET VOLUME 8.7 fL (7.4-10.4); NEUTROPHILS 69.3 % (40-80); PLATELET COUNT 249 10x3/uL (130-400); WBC 6.1 10x3/uL (4.8-10.8)
[2019-11-17 05:22] LABS: CALC OSMOLALITY 282 mosm/kg (275-300); CALCIUM 7.7 mg/dL (8.5-10.1); CARBON DIOXIDE 24.9 mmol/L (21.0-32.0); CHLORIDE - SERUM 109 mmol/L (98-107); GLUCOSE 91 mg/dL (74-106); SODIUM 141 mmol/L (136-145); UREA NITROGEN 17 mg/dL (7-18); eGFR NON AFRICAN AMERICAN 79 mL/min (90-120)
--- NOTE | 2019-11-17 11:00 | NUR ---
RT STARTING PT ON CPAP TRIAL.
--- NOTE | 2019-11-17 11:01 | NUR ---
CPAP 10/5
[2019-11-18] VITALS (20 sets, daily range): BP systolic 133–153; BP diastolic 55–80
--- NOTE | 2019-11-18 09:30 | NUR ---
CHANGE TO CPAP MODE BY RT, VSS, NO SIGN OF DISTRESS
--- NOTE | 2019-11-18 09:46 | NUR ---
CPAP 10/5
[2019-11-18 10:33] LABS: BASOPHILS 0.2 % (0-2); EOSINOPHILS 0.2 % (0-7); HEMATOCRIT 27.4 % (42.0-54.0); HEMOGLOBIN 8.4 g/dL (13.5-17.5); IMMATURE GRANULOCYTES 0.5 % (0-5); LYMPHOCYTES 10.9 % (15-50); MCH 25.1 pg (26.0-34.0); MCHC 30.7 g/dL (31.0-37.0); MCV 81.8 fL (80.0-100.0); MEAN PLATELET VOLUME 8.7 fL (7.4-10.4); MONOCYTES 10.5 % (2-11); NEUTROPHILS 77.7 % (40-80); PLATELET COUNT 251 10x3/uL (130-400); RBC 3.35 10x6/uL (4.20-6.10); RDW 17.9 % (11.5-14.5)
[2019-11-18 10:37] LABS: WBC 9.8 10x3/uL (4.8-10.8)
[2019-11-18 10:40] LABS: ANION GAP 9.7 mmol/L (8-16); CALCIUM 8.2 mg/dL (8.5-10.1); CARBON DIOXIDE 24.7 mmol/L (21.0-32.0); CREATININE - SERUM 1.1 mg/dL (0.6-1.3); POTASSIUM - SERUM 3.4 mmol/L (3.5-5.1)
--- NOTE | 2019-11-18 10:57 | NUR ---
Nutrition follow-up: Trach to vent PEG tube with Pulmocare infusing ~50ml/hr gravity drip (13 drops/minute) Labs reviewed Wt:185# RDN following.
--- NOTE | 2019-11-18 11:32 | MORECARE ---
CASE MANAGEMENT DISCHARGE SUMMARY PATIENT: CHIDI SHERMAN UNIT: [id number] ADM DATE: 10/13/19 AGE: 69 : 52 SEX: M ROOM/BED: D.2305 AUTHOR: CHANTEL,DOC PHYSICIAN: REFERRING PHYSICIAN: RHONA PEREZ MD DATE OF SERVICE: 11/18/19 Discharge Plan Patient Name: CHIDI SHERMAN Facility: [facility]:[place] : 1950 Planned Disposition: Nursing Facility [facility] Cert Anticipated Discharge Date: Discharge Date: Expected LOS: Initial Reviewer: [email or web address] Initial Review Date: 10/13/2019 Generated: 11/18/19 12:32 pm DCP- Discharge Planning Updated by [email or web address]: Juana Winn on 11/11/19 7:[address] CM received notice that [facility] not [facility] able to accept patient. Patient's sister notified and second choice of [facility] in [place] chosen. CM called [facility] and possibly admit over weekend. D/C IMM completed. CM will continue to follow and assist as needed with discharge planning / needs. DCP- Discharge Planning Updated by [id number]: Juana Winn on 11/09/19 6:[address] CM spoke with patient's sister and she wanted patient to stay locally for LTACH placement if possible. CM will send referral to [facility] and see if they will accept and then go from there. CM will continue to follow and assist as needed for discharge planning / needs. DCP- Discharge Planning Updated by [email or web address]: Juana Winn on 11/08/19 6:[address] CM attempted to call patient's sister to discuss LTACH placement. CM left message to call CM back. CM awaiting call back and will attempt to call back in am. CM will continue to follow and assist as needed with discharge planning / needs. 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 PATIENT CONTACT IS PRISCILA HILLMAN - [phone]. Building Official: Juana Winn DCPIA - Discharge Planning Initial Assessment Updated by [id number]: Juana Winn on 10/14/19 5:20 pm * Is the patient Alert and Oriented? No * PCP [facility] [phone] * Pharmacy [place] [phone] * Preadmission Environment Scanning Coordinator Fdc * Facility Name [place] [address] * List name and contact numbers for known caregivers / representatives who currently or will assist patient after discharge: [phone] * Verbal permission to speak to the caregivers and representatives has been obtained from the patient. N/A * Additional services required to return to the preadmission environment? No * Can the patient safely return to the preadmission environment? Yes * Has this patient been hospitalized within the prior 30 days at any hospital? No External Providers External Provider: [facility] Next Contact Date: Service Request Date: Service Type: Resolution: Reviewer: Comments: Coverage Notice Reviewer: [email or web address] Art Winn Notice Issued Date-Time: 11/09/2019 19:34 Notice Type: Patient Choice Letter Notice Delivered To: Family Member Relationship to Patient: Document Control Manager Name: Priscila Phma Delivery Method: HAND - Hand Delivered Casie Days: Prior Verbal Notification: Recipient Understood Notice: Yes Recipient Signature: Yes Med Rec Note Co-signed by Attending: Coverage Notice Comment: [facility] Reviewer: [id number] - Juana Winn Notice Issued Date-Time: 11/11/2019 13:30 Notice Type: IM Discharge Notice Notice Delivered To: Family Member Relationship to Patient: Document Control Manager Name: PRISCILA PHAM Delivery Method: PHONE - Phone Casie Days: Prior Verbal Notification: Recipient Understood Notice: Yes Recipient Signature: Yes Med Rec Note Co-signed by Attending: Coverage Notice Comment: Last DP export: 11/11/19 7:06 p Patient Name: CHIDI SHERMAN Page [phone] at 1132 All edits/amendments must be made on the electronic document DICTATION DATE: 11/18/191131 PRODUCT DEVELOPMENT WORKER: JANET 11/18/191131 RPT#: [id number] DC DATE: STATUS: ADM IN [facility] [address] [place] [address] END OF REPORT
--- NOTE | 2019-11-18 11:41 | MORECARE ---
CASE MANAGEMENT DISCHARGE SUMMARY PATIENT: CHIDI SHERMAN UNIT: [id number] ADM DATE: 10/13/19 AGE: 69 : 52 SEX: M ROOM/BED: D.2305 AUTHOR: MOO GOLDEN PHYSICIAN: REFERRING PHYSICIAN: RHONA PEREZ MD DATE OF SERVICE: 11/18/19 Discharge Plan Patient Name: CHIDI SHERMAN Facility: [facility]:[place] : 1950 Planned Disposition: Nursing Facility [facility] Cert Anticipated Discharge Date: Discharge Date: Expected LOS: Initial Reviewer: [email or web address] Initial Review Date: 10/13/2019 Generated: 11/18/19 12:41 pm Comments DCP- Discharge Planning Updated by [id number]: Juana Winn on 11/18/19 10:[address] LATE ENTRY - 11/15/19 SETTING UP A P2P TODAY WITH DR PEREZ AND DR. CAICEDO THIS IS WHAT THE DR. CAICEDO REQUESTED PRIOR TO ADMIT: talked to [facility] physician today, Dr. Caicedo [phone]. He declined to take the patient at [facility] until his blood cultures are negative. He also recommended an ECHOcardiogram looking for valvular vegitations and alos recommended a head to toe CT scan looking for sources of infection and an MRI of the the entire spine looking for infection sources. DCP- Discharge Planning Updated by [email or web address]: Juana Winn on 11/18/19 10:[address] LATE ENTRY - 11/14/19 TRYING TO GET DOC TO DOC SET UP. DR PEREZ HAS CALLED SEVERAL TIMES VINNIE BOYER APN BUT DID NOT GET AN ANSWER. CM WILL CONTINUE TO FOLLOW DCP- Discharge Planning Updated by [id number]: Juana Winn on 11/11/19 7:[address] CM received notice that [facility] would not be able to accept patient. Patient's sister notified and second choice of [facility] [place] chosen. CM called and [facility] records to [facility] will [facility] and possibly admit over weekend. D/C IMM completed. CM will continue to follow and assist as needed with discharge planning / needs. DCP- Discharge Planning Updated by [email or web address]: Juana Winn on 11/09/19 6:[address] CM spoke with patient's sister and she wanted patient to stay locally for LTACH placement if possible. CM will send referral to [facility] and see if they will accept and then go from there. CM will continue to follow and assist as needed for discharge planning / needs. DCP- Discharge Planning Updated by [id number]: Juana Winn on 11/08/19 6:[address] CM attempted to call patient's sister to discuss LTACH placement. CM left message to call CM back. CM awaiting call back and will attempt to call back in am. CM will continue to follow and assist as needed with discharge planning / needs. 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 PATIENT CONTACT IS PRISCILA HILLMAN - [phone]. Docketing Specialist: Juana Winn DCPIA - Discharge Planning Initial Assessment Updated by [email or web address]: Juana Winn on 10/14/19 5:20 pm * Is the patient Alert and Oriented? No * PCP [place] [phone] * Pharmacy [place] [address] * Preadmission Environment [facility] * Facility Name [place] [address] * List name and contact numbers for known caregivers / representatives who currently or will assist patient after discharge: PRISCILA HILLMAN- [phone] * Verbal permission to speak to the caregivers and representatives has been obtained from the patient. N/A * Additional services required to return to the preadmission environment? No * Can the patient safely return to the preadmission environment? Yes * Has this patient been hospitalized within the prior 30 days at any hospital? No Coverage Notice Reviewer: [id number] - Juana Tatum Notice Issued Date-Time: 11/09/2019 19:34 Notice Type: Patient Choice Letter Notice Delivered To: Family Member Relationship to Patient: Sister Wheel Installer Name: Priscila Ankit Delivery Method: HAND - Hand Delivered Casie Days: Prior Verbal Notification: Recipient Understood Notice: Yes Recipient Signature: Yes Med Rec Note Co-signed by Attending: Coverage Notice Comment: [facility] TAMMI GOLD BLANQUITA BOYER Reviewer: [id number] Art Winn Notice Issued Date-Time: 11/11/2019 13:30 Notice Type: IM Discharge Notice Notice Delivered To: Family Member Relationship to Patient: Sister Wheel Installer Name: PRISCILA ANKIT Delivery Method: PHONE - Phone Casie Days: Prior Verbal Notification: Recipient Understood Notice: Yes Recipient Signature: Yes Med Rec Note Co-signed by Attending: Coverage Notice Comment: Last DP export: 11/18/19 10:32 a Patient Name: CHIDI SHERMAN Page [id number] at 1141 All edits/amendments must be made on the electronic document DICTATION DATE: 11/18/19 1141 FISHERIES TECHNICAL OFFICER: JANET 11/18/19 1141 RPT#: [id number] DC DATE: STATUS: ADM IN [facility] [address] [place] [address] END OF REPORT
--- NOTE | 2019-11-18 11:49 | MORECARE ---
CASE MANAGEMENT DISCHARGE SUMMARY PATIENT: CHIDI SHERMAN UNIT: [id number] ADM DATE: 10/13/19 AGE: 69 : 52 SEX: M ROOM/BED: D.2305 AUTHOR: CHANTEL,DOC PHYSICIAN: REFERRING PHYSICIAN: RHONA PEREZ MD DATE OF SERVICE: 11/18/19 Discharge Plan Patient Name: CHIDI SHERMAN Facility: [facility]:[place] : 1950 Planned Disposition: Nursing Facility [facility] Cert Anticipated Discharge Date: Discharge Date: Expected LOS: Initial Reviewer: [id number] Initial Review Date: 10/13/2019 Generated: 11/18/19 12:48 pm Comments DCP- Discharge Planning Updated by [email or web address]: Juana Winn on 11/18/19 10:[address] LATE ENTRY 11/17/19 Dr. Perez doesn't think it is medically necessary for the head to toe CT or the MRI of the whole spine. CM will contact [facility] to see if they will accept without those test being done. CM will continue to follow and assist as needed with discharge planning / needs. DCP- Discharge Planning Updated by [id number]: Juana Winn on 11/18/19 10:[address] LATE ENTRY 11/16/19 ECHO COMPLETE - BLOOD CULTURES PENDING. CM WILL SPEAK TO DR. PEREZ AND SEE IF THERE ARE PLANS TO DO THE HEAD TO TOE CT AND MRI OF TOTAL SPINE.FOR PLACEMENT. DCP- Discharge Planning Updated by [id number]: Juana Winn on 11/18/19 10:[address] LATE ENTRY - 11/15/19 SETTING UP A P2P TODAY WITH DR PEREZ AND DR. CAICEDO THIS IS WHAT THE DR. CAICEDO REQUESTED PRIOR TO ADMIT: talked to Lewis Okeefe [facility] physician today, Dr. Caicedo [phone]. He declined to take the patient at [facility] until his blood cultures are negative. He also recommended an ECHOcardiogram looking for valvular vegitations and alos recommended a head to toe CT scan looking for sources of infection and an MRI of the the entire spine looking for infection sources. DCP- Discharge Planning Updated by [email or web address]: Juana Winn on 11/18/19 10:[address] LATE ENTRY - 11/14/19 TRYING TO GET DOC TO DOC SET UP. DR PEREZ HAS CALLED SEVERAL TIMES VINNIE OKEEFE APN BUT DID NOT GET AN ANSWER. CM WILL CONTINUE TO FOLLOW DCP- Discharge Planning Updated by [email or web address]: Juana Winn on 11/11/19 7:[address] CM received notice that [facility] would not be able to accept patient. Patient's sister notified and second choice of [facility] [place] chosen. CM called and faxed records to [facility]. [facility] will review patient and possibly admit over weekend. D/C IMM completed. CM will continue to follow and assist as needed with discharge planning / needs. DCP- Discharge Planning Updated by [id number]: Juana Winn on 11/09/19 6:[address] CM spoke with patient's sister and she wanted patient to stay locally for LTACH placement if possible. CM will send referral to [facility] and see if they will accept and then go from there. CM will continue to follow and assist as needed for discharge planning / needs. DCP- Discharge Planning Updated by [email or web address]: Juana Winn on 11/08/19 6:[address] CM attempted to call patient's sister to discuss LTACH placement. CM left message to call CM back. CM awaiting call back and will attempt to call back in am. CM will continue to follow and assist as needed with discharge planning / needs. 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 PATIENT CONTACT IS PRISCILA SAUCEDO -SISTER - [phone]. Silk Spreader: Juana Winn DCPIA - Discharge Planning Initial Assessment Updated by [id number]: Juana Winn on 10/14/19 5:20 pm * Is the patient Alert and Oriented? No * PCP [facility] [phone] * Pharmacy [facility] [phone] * Preadmission Environment Wrestling Coach Alf * Facility Name [place] [address] * List name and contact numbers for known caregivers / representatives who currently or will assist patient after discharge: PRISCILA HILLMAN- [phone] * Verbal permission to speak to the caregivers and representatives has been obtained from the patient. N/A * Additional services required to return to the preadmission environment? No * Can the patient safely return to the preadmission environment? Yes * Has this patient been hospitalized within the prior 30 days at any hospital? No Coverage Notice Reviewer: [id number] Art Winn Notice Issued Date-Time: 11/09/2019 19:34 Notice Type: Patient Choice Letter Notice Delivered To: Family Member Relationship to Patient: Associate Partner Name: Priscila Saucedo Delivery Method: HAND - Hand Delivered Casie Days: Prior Verbal Notification: Recipient Understood Notice: Yes Recipient Signature: Yes Med Rec Note Co-signed by Attending: Coverage Notice Comment: [facility] [place]er: [id number] Art Winn Notice Issued Date-Time: 11/11/2019 13:30 Notice Type: IM Discharge Notice Notice Delivered To: Family Member Relationship to Patient: Associate Partner Name: PRISCILA SAUCEDO Delivery Method: PHONE - Phone Casie Days: Prior Verbal Notification: Recipient Understood Notice: Yes Recipient Signature: Yes Med Rec Note Co-signed by Attending: Coverage Notice Comment: Last DP export: 11/18/19 10:41 a Patient Name: CHIDI SHERMAN Page 39388 at 1149 All edits/amendments must be made on the electronic document DICTATION DATE: 11/18/19 1148 PERMASTONE MECHANIC: JANET 11/18/19 1148 RPT#: [id number] DC DATE: STATUS: ADM IN [facility] [address] [place] [address] END OF REPORT
--- NOTE | 2019-11-18 11:57 | MORECARE ---
CASE MANAGEMENT DISCHARGE SUMMARY PATIENT: CHIDI SHERMAN UNIT: [id number] ADM DATE: 10/13/19 AGE: 69 : 52 SEX: M ROOM/BED: D.2305 AUTHOR: CHANTEL,DOC PHYSICIAN: REFERRING PHYSICIAN: RHONA PEREZ MD DATE OF SERVICE: 11/18/19 Discharge Plan Patient Name: CHIDI SHERMAN Facility: [facility]:[place] : 1950 Planned Disposition: Nursing Facility [facility] Cert Anticipated Discharge Date: Discharge Date: Expected LOS: Initial Reviewer: [email or web address] Initial Review Date: 10/13/2019 Generated: 11/18/19 12:56 pm Comments DCP- Discharge Planning Updated by [id number]: Juana Winn on 11/18/19 10:[address] CM spoke with Fabiola the director at [facility] and she had requested updates to be faxed and she was going to speak to Dr. Lyons. She didn't understand why he had asked for those test either and will get back with CM as soon as she speaks with him. CM will continue to follow and assist as needed with discharge planning / needs. DCP- Discharge Planning Updated by [id number]: Juana Winn on 11/18/19 10:[address] LATE ENTRY 11/17/19 Dr. Perez doesn't think it is medically necessary for the head to toe CT or the MRI of the whole spine. CM will contact [facility] to see if they will accept without those test being done. CM will continue to follow and assist as needed with discharge planning / needs. DCP- Discharge Planning Updated by [id number]: Juana Winn on 11/18/19 10:[address] LATE ENTRY 11/16/19 ECHO COMPLETE - BLOOD CULTURES PENDING. CM WILL SPEAK TO DR. PEREZ AND SEE IF THERE ARE PLANS TO DO THE HEAD TO TOE CT AND MRI OF TOTAL SPINE.FOR PLACEMENT. DCP- Discharge Planning Updated by [email or web address]: Juana Winn on 11/18/19 10:[address] LATE ENTRY - 11/15/19 SETTING UP A P2P TODAY WITH DR PEREZ AND DR. LYONS THIS IS WHAT THE DR. LYONS REQUESTED PRIOR TO ADMIT: talked to [facility] physician today, Dr. Lyons [phone]. He declined to take the patient at [facility] until his blood cultures are negative. He also recommended an ECHOcardiogram looking for valvular vegitations and john recommended a head to toe CT scan looking for sources of infection and an MRI of the the entire spine looking for infection sources. DCP- Discharge Planning Updated by [id number]: Juana Winn on 11/18/19 10:[address] LATE ENTRY - 11/14/19 TRYING TO GET DOC TO DOC SET UP. DR PEREZ HAS CALLED SEVERAL TIMES VINNIE MERLIN ARGUETAN BUT DID NOT GET AN ANSWER. CM WILL CONTINUE TO FOLLOW DCP- Discharge Planning Updated by [id number]: Juana Winn on 11/11/19 7:[address] CM received notice that [facility] would not be able to accept patient. Patient's sister notified and second choice of [facility] [place] chosen. CM called and faxed records to [facility]. [facility] will review patient and possibly admit over weekend. D/C IMM completed. CM will continue to follow and assist as needed with discharge planning / needs. DCP- Discharge Planning Updated by [email or web address]: Juana Winn on 11/09/19 6:[address] CM spoke with patient's sister and she wanted patient to stay locally for LTACH placement if possible. CM will send referral to [facility] and see if they will accept and then go from there. CM will continue to follow and assist as needed for discharge planning / needs. DCP- Discharge Planning Updated by [id number]: Juana Winn on 11/08/19 6:[address] CM attempted to call patient's sister to discuss LTACH placement. CM left message to call CM back. CM awaiting call back and will attempt to call back in am. CM will continue to follow and assist as needed with discharge planning / needs. 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 PATIENT CONTACT IS PRISCILA HILLMAN - [phone]. Adjuster: Juana Winn DCPIA - Discharge Planning Initial Assessment Updated by [id number]: Juana Winn on 10/14/19 5:20 pm * Is the patient Alert and Oriented? No * PCP [place] [phone] * Pharmacy [place] [phone] * Preadmission Environment Auto [employer] Manager [employer] * Facility Name [place] [address] * List name and contact numbers for known caregivers / representatives who currently or will assist patient after discharge: PRISCILA HILLMAN- [phone] * Verbal permission to speak to the caregivers and representatives has been obtained from the patient. N/A * Additional services required to return to the preadmission environment? No * Can the patient safely return to the preadmission environment? Yes * Has this patient been hospitalized within the prior 30 days at any hospital? No Coverage Notice Reviewer: [id number] Art Winn Notice Issued Date-Time: 11/09/2019 19:34 Notice Type: Patient Choice Letter Notice Delivered To: Family Member Relationship to Patient: Local Flatbed Driver Name: Priscila Pham Delivery Method: HAND - Hand Delivered Casie Days: Prior Verbal Notification: Recipient Understood Notice: Yes Recipient Signature: Yes Med Rec Note Co-signed by Attending: Coverage Notice Comment: [facility] Reviewer: [id number] Art Winn Notice Issued Date-Time: 11/11/2019 13:30 Notice Type: IM Discharge Notice Notice Delivered To: Family Member Relationship to Patient: Local Flatbed Driver Name: PRISCILA PHAM Delivery Method: PHONE - Phone Casie Days: Prior Verbal Notification: Recipient Understood Notice: Yes Recipient Signature: Yes Med Rec Note Co-signed by Attending: Coverage Notice Comment: Last DP export: 11/18/19 10:49 a Patient Name: CHIDI SHERMAN Page [phone] at 1157 All edits/amendments must be made on the electronic document DICTATION DATE: 11/18/191156 WELDER GAS: JANET 11/18/191156 RPT#: [id number] DC DATE: STATUS: ADM IN [facility] [address] [place] [address] END OF REPORT
[2019-11-18 13:16] LABS: ERYTHROCYTE SEDIMENTATION RATE 93 mm/hr (0-20)
--- NOTE | 2019-11-18 13:30 | NUR ---
CHANGED BACK TO RATE BY RT, AC 14, TV 500, FIO2 30, P5 WILL CONTINUE WITH POC
--- NOTE | 2019-11-18 13:42 | NUR ---
CPAP 10/5 STARTING AT 0930 TIL 1330
--- NOTE | 2019-11-18 16:38 | NUR ---
BLOOD CULTURES X2 DRAWN FROM MEDIAL AND DISTAL PORT FROM CVL
--- NOTE | 2019-11-18 20:17 | MORECARE ---
CASE MANAGEMENT DISCHARGE SUMMARY PATIENT: CHIDI SHERMAN UNIT: [id number] ADM DATE: 10/13/19 AGE: 69 : 52 SEX: M ROOM/BED: D.2305 AUTHOR: CHANTEL,DOC PHYSICIAN: REFERRING PHYSICIAN: RHONA PEREZ MD DATE OF SERVICE: 11/18/19 Discharge Plan Patient Name: CHIDI SHERMAN Facility: [facility]:[place] : 1950 Planned Disposition: Nursing Facility [facility] Anticipated Discharge Date: Discharge Date: Expected LOS: Initial Reviewer: [id number] Initial Review Date: 10/13/2019 Generated: 11/18/19 9:16 pm Comments DCP- Discharge Planning Updated by [id number]: Juana Winn on 11/18/19 7:[address] PEREZ DID A P2P AGAIN TODAY WITH DR. LYONS AND THE RESULTS WAS THE SAME. HE WILL NOT ACCEPT PATIENT UNTIL HIS B/C ARE NEGATIVE. CM WILL CHECK WITH ANOTHER [facility] STARTING THURSDAY. CM WILL CONTINUE TO FOLLOW AND ASSIST NEEDED WITH DISCHARGE PLANNING / NEEDS. DCP- Discharge Planning Updated by [id number]: Juana Winn on 11/18/19 10:[address] CM spoke with Fabiola the director at [facility] and she had requested updates to be faxed and she was going to speak to Dr. Lyons. She didn't understand why he had asked for those test either and will get back with CM as soon as she speaks with him. CM will continue to follow and assist as needed with discharge planning / needs. DCP- Discharge Planning Updated by [id number]: Juana Winn on 11/18/19 10:[address] LATE ENTRY 11/17/19 Dr. Perez doesn't think it is medically necessary for the head to toe CT or the MRI of the whole spine. CM will contact [facility] to see if they will accept without those test being done. CM will continue to follow and assist as needed with discharge planning / needs. DCP- Discharge Planning Updated by [id number]: Juana Winn on 11/18/19 10:[address] LATE ENTRY 11/16/19 ECHO COMPLETE - BLOOD CULTURES PENDING. CM WILL SPEAK TO DR. PEREZ AND SEE IF THERE ARE PLANS TO DO THE HEAD TO TOE CT AND MRI OF TOTAL SPINE.FOR PLACEMENT. DCP- Discharge Planning Updated by [email or web address]: Juana Winn on 11/18/19 10:[address] LATE ENTRY - 11/15/19 SETTING UP A P2P TODAY WITH DR PEREZ AND DR. LYONS THIS IS WHAT THE DR. LYONS REQUESTED PRIOR TO ADMIT: talked to [facility] physician today, Dr. Lyons [phone]. He declined to take the patient at [facility] until his blood cultures are negative. He also recommended an ECHOcardiogram looking for valvular vegitations and alos recommended a head to toe CT scan looking for sources of infection and an MRI of the the entire spine looking for infection sources. DCP- Discharge Planning Updated by [id number]: Juana Winn on 11/18/19 10:[address] LATE ENTRY - 11/14/19 TRYING TO GET DOC TO DOC SET UP. DR PEREZ HAS CALLED SEVERAL TIMES VINNIE BOYER CABIN AGENT BUT DID NOT GET AN ANSWER. CM WILL CONTINUE TO FOLLOW DCP- Discharge Planning Updated by [id number]: Juana Winn on 11/11/19 7:[address] CM received notice that [facility] would not be able to accept patient. Patient's sister notified and second choice of [facility] [place] chosen. CM called and faxed records to [facility]. [facility] will review patient and possibly admit over weekend. D/C IMM completed. CM will continue to follow and assist as needed with discharge planning / needs. DCP- Discharge Planning Updated by [id number]: Juana Winn on 11/09/19 6:[address] CM spoke with patient's sister and she wanted patient to stay locally for LTACH placement if possible. CM will send referral to [facility] and see if they will accept and then go from there. CM will continue to follow and assist as needed for discharge planning / needs. DCP- Discharge Planning Updated by [id number]: Juana Winn on 11/08/19 6:[address] CM attempted to call patient's sister to discuss LTACH placement. CM left message to call CM back. CM awaiting call back and will attempt to call back in am. CM will continue to follow and assist as needed with discharge planning / needs. 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 PATIENT CONTACT IS PRISCILA HILLMAN - [phone]. Scow Captain: Juana Winn DCPIA - Discharge Planning Initial Assessment Updated by [id number]: Juana Winn on 10/14/19 5:20 pm * Is the patient Alert and Oriented? No * PCP [place] [address] * Pharmacy [place] [address] * Preadmission Environment [facility] Custodial * Facility Name [place] [address] * List name and contact numbers for known caregivers / representatives who currently or will assist patient after discharge: PRISCILA HLILMAN- [phone] * Verbal permission to speak to the caregivers and representatives has been obtained from the patient. N/A * Additional services required to return to the preadmission environment? No * Can the patient safely return to the preadmission environment? Yes * Has this patient been hospitalized within the prior 30 days at any hospital? No Coverage Notice Reviewer: [id number] Art Winn Notice Issued Date-Time: 11/09/2019 19:34 Notice Type: Patient Choice Letter Notice Delivered To: Family Member Relationship to Patient: Sister Order Planner Name: Priscila Pham Delivery Method: HAND - Hand Delivered Casie Days: Prior Verbal Notification: Recipient Understood Notice: Yes Recipient Signature: Yes Med Rec Note Co-signed by Attending: Coverage Notice Comment: [facility] JUSTIN BOYER Reviewer: [id number] Art Winn Notice Issued Date-Time: 11/11/2019 13:30 Notice Type: IM Discharge Notice Notice Delivered To: Family Member Relationship to Patient: Sister Order Planner Name: PRISCILA PHAM Delivery Method: PHONE - Phone Casie Days: Prior Verbal Notification: Recipient Understood Notice: Yes Recipient Signature: Yes Med Rec Note Co-signed by Attending: Coverage Notice Comment: Last DP export: 11/18/19 10:57 a Patient Name: CHIDI SHERMAN Page 51473 at 2017 All edits/amendments must be made on the electronic document DICTATION DATE: 11/18/192015 USED CAR LOT ATTENDANT: JANET 11/18/19 2016 RPT#: [id number] DC DATE: STATUS: ADM IN [facility] [address] [place] [address] END OF REPORT
[2019-11-19] VITALS (24 sets, daily range): BP systolic 136–179; BP diastolic 59–96
[2019-11-19 04:45] LABS: BASOPHILS 0.2 % (0-2); EOSINOPHILS 0.2 % (0-7); HEMATOCRIT 27.1 % (42.0-54.0); HEMOGLOBIN 8.2 g/dL (13.5-17.5); IMMATURE GRANULOCYTES 0.5 % (0-5); MCHC 30.3 g/dL (31.0-37.0); MCV 82.6 fL (80.0-100.0); MEAN PLATELET VOLUME 8.5 fL (7.4-10.4); MONOCYTES 10.3 % (2-11); NEUTROPHILS 76.8 % (40-80); PLATELET COUNT 236 10x3/uL (130-400); RBC 3.28 10x6/uL (4.20-6.10); RDW 18.1 % (11.5-14.5); WBC 9.4 10x3/uL (4.8-10.8)
[2019-11-19 04:56] LABS: ANION GAP 11.4 mmol/L (8-16); CARBON DIOXIDE 22.3 mmol/L (21.0-32.0); CREATININE - SERUM 1.1 mg/dL (0.6-1.3); POTASSIUM - SERUM 3.7 mmol/L (3.5-5.1)
--- NOTE | 2019-11-19 14:38 | NUR ---
TEMP RECHECK 101, COVERS OFF, ICE PACKS PLACED, AND NORCO 10 GIVEN FOR GRIMACE TO TOUCH AND FEVER
[2019-11-20] VITALS (22 sets, daily range): BP systolic 113–143; BP diastolic 46–69
[2019-11-20 04:35] LABS: BASOPHILS 0.2 % (0-2); EOSINOPHILS 0.7 % (0-7); HEMATOCRIT 27.4 % (42.0-54.0); HEMOGLOBIN 8.3 g/dL (13.5-17.5); IMMATURE GRANULOCYTES 0.6 % (0-5); LYMPHOCYTES 12.8 % (15-50); MCH 24.8 pg (26.0-34.0); MCHC 30.3 g/dL (31.0-37.0); MCV 81.8 fL (80.0-100.0); MEAN PLATELET VOLUME 8.6 fL (7.4-10.4); MONOCYTES 10.6 % (2-11); NEUTROPHILS 75.1 % (40-80); PLATELET COUNT 235 10x3/uL (130-400); RBC 3.35 10x6/uL (4.20-6.10); RDW 18.2 % (11.5-14.5); WBC 8.5 10x3/uL (4.8-10.8)
[2019-11-20 04:43] LABS: CALC OSMOLALITY 281 mosm/kg (275-300); CALCIUM 7.8 mg/dL (8.5-10.1); CARBON DIOXIDE 24.7 mmol/L (21.0-32.0); CHLORIDE - SERUM 110 mmol/L (98-107); GLUCOSE 99 mg/dL (74-106); POTASSIUM - SERUM 3.8 mmol/L (3.5-5.1); SODIUM 140 mmol/L (136-145); UREA NITROGEN 20 mg/dL (7-18); eGFR NON AFRICAN AMERICAN 79 mL/min (90-120)
--- NOTE | 2019-11-20 05:16 | NUR ---
AM LABS REVIEWED, NOTHING TO TREAT PER ELECTROLYTE PROTOCOL.
[2019-11-20 05:30] LABS: ERYTHROCYTE SEDIMENTATION RATE 86 mm/hr (0-20)
[2019-11-21] VITALS (27 sets, daily range): BP systolic 115–150; BP diastolic 45–72
[2019-11-21 06:17] LABS: ANION GAP 10.8 mmol/L (8-16); CALCIUM 7.7 mg/dL (8.5-10.1); CARBON DIOXIDE 23.8 mmol/L (21.0-32.0); POTASSIUM - SERUM 3.6 mmol/L (3.5-5.1)
[2019-11-21 06:19] LABS: CREATININE - SERUM 1.3 mg/dL (0.6-1.3)
[2019-11-21 06:27] LABS: BASOPHILS 0.3 % (0-2); EOSINOPHILS 1.4 % (0-7); HEMATOCRIT 26.6 % (42.0-54.0); IMMATURE GRANULOCYTES 0.6 % (0-5); LYMPHOCYTES 14.8 % (15-50); MCH 24.6 pg (26.0-34.0); MCHC 30.1 g/dL (31.0-37.0); MCV 81.8 fL (80.0-100.0); MEAN PLATELET VOLUME 9.4 fL (7.4-10.4); MONOCYTES 12.4 % (2-11); NEUTROPHILS 70.5 % (40-80); RBC 3.25 10x6/uL (4.20-6.10); RDW 18.3 % (11.5-14.5)
[2019-11-21 06:29] LABS: PLATELET COUNT 299 10x3/uL (130-400); WBC 6.2 10x3/uL (4.8-10.8)
--- NOTE | 2019-11-21 12:43 | NUR ---
Nutrition follow-up: Intubated, sedated Pt receiving 3 cans bolus of Pulmocare instead of gravity feedings per Inés PIMENTEL Labs reviewed Wt: 187# To meet pts estimated energy needs will increase bolus feeds to 4 cans of Pulmocare a day. RDN following.
[2019-11-22] VITALS (30 sets, daily range): BP systolic 98–190; BP diastolic 32–113
[2019-11-22 04:30] LABS: BASOPHILS 0.3 % (0-2); EOSINOPHILS 1.9 % (0-7); HEMATOCRIT 26.6 % (42.0-54.0); LYMPHOCYTES 17.4 % (15-50); MCH 24.8 pg (26.0-34.0); MCHC 30.1 g/dL (31.0-37.0); MCV 82.6 fL (80.0-100.0); MEAN PLATELET VOLUME 8.9 fL (7.4-10.4); MONOCYTES 10.7 % (2-11); NEUTROPHILS 68.7 % (40-80); PLATELET COUNT 287 10x3/uL (130-400); RBC 3.22 10x6/uL (4.20-6.10); RDW 18.3 % (11.5-14.5); WBC 6.3 10x3/uL (4.8-10.8)
[2019-11-22 04:45] LABS: ANION GAP 9.4 mmol/L (8-16); CALCIUM 7.7 mg/dL (8.5-10.1); CARBON DIOXIDE 25.3 mmol/L (21.0-32.0); CREATININE - SERUM 1.5 mg/dL (0.6-1.3); POTASSIUM - SERUM 3.7 mmol/L (3.5-5.1)
--- NOTE | 2019-11-22 10:45 | NUR ---
BRONCH COMPLETED AT [facility] BY DR DAVIS, 2 OF VERSED AND 25 OF FENTANYL GIVEN PER ORDER, V SS, TOLERATED WITHOUT DIFFICULTY
--- NOTE | 2019-11-22 22:45 | MORECARE ---
CASE MANAGEMENT DISCHARGE SUMMARY PATIENT: CHIDI SHERMAN UNIT: [id number] ADM DATE: 10/13/19 AGE: 69 : 52 SEX: M ROOM/BED: D.2305 AUTHOR: CHANTEL,DOC PHYSICIAN: REFERRING PHYSICIAN: RHONA PEREZ MD DATE OF SERVICE: 11/22/19 Discharge Plan Patient Name: CHIDI SHERMAN Facility: [facility]:[place] : 1950 Planned Disposition: Nursing Facility [facility] Anticipated Discharge Date: Discharge Date: Expected LOS: Initial Reviewer: [email or web address] Initial Review Date: 10/13/2019 Generated: 11/22/19 11:44 pm Comments DCP- Discharge Planning Updated by [id number]: Juana Winn on 11/18/19 7:[address] PEREZ DID A P2P AGAIN TODAY WITH DR. LYONS AND THE RESULTS WAS THE SAME. HE WILL NOT ACCEPT PATIENT UNTIL HIS B/C ARE NEGATIVE. CM WILL CHECK WITH ANOTHER LTACH STARTING THURSDAY. CM WILL CONTINUE TO FOLLOW AND ASSIST NEEDED WITH DISCHARGE PLANNING / NEEDS. DCP- Discharge Planning Updated by [id number]: Juana Winn on 11/18/19 10:[address] CM spoke with Fabiola the director at [facility] and she had requested updates to be faxed and she was going to speak to Dr. Lyons. She didn't understand why he had asked for those test either and will get back with CM as soon as she speaks with him. CM will continue to follow and assist as needed with discharge planning / needs. DCP- Discharge Planning Updated by [email or web address]: Juana Winn on 11/18/19 10:[address] LATE ENTRY 11/17/19 Dr. Perez doesn't think it is medically necessary for the head to toe CT or the MRI of the whole spine. CM will contact LTACH to see if they will accept without those test being done. CM will continue to follow and assist as needed with discharge planning / needs. DCP- Discharge Planning Updated by [id number]: Juana Winn on 11/18/19 10:[address] LATE ENTRY 11/16/19 ECHO COMPLETE - BLOOD CULTURES PENDING. CM WILL SPEAK TO DR. PEREZ AND SEE IF THERE ARE PLANS TO DO THE HEAD TO TOE CT AND MRI OF TOTAL SPINE.FOR PLACEMENT. DCP- Discharge Planning Updated by [email or web address]: Juana Winn on 11/18/19 10:[address] LATE ENTRY - 11/15/19 SETTING UP A P2P TODAY WITH DR PEREZ AND DR. LYONS THIS IS WHAT THE DR. LYONS REQUESTED PRIOR TO ADMIT: talked to [facility] physician today, Dr. Lyons [phone]. He declined to take the patient at [facility] until his blood cultures are negative. He also recommended an ECHOcardiogram looking for valvular vegitations and alos recommended a head to toe CT scan looking for sources of infection and an MRI of the the entire spine looking for infection sources. DCP- Discharge Planning Updated by [id number]: Juana Winn on 11/18/19 10:[address] LATE ENTRY - 11/14/19 TRYING TO GET DOC TO DOC SET UP. DR PEREZ HAS CALLED SEVERAL TIMES [facility] [employer] BUT DID NOT GET AN ANSWER. CM WILL CONTINUE TO FOLLOW DCP- Discharge Planning Updated by [id number]: Juana Winn on 11/11/19 7:[address] CM received notice that [facility] would not be able to accept patient. Patient's sister notified and second choice of [facility] in [place] chosen. CM called and faxed records to [facility]. [facility] will review patient and possibly admit over weekend. D/C IMM completed. CM will continue to follow and assist as needed with discharge planning / needs. DCP- Discharge Planning Updated by [id number]: Juana Winn on 11/09/19 6:[address] CM spoke with patient's sister and she wanted patient to stay locally for LTACH placement if possible. CM will send referral to [facility] and see if they will accept and then go from there. CM will continue to follow and assist as needed for discharge planning / needs. DCP- Discharge Planning Updated by [email or web address]: Juana Winn on 11/08/19 6:[address] CM attempted to call patient's sister to discuss LTACH placement. CM left message to call CM back. CM awaiting call back and will attempt to call back in am. CM will continue to follow and assist as needed with discharge planning / needs. 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 PATIENT CONTACT IS PRISCILA HILLMAN - [phone]. Logistics Loss Prevention Manager: Juana Winn DCPIA - Discharge Planning Initial Assessment Updated by [id number]: Juana Winn on 10/14/19 5:20 pm * Is the patient Alert and Oriented? No * PCP [place] [address] * Pharmacy [place] [address] * Preadmission Environment [facility] * Facility Name [place] [address] * List name and contact numbers for known caregivers / representatives who currently or will assist patient after discharge: PRISCILA HILLMAN- [phone] * Verbal permission to speak to the caregivers and representatives has been obtained from the patient. N/A * Additional services required to return to the preadmission environment? No * Can the patient safely return to the preadmission environment? Yes * Has this patient been hospitalized within the prior 30 days at any hospital? No External Providers External Provider: [facility] Next Contact Date: Service Request Date: Service Type: Resolution: Reviewer: Comments: Coverage Notice Reviewer: [id number] Art Winn Notice Issued Date-Time: 11/09/2019 19:34 Notice Type: Patient Choice Letter Notice Delivered To: Family Member Relationship to Patient: Sister Cupola Liner Name: Priscila Pham Delivery Method: HAND - Hand Delivered Casie Days: Prior Verbal Notification: Recipient Understood Notice: Yes Recipient Signature: Yes Med Rec Note Co-signed by Attending: Coverage Notice Comment: [facility] JUSTIN BOYER Reviewer: [id number] - Juana Winn Notice Issued Date-Time: 11/11/2019 13:30 Notice Type: IM Discharge Notice Notice Delivered To: Family Member Relationship to Patient: Sister Cupola Liner Name: PRISCILA PHAM Delivery Method: PHONE - Phone Casie Days: Prior Verbal Notification: Recipient Understood Notice: Yes Recipient Signature: Yes Med Rec Note Co-signed by Attending: Coverage Notice Comment: Last DP export: 11/18/19 7:17 p Patient Name: CHIDI SHERMAN Page [id number] at 2245 All edits/amendments must be made on the electronic document DICTATION DATE: 11/22/192243 BUILDING OPERATOR: JANET 11/22/192243 RPT#: [id number] DC DATE: STATUS: ADM IN [facility] [address] [place] [address] END OF REPORT
[2019-11-23] VITALS (23 sets, daily range): BP systolic 152–178; BP diastolic 67–113
[2019-11-23 03:55] LABS: ANION GAP 6.7 mmol/L (8-16); CALCIUM 7.7 mg/dL (8.5-10.1); CARBON DIOXIDE 24.8 mmol/L (21.0-32.0); CREATININE - SERUM 1.4 mg/dL (0.6-1.3); POTASSIUM - SERUM 3.5 mmol/L (3.5-5.1)
[2019-11-23 04:02] LABS: BASOPHILS 0.2 % (0-2); EOSINOPHILS 1.7 % (0-7); HEMATOCRIT 28.7 % (42.0-54.0); HEMOGLOBIN 8.8 g/dL (13.5-17.5); IMMATURE GRANULOCYTES 1.1 % (0-5); LYMPHOCYTES 14.3 % (15-50); MCH 25.4 pg (26.0-34.0); MCHC 30.7 g/dL (31.0-37.0); MCV 82.7 fL (80.0-100.0); MEAN PLATELET VOLUME 9.1 fL (7.4-10.4); MONOCYTES 9.4 % (2-11); NEUTROPHILS 73.3 % (40-80); PLATELET COUNT 302 10x3/uL (130-400); RBC 3.47 10x6/uL (4.20-6.10); RDW 18.5 % (11.5-14.5); WBC 6.3 10x3/uL (4.8-10.8)
--- NOTE | 2019-11-23 11:12 | NUR ---
Nutrition follow-up: Intubated, sedated Bronch 11/21 Pulmocare 4 cans/day bolus instead of gravity drip Labs reviewed Wt: 195# RDN following.
--- NOTE | 2019-11-23 12:17 | NUR ---
MORE AWAKE, ALERT THAN 2 WEEKS AGO WHEN I TOOK CARE OF HIM. IS NOW ABLE TO FOLLOW COMMANDS. TRIES TO TALK, ALTHOUGH ON VENT. SPO2 MONITOR INTERMITTENTLY PICKING UP ON FINGER, BUT NOT FOREHEAD, AND NO EAR-CLIP PROBE AVAILABLE. SPO2 OBTAINED VIA SPOT CHECK PER RT AND IS HIGH 90S. DRSG CHANGE KITS FOR CVL NOT AVAILABLE, BUT WAS JUST REPLACED W/ NEW DRSG 2 DAYS AGO AND ADHERES WELL, WITH BIOPATCH IN PLACE.
[2019-11-24] VITALS (14 sets, daily range): BP systolic 108–166; BP diastolic 63–92
[2019-11-24 05:44] LABS: BASOPHILS 0.2 % (0-2); EOSINOPHILS 1.8 % (0-7); HEMATOCRIT 24.3 % (42.0-54.0); IMMATURE GRANULOCYTES 1.3 % (0-5); LYMPHOCYTES 18.6 % (15-50); MCH 24.3 pg (26.0-34.0); MCHC 29.6 g/dL (31.0-37.0); MCV 82.1 fL (80.0-100.0); MONOCYTES 12.4 % (2-11); NEUTROPHILS 65.7 % (40-80); PLATELET COUNT 277 10x3/uL (130-400); RBC 2.96 10x6/uL (4.20-6.10); RDW 18.2 % (11.5-14.5); WBC 5.5 10x3/uL (4.8-10.8)
[2019-11-24 06:07] LABS: HEMOGLOBIN 7.2 g/dL (13.5-17.5)
--- NOTE | 2019-11-24 06:23 | NUR ---
Pt has been turned, cleaned and bed changed, no acute distress noted.
[2019-11-24 06:25] LABS: ANION GAP 8.6 mmol/L (8-16); CREATININE - SERUM 1.4 mg/dL (0.6-1.3); POTASSIUM - SERUM 3.6 mmol/L (3.5-5.1)
--- NOTE | 2019-11-24 14:22 | NUR ---
REPORT CALLED TO [facility] TO MARÍA HERNANDEZ RN.
--- NOTE | 2019-11-24 16:59 | NUR ---
AMBULANCE HERE FOR PT, HOOKED TO THEIR MONITORS, DC'D TO [facility]
[2019-11-25 10:12] LABS: FUNGUS STAIN Final report (())
--- NOTE | 2019-11-25 18:05 | MORECARE ---
CASE MANAGEMENT DISCHARGE SUMMARY PATIENT: CHIDI SHERMAN UNIT: [id number] ADM DATE: 10/13/19 AGE: 69 : 52 SEX: M ROOM/BED: D.2305 AUTHOR: CHANTEL,DOC PHYSICIAN: REFERRING PHYSICIAN: RHONA PEREZ MD DATE OF SERVICE: 11/25/19 Discharge Plan Patient Name: CHIDI SHERMAN Facility: [facility]:[place] : 1950 Planned Disposition: Nursing Facility [facility] Cert Anticipated Discharge Date: Discharge Date: 11/24/2019 Expected LOS: Initial Reviewer: [id number] Initial Review Date: 10/13/2019 Generated: 11/25/19 7:04 pm Comments DCP- Discharge Planning Updated by [id number]: Juana Winn on 11/25/19 5:[address] LATE ENTRY 11/22/19 YANIRA sent referral to [facility] for placement. 11/23/19 YANIRA received notice from Marley at [facility] that she would be by to assess patient today. was notified that [facility] plans to accept patient and will call CM in am. 11/24/19 YANIRA spoke with Priscila Saucedo patient sister she notified of transfer and she had spoken with [facility] already. Nursing to call report. CM called [facility] for transport. DCP- Discharge Planning Updated by [id number]: Juana Winn on 11/18/19 7:[address] PEREZ DID A P2P AGAIN TODAY WITH DR. CAICEDO AND THE RESULTS WAS THE SAME. HE WILL NOT ACCEPT PATIENT UNTIL HIS B/C ARE NEGATIVE. CM WILL CHECK WITH ANOTHER LTACH STARTING THURSDAY. CM WILL CONTINUE TO FOLLOW AND ASSIST NEEDED WITH DISCHARGE PLANNING / NEEDS. DCP- Discharge Planning Updated by [id number]: Juana Winn on 11/18/19 10:[address] CM spoke with Fabiola the director at [facility] and she had requested updates to be faxed and she was going to speak to Dr. Caicedo. She didn't understand why he had asked for those test either and will get back with CM as soon as she speaks with him. CM will continue to follow and assist as needed with discharge planning / needs. DCP- Discharge Planning Updated by [id number]: Juana Winn on 11/18/19 10:[address] LATE ENTRY 11/17/19 Dr. Perez doesn't think it is medically necessary for the head to toe CT or the MRI of the whole spine. CM will contact [facility] to see if they will accept without those test being done. CM will continue to follow and assist as needed with discharge planning / needs. DCP- Discharge Planning Updated by [id number]: Juana Winn on 11/18/19 10:[address] LATE ENTRY 11/16/19 ECHO COMPLETE - BLOOD CULTURES PENDING. CM WILL SPEAK TO DR. PEREZ AND SEE IF THERE ARE PLANS TO DO THE HEAD TO TOE CT AND MRI OF TOTAL SPINE.FOR PLACEMENT. DCP- Discharge Planning Updated by [id number]: Juana Winn on 11/18/19 10:[address] LATE ENTRY - 11/15/19 SETTING UP A P2P TODAY WITH DR PEREZ AND DR. CAICEDO THIS IS WHAT THE DR. CAICEDO REQUESTED PRIOR TO ADMIT: talked to [facility] physician today, Dr. Caicedo [phone]. He declined to take the patient at [facility] until his blood cultures are negative. He also recommended an ECHOcardiogram looking for valvular vegitations and alos recommended a head to toe CT scan looking for sources of infection and an MRI of the the entire spine looking for infection sources. DCP- Discharge Planning Updated by [email or web address]: Juana Winn on 11/18/19 10:[address] LATE ENTRY - 11/14/19 TRYING TO GET DOC TO DOC SET UP. DR PEREZ HAS CALLED SEVERAL TIMES [facility] BUT DID NOT GET AN ANSWER. CM WILL CONTINUE TO FOLLOW DCP- Discharge Planning Updated by [id number]: Juana Winn on 11/11/19 7:[address] CM received notice that [facility] not [facility] patient. Patient's sister notified and second choice of [facility] in [place] chosen. CM called and faxed records to [facility]. [facility] will review patient and possibly admit over weekend. D/C IMM completed. CM will continue to follow and assist as needed with discharge planning / needs. DCP- Discharge Planning Updated by [id number]: Juana Winn on 11/09/19 6:[address] CM spoke with patient's sister and she wanted patient to stay locally for LTACH placement if possible. CM will send referral to [facility] and see if [facility] will accept and then go from there. CM will continue to follow and assist as needed for discharge planning / needs. DCP- Discharge Planning Updated by [email or web address]: Juana Winn on 11/08/19 6:[address] CM attempted to call patient's sister to discuss LTACH placement. CM left message to call CM back. CM awaiting call back and will attempt to call back in am. CM will continue to follow and assist as needed with discharge planning / needs. DCP- Discharge Planning Updated by [id number]: Juana Winn on 10/14/19 4:[address] Patient Name: CHIDI SHERMAN Admission Status: ER Accout number: [id number] Admission Date: 10-13-2019 : 1950 Admission Diagnosis: Attending: RHONA PEREZ Current LOS: 1 Anticipated DC Date: Planned Disposition: Nursing Facility [facility] Primary Insurance: MEDICARE A & B Discharge Planning Comments: PATIENT IS A SENIOR LIVING RESIDENT AT [place] [address] PLAN IS FOR PATIENT TO RETURN TO FACILITY UPON DISCHARGE. PATIENT CONTACT IS PRISCILA HILLMAN - [phone]. Gusset Stitcher: Juana Winn DCPIA - Discharge Planning Initial Assessment Updated by [id number]: Juana Winn on 10/14/19 5:20 pm * Is the patient Alert and Oriented? No * PCP [place] [address] * Pharmacy [place] [address] * Preadmission Environment Moisture Tester Long[facility]Term * Facility Name [place] [address] * List name and contact numbers for known caregivers / representatives who currently or will assist patient after discharge: PRISCILA HILLMAN- [phone] * Verbal permission to speak to the caregivers and representatives has been obtained from the patient. N/A * Additional services required to return to the preadmission environment? No * Can the patient safely return to the preadmission environment? Yes * Has this patient been hospitalized within the prior 30 days at any hospital? No Coverage Notice Reviewer: [id number] - Juana Tatum Notice Issued Date-Time: 11/09/2019 19:34 Notice Type: Patient Choice Letter Notice Delivered To: Family Member Relationship to Patient: Sister Entomology Teacher Name: Priscila Sheryl Delivery Method: HAND - Hand Delivered Casie Days: Prior Verbal Notification: Recipient Understood Notice: Yes Recipient Signature: Yes Med Rec Note Co-signed by Attending: Coverage Notice Comment: [facility] TAM[employer] GOLD BLANQUITA BOYER Reviewer: [id number] Art Winn Notice Issued Date-Time: 11/11/2019 13:30 Notice Type: IM Discharge Notice Notice Delivered To: Family Member Relationship to Patient: Sister Entomology Teacher Name: PRISCILA SHERYL Delivery Method: PHONE - Phone Casie Days: Prior Verbal Notification: Recipient Understood Notice: Yes Recipient Signature: Yes Med Rec Note Co-signed by Attending: Coverage Notice Comment: Last DP export: 11/22/19 9:45 p Patient Name: CHIDI SHERMAN Page 38677 at 1805 All edits/amendments must be made on the electronic document DICTATION DATE: 11/25/191803 ELECTRONIC SCALE ASSEMBLER AND TESTER: JANET 11/25/191803 RPT#: [id number] DC DATE:11/24/19 STATUS: DIS IN [facility] [address] [facility] [place] [address] END OF REPORT
--- NOTE | 2019-11-25 19:08 | MORECARE ---
CASE MANAGEMENT DISCHARGE SUMMARY PATIENT: CHIID SHERMAN UNIT: [id number] ADM DATE: 10/13/19 AGE: 69 : 52 SEX: M ROOM/BED: D.2305 AUTHOR: CHANTEL,DOC PHYSICIAN: REFERRING PHYSICIAN: RHONA PEREZ MD DATE OF SERVICE: 11/25/19 Discharge Plan Patient Name: CHIDI SHERMAN Facility: [facility]:[place] : 1950 Planned Disposition: Nursing Facility [facility] Cert Anticipated Discharge Date: Discharge Date: 11/24/2019 Expected LOS: Initial Reviewer: [id number] Initial Review Date: 10/13/2019 Generated: 11/25/19 8:08 pm Comments DCP- Discharge Planning Updated by [email or web address]: Juana Winn on 11/25/19 5:[address] LATE ENTRY 11/22/19 YANIRA sent referral to [facility] for placement. 11/23/19 YANIRA received notice from Marley at [facility] that she would be by to assess patient today. was notified that [facility] plans to accept patient and will call CM in am. 11/24/19 YANIRA spoke with Priscila Saucedo patient sister she notified of transfer and she had spoken with [facility] already. Nursing to call report. CM called [facility] for transport. DCP- Discharge Planning Updated by [id number]: Juana Winn on 11/18/19 7:[address] PEREZ DID A P2P AGAIN TODAY WITH DR. CAICEDO AND THE RESULTS WAS THE SAME. HE WILL NOT ACCEPT PATIENT UNTIL HIS B/C ARE NEGATIVE. CM WILL CHECK WITH ANOTHER LTACH STARTING THURSDAY. CM WILL CONTINUE TO FOLLOW AND ASSIST NEEDED WITH DISCHARGE PLANNING / NEEDS. DCP- Discharge Planning Updated by [id number]: Juana Winn on 11/18/19 10:[address] CM spoke with Fabiola the director at [facility] and she had requested updates to be faxed and she was going to speak to Dr. Caicedo. She didn't understand why he had asked for those test either and will get back with CM as soon as she speaks with him. CM will continue to follow and assist as needed with discharge planning / needs. DCP- Discharge Planning Updated by [id number]: Juana Winn on 11/18/19 10:[address] LATE ENTRY 11/17/19 Dr. Perez doesn't think it is medically necessary for the head to toe CT or the MRI of the whole spine. CM will contact [facility] to see if they will accept without those test being done. CM will continue to follow and assist as needed with discharge planning / needs. DCP- Discharge Planning Updated by [email or web address]: Juana Winn on 11/18/19 10:[address] LATE ENTRY 11/16/19 ECHO COMPLETE - BLOOD CULTURES PENDING. CM WILL SPEAK TO DR. PEREZ AND SEE IF THERE ARE PLANS TO DO THE HEAD TO TOE CT AND MRI OF TOTAL SPINE.FOR PLACEMENT. DCP- Discharge Planning Updated by [email or web address]: Juana Winn on 11/18/19 10:[address] LATE ENTRY - 11/15/19 SETTING UP A P2P TODAY WITH DR PEREZ AND DR. CAICEDO THIS IS WHAT THE DR. CAICEDO REQUESTED PRIOR TO ADMIT: talked to [facility] physician today, Dr. Caicedo [phone]. He declined to take the patient at [facility] until his blood cultures are negative. He also recommended an ECHOcardiogram looking for valvular vegitations and alos recommended a head to toe CT scan looking for sources of infection and an MRI of the the entire spine looking for infection sources. DCP- Discharge Planning Updated by [email or web address]: Juana Winn on 11/18/19 10:[address] LATE ENTRY - 11/14/19 TRYING TO GET DOC TO DOC SET UP. DR PEREZ HAS CALLED SEVERAL TIMES VINNIE BOYER [facility] BUT DID NOT GET AN ANSWER. CM WILL CONTINUE TO FOLLOW DCP- Discharge Planning Updated by [email or web address]: Juana Winn on 11/11/19 7:[address] CM received notice that [facility] patient. Patient's sister notified and second choice of [facility] in [place] chosen. CM called and faxed records to [facility]. [facility] will review patient and possibly admit over weekend. D/C IMM completed. CM will continue to follow and assist as needed with discharge planning / needs. DCP- Discharge Planning Updated by [id number]: Juana Winn on 11/09/19 6:[address] CM spoke with patient's sister and she wanted patient to stay locally for LTACH placement if possible. CM will send referral to [facility] and see if [facility] will accept and then go from there. CM will continue to follow and assist as needed for discharge planning / needs. DCP- Discharge Planning Updated by [id number]: Juana Winn on 11/08/19 6:[address] CM attempted to call patient's sister to discuss LTACH placement. CM left message to call CM back. CM awaiting call back and will attempt to call back in am. CM will continue to follow and assist as needed with discharge planning / needs. DCP- Discharge Planning Updated by [id number]: Juana Winn on 10/14/19 4:[address] Patient Name: CHIDI SHERMAN Admission Status: ER Accout number: [id number] Admission Date: 10-13-2019 : 1950 Admission Diagnosis: Attending: RHONA PEREZ Current LOS: 1 Anticipated DC Date: Planned Disposition: Nursing Facility [facility] Primary Insurance: MEDICARE A & B Discharge Planning Comments: PATIENT IS A NURSING HOME RESIDENT AT [place] [address] PLAN IS FOR PATIENT TO RETURN TO FACILITY UPON DISCHARGE. PATIENT CONTACT IS PRISCILA HILLMAN - [phone]. Philosophy Specialist: Juana Winn DCPIA - Discharge Planning Initial Assessment Updated by [id number]: Juana Winn on 10/14/19 5:20 pm * Is the patient Alert and Oriented? No * PCP [place] [address] * Pharmacy [place] [address] * Preadmission Environment Stock Preparation Supervisor [facility] * Facility Name [place] [address] * List name and contact numbers for known caregivers / representatives who currently or will assist patient after discharge: PRISCILA HILLMAN- [phone] * Verbal permission to speak to the caregivers and representatives has been obtained from the patient. N/A * Additional services required to return to the preadmission environment? No * Can the patient safely return to the preadmission environment? Yes * Has this patient been hospitalized within the prior 30 days at any hospital? No Coverage Notice Reviewer: [id number] - Juana Tatum Notice Issued Date-Time: 11/09/2019 19:34 Notice Type: Patient Choice Letter Notice Delivered To: Family Member Relationship to Patient: Sister Quality Assurance Representative Name: Priscila Sheryl Delivery Method: HAND - Hand Delivered Casie Days: Prior Verbal Notification: Recipient Understood Notice: Yes Recipient Signature: Yes Med Rec Note Co-signed by Attending: Coverage Notice Comment: [facility] TAMMI GOLD BLANQUITA BOYER Reviewer: [id number] Art Winn Notice Issued Date-Time: 11/11/2019 13:30 Notice Type: IM Discharge Notice Notice Delivered To: Family Member Relationship to Patient: Sister Quality Assurance Representative Name: PRISCILA SHERYL Delivery Method: PHONE - Phone Casie Days: Prior Verbal Notification: Recipient Understood Notice: Yes Recipient Signature: Yes Med Rec Note Co-signed by Attending: Coverage Notice Comment: Last DP export: 11/25/19 5:05 p Patient Name: CHIDI SHERMAN Page [id number] at 1908 All edits/amendments must be made on the electronic document DICTATION DATE: 11/25/191907 HEEL FINISHER: JANET 11/25/191907 RPT#: [id number] DC DATE:11/24/19 STATUS: DIS IN [facility] [address] [facility] [place] [address] END OF REPORT
== END 2019-11-24 17:15 | DRG 3 ==
LOC: D.ER 09:31 → D.ICU 13:55
PROVIDERS: Family Medicine; Internal Medicine Pulmonary Disease; Surgery; ADMIT Family Medicine; ATTEND Family Medicine
PROC: 5A1955Z Respiratory Ventilation, Greater than 96 Consecutive Hours (ICD-10-PCS; 2019-10-13)
PROC: 0BH17EZ Insertion of Endotracheal Airway into Trachea, Via Natural or Artificial Opening (ICD-10-PCS; 2019-10-13)
PROC: 05H633Z Insertion of Infusion Device into Left Subclavian Vein, Percutaneous Approach (ICD-10-PCS; principal; 2019-10-14)
PROC: 0B978ZZ Drainage of Left Main Bronchus, Via Natural or Artificial Opening Endoscopic (ICD-10-PCS; 2019-10-19)
PROC: 0B938ZZ Drainage of Right Main Bronchus, Via Natural or Artificial Opening Endoscopic (ICD-10-PCS; 2019-10-19)
PROC: 0DB78ZX Excision of Stomach, Pylorus, Via Natural or Artificial Opening Endoscopic, Diagnostic (ICD-10-PCS; 2019-11-02)
PROC: 0DH63UZ Insertion of Feeding Device into Stomach, Percutaneous Approach (ICD-10-PCS; 2019-11-02)
PROC: 0B110F4 Bypass Trachea to Cutaneous with Tracheostomy Device, Open Approach (ICD-10-PCS; 2019-11-02 08:30)
PROC: 0X6 Anatomical Regions, Upper Extremities, Detachment (ICD-10-PCS; 2019-11-05)
PROC: 0B978ZZ Drainage of Left Main Bronchus, Via Natural or Artificial Opening Endoscopic (ICD-10-PCS; 2019-11-06)
PROC: 0B938ZZ Drainage of Right Main Bronchus, Via Natural or Artificial Opening Endoscopic (ICD-10-PCS; 2019-11-06)
PROC: 0B9F8ZX Drainage of Right Lower Lung Lobe, Via Natural or Artificial Opening Endoscopic, Diagnostic (ICD-10-PCS; 2019-11-22)
DX: A41.9 Sepsis, unspecified organism (principal); J96.01 Acute respiratory failure with hypoxia; R65.21 Severe sepsis with septic shock; G93.41 Metabolic encephalopathy; K63.1 Perforation of intestine (nontraumatic); J15.212 Pneumonia due to Methicillin resistant Staphylococcus aureus; B20 Human immunodeficiency virus [HIV] disease; N17.9 Acute kidney failure, unspecified; E87.2 Acidosis; E87.6 Hypokalemia; E11.9 Type 2 diabetes mellitus without complications; I99.8 Other disorder of circulatory system